=== PATIENT | male | born 1980 | race Two or more races ===

== ENCOUNTER → 2022-08-27 15:06 | Outpatient (BNVA) | payer MEDICAID, SELFPAY | PROVIDERS: PCP Nurse Practitioner; Visit Provider Nurse Practitioner Family | DX: N40.1 Benign prostatic hyperplasia with lower urinary tract symptoms (principal); R39.14 Feeling of incomplete bladder emptying; N39.0 Urinary tract infection, site not specified | CPT/HCPCS: 99202 ==

== ENCOUNTER 2022-09-17 12:39 | Outpatient (REF) | payer MEDICAID, SELFPAY ==
[2022-09-17 15:52] LABS: PSA,Total (Free>4and<10) 9.48 ng/mL (0.00-4.00)
[2022-09-18 11:34] LABS: Free Prostate Spec Ag 0.5 ng/mL; Percent Free Prostate Spec Ag 6 % (calc) (>25); Prostate Specific Ag Total 8.2 ng/mL (< OR = 4.0)
== END 2022-09-17 12:40 | disposition home or self-care (01) ==
LOC: HO.10HDL 12:39
PROVIDERS: Visit Provider Nurse Practitioner Family
DX: Z12.5 Encounter for screening for malignant neoplasm of prostate (principal); R97.20 Elevated prostate specific antigen [PSA]; N40.1 Benign prostatic hyperplasia with lower urinary tract symptoms
CPT/HCPCS: 36415; 84153; 84154

== ENCOUNTER 2022-09-17 12:49 | Emergency (ER) | payer MEDICAID, SELFPAY ==
--- NOTE | ~2022-09-17 | XR_ITS ---
EXAMINATION: XR CHEST CLINICAL INFORMATION: Cough and SOB COMPARISON: None TECHNIQUE: Frontal view of the chest was obtained. FINDINGS: The lungs are well-expanded and clear. The heart size and pulmonary vascularity is normal. There is hypertrophic bony changes left posterior fourth rib likely callus formation or lesion. No previous exams available for comparison. XR/XR chest 1V IMPRESSION: No acute process seen. Are slightly hypertrophied bone left posterior fourth rib question callus formation versus underlying lesion. Correlate with clinical history.
--- NOTE | 2022-09-17 13:08 | ECG_ITS ---
Test Reason : CP Blood Pressure : / mmHG Vent. Rate : 061 BPM Atrial Rate : 061 BPM P-R Int : 132 ms QRS Dur : 076 ms QT Int : 376 ms P-R-T Axes : 041 -12 011 degrees QTc Int : 378 ms Normal sinus rhythm Minimal voltage criteria for LVH, may be normal variant ( R in aVL ) Borderline ECG No previous ECGs available Referred By: Liudmila Munoz Electronically Signed By:EARNEST AGUIRRE
--- NOTE | 2022-09-17 13:08 | ED_ITS ---
HPI - Chest Pain General Chief Complaint: Upper Respiratory Symptoms <RAHEEM Richardson - Last Filed: 09/17/22 13:13> Stated Complaint: Cough Chest Discomfort <RAHEEM Richardson - Last Filed: 09/17/22 13:13> Time Seen by Provider: 09/17/22 14:59 <RAHEEM Richardson - Last Filed: 09/17/22 13:13> Source: patient and chief port director <Nedra Shah MD - Last Filed: 09/17/22 17:12> Mode of arrival: ambulatory <Nedra Shah MD - Last Filed: 09/17/22 17:12> History of Present Illness HPI narrative: 42-year-old male with history of renal transplant due to hypertension, this was done in [place] and patient has recently moved here approximately 2 months ago and states that he started having cough and congestion shortly after Thanksgiving and states that it has continued despite taking pzet-gae-hcaditv cough medication. Patient states he does have a primary care provider but did not get seen for this persistent cough. He denies any associated fever or chills and has not missed any of his renal transplant medications and states he has plenty of the medication currently. He was seeing Urology today and has a referral to see Nephrology. Patient states that the cough last night was much stronger and also he noted he had some left-sided chest discomfort which prompted him to come into the emergency room today. <Nedra Shah MD - Last Filed: 09/17/22 17:12> Related Data Home Medications: Home Medications Medication Instructions Recorded Confirmed famotidine 40 mg tablet (Pepcid) 40 mg PO BEDTIME 08/27/22 08/27/22 metoprolol tartrate 50 mg tablet 50 mg PO BID 08/27/22 08/27/22 mycophenolate sodium 360 mg 360 mg PO TID 08/27/22 08/27/22 tablet,delayed release prednisone 5 mg tablet 5 mg PO DAILY 08/27/22 08/27/22 tacrolimus 1 mg capsule, 2 mg PO Q12H 08/27/22 08/27/22 immediate-release Previous Rx's Medication Instructions Recorded ascorbic acid (vitamin C) 1,000 mg 1,000 mg PO DAILY 90 days #90 tabs 08/27/22 tablet methenamine hippurate 1 gram tablet 1 g PO daily 90 days #90 tabs 08/27/22 cefdinir 300 mg capsule 300 mg PO Q12H #14 caps 09/17/22 <RAHEEM Richardson - Last Filed: 09/17/22 13:13> Allergies/Adverse Reactions: Allergies Allergy/AdvReac Type Severity Reaction Status Date / Time No Known Allergies Allergy Verified 08/27/22 22:17 <RAHEEM Richardson - Last Filed: 09/17/22 13:13> Review of Systems Review of Systems: Pertinent positives and negatives as stated in HPI. <Nedra Shah MD - Last Filed: 09/17/22 17:12> PMFSH Past Medical History Source: nursing notes reviewed <Nedra Shah MD - Last Filed: 09/17/22 17:12> Medical History: Medical History Benign prostatic hyperplasia with incomplete bladder emptying BPH loc w urin obs/LUTS Dialysis patient Elevated PSA Recurrent UTI Testicular cyst <RAHEEM Richardson - Last Filed: 09/17/22 13:13> Surgical History: Surgical History Kidney transplant recipient <RAHEEM Richardson - Last Filed: 09/17/22 13:13> Social History Social History: Social History Advance Directives: No Advance Directives Information Provided: No <RAHEEM Richardson - Last Filed: 09/17/22 13:13> Physical Exam Vital Signs: Vital Signs: Last Vital Signs Temp 97.8 F 09/17/22 13:11 Pulse 65 09/17/22 13:11 Resp 18 09/17/22 13:11 BP 134/78 09/17/22 13:11 Pulse Ox 98 09/17/22 13:11 O2 Del Method 09/17/22 13:11 BMI result Body Mass Index 29.5 <RAHEEM Richardson - Last Filed: 09/17/22 13:13> Vital Signs: Last Vital Signs Temp 97.8 F 09/17/22 13:11 Pulse 65 09/17/22 13:11 Resp 18 09/17/22 13:11 BP 134/78 09/17/22 13:11 Pulse Ox 98 09/17/22 13:11 O2 Del Method 09/17/22 13:11 BMI result Body Mass Index 29.5 VITAL SIGNS: Reviewed. GENERAL: Well developed, well nourished, in no acute distress. HEAD: Normocephalic/atraumatic EYES: PERRLA, EOMI EARS: Ext canals without abnormality OROPHARYNX: no oral lesions noted, posterior pharynx clear LUNGS: Normal breath sounds, no tachypnea/wheeze/rhonchi/rales. SpO2<98> CARDIOVASCULAR: Regular rate and rhythm without noted murmurs, no JVD or lower extremity edema. ABDOMEN: Soft, non-tender, non-distended with bowel sounds. MUSCULOSKELETAL: No tenderness, deformities, or effusions noted on gross inspection. EXTREMITIES: No cyanosis, clubbing or edema LEFT UPPER EXTREMITY: AV fistula noted at the distal left upper extremity without thrill or bruit SKIN: Inspection of the skin reveals no rashes NEUROLOGIC: Alert and oriented x 4. Strength and sensation to light touch were grossly intact x 4. <Nedra Shah MD - Last Filed: 09/17/22 17:12> Course Course Course Narrative: RME--42yo M w/PMHx HTN, BPH, s/p kidney transplant '17 in [place] 2/2 uncontrolled HTN, presenting to the ED complaining of dry cough x 1 mos now with chest congestion, and chest discomfort with cough x today On exam lungs CTA, no pedal edema EKG, COVID-19/influenza/RSV and CXR ordered <RAHEEM Richardson - Last Filed: 09/17/22 13:13> Medical Decision Making Medical Decision Making MDM Narrative: 42-year-old male with persistent cough and left-sided chest discomfort and significant past history of renal transplant and triage EKG noted to have peaked T-waves. Patient appears well at this time My a review and interpretation of the workup is that patient has stable CKD, there is a noted leukocytosis and patient is known to have recurrent UTIs with presumable colonization, but given the fact that he has a leukocytosis and positive nitrites in the urine will provide patient with antibiotics and instruct him to follow-up with his primary care provider regarding the urine culture results. Chest x-ray is negative for evidence of pneumonia, belly exam is benign and no evidence to suggest PE. There is no protein noted in the urine. Patient may just simply have a chronic cough. He otherwise appears well and is hemodynamically stable. <Nedra Shah MD - Last Filed: 09/17/22 17:12> Differential Diagnosis Differential Diagnoses: The differential diagnosis associated with the presentation includes <Nedra Shah MD - Last Filed: 09/17/22 17:12> I will rule out infection, PE, electrolyte abnormality, and lower clinical suspicion for pneumonia or viral infection. <Nedra Shah MD - Last Filed: 09/17/22 17:12> Lab Data Result Diagrams: : 09/17/22 15:21 09/17/22 15:21 <RAHEEM Richardson - Last Filed: 09/17/22 13:13> Labs: Lab Results 09/17/22 09/17/22 09/17/22 Range/Units 13:30 15:21 15:21 WBC 12.7 H (4.8-10.8) X10*3/uL RBC 5.15 (4.60-5.80) X10*6/uL Hgb 15.2 (14.0-18.0) g/dl Hct 46.1 (42.0-52.0) % MCV 89.5 (80.0-98.0) fL MCH 29.5 (27.0-33.0) pg MCHC 33.0 (31.0-36.0) g/dl RDW 13.4 (11.0-16.0) % Plt Count 172 (160-400) X10*3/uL MPV 10.0 (9.4-12.4) fL Immature Gran % (Auto) 0.8 H (0.0-0.4) % Neut % (Auto) 82.7 H (45-73) % Lymph % (Auto) 9.1 L (20-40) % [place] % (Auto) 4.7 (2-11) % Eos % (Auto) 2.4 (0-4) % Baso % (Auto) 0.3 (0-2) % Lymph # (Auto) 1.2 (1.2-4.9) X10*3/uL [place] # (Auto) 0.6 (0.1-1.2) X10*3/uL Eos # (Auto) 0.3 (0.0-0.4) X10*3/uL Baso # (Auto) 0.0 (0.0-0.2) X10*3/uL Abs Immat Gran (auto) 0.10 H (0.00-0.03) X10*3/uL Absolute Neuts (auto) 10.5 H (2.0-8.3) x10*3/uL Absolute Nucleated RBC 0.000 (0.0-0.012) X10*3/uL Nucleated RBC % (auto) 0.0 (0.0-0.2) /100WBC D-Dimer High Sensitivty NG/ML Sodium 139 (135-145) mmol/L Potassium 4.8 (3.3-5.1) mmol/L Chloride 104 (96-108) mmol/L Carbon Dioxide 26 (22-29) mmol/L Anion Gap 14 (12-20) BUN 18 H (9-16) mg/dL Creatinine 1.78 H (0.5-1.4) mg/dL Estim Creat Clear Calc 58.9 Estimated GFR 42 Random Glucose 106 (60-115) mg/dL Calcium 9.2 (8.4-10.2) mg/dL Magnesium 1.6 (1.6-2.6) mg/dL Total Bilirubin 0.8 (0.0-1.0) mg/dL AST 21 (5-37) U/L ALT 16 (0-40) U/L Alkaline Phosphatase 89 (39-117) U/L Troponin I High Sens (<3.5-35.0) ng/L Total Protein 6.8 (6.5-8.0) g/dL Albumin 4.5 (3.5-5.0) g/dL Lipase 55 (8-78) U/L Urine Color Urine Appearance Urine pH (5.0-9.0) Ur Specific [place] (1.005-1.025) Urine Protein (Neg-Trace) mg/dL Urine Glucose (UA) (Negative) mg/dL Urine Ketones (Negative) mg/dL Urine Blood (Negative) Urine Nitrite (Negative) Ur Leukocyte Esterase (Negative) Urine RBC (0-2) /HPF Urine WBC (0-5) /HPF Ur Squamous Epith Cells (0-2) /HPF Urine Bacteria (None Seen) Hyaline Casts (0-2) /LPF Influenza Type A (PCR) NEGATIVE (Negative) Influenza Type B (PCR) NEGATIVE (Negative) RSV RNA Qual (PCR) NEGATIVE (Negative) SARS-CoV-2 RNA (RT-PCR) NEGATIVE (Negative) 09/17/22 09/17/22 09/17/22 Range/Units 15:21 15:49 16:45 WBC (4.8-10.8) X10*3/uL RBC (4.60-5.80) X10*6/uL Hgb (14.0-18.0) g/dl Hct (42.0-52.0) % MCV (80.0-98.0) fL MCH (27.0-33.0) pg MCHC (31.0-36.0) g/dl RDW (11.0-16.0) % Plt Count (160-400) X10*3/uL MPV (9.4-12.4) fL Immature Gran % (Auto) (0.0-0.4) % Neut % (Auto) (45-73) % Lymph % (Auto) (20-40) % [place] % (Auto) (2-11) % Eos % (Auto) (0-4) % Baso % (Auto) (0-2) % Lymph # (Auto) (1.2-4.9) X10*3/uL [place] # (Auto) (0.1-1.2) X10*3/uL Eos # (Auto) (0.0-0.4) X10*3/uL Baso # (Auto) (0.0-0.2) X10*3/uL Abs Immat Gran (auto) (0.00-0.03) X10*3/uL Absolute Neuts (auto) (2.0-8.3) x10*3/uL Absolute Nucleated RBC (0.0-0.012) X10*3/uL Nucleated RBC % (auto) (0.0-0.2) /100WBC D-Dimer High Sensitivty 250 NG/ML Sodium (135-145) mmol/L Potassium (3.3-5.1) mmol/L Chloride (96-108) mmol/L Carbon Dioxide (22-29) mmol/L Anion Gap (12-20) BUN (9-16) mg/dL Creatinine (0.5-1.4) mg/dL Estim Creat Clear Calc Estimated GFR Random Glucose (60-115) mg/dL Calcium (8.4-10.2) mg/dL Magnesium (1.6-2.6) mg/dL Total Bilirubin (0.0-1.0) mg/dL AST (5-37) U/L ALT (0-40) U/L Alkaline Phosphatase (39-117) U/L Troponin I High Sens 3.8 (<3.5-35.0) ng/L Total Protein (6.5-8.0) g/dL Albumin (3.5-5.0) g/dL Lipase (8-78) U/L Urine Color Yellow Urine Appearance Clear Urine pH 6.5 (5.0-9.0) Ur Specific [place] 1.010 (1.005-1.025) Urine Protein Negative (Neg-Trace) mg/dL Urine Glucose (UA) Negative (Negative) mg/dL Urine Ketones Negative (Negative) mg/dL Urine Blood Negative (Negative) Urine Nitrite Positive H (Negative) Ur Leukocyte Esterase Large (3+) H (Negative) Urine RBC 0-2 (0-2) /HPF Urine WBC >50 H (0-5) /HPF Ur Squamous Epith Cells 0-2 (0-2) /HPF Urine Bacteria 4+ (None Seen) Hyaline Casts 0-2 (0-2) /LPF Influenza Type A (PCR) (Negative) Influenza Type B (PCR) (Negative) RSV RNA Qual (PCR) (Negative) SARS-CoV-2 RNA (RT-PCR) (Negative) <RAHEEM Richardson - Last Filed: 09/17/22 13:13> Lab Results 09/17/22 09/17/22 09/17/22 Range/Units 13:30 15:21 15:21 WBC 12.7 H (4.8-10.8) X10*3/uL RBC 5.15 (4.60-5.80) X10*6/uL Hgb 15.2 (14.0-18.0) g/dl Hct 46.1 (42.0-52.0) % MCV 89.5 (80.0-98.0) fL MCH 29.5 (27.0-33.0) pg MCHC 33.0 (31.0-36.0) g/dl RDW 13.4 (11.0-16.0) % Plt Count 172 (160-400) X10*3/uL MPV 10.0 (9.4-12.4) fL Immature Gran % (Auto) 0.8 H (0.0-0.4) % Neut % (Auto) 82.7 H (45-73) % Lymph % (Auto) 9.1 L (20-40) % [place] % (Auto) 4.7 (2-11) % Eos % (Auto) 2.4 (0-4) % Baso % (Auto) 0.3 (0-2) % Lymph # (Auto) 1.2 (1.2-4.9) X10*3/uL [place] # (Auto) 0.6 (0.1-1.2) X10*3/uL Eos # (Auto) 0.3 (0.0-0.4) X10*3/uL Baso # (Auto) 0.0 (0.0-0.2) X10*3/uL Abs Immat Gran (auto) 0.10 H (0.00-0.03) X10*3/uL Absolute Neuts (auto) 10.5 H (2.0-8.3) x10*3/uL Absolute Nucleated RBC 0.000 (0.0-0.012) X10*3/uL Nucleated RBC % (auto) 0.0 (0.0-0.2) /100WBC D-Dimer High Sensitivty NG/ML Sodium 139 (135-145) mmol/L Potassium 4.8 (3.3-5.1) mmol/L Chloride 104 (96-108) mmol/L Carbon Dioxide 26 (22-29) mmol/L Anion Gap 14 (12-20) BUN 18 H (9-16) mg/dL Creatinine 1.78 H (0.5-1.4) mg/dL Estim Creat Clear Calc 58.9 Estimated GFR 42 Random Glucose 106 (60-115) mg/dL Calcium 9.2 (8.4-10.2) mg/dL Magnesium 1.6 (1.6-2.6) mg/dL Total Bilirubin 0.8 (0.0-1.0) mg/dL AST 21 (5-37) U/L ALT 16 (0-40) U/L Alkaline Phosphatase 89 (39-117) U/L Troponin I High Sens (<3.5-35.0) ng/L Total Protein 6.8 (6.5-8.0) g/dL Albumin 4.5 (3.5-5.0) g/dL Lipase 55 (8-78) U/L Urine Color Urine Appearance Urine pH (5.0-9.0) Ur Specific [place] (1.005-1.025) Urine Protein (Neg-Trace) mg/dL Urine Glucose (UA) (Negative) mg/dL Urine Ketones (Negative) mg/dL Urine Blood (Negative) Urine Nitrite (Negative) Ur Leukocyte Esterase (Negative) Urine RBC (0-2) /HPF Urine WBC (0-5) /HPF Ur Squamous Epith Cells (0-2) /HPF Urine Bacteria (None Seen) Hyaline Casts (0-2) /LPF Influenza Type A (PCR) NEGATIVE (Negative) Influenza Type B (PCR) NEGATIVE (Negative) RSV RNA Qual (PCR) NEGATIVE (Negative) SARS-CoV-2 RNA (RT-PCR) NEGATIVE (Negative) 09/17/22 09/17/22 09/17/22 Range/Units 15:21 15:49 16:45 WBC (4.8-10.8) X10*3/uL RBC (4.60-5.80) X10*6/uL Hgb (14.0-18.0) g/dl Hct (42.0-52.0) % MCV (80.0-98.0) fL MCH (27.0-33.0) pg MCHC (31.0-36.0) g/dl RDW (11.0-16.0) % Plt Count (160-400) X10*3/uL MPV (9.4-12.4) fL Immature Gran % (Auto) (0.0-0.4) % Neut % (Auto) (45-73) % Lymph % (Auto) (20-40) % [place] % (Auto) (2-11) % Eos % (Auto) (0-4) % Baso % (Auto) (0-2) % Lymph # (Auto) (1.2-4.9) X10*3/uL [place] # (Auto) (0.1-1.2) X10*3/uL Eos # (Auto) (0.0-0.4) X10*3/uL Baso # (Auto) (0.0-0.2) X10*3/uL Abs Immat Gran (auto) (0.00-0.03) X10*3/uL Absolute Neuts (auto) (2.0-8.3) x10*3/uL Absolute Nucleated RBC (0.0-0.012) X10*3/uL Nucleated RBC % (auto) (0.0-0.2) /100WBC D-Dimer High Sensitivty 250 NG/ML Sodium (135-145) mmol/L Potassium (3.3-5.1) mmol/L Chloride (96-108) mmol/L Carbon Dioxide (22-29) mmol/L Anion Gap (12-20) BUN (9-16) mg/dL Creatinine (0.5-1.4) mg/dL Estim Creat Clear Calc Estimated GFR Random Glucose (60-115) mg/dL Calcium (8.4-10.2) mg/dL Magnesium (1.6-2.6) mg/dL Total Bilirubin (0.0-1.0) mg/dL AST (5-37) U/L ALT (0-40) U/L Alkaline Phosphatase (39-117) U/L Troponin I High Sens 3.8 (<3.5-35.0) ng/L Total Protein (6.5-8.0) g/dL Albumin (3.5-5.0) g/dL Lipase (8-78) U/L Urine Color Yellow Urine Appearance Clear Urine pH 6.5 (5.0-9.0) Ur Specific [place] 1.010 (1.005-1.025) Urine Protein Negative (Neg-Trace) mg/dL Urine Glucose (UA) Negative (Negative) mg/dL Urine Ketones Negative (Negative) mg/dL Urine Blood Negative (Negative) Urine Nitrite Positive H (Negative) Ur Leukocyte Esterase Large (3+) H (Negative) Urine RBC 0-2 (0-2) /HPF Urine WBC >50 H (0-5) /HPF Ur Squamous Epith Cells 0-2 (0-2) /HPF Urine Bacteria 4+ (None Seen) Hyaline Casts 0-2 (0-2) /LPF Influenza Type A (PCR) (Negative) Influenza Type B (PCR) (Negative) RSV RNA Qual (PCR) (Negative) SARS-CoV-2 RNA (RT-PCR) (Negative) <Nedra Shah MD - Last Filed: 09/17/22 17:12> Independent Interpretation I performed an independent interpretation of an: EKG <Nedra Shah MD - Last Filed: 09/17/22 17:12> Interpretation: Normal sinus rhythm, HR-61, no STEMI, peaked T-waves appreciated in lead V2/V3 <Nedra Shah MD - Last Filed: 09/17/22 17:12> External Record Review External record reviewed: Office record <Nedra Shah MD - Last Filed: 09/17/22 17:12> Reviewed patient's urology visit notes which states that patient had his renal transplant in 2016, moved here in May, and currently has to self cath and has chronic UTIs. There is also mention a left testicular lump that has been previously ultrasound in [place] and found to be a cyst. Patient was on dialysis from [id number]. Patient has BPH with elevated PSA. <Nedra Shah MD - Last Filed: 09/17/22 17:12> Critical Care Time Critical Care Time Critical Care Time: Yes <Nedra Shah MD - Last Filed: 09/17/22 17:12> Total Critical Care Time: 30 <Nedra Shah MD - Last Filed: 09/17/22 17:12> Attestation: I personally attest to this time spent taking care of the patient. <Nedra Shah MD - Last Filed: 09/17/22 17:12> Discharge Plan Discharge Clinical Impression: Chronic cough, Recurrent UTI <RAHEEM Richardson - Last Filed: 09/17/22 13:13> Patient Disposition: Home, Self-Care <RAHEEM Richardson - Last Filed: 09/17/22 13:13> Instructions: Urinary Tract Infection in Men (ED), Chronic Cough (ED) <RAHEEM Richardson - Last Filed: 09/17/22 13:13> Additional Instructions: 1. Recomiende que reanude todos los medicamentos caseros seg?n lo prescrito. 2. Le he recetado un antibi?erma para willis infecci?n del tracto urinario, entiendo que tiene infecciones recurrentes del tracto urinario, deber? realizar un s eguimiento con urolog?a o willis proveedor de atenci?n primaria para que puedan verificar los resultados del cultivo de orina en el pr?ximo 1-2 d?as 3. Anita un seguimiento con willis proveedor de atenci?n primaria en los pr?ximos 1 o 2 d?as. Regrese a la junior de emergencias si los s?ntomas empeoran. 1. Recommend that you resume all home medications as prescribed. 2. I have prescribed an antibiotic for your urinary tract infection, I understand that you have recurrent urinary tract infections, you will need to follow-up with urology or your primary care provider so that they can check on the urine culture results in the next 1-2 days. 3. Please follow-up with your primary care provider in the next 1-2 days. Return to the ER for any worsening symptoms. <RAHEEM Richardson - Last Filed: 09/17/22 13:13> Prescriptions: New cefdinir 300 mg capsule 300 mg PO Q12H Qty: 14 0RF No Action metoprolol tartrate 50 mg tablet 50 mg PO BID prednisone 5 mg tablet 5 mg PO DAILY mycophenolate sodium 360 mg tablet,delayed release (DR/EC) 360 mg PO TID tacrolimus 1 mg capsule 2 mg PO Q12H famotidine [Pepcid] 40 mg tablet 40 mg PO BEDTIME ascorbic acid (vitamin C) 1,000 mg tablet 1,000 mg PO DAILY 90 Days Qty: 90 1RF methenamine hippurate 1 gram tablet 1 g PO daily 90 Days Qty: 90 1RF <RAHEEM Richardson - Last Filed: 09/17/22 13:13> Referrals: [facility] [Primary Care Provider] - Rossana Carmona MD [Physician] - (UTI, seen 09/17/2022 at Urology office, started on abx(cefdinir) here in ER but has hx renal transplant which seems stable at this time.) <RAHEEM Richardson - Last Filed: 09/17/22 13:13> Print Language: Taiwanese <RAHEEM Richardson - Last Filed: 09/17/22 13:13>
[2022-09-17 13:11] VITALS: BP 134/78; PULSE 65; RESP 18; TEMP 36.6; O2SAT 98; BMI 29.5
[2022-09-17 14:22] LABS: Influenza A PCR NEGATIVE (Negative); Influenza B PCR NEGATIVE (Negative); Resp Syncy Virus RNA Qual PCR NEGATIVE (Negative); SARS COV2 PCR INHOUSE NEGATIVE (Negative)
[2022-09-17 15:25] LABS: MANUAL DIFF FLAG NO
[2022-09-17 15:41] LABS: Basophils Percent Auto 0.3 % (0-2); Eosinophils Absolute Auto 0.3 X10*3/uL (0.0-0.4); Eosinophils Percent Auto 2.4 % (0-4); Hematocrit 46.1 % (42.0-52.0); Hemoglobin 15.2 g/dl (14.0-18.0); Imm Gran Pct Auto 0.8 % (0.0-0.4); Lymphocytes Absolute Auto 1.2 X10*3/uL (1.2-4.9); Lymphocytes Percent Auto 9.1 % (20-40); Mean Corpuscular Hemoglobin 29.5 pg (27.0-33.0); Mean Corpuscular Volume 89.5 fL (80.0-98.0); Monocytes Absolute Auto 0.6 X10*3/uL (0.1-1.2); Monocytes Percent Auto 4.7 % (2-11); Neutrophils Absolute Auto 10.5 x10*3/uL (2.0-8.3); Neutrophils Percent Auto 82.7 % (45-73); Platelet Count 172 X10*3/uL (160-400); Red Blood Count 5.15 X10*6/uL (4.60-5.80); Red Cell Distribution Width 13.4 % (11.0-16.0); White Blood Count 12.7 X10*3/uL (4.8-10.8)
[2022-09-17 16:02] LABS: D Dimer High Sensitivity 250 NG/ML
[2022-09-17 16:09] LABS: Alanine Aminotransferase 16 U/L (0-40); Albumin Level 4.5 g/dL (3.5-5.0); Alkaline Phosphatase 89 U/L (39-117); Anion Gap 14 (12-20); Aspartate Amino Transferase 21 U/L (5-37); Bilirubin Total 0.8 mg/dL (0.0-1.0); Blood Urea Nitrogen 18 mg/dL (9-16); Calcium 9.2 mg/dL (8.4-10.2); Carbon Dioxide 26 mmol/L (22-29); Chloride 104 mmol/L (96-108); Creatinine Clr Calc Pharmacy 58.9; Estimated Glomerular Filt Rate 42; Glucose Random 106 mg/dL (60-115); Lipase 55 U/L (8-78); Magnesium 1.6 mg/dL (1.6-2.6); Potassium 4.8 mmol/L (3.3-5.1); Sodium 139 mmol/L (135-145); Total Protein 6.8 g/dL (6.5-8.0)
[2022-09-17 16:17] LABS: Troponin-I High Sensitivity 3.8 ng/L (<3.5-35.0)
[2022-09-17 16:55] LABS: Appearance Urine Clear; Color Urine Yellow; Glucose Urine UA Negative (Negative); Leukocyte Esterase Urine Large (3+) (Negative); Nitrite Urine Positive (Negative); PH 6.5 (5.0-9.0); UMIC TRIGGER UACC YES; Urine Blood Negative (Negative); Urine Ketones Negative (Negative); Urine Protein Negative (Neg-Trace)
[2022-09-17 16:57] LABS: Bacteria Urine 4+ (None Seen); Hyaline Casts Urine 0-2 /LPF (0-2); RBC Urine 0-2 /HPF (0-2); Squamous Epithelial Cell Urine 0-2 /HPF (0-2); UACC Culture Trigger YES; WBC Urine >50 /HPF (0-5)
== END 2022-09-17 17:25 | disposition home or self-care (01) ==
PROVIDERS: Physician Assistant; Emergency Provider Student in an Organized Health Care Education/Training Program
DX: R05.3 Chronic cough (principal); N39.0 Urinary tract infection, site not specified; B96.20 Unspecified Escherichia coli [E. coli] as the cause of diseases classified elsewhere; Z20.828 Contact with and (suspected) exposure to other viral communicable diseases; Z87.440 Personal history of urinary (tract) infections
CPT/HCPCS: 0241U; 36415; 71045; 80053; 81001; 83690; 83735; 84484; 85025; 85379; 87086; 87088; 87186; 93005; 99283

== ENCOUNTER → 2022-09-24 11:10 | Outpatient (BNVA) | payer MEDICAID, SELFPAY | PROVIDERS: Visit Provider Nurse Practitioner Family | DX: R97.20 Elevated prostate specific antigen [PSA] (principal); N40.1 Benign prostatic hyperplasia with lower urinary tract symptoms | CPT/HCPCS: 99212 ==

== ENCOUNTER → 2022-10-07 13:27 | Outpatient (BNVA) | payer MEDICAID, SELFPAY | PROVIDERS: Visit Provider Urology | DX: N40.1 Benign prostatic hyperplasia with lower urinary tract symptoms (principal); N13.8 Other obstructive and reflux uropathy; N31.9 Neuromuscular dysfunction of bladder, unspecified; N39.0 Urinary tract infection, site not specified | CPT/HCPCS: 52000; 99212 ==

== ENCOUNTER 2022-10-16 12:01 | Outpatient (REF) | payer MEDICAID, SELFPAY ==
--- NOTE | ~2022-10-16 | XR_ITS ---
EXAMINATION: XR CHEST 2 VIEWS CLINICAL INFORMATION: Chronic cough. COMPARISON: Radiographs dated 09/17/2022. TECHNIQUE: Frontal and lateral views of the chest were obtained. FINDINGS: The heart, great vessels, pulmonary vasculature and mediastinum are normal. The lungs show no focal infiltrate, effusion or pneumothorax. There is no acute osseous abnormality. Again, there is bony hypertrophy of the anterior left fourth rib, possibly a healing/healed fracture. XR/XR chest 2V IMPRESSION: 1. No focal infiltrate or congestive heart failure is seen. 2. There is stable hypertrophy of the anterior left fourth rib, possibly bony remodeling from a chronic fracture, although underlying lesion cannot be excluded with certainty given this appearance. Recommend comparison with any available remote outside radiographs. If clinically indicated, consider further evaluation with a dedicated left rib series.
== END 2022-10-16 12:02 | disposition home or self-care (01) ==
LOC: HO.XRAY 12:01
PROVIDERS: PCP Nurse Practitioner; Visit Provider Nurse Practitioner
DX: R05.3 Chronic cough (principal)
CPT/HCPCS: 71046

== ENCOUNTER 2022-10-22 11:38 | Outpatient (REF) | payer MEDICAID, SELFPAY ==
--- NOTE | ~2022-10-22 | XR_ITS ---
EXAMINATION: XR RIBS, LEFT CLINICAL INFORMATION: Reason for Exam chronic cough, r/o bony abnormality COMPARISON: Chest radiograph 10/16/2022 TECHNIQUE: 3 views of the Left ribs. 1 view of the chest. FINDINGS: Again seen is an expansile somewhat lucent appearing lesion in the anterior left first rib. Surgical clips in the upper thorax. Clear lungs. No pneumothorax. No pleural effusion. Normal cardiomediastinal silhouette. XR/XR ribs LT min 3V w CXR1V IMPRESSION: Again seen is an expansile somewhat lucent appearing lesion in the left anterior first rib, possibly sequelae of remote fracture deformity however an underlying lesion could appear similar. Recommend correlation with a CT chest or if any remote prior imaging is available to establish stability a comparison can be made.
== END 2022-10-22 11:39 | disposition home or self-care (01) ==
LOC: HO.XRAY 11:38
PROVIDERS: PCP Nurse Practitioner; Visit Provider Nurse Practitioner
DX: R05.3 Chronic cough (principal); R93.7 Abnormal findings on diagnostic imaging of other parts of musculoskeletal system
CPT/HCPCS: 71101

== ENCOUNTER 2022-12-04 11:28 | Outpatient (REF) | payer MEDICAID, SELFPAY ==
--- NOTE | ~2022-12-04 | XR_ITS ---
EXAMINATION: XR CERVICAL AND LUMBAR SPINE: CLINICAL INFORMATION: Chronic neck pain and back pain. COMPARISON: None. FINDINGS: LUMBAR SPINE: There is normal lumbar lordosis. Minimal loss of L5-S1 disc height seen. The rest of the disc heights, vertebral heights and alignment are normal. No visible acute fracture, dislocation or lytic process seen. The SI joints are symmetrical. CERVICAL SPINE: There is mild straightening of the cervical lordosis. The vertebral heights and alignment are normal. No visible acute fracture, dislocation or lytic process seen. The neural foramina are patent. No soft tissue abnormality seen. XR/XR cervical spine 4V IMPRESSION: 1. Mild degenerative L5-S1 disc changes. 2. Unremarkable cervical spine exam.
--- NOTE | ~2022-12-04 | XR_ITS ---
EXAMINATION: XR CERVICAL AND LUMBAR SPINE: CLINICAL INFORMATION: Chronic neck pain and back pain. COMPARISON: None. FINDINGS: LUMBAR SPINE: There is normal lumbar lordosis. Minimal loss of L5-S1 disc height seen. The rest of the disc heights, vertebral heights and alignment are normal. No visible acute fracture, dislocation or lytic process seen. The SI joints are symmetrical. CERVICAL SPINE: There is mild straightening of the cervical lordosis. The vertebral heights and alignment are normal. No visible acute fracture, dislocation or lytic process seen. The neural foramina are patent. No soft tissue abnormality seen. XR/XR lumbar spine 2-3V IMPRESSION: 1. Mild degenerative L5-S1 disc changes. 2. Unremarkable cervical spine exam.
== END 2022-12-04 11:29 | disposition home or self-care (01) ==
LOC: HO.XRAY 11:28
PROVIDERS: Visit Provider Registered Nurse
DX: M54.2 Cervicalgia (principal); M54.41 Lumbago with sciatica, right side; M54.42 Lumbago with sciatica, left side
CPT/HCPCS: 72050; 72100

== ENCOUNTER 2022-12-16 12:54 | Outpatient (REF) | payer MEDICAID, SELFPAY ==
--- NOTE | ~2022-12-16 | CT_ITS ---
EXAMINATION: CT CHEST WITHOUT CONTRAST CLINICAL INFORMATION: Chronic cough. COMPARISON: None available. TECHNIQUE: Multidetector volumetric CT imaging of the chest was done. Axial MIP volume rendering provided. Sagittal and coronal reformatted images were obtained. This CT examination was performed using dose optimization techniques as appropriate, variously including the following: *Automated exposure control *Adjustment of mA and/or kV according to patient size (this includes techniques or standardized protocols for targeted exams where dose is matched to indication/reason for exam; i.e. extremities or head) *Use of iterative reconstruction technique DLP: 190 mGy-cm. FINDINGS: PRE PLANNING ADVISOR: Expanded lungs without acute process. LUNGS: The lungs are well expanded and clear of acute process. A 3 mm subpleural nodule is seen in left upper lobe axial image 218/5. No additional nodules seen. MEDIASTINUM: The thyroid lobes are symmetrical and normal. The central trachea and the bronchi are widely patent. Heart size and the great vessels are normal caliber. There is no pericardial effusion. No abnormal size mediastinal lymph nodes or mass. CORONARY ARTERY CALCIFICATION: None visualized on this study. PLEURA: There is no pleural effusion. No pleural mass or thickening. AXILLA: No lymphadenopathy. UPPER ABDOMEN: Visualized liver, spleen, pancreas and bilateral adrenal glands are unremarkable. OSSEOUS STRUCTURES: No aggressive lytic or sclerotic process seen. CT/CT chest wo IV con IMPRESSION: No acute cardiopulmonary process seen. A 3 mm subpleural nodule left upper lobe. Fleischner guidelines were followed.
== END 2022-12-16 12:55 | disposition home or self-care (01) ==
LOC: HO.CT 12:54
PROVIDERS: PCP Nurse Practitioner; Visit Provider Nurse Practitioner
DX: R05.3 Chronic cough (principal); R93.7 Abnormal findings on diagnostic imaging of other parts of musculoskeletal system; N18.9 Chronic kidney disease, unspecified; Z94.0 Kidney transplant status
CPT/HCPCS: 71250

== ENCOUNTER 2023-01-23 14:29 | Outpatient (REF) | payer MEDICAID, SELFPAY ==
[2023-01-24 11:32] LABS: Tacrolimus Prograf 8.6 NG/ML ((5-20))
== END 2023-01-23 14:30 | disposition home or self-care (01) ==
LOC: HO.LAB 14:29
PROVIDERS: Visit Provider Registered Nurse
DX: N41.9 Inflammatory disease of prostate, unspecified (principal); Z94.0 Kidney transplant status
CPT/HCPCS: 36415; 80197

== ENCOUNTER 2023-01-28 16:25 | Outpatient (REF) | payer MEDICAID, SELFPAY | END 2023-01-28 16:26 | disposition home or self-care (01) | LOC: HO.LNP 16:25 | PROVIDERS: Visit Provider Registered Nurse | DX: N41.9 Inflammatory disease of prostate, unspecified (principal); Z94.0 Kidney transplant status | CPT/HCPCS: 87086; 87088; 87186 ==

== ENCOUNTER 2023-04-14 15:28 | Outpatient (AMB) | payer MEDICAID, SELFPAY ==
--- NOTE | 2023-04-14 16:02 | A.OFFVIS_ITS ---
Intake Intake Visit Reasons: 6m follow up/MRI(SET) Intake Note: Patient is present for Follow Up MRI Urology Med: Methenamine Antibiotic Allergy:None Blood Thinner: None Pharmacy: [facility] Allergies No Known Allergies Allergy (Verified 10/07/22 14:10) Medication List - Last Reconciled 04/14/23 by Brandon Correa MD ascorbic acid (vitamin C) 1,000 mg PO DAILY 90 days cefdinir 300 mg PO Q12H famotidine (Pepcid) 40 mg PO BEDTIME methenamine hippurate 1 g PO daily 90 days metoprolol tartrate 50 mg PO BID mycophenolate sodium 360 mg PO TID prednisone 5 mg PO DAILY tacrolimus 2 mg PO Q12H tadalafil 20 mg PO ONCE PRN 30 days trimethoprim 100 mg PO DAILY 90 days HPI HPI Comments History of Present Illness Details Tate is a pleasant Mauritian-speaking male. The patient of Dr. Greenberg. He is seen for the following urologic conditions - neurogenic bladder - erectile dysfunction - elevated PSA Mauritian translation provided by qualified ophthalmic medical technologist Doing well with clean intermittent catheterization No evidence of infection Discussed MRI results - no area of concern Erectile dysfunction - trial 20 mg tadalafil Requires clean intermittent catheterization for the foreseeable future secondary to neurogenic bladder and renal transplant - trial coude catheter for prostate inflammation Neurogenic bladder Renal transplant 2016 7 years prior dialysis Self catheterization 4 times a day for bladder emptying secondary to neurogenic bladder Associated recurring UTI Associated elevated PSA 10/06 9.4 6% PSA biopsy performed in [place] 2020 and reported as negative Cystoscopy 10/06 NAD MRI - 03/06 - PI-RADS 2 Therapeutic plan - prostate MRI 6 months PSA - suppression therapy with combination methenamine and trimethoprim PFSH Medical History Benign prostatic hyperplasia with incomplete bladder emptying BPH loc w urin obs/LUTS Dialysis patient Elevated PSA Recurrent UTI Testicular cyst Surgical History Kidney transplant recipient Review of Systems Const Denies chills and Denies fever(s) Card Reports no additional complaints and Denies syncope Resp Denies cough GI Denies abdominal pain and Denies heartburn Reports as per HPI and Denies change in libido Neuro Denies syncope Psych Denies change in libido Endo Denies change in libido Physical Exam Const General: cooperative, healthy appearing, comfortable and no acute distress Orientation/consciousness: patient oriented x3 HEENT Face and sinus: Yes normal facial exam Mouth: moist mucous membranes Neck Neck: Yes normal visual inspection, Yes full ROM and Yes trachea midline Chest Chest palpation & inspection: normal inspection of the chest Resp Effort & Inspection: normal respiratory effort, able to speak in complete sentences and no respiratory distress GI Inspection: Yes normal to inspection Back/Spine/Pelvis Cervical Spine: normal cervical lordosis Thoracic/Lumbar Spine: thoracic and lumbar spine normal to inspection Skin General skin exam: no rashes or lesions noted Neuro General: patient oriented x3, gait normal, tone normal and moves all extremities Extrem General: Yes normal to inspection and Yes capillary refill normal Assessment & Plan Assessment & Plan (1) Erectile dysfunction: Code(s): N52.9 - Male erectile dysfunction, unspecified (2) Neurogenic urinary bladder disorder: Code(s): N31.9 - Neuromuscular dysfunction of bladder, unspecified Plan Six month follow-up Trial tadalafil Medications: New tadalafil On demand medication take 60 minutes before intended activity 20 mg PO ONCE 30 days PRN 30 tabs 0RF sexual activity N52.9 - Male erectile dysfunction, unspecified Patient Instructions: Imaging studies, laboratory and physical exam results were discussed and reviewed in detail. No major barriers to patient understanding were identified. An opportunity to ask questions regarding the treatment plan was provided. All questions were answered. The patient expressed understanding and agreement with the above treatment plan. The patient is aware they should contact our office by phone for worsening of their current condition or the appearance of new urologic symptoms. Compliance is encouraged with any medications and followup testing that is ordered. It is a privilege to participate in the urologic care of your patient. If you have any questions or concerns regarding treatment for the above conditions, or other urologic issues, please do not hesitate to contact me. The office t elephone contact is [phone]. This note is constructed using voice recognition software. While every effort has been made to ensure accuracy bark peeler errors may have been included. Yours sincerely, Dr Brandon Correa MD, [facility] [place] - Urology Providers of Expert, Compassionate Care for the Genitourinary System Coding Level of Care Code Est Pt Level 4 (21930) Diagnoses Erectile dysfunction N52.9 Neurogenic urinary bladder disorder N31.9
== END 2023-04-14 16:28 | disposition home or self-care (01) ==
PROVIDERS: Visit Provider Urology
DX: N52.9 Male erectile dysfunction, unspecified (principal); N31.9 Neuromuscular dysfunction of bladder, unspecified
CPT/HCPCS: 99214

== ENCOUNTER → 2023-04-14 15:28 | Outpatient (BNVA) | payer MEDICAID, SELFPAY | PROVIDERS: Visit Provider Urology | DX: N31.9 Neuromuscular dysfunction of bladder, unspecified (principal); N40.1 Benign prostatic hyperplasia with lower urinary tract symptoms; N13.8 Other obstructive and reflux uropathy; R33.8 Other retention of urine; N52.9 Male erectile dysfunction, unspecified; R97.20 Elevated prostate specific antigen [PSA]; Z79.52 Long term (current) use of systemic steroids; Z79.899 Other long term (current) drug therapy; Z94.0 Kidney transplant status | CPT/HCPCS: 99212 ==

== ENCOUNTER 2023-04-17 13:00 | Outpatient (RCR) | payer MEDICAID, SELFPAY ==
[2023-04-09 10:12] VITALS: BP 135/100; PULSE 88; O2SAT 97
== END 2023-04-20 14:39 | disposition home or self-care (01) ==
LOC: HO.PTCHIC 13:00
PROVIDERS: PCP Registered Nurse; Visit Provider Registered Nurse
DX: M54.42 Lumbago with sciatica, left side (principal)
CPT/HCPCS: 97014; 97110; 97112; 97162

== ENCOUNTER 2023-04-22 09:30 | Outpatient (REF) | payer MEDICAID, SELFPAY ==
[2023-04-22 11:29] LABS: MANUAL DIFF FLAG NO
[2023-04-22 11:48] LABS: Basophils Percent Auto 0.5 % (0-2); Eosinophils Absolute Auto 0.3 X10*3/uL (0.0-0.4); Eosinophils Percent Auto 5.6 % (0-4); Hematocrit 46.4 % (42.0-52.0); Hemoglobin 15.6 g/dl (14.0-18.0); Imm Gran Abs Auto 0.02 X10*3/uL (0.00-0.03); Imm Gran Pct Auto 0.3 % (0.0-0.4); Lymphocytes Absolute Auto 1.4 X10*3/uL (1.2-4.9); Mean Corpuscular HGB Conc 33.6 g/dl (31.0-36.0); Mean Corpuscular Hemoglobin 29.7 pg (27.0-33.0); Mean Corpuscular Volume 88.2 fL (80.0-98.0); Mean Platelet Volume 9.9 fL (9.4-12.4); Monocytes Absolute Auto 0.4 X10*3/uL (0.1-1.2); Monocytes Percent Auto 6.6 % (2-11); Neutrophils Absolute Auto 3.9 x10*3/uL (2.0-8.3); Platelet Count 189 X10*3/uL (160-400); Red Blood Count 5.26 X10*6/uL (4.60-5.80); Red Cell Distribution Width 12.9 % (11.0-16.0); White Blood Count 6.1 X10*3/uL (4.8-10.8)
[2023-04-22 12:09] LABS: Alanine Aminotransferase 18 U/L (0-40); Albumin Level 4.2 g/dL (3.5-5.0); Alkaline Phosphatase 73 U/L (39-117); Anion Gap 16 (12-20); Aspartate Amino Transferase 26 U/L (5-37); Bilirubin Total 0.9 mg/dL (0.0-1.0); Blood Urea Nitrogen 12 mg/dL (9-16); Calcium 8.4 mg/dL (8.4-10.2); Carbon Dioxide 24 mmol/L (22-29); Chloride 105 mmol/L (96-108); Estimated Glomerular Filt Rate 47; Glucose Random 106 mg/dL (60-115); Potassium 3.6 mmol/L (3.3-5.1); Sodium 141 mmol/L (135-145); Total Protein 6.6 g/dL (6.5-8.0)
[2023-04-22 12:16] LABS: B Type Natriuretic Peptide < 10 pg/mL (<100)
== END 2023-04-22 09:31 | disposition home or self-care (01) ==
LOC: HO.HHCL 09:30
PROVIDERS: Visit Provider Internal Medicine
DX: R23.3 Spontaneous ecchymoses (principal); I10 Essential (primary) hypertension; Z94.0 Kidney transplant status
CPT/HCPCS: 36415; 80053; 83880; 85025

== ENCOUNTER 2023-04-27 18:12 | Outpatient (REF) | payer MEDICAID, SELFPAY | END 2023-04-27 18:13 | disposition home or self-care (01) | LOC: HO.HHCLNP 18:12 | PROVIDERS: Visit Provider Internal Medicine Geriatric Medicine | DX: T83.511A Infection and inflammatory reaction due to indwelling urethral catheter, initial encounter (principal); N39.0 Urinary tract infection, site not specified | CPT/HCPCS: 87086 ==

== ENCOUNTER 2023-06-11 | Outpatient (REF) | payer MEDICAID, SELFPAY ==
[2023-06-12 12:35] LABS: Influenza A PCR NEGATIVE (Negative); Influenza B PCR NEGATIVE (Negative); Resp Syncy Virus RNA Qual PCR NEGATIVE (Negative); SARS COV2 PCR INHOUSE NEGATIVE (Negative)
== END 2023-06-11 00:01 | disposition home or self-care (01) ==
LOC: HO.HHCLNP
PROVIDERS: Visit Provider Emergency Medicine
DX: Z20.822 Contact with and (suspected) exposure to COVID-19 (principal); J06.9 Acute upper respiratory infection, unspecified
CPT/HCPCS: 0241U; 87070

== ENCOUNTER 2023-07-23 11:57 | Outpatient (REF) | payer MEDICAID, SELFPAY ==
[2023-07-23 13:48] LABS: Anion Gap 11 (12-20); Blood Urea Nitrogen 17 mg/dL (9-16); Calcium 9.1 mg/dL (8.4-10.2); Carbon Dioxide 25 mmol/L (22-29); Chloride 106 mmol/L (96-108); Estimated Glomerular Filt Rate 44; Glucose Random 119 mg/dL (60-115); Potassium 4.4 mmol/L (3.3-5.1); Sodium 138 mmol/L (135-145)
[2023-07-23 17:41] LABS: Appearance Urine Clear; Color Urine Yellow; Glucose Urine UA Negative (Negative); Leukocyte Esterase Urine Moderate (2+) (Negative); Nitrite Urine Positive (Negative); PH 5.5 (5.0-9.0); Specific Gravity - Urine 1.015 (1.005-1.025); UMIC TRIGGER UACC YES; Urine Blood Trace (Negative); Urine Ketones Negative (Negative); Urine Protein Trace mg/dL (Neg-Trace)
[2023-07-23 17:43] LABS: Bacteria Urine 4+ (None Seen); Hyaline Casts Urine 0-2 /LPF (0-2); RBC Urine 0-2 /HPF (0-2); Squamous Epithelial Cell Urine 0-2 /HPF (0-2); UACC Culture Trigger YES; WBC Urine >50 /HPF (0-5)
== END 2023-07-23 11:58 | disposition home or self-care (01) ==
LOC: HO.HHCL 11:57
PROVIDERS: Visit Provider Internal Medicine
DX: R10.9 Unspecified abdominal pain (principal); N18.9 Chronic kidney disease, unspecified
CPT/HCPCS: 36415; 80048; 81001; 87086; 87088; 87186

== ENCOUNTER 2023-10-20 15:16 | Outpatient (AMB) | payer MEDICAID, SELFPAY ==
--- NOTE | 2023-10-20 15:36 | A.OFFVIS_ITS ---
Intake Intake Visit Reasons: 6m follow up Intake Note: Patient is Present for Follow Up Med Review Urology Medication: Tadalafil Antibiotic Allergies: None Blood Thinners:none Allergies No Known Allergies Allergy (Verified 10/07/22 14:10) Medication List - Last Reconciled 10/20/23 by Brandon Correa MD ascorbic acid (vitamin C) 1,000 mg PO DAILY 90 days cefdinir 300 mg PO Q12H famotidine (Pepcid) 40 mg PO BEDTIME methenamine hippurate 1 g PO daily 90 days metoprolol tartrate 50 mg PO BID mycophenolate sodium 360 mg PO TID prednisone 5 mg PO DAILY tacrolimus 2 mg PO Q12H tadalafil 20 mg PO ONCE PRN 30 days trimethoprim 100 mg PO DAILY 90 days HPI HPI Comments History of Present Illness Details Tate is a pleasant Mohawk-speaking male. The patient of Dr. Greenberg. He is seen for the following urologic conditions - neurogenic bladder - erectile dysfunction - elevated PSA Mohawk translation provided by qualified medical device assembler No infections since last visit Has been happy with current fulguration Doing well with clean intermittent catheterization No evidence of infection Discussed MRI results - no area of concern Erectile dysfunction - trial 20 mg tadalafil Requires clean intermittent catheterization for the foreseeable future secondary to neurogenic bladder and renal transplant - uses 14 [place] coude catheter reduce p rostatic inflammation Neurogenic bladder Renal transplant 2016 7 years prior dialysis Self catheterization 4 times a day for bladder emptying secondary to neurogenic bladder Associated recurring UTI Associated elevated PSA 10/06 9.4 6% PSA biopsy performed in [place] 2020 and reported as negative Cystoscopy 10/06 NAD MRI - 03/06 - PI-RADS 2 Therapeutic plan - prostate MRI 6 months PSA - suppression therapy with combination m ethenamine and trimethoprim PFSH Medical History Dialysis patient Testicular cyst Benign prostatic hyperplasia with incomplete bladder emptying Recurrent UTI BPH loc w urin obs/LUTS Elevated PSA Surgical History Kidney transplant recipient Review of Systems Const Denies chills and Denies fever(s) Card Reports no additional complaints and Denies syncope Resp Denies cough GI Denies abdominal pain and Denies heartburn Reports as per HPI and Denies change in libido Neuro Denies syncope Psych Denies change in libido Endo Denies change in libido Physical Exam Const General: cooperative, healthy appearing, comfortable and no acute distress Orientation/consciousness: patient oriented x3 HEENT Face and sinus: Yes normal facial exam Mouth: moist mucous membranes Neck Neck: Yes normal visual inspection, Yes full ROM and Yes trachea midline Chest Chest palpation & inspection: normal inspection of the chest Resp Effort & Inspection: normal respiratory effort, able to speak in complete sentences and no respiratory distress GI Inspection: Yes normal to inspection Back/Spine/Pelvis Cervical Spine: normal cervical lordosis Thoracic/Lumbar Spine: thoracic and lumbar spine normal to inspection Skin General skin exam: no rashes or lesions noted Neuro General: patient oriented x3, gait normal, tone normal and moves all extremities Extrem General: Yes normal to inspection and Yes capillary refill normal Assessment & Plan Assessment & Plan (1) Neurogenic urinary bladder disorder: Code(s): N31.9 - Neuromuscular dysfunction of bladder, unspecified (2) Erectile dysfunction: Code(s): N52.9 - Male erectile dysfunction, unspecified Plan Six-month follow-up Continue vitamin-C and methenamine Patient Instructions: Imaging studies, laboratory and physical exam results were discussed and reviewed in detail. No major barriers to patient understanding were identified. An opportunity to ask questions regarding the treatment plan was provided. All questions were answered. The patient expressed understanding and agreement with the above treatment plan. The patient is aware they should contact our office by phone for worsening of their current condition or the appearance of new urologic symptoms. Compliance is encouraged with any medications and followup testing that is ordered. It is a privilege to participate in the urologic care of your patient. If you have any questions or concerns regarding treatment for the above conditions, or other urologic issues, please do not hesitate to contact me. The office telephone contact is [phone]. This note is constructed using voice recognition software. While every effort has been made to ensure accuracy product safety compliance leader errors may have been included. Yours sincerely, Dr Brandon Correa MD, [facility] - Urology Providers of Expert, Compassionate Care for the Genitourinary System Coding Level of Care Code Est Pt Level 4 (86094) Diagnoses Neurogenic urinary bladder disorder N31.9 Erectile dysfunction N52.9
== END 2023-10-20 16:12 | disposition home or self-care (01) ==
PROVIDERS: PCP Registered Nurse; Visit Provider Urology
DX: N31.9 Neuromuscular dysfunction of bladder, unspecified (principal); N52.9 Male erectile dysfunction, unspecified
CPT/HCPCS: 99214

== ENCOUNTER → 2023-10-20 15:16 | Outpatient (BNVA) | payer MEDICAID, SELFPAY | PROVIDERS: PCP Registered Nurse; Visit Provider Urology | DX: N31.9 Neuromuscular dysfunction of bladder, unspecified (principal); N52.9 Male erectile dysfunction, unspecified | CPT/HCPCS: 99212 ==

== ENCOUNTER 2023-11-04 14:59 | Outpatient (REF) | payer MEDICAID, SELFPAY ==
[2023-11-07 08:34] LABS: TS Negative Control Passed; TS Panel A 0; TS Panel B 0; TS Positive Control Passed; TSpotTB Negative (Negative)
== END 2023-11-04 15:00 | disposition home or self-care (01) ==
LOC: HO.HHCL 14:59
PROVIDERS: Visit Provider Nurse Practitioner Family
DX: Z11.1 Encounter for screening for respiratory tuberculosis (principal)
CPT/HCPCS: 36415; 86481

== ENCOUNTER 2023-11-06 18:11 | Outpatient (REF) | payer MEDICAID, SELFPAY ==
[2023-11-06 18:23] LABS: Appearance Urine Cloudy; Color Urine Yellow; Glucose Urine UA Negative (Negative); Leukocyte Esterase Urine Large (3+) (Negative); Nitrite Urine Positive (Negative); UMIC TRIGGER UACC YES; Urine Blood Trace (Negative); Urine Ketones Negative (Negative); Urine Protein 30 (1+) mg/dL (Neg-Trace)
[2023-11-06 18:26] LABS: Bacteria Urine 4+ (None Seen); Hyaline Casts Urine 0-2 /LPF (0-2); RBC Urine 0-2 /HPF (0-2); Squamous Epithelial Cell Urine 0-2 /HPF (0-2); UACC Culture Trigger YES; WBC Urine >50 /HPF (0-5)
== END 2023-11-06 18:12 | disposition home or self-care (01) ==
LOC: HO.HHCLNP 18:11
PROVIDERS: Visit Provider Internal Medicine Geriatric Medicine
DX: N39.9 Disorder of urinary system, unspecified (principal)
CPT/HCPCS: 81001; 87086; 87088; 87186

== ENCOUNTER 2023-11-27 15:30 | Outpatient (REF) | payer MEDICAID, SELFPAY ==
--- NOTE | ~2023-11-27 | XR_ITS ---
EXAMINATION: XR CHEST CLINICAL INFORMATION: Cough and shortness of breath. COMPARISON: Chest radiograph dated 10/22/2022. TECHNIQUE: 2 views of the chest were obtained. FINDINGS: Heart size is normal. The lungs are clear. There is no pleural effusion. There is no pneumothorax. No acute osseous abnormality. Again, there is bony hypertrophy of the anterior left fourth rib, possibly a healed fracture. XR/XR chest 2V IMPRESSION: No acute cardiopulmonary disease.
== END 2023-11-27 15:31 | disposition home or self-care (01) ==
LOC: HO.HHCX 15:30
PROVIDERS: Visit Provider General Practice
DX: R05.1 Acute cough (principal); R06.02 Shortness of breath
CPT/HCPCS: 71046

== ENCOUNTER 2024-03-29 12:43 | Emergency (ER) | payer MEDICAID, SELFPAY ==
--- NOTE | ~2024-03-29 | CT_ITS ---
EXAMINATION: CT HEAD WITHOUT CONTRAST (STROKE PROTOCOL) CLINICAL INFORMATION: Stroke protocol. Right hemiparesis 3 hours prior to admission. COMPARISON: None available. TECHNIQUE: Contiguous axial imaging was performed from the skull base to vertex without intravenous administration of contrast. This CT examination was performed using dose optimization techniques as appropriate, variously including the following: *Automated exposure control *Adjustment of mA and/or kV according to patient size (this includes techniques or standardized protocols for targeted exams where dose is matched to indication/reason for exam; i.e. extremities or head) *Use of iterative reconstruction technique DLP: 796.21 mGy-cm FINDINGS: Ventricles, sulci and cisterns are normal. There is asymmetric anterior medial superior left temporal lobe branching seizure loss with resulting asymmetric widening of left sylvian fissure. There is no midline shift, no abnormal intra- or extra- axial fluid accumulation. Vincent and white matter differentiation is normal. Bone window images show no evidence of skull fracture. Chronic left medial orbital wall fracture, indenting into posterior left ethmoid sinus space is seen. CT/CT head for stroke IMPRESSION: 1. Nonspecific asymmetric anterior superior medial left temporal lobe atrophy with widening of left sylvian fissure is seen, may be due to previous chronic infarction. 2. No intracranial hemorrhage or skull fracture is seen. 3. No evidence of space occupying lesion could be found. 4. The current plain CT scan of the brain shows no diagnostic evidence of acute cerebral infarction. This critical result was discussed with RAHEEM Verma at 1318 hours on 03/29/2024. It was ascertained that the content and urgency of the report was understood at the time of direct communication.
--- NOTE | ~2024-03-29 | MR_ITS ---
EXAMINATION: MR BRAIN WITHOUT CONTRAST CLINICAL INFORMATION: Left upper extremity and left lower extremity weakness. COMPARISON: CT imaging from 03/29/2024. TECHNIQUE: Multiplanar, multisequence imaging of the brain was performed without contrast. FINDINGS: No diffusion abnormalities are identified to suggest an acute or subacute infarct. The ventricles are normal in size. No mass effect or midline shift is seen. Mild scattered white matter signal changes are nonspecific. There are some conspicuous perivascular spaces in the posterior biparietal white matter. No extra-axial fluid collections are seen. The brainstem and cerebellum are normal. The gradient refocused acquisition demonstrates no pathologic magnetic susceptibility artifact to indicate underlying acute or chronic blood products. The craniovertebral junction, marrow signal, and midline structures are normal. The major intracranial flow voids at the level of the knik of Roque are preserved. The dural venous sinus flow voids are maintained. The mastoid air cells are well aerated. There is mild mucosal thickening and a 2 cm retention cyst in the left maxillary sinus. Mild right maxillary sinus and left sphenoid sinus mucosal thickening visible. There is a small retention cyst in the right frontal sinus. Moderate right sphenoid sinus mucosal thickening noted. MR/MR head/brain wo con IMPRESSION: No acute intracranial process. Nonspecific mild scattered white matter signal changes. Moderate right sphenoid sinus mucosal thickening and milder mucosal thickening with scattered small retention cysts elsewhere in the paranasal sinuses.
--- NOTE | ~2024-03-29 | CT_ITS ---
EXAMINATION: CT angio head neck stroke CLINICAL INFORMATION: Question stroke. COMPARISON: CT head 03/29/2024. TECHNIQUE: Programming Engineer images were obtained. A CT angiogram of the head and neck was performed in the arterial phase after the intravenous administration of 70 mL Omnipaque 350. Delayed postcontrast images of the head were also obtained. 3D images were processed on an independent workstation under concurrent supervision. Arterial stenoses are measured in accordance with NASCET criteria or similar method if applicable. This CT examination was performed using dose optimization techniques as appropriate, including one or more of the following: Automated exposure control, iterative reconstruction, and adjustment of technique factors (mA and/or kVp) according to patient size (this includes techniques or standardized protocols for targeted exams where dose is matched to indication/reason for exam). Fleischner Society criteria for the followup of incidental pulmonary nodules was implemented if appropriate. Total exam dose-length product 1667 mGy-cm FINDINGS: Head: Postcontrast images reveal no abnormal intracranial mass or enhancement. No intracranial mass effect or midline shift. Lateral and third ventricles are normal. No hydrocephalus. Vincent-white matter differentiation is preserved and there is no evidence of acute territorial infarct. The calvarium and skull base are intact. Mastoid air cells and middle ear cavities are well aerated. Moderate paranasal sinus disease primarily affecting the sphenoid sinus and there are a few retention cysts within both maxillary sinuses and the right frontal. CT angiogram neck: The aortic arch apex is normal. Origins of the major aortic branches are widely patent. Common carotid arteries and carotid bifurcations are normal. No stenosis of the extracranial internal carotid arteries. Cervical segments of vertebral arteries are patent. CT angiogram head: Intracranial internal carotid arteries are normal. The intradural vertebral artery segments and basilar artery are normal. Anterior, middle, and posterior cerebral artery complexes are normal. No intracranial large vessel occlusion. No identifiable aneurysm or high flow vascular lesion. Other: Soft tissues of the neck including the thyroid gland are normal. Grossly no pathologically enlarged cervical lymph nodes. Visualized lung apices are clear. No acute osseous finding. CT/CT angio head neck stroke IMPRESSION: Normal CT angiogram of the head and neck. No stenosis of the cervical carotid or vertebral arteries. No intracranial large vessel occlusion. No evidence of acute territorial infarct or hemorrhage. No abnormal intracranial mass or enhancement.
--- NOTE | 2024-03-29 12:47 | ECG_ITS ---
Test Reason : stroke ? Blood Pressure : / mmHG Vent. Rate : 069 BPM Atrial Rate : 069 BPM P-R Int : 138 ms QRS Dur : 082 ms QT Int : 362 ms P-R-T Axes : 063 -03 021 degrees QTc Int : 387 ms Normal sinus rhythm Normal ECG When compared with ECG of 17-SEP-2022 14:45, No significant change was found Referred By: Alma Delia Abernathy Electronically Signed By:JANICE BONILLA MD
[2024-03-29 12:53] LABS: Glucose, Whole Blood 114 mg/dL (60-115)
--- NOTE | 2024-03-29 12:55 | ED.NEUROSD ---
HPI - Neuro Symptoms/Deficit General Chief Complaint: Stroke Stated Complaint: STROKE ALERT,SLJIL,L DRIFT,@ 1OAM,-THINNER PER EMS Time Seen by Provider: 03/29/24 12:54 Source: patient and RN notes reviewed Mode of arrival: ambulatory Limitations: no limitations History of Present Illness ED Provider: Alma Delia Abernathy PA-C HPI Narrative: This is a 44-year-old male, with a history of renal transplant in 2017 - previously on dialysis, neurogenic hypertension, who presents emergency department with report of onset of slurred speech and left upper and lower extremity weakness which started at 9 - 10:00 a.m. this morning. Patient reports that he woke up feeling okay, states that when he was walking he noticed left arm and left leg weakness. He reports a slight headache and dizziness, no changes in vision. He reports he had an episode of chest pain yesterday which has since resolved.. Reporting no chest pain at this time. He has no saddle anesthesia, no urinary or bowel retention or incontinence. Onset (ago): hour(s) Time: 10:00 Timing confirmed by: caregiver Location: left arm and left leg Severity: moderate Context: sudden onset On Anticoagulants: No Associated symptoms: denies other symptoms Related Data Home Medications ?Medication ?Instructions ?Recorded ?Confirmed famotidine 40 mg tablet (Pepcid) 40 mg PO BEDTIME PRN Acid Reflux 08/27/22 03/29/24 mycophenolate sodium 360 mg 360 mg PO TID 08/27/22 03/29/24 tablet,delayed release prednisone 5 mg tablet 5 mg PO DAILY 08/27/22 03/29/24 tacrolimus 1 mg capsule, 2 mg PO Q12H 08/27/22 03/29/24 immediate-release acetaminophen 500 mg capsule 500 mg PO QID PRN Pain 03/29/24 03/29/24 amlodipine 10 mg tablet 10 mg PO DAILY 03/29/24 03/29/24 lisinopril 5 mg tablet 5 mg PO DAILY 03/29/24 03/29/24 methenamine hippurate 1 gram tablet 1 g PO DAILY 03/29/24 03/29/24 oxcarbazepine 300 mg tablet 300 mg PO DAILY 03/29/24 03/29/24 oxcarbazepine 300 mg tablet 600 mg PO BEDTIME 07/16/24 07/16/24 prazosin 2 mg capsule 4 mg PO BEDTIME 03/29/24 03/29/24 quetiapine 100 mg tablet 100 mg PO BEDTIME 03/29/24 03/29/24 quetiapine 25 mg tablet 25 mg PO TID 03/29/24 03/29/24 Previous Rx's ?Medication ?Instructions ?Recorded ascorbic acid (vitamin C) 1,000 mg 1,000 mg PO DAILY 90 days #90 tabs 09/16/23 tablet trimethoprim 100 mg tablet 100 mg PO DAILY 90 days #90 tabs 10/19/23 cefuroxime axetil 500 mg tablet 500 mg PO Q12H #14 tabs 03/29/24 Allergies Allergy/AdvReac Type Severity Reaction Status Date / Time No Known Allergies Allergy Verified 03/29/24 12:59 Review of Systems Review of Systems: Yes all other systems are reviewed and are negative Constitutional: Constitutional: Reports as per [facility] Past Medical History Attestation statement: The following information was validated with the patient. Medical History Dialysis patient Testicular cyst Benign prostatic hyperplasia with incomplete bladder emptying Recurrent UTI BPH loc w urin obs/LUTS Elevated PSA Surgical History Kidney transplant recipient Physical Exam Vital Signs: Vital Signs: Last Vital Signs Temp 98.3 F 03/29/24 19:40 Pulse 68 03/29/24 19:40 Resp 16 03/29/24 19:40 BP 142/90 H 03/29/24 19:40 Pulse Ox 99 03/29/24 19:40 O2 Del Method Room Air 03/29/24 19:40 BMI result Body Mass Index 30.3 Const: General: cooperative, comfortable and no acute distress Orientation/consciousness: patient oriented x3 Limitations: no limitations HEENT: Head: Yes normal to inspection, Yes normocephalic and Yes atraumatic Ears: hearing grossly normal bilaterally General nose exam: Normal external nose present Face and sinus: Yes normal facial exam Mouth: Normal oral and palatal mucosa present, oropharynx normal and moist mucous membranes Throat: Yes posterior oropharynx normal Eyes: General: appearance normal, both eyes and all related structures Eyelids: Yes eyelids normal Conjunctivae: conjunctivae normal Sclerae: sclerae normal Pupils: Equal, round and reactive pupils present EOM: EOMs intact bilaterally Neck: Neck: Yes normal visual inspection, Yes full ROM and Yes no lymphadenopathy Lymphatic: no lymphadenopathy noted Chest: Chest palpation & inspection: normal inspection of the chest Resp: Effort & Inspection: normal respiratory effort and able to speak in complete sentences Auscultation: clear to auscultation bilaterally, no crackles, no rales, no rhonchi and no wheezes Cardio: Rate: regular rate Rhythm: regular rhythm Heart sounds: S1 normal heart sound present and S2 normal heart sound present GI: Inspection: Yes normal to inspection Skin: General skin exam: no rashes or lesions noted Trauma: no lacerations or abrasions Wounds: no wounds Neuro: Other: Left upper extremity with 3/5 commercial real estate appraiser strength, lower extremitty with 3/5 strength. Slight pronator drift on the left, approximately 1 inch but does not touch bed. Finger to nose test able to be performed however with some dysmetria, more pronounced on the left. General: patient oriented x3 and moves all extremities Cranial nerves: Yes Equal, round and reactive pupils present Extrem: General: Yes normal to inspection Right upper extremity: normal to inspection Left upper extremity: normal to inspection Right lower extremity: normal to inspection Left lower extremity: normal to inspection Course Reevaluation(s) Reevaluation #1: Patient was immediately brought to the CT scan, [facility] cause revealing no acute process however there is asymmetry and atrophy in the left superior temporal region, nonacute, reporting that this is probably a recent chronic left infarct however given age, Dr. Escudero was contacted to see if he has a tPA candidate. Time: 13:23 Reevaluation #2: Dr. Escudero reports that he is not a tPA canidate. Discussed with Dr. Nowak, will peform swallow study and administer ASA. pending additional workup. At this time, patient appears to be comfortable, vital signs within normal limits. We will continue to closely monitor pending workup Time: 13:32 Reevaluation #3: Patient re-evaluated, reporting some dizziness, CTA still pending at this time. Time: 14:19 Additional Reevaluation(s): 1520 - CTA head and neck revealing no acute abnormalities. No stenosis of the cervical carotid or vertebral arteries, no intracranial large vessel occlusion, no evidence of acute territorial infarct or hemorrhage. No abnormal intracranial mass or enhancement. Given concerns for upper and lower extremity weakness with associated ataxia, patient will need admission for further workup and management. Patient also has MILEY on CKD with renal transplant well as left sided weakness. Patient also has evidence of a urinary tract infection with positive nitrites, leuk esterases, and wbc's. 1623 - patient is still with upper and lower left extremity weakness. I discussed this case with hospitalist, Dr. Varma. Marya Rodriguez PA-C as well as Donna You RN from neurology, they are all thinking that patient could get MRI and discharge from the ED if it is negative. Dr. Escudero is thinking this is more towards a complex migraine - okay with discharge from the ER if MRI is negative. Hospitalist reporting that this is not an MILEY as a would have to be 2.2 through 2.3, if the MRI is positive the hospitalist will admit. I ordered the MRI, they are able to do this at 8:30 p.m. tonight. Patient may or may not need PT/case management given profound weakness if MRI is negative. Patient started on IV fluids and cefuroxime for UTI. Sign-out was given to my colleague, Matthew Hernandez PA-C pending MRI results. 19:16- patient's MRI shows no acute pathology. When I evaluated the patient, he does have profound weakness in the left lower extremity as well as left upper extremity. His commercial real estate appraiser strength is 3/5 compared to 5/5 on the right. Flexion-extension at the waist of the left lower extremity is 2/5 compared to 5/5 on the right. Discussed with the hospitalist again, who feels that since the patient was cleared by neurology with a normal MRI the patient does not require admission. The patient has no interest in case management, Physical therapy evaluation and would like to be discharged home. Will attempt ambulation trial just to ensure the patient is able to walk. He states he does have a cane at home due to chronic back pain 19:27- patient was able to ambulate around the room. He was slightly unsteady but adamantly refuses case management and physical therapy evaluation. He states he has a brother who lives with him he was able to help if he needs it. Medications Administered Discontinued Medications Generic Name Dose Route Start Last Admin Trade Name Freq PRN Reason Stop Dose Admin Aspirin 325 mg 03/29/24 13:37 07/16/24 13:43 Aspirin 325 Mg Tablet PO 03/29/24 13:38 325 mg ONCE ONE Administration Cefuroxime Axetil 500 mg 03/29/24 16:14 03/29/24 16:38 Cefuroxime Axetil 500 Mg Tablet PO 03/29/24 16:15 500 mg ONCE ONE Administration Sodium Chloride 1,000 mls @ 500 mls/hr 03/29/24 16:12 03/29/24 16:39 Ns IV 03/29/24 18:11 500 mls/hr .Q2H ONE Administration Medical Decision Making Medical Decision Making [facility] Narrative: This is a 44-year-old male, with a history of CKD stage 3, hypertension, who presents emergency department with onset of slurred speech and left upper and lower extremity weakness which started at 10:00 a.m. this morning. I saw patient at bedside outside of CT scan, notable left arm and left leg weakness. He is alert and oriented x4. +Left arm drift, No facial droop, some dysarthria with [id number] test. At this time, patient has a NIH stroke score of 6. Stroke alert initiated. Plan: Labs, EKG, CT head, CT head and neck Differential Diagnosis Differential Diagnoses: The differential diagnosis associated with the presentation includes CVA, ICH, SDH, electrolyte derangement Admission/Observation Consideration of admission/observation: Escalation of care including admission/observation considered Escalation of care including admission/observation considered however given workup today not warranted at this time. Consult Healthcare Provider Management of the patient was discussed with: [employer] Dr. Escudero Lab Data [facility] Lab Attestation statement: I reviewed the patient's lab results. No leukocytosis, stable H&H, creatinine slightly elevated at 2.03, baseline appears to be around 1.7, elevated triglycerides, cholesterol, LDL, HDL low at 28. 03/29/24 12:48 03/29/24 12:48 Labs: Lab Results 03/29/24 03/29/24 03/29/24 Range/Units 12:46 12:48 12:57 WBC 9.7 (4.8-10.8) X10*3/uL RBC 4.77 (4.60-5.80) X10*6/uL Hgb 14.2 (14.0-18.0) g/dl Hct 41.4 L (42.0-52.0) % MCV 86.8 (80.0-98.0) fL MCH 29.8 (27.0-33.0) pg MCHC 34.3 (31.0-36.0) g/dl RDW 12.4 (11.0-16.0) % Plt Count 197 (160-400) X10*3/uL MPV 9.0 L (9.4-12.4) fL Immature Gran % (Auto) 0.5 H (0.0-0.4) % Neut % (Auto) 85.9 H (45-73) % Lymph % (Auto) 8.9 L (20-40) % Duval % (Auto) 4.2 (2-11) % Eos % (Auto) 0.3 (0-4) % Baso % (Auto) 0.2 (0-2) % Lymph # (Auto) 0.9 L (1.2-4.9) X10*3/uL Duval # (Auto) 0.4 (0.1-1.2) X10*3/uL Eos # (Auto) 0.0 (0.0-0.4) X10*3/uL Baso # (Auto) 0.0 (0.0-0.2) X10*3/uL Abs Immat Gran (auto) 0.05 H (0.00-0.03) X10*3/uL Absolute Neuts (auto) 8.3 (2.0-8.3) x10*3/uL Absolute Nucleated RBC 0.000 (0.0-0.012) X10*3/uL Nucleated RBC % (auto) 0.0 (0.0-0.2) /100WBC Hold Purple Top SEE NOTE PT 11.2 (11.1-13.3) SEC Whole Blood PT 13.3 (11.1-13.5) sec INR 0.9 (0.9-1.1) Whole Blood INR 1.1 (0.9-1.1) APTT 27.6 (26.0-36.8) SEC Sodium 137 (135-145) mmol/L Potassium 4.1 (3.3-5.1) mmol/L Chloride 104 (96-108) mmol/L Carbon Dioxide 21 L (22-29) mmol/L Anion Gap 16 (12-20) BUN 21 H (9-16) mg/dL Creatinine 2.03 H (0.5-1.4) mg/dL Estim Creat Clear Calc 49.6 Estimated GFR 36 POC Glucose 114 (60-115) mg/dL Random Glucose 107 (60-115) mg/dL Calcium 9.0 (8.4-10.2) mg/dL Troponin I High Sens 13.6 D (<3.5-35.0) ng/L Triglycerides 196 H (<150) mg/dL Cholesterol 208 H (<200) mg/dL LDL Cholesterol, Calc 141 H (<100) mg/dL HDL Cholesterol 28 L (>40) mg/dL Urine Color Urine Appearance Urine pH (5.0-9.0) Ur Specific [place] (1.005-1.025) Urine Protein (Neg-Trace) mg/dL Urine Glucose (UA) (Negative) mg/dL Urine Ketones (Negative) mg/dL Urine Blood (Negative) Urine Nitrite (Negative) Ur Leukocyte Esterase (Negative) Urine RBC (0-2) /HPF Urine WBC (0-5) /HPF Ur Squamous Epith Cells (0-2) /HPF Urine Bacteria (None Seen) Hyaline Casts (0-2) /LPF 03/29/24 03/29/24 Range/Units 14:50 15:47 WBC (4.8-10.8) X10*3/uL RBC (4.60-5.80) X10*6/uL Hgb (14.0-18.0) g/dl Hct (42.0-52.0) % MCV (80.0-98.0) fL MCH (27.0-33.0) pg MCHC (31.0-36.0) g/dl RDW (11.0-16.0) % Plt Count (160-400) X10*3/uL MPV (9.4-12.4) fL Immature Gran % (Auto) (0.0-0.4) % Neut % (Auto) (45-73) % Lymph % (Auto) (20-40) % Duval % (Auto) (2-11) % Eos % (Auto) (0-4) % Baso % (Auto) (0-2) % Lymph # (Auto) (1.2-4.9) X10*3/uL Duval # (Auto) (0.1-1.2) X10*3/uL Eos # (Auto) (0.0-0.4) X10*3/uL Baso # (Auto) (0.0-0.2) X10*3/uL Abs Immat Gran (auto) (0.00-0.03) X10*3/uL Absolute Neuts (auto) (2.0-8.3) x10*3/uL Absolute Nucleated RBC (0.0-0.012) X10*3/uL Nucleated RBC % (auto) (0.0-0.2) /100WBC Hold Purple Top PT (11.1-13.3) SEC Whole Blood PT (11.1-13.5) sec INR (0.9-1.1) Whole Blood INR (0.9-1.1) APTT (26.0-36.8) SEC Sodium (135-145) mmol/L Potassium (3.3-5.1) mmol/L Chloride (96-108) mmol/L Carbon Dioxide (22-29) mmol/L Anion Gap (12-20) BUN (9-16) mg/dL Creatinine (0.5-1.4) mg/dL Estim Creat Clear Calc Estimated GFR POC Glucose (60-115) mg/dL Random Glucose (60-115) mg/dL Calcium (8.4-10.2) mg/dL Troponin I High Sens 16.0 (<3.5-35.0) ng/L Triglycerides (<150) mg/dL Cholesterol (<200) mg/dL LDL Cholesterol, Calc (<100) mg/dL HDL Cholesterol (>40) mg/dL Urine Color Yellow Urine Appearance Clear Urine pH 5.5 (5.0-9.0) Ur Specific [place] 1.015 (1.005-1.025) Urine Protein Negative (Neg-Trace) mg/dL Urine Glucose (UA) Negative (Negative) mg/dL Urine Ketones Negative (Negative) mg/dL Urine Blood Negative (Negative) Urine Nitrite Positive H (Negative) Ur Leukocyte Esterase Moderate (2+) H (Negative) Urine RBC 0-2 (0-2) /HPF Urine WBC 6-10 H (0-5) /HPF Ur Squamous Epith Cells 0-2 (0-2) /HPF Urine Bacteria 4+ (None Seen) Hyaline Casts 0-2 (0-2) /LPF Independent Interpretation I performed an independent interpretation of an: EKG Interpretation: Normal sinus rhythm at a ventricular rate of 69 beats per minute, NC interval 138, QT QTC 362/387, no ST elevation or depression. Radiology Impression Discussion of test interpretation with radiology: I have reviewed the radiologist's reading. Radiologist Impression: CT/CT head for stroke IMPRESSION: 1. Nonspecific asymmetric anterior superior medial left temporal lobe atrophy with widening of left sylvian fissure is seen, may be due to previous chronic infarction. 2. No intracranial hemorrhage or skull fracture is seen. 3. No evidence of space occupying lesion could be found. 4. The current plain CT scan of the brain shows no diagnostic evidence of acute cerebral infarction. This critical result was discussed with RAHEEM Verma at 1318 hours on 03/29/2024. It was ascertained that the content and urgency of the report was understood at the time of direct communication. Dictated By: Tania Parker CT/CT angio head neck stroke IMPRESSION: Normal CT angiogram of the head and neck. No stenosis of the cervical carotid or vertebral arteries. No intracranial large vessel occlusion. No evidence of acute territorial infarct or hemorrhage. No abnormal intracranial mass or enhancement. Dictated By: Sin Nagy MD MR/MR head/brain wo con IMPRESSION: No acute intracranial process. Nonspecific mild scattered white matter signal changes. Moderate right sphenoid sinus mucosal thickening and milder mucosal thickening with scattered small retention cysts elsewhere in the paranasal sinuses. NIH Stroke Scale Internal: Initial- Upon Arrival Time: 12:55 Level of Consciousness: Alert Level of Consciousness Questions: Answers both questions correctly Level of Consciousness Commands: Performs both tasks correctly Best Gaze: Normal Visual: No visual loss Facial Palsy: Normal Motor Arm (Right): No drift Motor Arm (Left): Some effort against gravity Motor Leg (Right): No drift Motor Leg (Left): Some effort against gravity Limb Ataxia: Present in one limb Sensory: Normal Best Language: No aphasia Dysarthia: Mild to moderate dysarthria Extinction and Inattention: No abnormality Score: 6 Critical Care Time Critical Care Time Critical Care Time: Yes Total Critical Care Time: 35 Attestation: I have personally provided critical care time exclusive of time spent on separately billable procedures. Time includes review of lab data, radiology results, discussion with consultants, and monitoring for potential decompensation. Intervention performed as documented. Discharge Plan Discharge Clinical Impression: Left-sided weakness, Acute kidney injury superimposed on chronic kidney disease, Acute UTI (urinary tract infection) Patient Disposition: Home, Self-Care Instructions: Urinary Tract Infection in Men (ED), Weakness (ED) Additional Instructions: Your CT scan as well as brain MRI were both normal and did not explain your symptoms. Neurology felt that your weakness is likely related to a complex migraine You also had a urinary tract infection and mild kidney injury Take the cefuroxime as directed twice daily for 1 week Increase fluid intake Follow-up with your outpatient provider Prescriptions: New cefuroxime axetil 500 mg tablet 500 mg PO Q12H Qty: 14 0RF No Action ascorbic acid (vitamin C) 1,000 mg tablet 1,000 mg PO DAILY 90 Days Qty: 90 1RF trimethoprim 100 mg tablet 100 mg PO DAILY 90 Days Qty: 90 1RF quetiapine 25 mg tablet 25 mg PO TID oxcarbazepine 300 mg tablet 300 mg PO DAILY quetiapine 100 mg tablet 100 mg PO BEDTIME amlodipine 10 mg tablet 10 mg PO DAILY lisinopril 5 mg tablet 5 mg PO DAILY prazosin 2 mg capsule 4 mg PO BEDTIME oxcarbazepine 300 mg tablet 600 mg PO BEDTIME methenamine hippurate 1 gram tablet 1 g PO DAILY acetaminophen [Tylenol Extra Strength] 500 mg Capsule 500 mg PO QID PRN (Reason: Pain) prednisone 5 mg tablet 5 mg PO DAILY mycophenolate sodium 360 mg tablet,delayed release (DR/EC) 360 mg PO TID tacrolimus 1 mg capsule 2 mg PO Q12H famotidine [Pepcid] 40 mg tablet 40 mg PO BEDTIME PRN (Reason: Acid Reflux) Referrals: Fox Escudero MD [Physician] - (left sided weakness) Interventions: ED Discharge Assessment Last Done: 03/29/24 19:40 Discharge Date/Time: 03/29/24 19:41 Print Language: Liberian
[2024-03-29 12:57] LABS: MANUAL DIFF FLAG NO
[2024-03-29 12:58] VITALS: BP 121/75; BP 124/75; PULSE 70; PULSE 77; RESP 18; O2SAT 95; O2SAT 96; BMI 30.3
[2024-03-29 12:59] LABS: Basophils Percent Auto 0.2 % (0-2); Eosinophils Percent Auto 0.3 % (0-4); Hematocrit 41.4 % (42.0-52.0); Hemoglobin 14.2 g/dl (14.0-18.0); Imm Gran Abs Auto 0.05 X10*3/uL (0.00-0.03); Imm Gran Pct Auto 0.5 % (0.0-0.4); Lymphocytes Absolute Auto 0.9 X10*3/uL (1.2-4.9); Lymphocytes Percent Auto 8.9 % (20-40); Mean Corpuscular HGB Conc 34.3 g/dl (31.0-36.0); Mean Corpuscular Hemoglobin 29.8 pg (27.0-33.0); Mean Corpuscular Volume 86.8 fL (80.0-98.0); Monocytes Absolute Auto 0.4 X10*3/uL (0.1-1.2); Monocytes Percent Auto 4.2 % (2-11); Neutrophils Absolute Auto 8.3 x10*3/uL (2.0-8.3); Neutrophils Percent Auto 85.9 % (45-73); Platelet Count 197 X10*3/uL (160-400); Red Blood Count 4.77 X10*6/uL (4.60-5.80); Red Cell Distribution Width 12.4 % (11.0-16.0); White Blood Count 9.7 X10*3/uL (4.8-10.8)
[2024-03-29 13:05] LABS: INTERNATIONAL NORM RATIO 0.9 (0.9-1.1); Prothrombin Time 11.2 SEC (11.1-13.3)
[2024-03-29 13:08] LABS: Partial Thromboplastin Time 27.6 SEC (26.0-36.8)
[2024-03-29 13:13] VITALS: BP 136/78; PULSE 87; RESP 18; O2SAT 93
[2024-03-29 13:20] LABS: Anion Gap 16 (12-20); Blood Urea Nitrogen 21 mg/dL (9-16); Carbon Dioxide 21 mmol/L (22-29); Chloride 104 mmol/L (96-108); Cholesterol 208 mg/dL (<200); Creatinine Clr Calc Pharmacy 49.6; Estimated Glomerular Filt Rate 36; Glucose Random 107 mg/dL (60-115); HDL Cholesterol 28 mg/dL (>40); LDL Cholesterol Calculated 141 mg/dL (<100); Potassium 4.1 mmol/L (3.3-5.1); Sodium 137 mmol/L (135-145); Triglycerides 196 mg/dL (<150)
[2024-03-29 13:27] LABS: Troponin-I High Sensitivity 13.6 ng/L (<3.5-35.0)
--- NOTE | 2024-03-29 13:27 | PC.NURSE ---
Pt BIBA from home for left sided weakness/slurred speech and blurry vision starting this morning. Pt states the slurred speech has resolved but the left sided weakness hasn't. Last known well time was 10am. Upon arrival pt having left sided weakness, unequal strength bilaterally. No facial droop noted, pt is a/ox4, respirations even and unlabored, s1 and s2 heard, abdomen soft and non tender. Pt placed on cardiac monitor technician, normal sinus at this time. CT of head done, labs obtained and sent, 18g IV in right ac, 20g IV in left ac. Pt resting in bed quietly, call hoover within reach. Awaiting further orders at this time.
--- NOTE | 2024-03-29 13:34 | P.CNNE_ITS ---
History of Present Illness Data of Consult Service Date: 03/29/24 HPI Reason for consult: Left-sided numbness 44 years old man with previous history of prostate hypertrophy, multiple UTIs, and diagnosis of neurogenic bladder of unknown etiology came to hospital with insert S. He is at that he was he when he fell that his left. This numbness was traveling down to his toes. He also had mild headache. When I talked to him in emergency room he had slightly vague affect. No obvious convulsion was noted. No chest pain or shortness breath palpitation. Review of Systems 2 Review of Systems: No recent cold or flu-like illness PMFSH Past Medical History Medical History Dialysis patient Testicular cyst Benign prostatic hyperplasia with incomplete bladder emptying Recurrent UTI BPH loc w urin obs/LUTS Elevated PSA Surgical History Surgical History Kidney transplant recipient Meds Allergies Allergy/AdvReac Type Severity Reaction Status Date / Time No Known Allergies Allergy Verified 03/29/24 12:59 Home Medications ?Medication ?Instructions ?Recorded ?Confirmed ?Last Taken ?Type famotidine 40 mg tablet (Pepcid) 40 mg PO BEDTIME 08/27/22 10/20/23 Unknown History metoprolol tartrate 50 mg tablet 50 mg PO BID 08/27/22 10/20/23 Unknown History mycophenolate sodium 360 mg 360 mg PO TID 08/27/22 10/20/23 Unknown History tablet,delayed release prednisone 5 mg tablet 5 mg PO DAILY 08/27/22 10/20/23 Unknown History tacrolimus 1 mg capsule, 2 mg PO Q12H 08/27/22 10/20/23 Unknown History immediate-release Physical Exam 2 Vital Signs: Vital Signs: Last Vital Signs Pulse 87 03/29/24 13:13 Resp 18 03/29/24 13:13 BP 136/78 03/29/24 13:13 Pulse Ox 93 03/29/24 13:13 O2 Del Method Room Air 03/29/24 13:13 BMI result Body Mass Index 30.3 Neuro: Other: He is alert and awake but in somewhat in vague affect. Face is symmetrical. Visual strong are full. Extraocular muscles are intact. There is no pronator drift. Deep tendon reflexes are trace to absent with flexor plantars. There is no leg weakness. Speech is normal Results Labs 03/29/24 12:48 03/29/24 12:48 Labs: Short CBC 03/29/24 Range/Units 12:48 WBC 9.7 (4.8-10.8) X10*3/uL Hgb 14.2 (14.0-18.0) g/dl Hct 41.4 L (42.0-52.0) % Plt Count 197 (160-400) X10*3/uL BMP 03/29/24 12:48 Sodium 137 Potassium 4.1 Chloride 104 Carbon Dioxide 21 L BUN 21 H Creatinine 2.03 H Calcium 9.[address] did not reveal any significant abnormality. Assessment and Plan (1) Left sided numbness: Status: Acute 44 years old man with nonspecific symptoms of left leg numbness traveling with mild headache and wake affect. Overall presentation was more suggestive of migraine than stroke but the presentation was to wake. In any case, I do not recommend treating him with TNK. My recommendation is to obtain a noncontrast MRI of brain to rule out stroke and also maybe put some light into his complain of neurogenic bladder. Otherwise I recommend treatment for migraine. Baby aspirin in emergency room is advise until MRIs complete. Procedures Date of Service Date of Service: 03/29/24
[2024-03-29 13:38] LABS: Stroke Lab Use COMPLETE
[2024-03-29] MEDS: Aspirin 325 MG TABLET PO (13:43)
[2024-03-29 14:20] VITALS: BP 124/80; PULSE 71; RESP 13; TEMP 36.8; O2SAT 97
[2024-03-29 15:57] LABS: Appearance Urine Clear; Color Urine Yellow; Glucose Urine UA Negative (Negative); Leukocyte Esterase Urine Moderate (2+) (Negative); Nitrite Urine Positive (Negative); PH 5.5 (5.0-9.0); Specific Gravity - Urine 1.015 (1.005-1.025); UMIC TRIGGER UACC YES; Urine Blood Negative (Negative); Urine Ketones Negative (Negative); Urine Protein Negative (Neg-Trace)
[2024-03-29 16:03] LABS: Bacteria Urine 4+ (None Seen); Hyaline Casts Urine 0-2 /LPF (0-2); RBC Urine 0-2 /HPF (0-2); Squamous Epithelial Cell Urine 0-2 /HPF (0-2); UACC Culture Trigger YES
[2024-03-29] MEDS: cefuroxime axetiL 500 MG TABLET PO (16:38)
[2024-03-29] MEDS: 0.9 % Sodium Chloride 1,000 ML 500 ML IV (16:39)
[2024-03-29 16:51] VITALS: BP 131/83; PULSE 64; RESP 15; TEMP 36.8; O2SAT 96
--- NOTE | 2024-03-29 19:25 | PHA.MEDREC ---
Pharmacy Consult ? Medication Reconciliation Pharmacy has completed the medication reconciliation. Spoke to Patient though [employer] service (Arsenio) to confirm med list. Patient states he is no longer on Metoprolol tart 50 mg bid because the Dr. changed to Amlodipine 10 mg daily and Lisinopril 5mg daily. Patient stated he takes Oxycarbazepine 300 mg daily and 600 mg at bedtime, and he takes Quetapine 25 mg tid and 100 mg at bedtime. Patient says he brought his meds from home if needed. Informed patient not to take any medication on his own his medication need to go through pharmacy..
[2024-03-29 19:30] VITALS: BP 142/90; PULSE 68; RESP 16; TEMP 36.8; O2SAT 99
--- NOTE | 2024-03-29 19:30 | PC.NURSE ---
Pt aox4 resting at the bedside. No apparent distress noted. Pt expresses desire to go home and does not want to go to rehab. Ambulation trial completed. Pt is able to ambulate with minimal assistance, unsteady gait. Pt utilizes cane at home. Reports brother is at home for assist. MDL made aware.
[2024-03-29 19:40] VITALS: BP 142/90; PULSE 68; RESP 16; TEMP 36.8; O2SAT 99
[2024-03-30 13:39] LABS: Prothrombin Time Whole Bld POC 13.3 sec (11.1-13.5); ~PT, ~INR - Anti Coag Clinic 1.1 (0.9-1.1)
== END 2024-03-29 19:41 | disposition home or self-care (01) ==
PROVIDERS: Physician Assistant Medical; Emergency Provider Emergency Medicine Emergency Medical Services; PCP Nurse Practitioner Family
DX: R53.1 Weakness (principal); N39.0 Urinary tract infection, site not specified; B96.20 Unspecified Escherichia coli [E. coli] as the cause of diseases classified elsewhere; I12.9 Hypertensive chronic kidney disease with stage 1 through stage 4 chronic kidney disease, or unspecified chronic kidney disease; N18.30 Chronic kidney disease, stage 3 unspecified; N17.9 Acute kidney failure, unspecified; Z94.0 Kidney transplant status; Z99.2 Dependence on renal dialysis; R29.706 NIHSS score 6; R20.0 Anesthesia of skin; R47.1 Dysarthria and anarthria; R27.0 Ataxia, unspecified; N40.1 Benign prostatic hyperplasia with lower urinary tract symptoms; Z87.440 Personal history of urinary (tract) infections; Z79.899 Other long term (current) drug therapy
CPT/HCPCS: 36415; 70450; 70496; 70498; 70551; 80048; 80061; 81001; 82947; 84484; 85025; 85610; 85730; 87086; 87088; 87186; 93005; 99285

== ENCOUNTER → 2024-03-29 12:47 | Outpatient (BNV) | payer MEDICAID, SELFPAY | PROVIDERS: Emergency Provider Emergency Medicine Emergency Medical Services; PCP Nurse Practitioner Family; Visit Provider Internal Medicine Cardiovascular Disease | DX: R47.81 Slurred speech (principal) | CPT/HCPCS: 93010 ==

== ENCOUNTER → 2024-03-29 13:32 | Outpatient (BNV) | payer MEDICAID, SELFPAY | PROVIDERS: Emergency Provider Emergency Medicine Emergency Medical Services; PCP Nurse Practitioner Family; Visit Provider Psychiatry & Neurology Neurology | DX: R20.0 Anesthesia of skin (principal) | CPT/HCPCS: 99282 ==

== ENCOUNTER 2024-04-22 09:12 | Outpatient (REF) | payer MEDICAID, SELFPAY ==
[2024-04-22 11:34] LABS: PSA,Total (Free>4and<10) 7.86 ng/mL (0.00-4.00)
[2024-04-25 10:59] LABS: Free Prostate Spec Ag 0.5 ng/mL; Percent Free Prostate Spec Ag 6 % (calc) (>25)
== END 2024-04-22 09:13 | disposition home or self-care (01) ==
LOC: HO.LAB 09:12
PROVIDERS: PCP Nurse Practitioner Family; Visit Provider Urology
DX: R97.20 Elevated prostate specific antigen [PSA] (principal)
CPT/HCPCS: 36415; 84153; 84154

== ENCOUNTER 2024-04-26 11:06 | Outpatient (AMB) | payer MEDICAID, SELFPAY ==
--- NOTE | 2024-04-26 11:07 | MHC.OFFVIS ---
Intake Visit Reasons: PSA lab results, follow-up Intake Note: Patient presents to the office today as a telehealth visit for Follow up/PSA lab results. Urology Medication: None Antibiotic Allergies: None Blood Thinners:none Allergies No Known Allergies Allergy (Verified 04/26/24 11:07) Medication List - Last Reconciled 04/26/24 by Brandon Correa MD acetaminophen 500 mg PO QID PRN amlodipine 10 mg PO DAILY ascorbic acid (vitamin C) 1,000 mg PO DAILY 90 days famotidine (Pepcid) 40 mg PO BEDTIME PRN lisinopril 5 mg PO DAILY methenamine hippurate 1 g PO DAILY 90 days mycophenolate sodium 360 mg PO TID nitrofurantoin macrocrystal 50 mg PO BEDTIME 90 days oxcarbazepine 600 mg PO BEDTIME oxcarbazepine 300 mg PO DAILY prazosin 4 mg PO BEDTIME prednisone 5 mg PO DAILY quetiapine 100 mg PO BEDTIME quetiapine 25 mg PO TID tacrolimus 2 mg PO Q12H HPI Comments Details: Tate is a pleasant Bhutanese-speaking male. The patient of Dr. Greenberg. He is seen for the following urologic conditions - neurogenic bladder - erectile dysfunction - elevated PSA Telemedicine Evaluation 15 min Consultation [employer] Tamia Video Bhutanese translation provided by a friend he is comfortable with Lab work with persistent elevated PSA and low free PSA Three infections since last visit Culture shows E coli resistant to Bactrim, Levaquin, gentamicin Sensitive to nitrofurantoin Cease trimethoprim suppression. Start nitrofurantoin. Doing well with clean intermittent catheterization Erectile dysfunction - 20 mg tadalafil on demand Requires clean intermittent catheterization for the foreseeable future secondary to neurogenic bladder and renal transplant - uses 14 Grenadian coude catheter reduce prostatic inflammation Plan repeat prostate MRI in six-month visit Neurogenic bladder Renal transplant 2016 - 7 years prior dialysis Self catheterization 4 times a day for bladder emptying secondary to neurogenic bladder Associated recurring UTI Associated elevated PSA 10/06 9.4 6%, 05/07 7.9 6% PSA biopsy performed in [place] 2020 and reported as negative Cystoscopy 10/06 NAD MRI - 03/06 - PI-RADS 2 35gm prostate Therapeutic plan - prostate MRI 6 months PSA - suppression therapy with combination methenamine and trimethoprim PFSH Medical History Dialysis patient Testicular cyst Benign prostatic hyperplasia with incomplete bladder emptying Recurrent UTI BPH loc w urin obs/LUTS Elevated PSA Surgical History Kidney transplant recipient Review of Systems Const All systems reviewed & are unremarkable except as noted in HPI and below Reports no additional complaints Resp Reports no additional complaints GI Reports no additional complaints Reports as per HPI Musc Reports no additional complaints Physical Exam Telemedicine evaluation Appropriate responses Regular breathing rate and rhythm HEENT Head: Yes normal to inspection Ears: hearing grossly normal bilaterally Eyes General: appearance normal, both eyes and all related structures Neck Neck: Yes normal visual inspection Chest Chest palpation & inspection: normal inspection of the chest Resp Effort & Inspection: normal respiratory effort and able to speak in complete sentences Telehealth Telehealth Telehealth Platform: Telephone Location of provider rendering services: practice address Location of patient: address on file Patient Identification confirmed using: Name, : Yes Telehealth method: voice only Patient verbally consented to treatment: Yes Patient verbally consented to billing insurance company: Yes Patient informed of any privacy concerns related to visit: Yes Assessment & Plan Assessment & Plan (1) Neurogenic urinary bladder disorder: Code(s): N31.9 - Neuromuscular dysfunction of bladder, unspecified Category: Medical (2) Benign prostatic hyperplasia with incomplete bladder emptying: Code(s): N40.1 - Benign prostatic hyperplasia with lower urinary tract symptoms; R39.14 - Feeling of incomplete bladder emptying Category: Medical (3) Erectile dysfunction: Code(s): N52.9 - Male erectile dysfunction, unspecified Category: Medical Plan Six-month follow-up prostate MRI and lab work Orders: Orders PSA,Total (Free>4and<10) 6 Months R97.20 - Elevated prostate specific antigen [PSA] MR pelvis wo/w con 6 Months R97.20 - Elevated prostate specific antigen [PSA] Medications: New nitrofurantoin macrocrystal must administer with a meal/food 50 mg PO BEDTIME 90 days 90 caps 1RF N39.0 - Urinary tract infection, site not specified Refilled ascorbic acid (vitamin C) 1,000 mg PO DAILY 90 days 90 tabs 1RF methenamine hippurate 1 g PO DAILY 90 days 90 tabs 1RF Patient Instructions: Imaging studies, laboratory and physical exam results were discussed and reviewed in detail. No major barriers to patient understanding were identified. An opportunity to ask questions regarding the treatment plan was provided. All questions were answered. The patient expressed understanding and agreement with the above treatment plan. The patient is aware they should contact our office by phone for worsening of their current condition or the appearance of new urologic symptoms. Compliance is encouraged with any medications and followup testing that is ordered. It is a privilege to participate in the urologic care of your patient. If you have any questions or concerns regarding treatment for the above conditions, or other urologic issues, please do not hesitate to contact me. The office telephone contact is [phone]. This note is constructed using voice recognition software. While every effort has been made to ensure accuracy poultry debeaker errors may have been included. Yours sincerely, Dr Brandon Correa MD, LOC [facility] - Urology Providers of Expert, Compassionate Care for the Genitourinary System Coding Level of Care Code Tele Est Pt Level 4 (89342) Diagnoses Neurogenic urinary bladder disorder N31.9 Benign prostatic hyperplasia with incomplete bladder emptying N40.1; R39.14 Erectile dysfunction N52.9
== END 2024-04-26 12:21 | disposition home or self-care (01) ==
LOC: HO.HUSH 11:06
PROVIDERS: PCP Nurse Practitioner Family; Referring Provider Nurse Practitioner Family; Visit Provider Urology
DX: N31.9 Neuromuscular dysfunction of bladder, unspecified (principal); N40.1 Benign prostatic hyperplasia with lower urinary tract symptoms; R39.14 Feeling of incomplete bladder emptying; N52.9 Male erectile dysfunction, unspecified
CPT/HCPCS: 99214

== ENCOUNTER → 2024-04-26 11:06 | Outpatient (BNVA) | payer MEDICAID, SELFPAY | PROVIDERS: PCP Nurse Practitioner Family; Visit Provider Urology ==

== ENCOUNTER 2024-06-16 09:50 | Outpatient (REF) | payer MEDICAID, SELFPAY ==
[2024-06-16 11:22] LABS: MANUAL DIFF FLAG NO
[2024-06-16 11:30] LABS: Basophils Percent Auto 0.4 % (0-2); Eosinophils Absolute Auto 0.2 X10*3/uL (0.0-0.4); Eosinophils Percent Auto 2.8 % (0-4); Imm Gran Abs Auto 0.03 X10*3/uL (0.00-0.03); Imm Gran Pct Auto 0.4 % (0.0-0.4); Lymphocytes Absolute Auto 0.9 X10*3/uL (1.2-4.9); Lymphocytes Percent Auto 13.1 % (20-40); Mean Corpuscular HGB Conc 34.1 g/dl (31.0-36.0); Mean Corpuscular Hemoglobin 30.1 pg (27.0-33.0); Mean Corpuscular Volume 88.2 fL (80.0-98.0); Mean Platelet Volume 9.6 fL (9.4-12.4); Monocytes Absolute Auto 0.5 X10*3/uL (0.1-1.2); Monocytes Percent Auto 6.8 % (2-11); Neutrophils Absolute Auto 5.4 x10*3/uL (2.0-8.3); Neutrophils Percent Auto 76.5 % (45-73); Platelet Count 161 X10*3/uL (160-400); Red Blood Count 4.65 X10*6/uL (4.60-5.80)
[2024-06-16 11:52] LABS: Alanine Aminotransferase 14 U/L (0-40); Albumin Level 4.3 g/dL (3.5-5.0); Alkaline Phosphatase 75 U/L (39-117); Anion Gap 12 (12-20); Aspartate Amino Transferase 20 U/L (5-37); Bilirubin Total 0.4 mg/dL (0.0-1.0); Blood Urea Nitrogen 16 mg/dL (9-16); Calcium 8.6 mg/dL (8.4-10.2); Carbon Dioxide 24 mmol/L (22-29); Chloride 107 mmol/L (96-108); Cholesterol 196 mg/dL (<200); Estimated Glomerular Filt Rate 52; Glucose Random 117 mg/dL (60-115); HDL Cholesterol 39 mg/dL (>40); LDL Cholesterol Calculated 129 mg/dL (<100); Potassium 4.4 mmol/L (3.3-5.1); Sodium 139 mmol/L (135-145); Total Protein 6.7 g/dL (6.5-8.0); Triglycerides 140 mg/dL (<150)
[2024-06-16 11:57] LABS: TSH reflex Free T4 1.44 uIU/mL (0.32-4.0)
[2024-06-16 12:18] LABS: Folate 9.1 ng/mL (> or = 4.0); Vitamin B12 304 pg/mL (200-900)
[2024-06-18 23:25] LABS: TS Negative Control Passed; TS Panel A 0; TS Panel B 0; TS Positive Control Passed; TSpotTB Negative (Negative)
== END 2024-06-16 09:51 | disposition home or self-care (01) ==
LOC: HO.HHCL 09:50
PROVIDERS: Referring Provider Nurse Practitioner Family; Visit Provider Registered Nurse
DX: Z00.00 Encounter for general adult medical examination without abnormal findings (principal); R20.0 Anesthesia of skin; R20.2 Paresthesia of skin; I10 Essential (primary) hypertension
CPT/HCPCS: 36415; 80053; 80061; 82607; 82746; 84443; 85025; 86481

== ENCOUNTER 2024-09-20 06:16 | Outpatient (REF) | payer MEDICAID, SELFPAY ==
--- NOTE | 2024-09-20 | EMG_ITS ---
Bilateral tibial and peroneal motor studies were performed. Bilateral superficial peroneal and sural sensory studies were performed. Tibial H reflexes were obtained and paraspinal muscles were tested with a needle. 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 MD OLY Senior/BRADLEYL / [phone]
--- OUTSIDE RECORDS SUMMARY | 2024-09-20 06:18 | XMS_ITS | Continuity of Care Document ---
Author Organization [facility] Address [address] [place] [id number] Phone Care Team Providers Care Career Technical Supervisor Name Role Phone Comfort GALLARDO MD, Sin Unavailable Unavai lable Procedures Procedure Date Nurse Visit Only As per patient privacy policy some of the clinical information may not be visible. Advance Directives Directive Yes / No Effective Date File Name No Information Encounters Encounter Description Practice Location Reason(s) For Visit Diagnoses Date Provider Providers Copied on Encounter [facility], [address] [place] [address], [id number], tel:[phone] P GRD [facility] Doctors No Information Comfort Vogt. [address] [place] [address], [id number], [place]. tel:[phone] [facility], [address] [place] [address], [id number], tel:[phone] P SAEID [facility] Doctors No Information Comfort Vogt. [address] [place] [address], [id number], [place]. tel:[phone] [facility], [address] [place] [address], [id number], [place] tel:[phone] P SAEID [facility] Doctors No Information Comfort Vogt. [address] [place] [address], [id number], [place]. tel:[phone] [facility], [address] [place] [address], [id number], [place] tel:[phone] P GRD [facility] Doctors No Information Comfort Vogt. [address] [place] [address], [id number], [place]. tel:[phone] [facility], [address] [place] [address], [address], tel:[phone] B GRD [facility] Therapy No Information Nitesh Storey. [address] [place] [address], [id number], [place]. [facility], [address] [place] [address], [address], tel:[phone] P [facility] General Medicine No Information [facility]CS Nurse. [address] [place] [address], [id number], [place]. tel:[phone] [facility], [address] [place] [address], [id number], tel:[phone] Z [facility] CONV No Information [facility]V [facility]. [address] [place] [address], [id number], [place]. Family History Family Member Type Diagnosis Age At Onset No Information Immunizations Vaccine Date Status Comments [id number], PED/ADL administered Source: New Immuniza tion Record DTP administered Source: New Imm unization Record ORAL POLIO administered Source: New Imm unization Record DTP administered Source: New Imm unization Record ORAL POLIO administered Source: New Imm unization Record [id number], PED/ADL administered Source: New Immuniza tion Record DTP administered Source: New Imm unization Record ORAL POLIO administered Source: New Imm unization Record DTP administered Source: New Imm unization Record ORAL POLIO administered Source: New Imm unization Record DTP administered Source: New Imm unization Record ORAL POLIO administered Source: New Imm unization Record Payers Payer name Insurance type Covered democrat ID Authoriza tion(s) [facility] Medicare [id number] [facility] Medicaid Medical [id number] Social History Type Description Quantity Date Captured [...]
--- OUTSIDE RECORDS SUMMARY | 2024-09-20 06:18 | XMS_ITS ---
Author Name [facility] Organization Unknown Problems Problem Status Onset Date Problem Type Date of Resoluti on Source Complication of transplanted kidney, unspecified complication [facility]
== END 2024-09-20 06:17 | disposition home or self-care (01) ==
LOC: HO.NEURO 06:16
PROVIDERS: PCP Registered Nurse; Visit Provider Registered Nurse
DX: R20.0 Anesthesia of skin (principal); R20.2 Paresthesia of skin
CPT/HCPCS: 95886; 95911

== ENCOUNTER 2024-10-07 10:46 | Outpatient (REF) | payer MEDICAID, SELFPAY ==
[2024-10-07 12:08] LABS: PSA,Total (Free>4and<10) 6.46 ng/mL (0.00-4.00)
--- OUTSIDE RECORDS SUMMARY | 2024-10-07 12:26 | XMS_ITS | Encounter Summary ---
Author Organization [facility] Address [address] [facility] [address] [place] [address] Phone Care Team Providers Care Iron Piler Name Role Phone Chanelle Francis Primary Care Provider [phone] Encounter Details Date Type Department Care Team ([facility] st Contact Info) Description 09/16/2023 Office Communication [facility] [address] [facility] [address] [place] [phone] Asael Morales MD [address] [facility] [address] [place] [phone] Social History Tobacco Use Types Packs/Day Years Used Date Smoking Tobacco: Never Smokeless Tobacco: Never Alcohol Use Standard Drinks/Week Comments Never 0 (1 standard drink = 0.6 oz pur e alcohol) Sex and Gender Information Value Date Recorded Sex Assigned at Not on file Legal Sex Male 11:33 AM EST Gender Identity Not on file Sexual Orientation Not on file documented as of this encounter Miscellaneous Notes * Telephone Encounter - Gema Almendarez RN - 09/17/2023 8:27 AM EST Tacro level is back at 8.6. The tacrolimus levels do not come back until the next day. TRAC resultsare placed in media. Which statin med did you want to start? * Telephone Encounter - Asael Morales MD - 09/16/2023 10:41 PM EST Was a tacro level done 09/16/23 ? LDL elvated and look to start statin Looks like Track ordered 06/2023 but Icant find the result documented in this encounter Plan of Treatment Upcoming Encounters Date Type Department Care Team (Late st Contact Info) Description 01/24/2025 3:00 PM EDT Office Visit [facility] [address] [phone] Asael Morales MD [address] [phone] documented as of this encounter Visit Diagnoses Not on filedocumented in this encounter Care Teams Iron Piler Relationship Specialty Start Date End Date Chanelle Francis [address] [place] [address] PCP - General 09/16/23 documented as of this encounter
--- OUTSIDE RECORDS SUMMARY | 2024-10-07 12:28 | XMS_ITS | Encounter Summary ---
Author Organization [employer] Address [address] [place] [address] [address] [place] [address] Care Team Providers Care Residential Treatment Specialist Name Role Phone Jonathon Greenberg Primary Care Provider Jonathon Jarquin BREAKER OPERATOR Unavailable Unavailable Shawn Murillo Primary Care Provider Unavail able Chanelle FrancisP Primary Care Provider [phone] [facility] Primary Care Provider [phone] Encounter Details Date Type Department Care Team ([facility] Contact Info) Description 10/02/2022 Orders Only [facility] [address] [place], [place] [phone] Aminata Brizuela LPN Social History Tobacco Use Types Packs/Day Years Used Date Smoking Tobacco: Never Assessed Sex and Gender Information Value Date Recorded Sex Assigned at Male 08/06/2022 1:58 PM EST Legal Sex Male 1:55 PM EST Gender Identity Male 08/06/2022 1:58 PM EST Sexual Orientation Choose not to disclose 2021 9:15 PM EST COVID-19 Exposure Response Date Recorded In the last 10 days, have yo u been in contact with someone who was confirmed or suspected to have Coronavirus/COVID-19? Unable to assess 09/25/2022 1:29 PM EST documented as of this encounter Plan of Treatment Upcoming Encounters Date Type Department Care Team (Late Contact Info) Description 10/28/2024 11:30 AM EST Office Visit [facility] [address] [place], [place] [phone] [place] [address] [place], [place] [phone] 12/27/2024 10:30 AM EDT Nurse Only [facility] [address] [place] [address] documented as of this encounter Visit Diagnoses Not on filedocumented in this encounter Care Teams Residential Treatment Specialist Relationship Specialty Start Date End Date Jonathon Greenberg FNP PCP - General Family Medicine 08/06/22 11/09/22 Shawn Murillo AGNP PCP - General Family Medicine 11/10/22 05/27/23 Chanelle Francis FNP [address] [place] [address] PCP - General Family Medicine 05/28/23 05/12/24 [place] FNP [address] [place] [address] PCP - General Family Medicine 05/13/24 Jonathon Greenberg FNP Family Medicine 08/06/22 05/12/24 Josefina He Poultry Farmer [employer] 10/26/23 documented as of this encounter
--- OUTSIDE RECORDS SUMMARY | 2024-10-07 12:28 | XMS_ITS | Clinical Summary ---
Author Organization [facility] Address [address] [address] Phone Care Team Providers Care Pipe Insulator Name Role Phone Penny Chanelle Primary Care Provider [phone] Allergies No known active allergies Medications * This document contains information received from the source organization and may not represent a complete record from that organization. amLODIPine (NORVASC) 5 MG tablet Take 5 mg by mouth 1 (one) time each day Active acetaminophen (TYLENOL) 500 MG tablet Take 500 mg by mouth every 6 (six) hours if needed for mild pain Active methocarbamol (ROBAXIN) 500 MG tablet Take 500 mg by mouth in the morning and 500 mg in the evening. Active OXcarbazepine (TRILEPTAL) 300 MG tablet Take 300 mg by mouth in the morning and 300 mg in the evening. Active Ascorbic Acid 500 MG capsule Take 500 capsules by mouth 1 (one) time each day Active mycophenolate (MYFORTIC) 360 MG EC tablet Take 360 mg by mouth in the morning and 360 mg in the evening. Active predniSONE 5 MG tablet Take 5 mg by mouth 1 (one) time each day Active famotidine (PEPCID) 20 MG tablet Take 20 mg by mouth in the morning and 20 mg in the evening. Active albuterol HFA (PROVENTIL HFA;VENTOLIN HFA) 108 (90 Base) MCG/ACT inhaler Inhale 2 puffs every 6 (six) hours if needed for wheezing Active QUEtiapine (SEROquel) 100 MG tablet Take 100 mg by mouth at bed time 05/28/2023 Active QUEtiapine (SEROquel) 25 MG tablet Take 25 mg by mouth 3 (three) times a day if needed 05/28/2023 Active prazosin (MINIPRESS) 2 MG capsule Take 2 mg by mouth at bed time 04/02/2023 Active atorvastatin (Lipitor) 10 MG tablet Take 1 tablet (10 mg total) by mouth 1 (one) time each day 90 tablet 08/03/2024 11/01/19 25 Active tacrolimus (PROGRAF) 1 MG capsule TAKE 3 CAPSULES BY MOUTH TWICE DAILY IN THE MORNING AND IN THE EVENING 180 capsule 2 08/12/2024 Active Active Problems Problem Noted Date Diagnosed Date Kidney transplant status 06/29/2023 Other secondary hypertension 06/29/2023 Encounters Date Type Department Care Team Description 08/16/2024 Orders Only [facility] [address] [place] [address] Asael Morales MD Kidney transplant status 08/11/2024 Refill [facility] [address] [place] [address] Asael Morales MD 08/03/2024 Office Communication [facility] [address] [place] [address] Asael Morales MD 08/02/2024 3:30 PM EST Office Visit [facility] [address] [place] [address] Asael Morales MD Kidney transplant status (Primary Dx) from Last 3 Months Family History Medical History Relation Comments Cancer Father Heart disease Father Stroke Father Diabetes Mother Hypertension Mother Kidney disease Sister Relation Status Comments Father Mother Sister Social History Tobacco Use Types Packs/Day Years Used Date Smoking Tobacco: Never Smokeless Tobacco: Never Tobacco Cessation:Counseling Given: No Alcohol Use Standard Drinks/Week Comments Never 0 (1 standard drink = 0.6 oz pur e alcohol) Sex and Gender Information Value Date Recorded Sex Assigned at Not on file Legal Sex Male 11:33 AM EST Gender Identity Not on file Sexual Orientation Not on file Last Filed Vital Signs Vital Sign Reading Time Taken Comments Blood Pressure 120/60 08/02/2024 3:42 PM EST Pulse 78 08/02/2024 3:42 PM EST Temperature - - Respiratory Rate - - Oxygen Saturation 98% 08/02/2024 3:42 PM EST Inhaled Oxygen Concentration - - Weight 93.4 kg (206 lb) 08/02/2024 3:42 PM EST Height - - Body Mass Index - - Plan of Treatment Upcoming Encounters Date Type Department Care Team (Late st Contact Info) Description 01/24/2025 3:00 PM EDT Office Visit [facility] [address] [address] Asael Morales MD [address] [phone] Health Maintenance Due Date Last Done Comments Hepatitis B Vaccine (3 of 3 - 19+ 3-dose series) 10/15/2024 05/17/2024, 04/14/2024 Pneumococcal Vaccine: Pediat rics (0 to 5 Years) and At-Risk Patients (6 to 64 Years) Completed 04/29/2023 Influenza Vaccine Completed 06/18/2024 [place] Care Teams Pipe Insulator Relationship Specialty Start Date End Date Chanelle Francis [address] [place] [address] PCP - General 09/16/23
--- OUTSIDE RECORDS SUMMARY | 2024-10-07 12:28 | XMS_ITS | Encounter Summary ---
Author Organization [facility] Address [address] [place] [phone] Phone Care Team Providers Care Backpackers Manager Name Role Phone Chanelle Francis Primary Care Provider Encounter Details Date Type Department Care Team ([facility] Contact Info) Description 08/03/2024 Office Communication [facility] [address] [address] Asael Morales MD [address] [address] Social History Tobacco Use Types Packs/Day Years [...] encounter Miscellaneous Notes * Telephone Encounter - Asael Morales MD - 08/03/2024 5:28 AM EST Needs to start lipitor --pls tell him to go to pharm and get documented in this encounter Plan of Treatment Upcoming Encounters Date Type Department Care Team ([facility] Contact Info) Description 01/24/2025 3:00 PM EDT Office Visit [facility] [address] [phone] Asael Morales MD [address] [address] documented as of this encounter Visit Diagnoses Not on filedocumented in this encounter Care Teams Backpackers Manager Relationship Specialty Start Date End Date Chanelle Francis [address] [place] [address] PCP - General 09/16/23 documented as of this encounter
--- OUTSIDE RECORDS SUMMARY | 2024-10-07 12:28 | XMS_ITS | Encounter Summary ---
Author Organization [employer] Address [address] [facility] 7t [place] [address] Care Team Providers Care Ton Container Filler Name Role Phone Jonathon Greenberg NEWSPAPER DELIVERER Unavailable Unavailable Chanelle Francis Primary Care Provider [phone] [facility] [phone] Encounter Details Date Type Department Care Team (Late st Contact Info) Description 11/16/2023 Orders Only [facility] [address] [place], [place] [phone] Chanelle Francis FNP [address] [place] [address] Routine health maintenance (Primary Dx) Social History Tobacco Use Types Packs/Day Years Used Date Smoking Tobacco: Former Cigarettes 1 2 Passive Smoke Exposure: Current Smokeless Tobacco: Never Alcohol Use Standard Drinks/Week Comments Not Currently 0 (1 standard drink = 0.6 oz pur e alcohol) Depression Answer Date Recorded Patient Health Questionnaire-9 Score 24 11/18/2023 Patient Health Questionnaire-9 Score 24 11/18/2023 Last PHQ-9: Questionnaire Data Not on file 0 11/18/2023 Housing Stability Answer Date Recorded What is your housing situation today? I do not have housing (Staying with others, in a hotel, in a [place] [facility], living outside on the street, on a beach, in a car, or in a park 06/22/[address] you li ve. Do you have problems with any of the following? None of the above 06/22/2023 Food Insecurity Answer Date Recorded Within the past 12 months, y ou worried that your food would run out before you got money to buy more: Never True 06/29/2023 Within the past 12 months,th e food you bought just didn't last and you didn't have enough money to get more: Never True Transportation Answer Date Recorded In the past 12 months, has l ack of transportation kept you from medical appts, meetings, work or from getting things needed for daily living? No 06/29/2023 Utilities Answer Date Recorded In the past 12 months, has t he electric, gas, oil or water company threatened to shut off services in your home? No 06/29/2023 Depression Answer Date Recorded Patient Health Questionnaire-2 Score 5 11/18/2023 Sex and Gender Information Value Date Recorded Sex Assigned at Male 08/06/2022 1:58 PM EST Legal Sex Male 1:55 PM EST Gender Identity Male 08/06/2022 1:58 PM EST Sexual Orientation Choose not to disclose 2021 9:15 PM EST documented as of this encounter Plan of Treatment Upcoming Encounters Date Type Department Care Team (Late st Contact Info) Description 10/28/2024 11:30 AM EST Office Visit [facility] [address] [place] [address] [facility] [address] [place] [address] 12/27/2024 10:30 AM EDT Nurse Only [facility] [address] [place] [address] documented as of this encounter Goals Goal Patient Goal Type Associated Problems Recent Progress Patient-Stated? Author Blood Pressure < 140/90 Blood Pressure 158/88( 025 3:46 PM EST) No Piers-GambChristine stephenson, PharmD documented as of this encounter Procedures Procedure Name Priority Date/Time Associated Diagnosis Comments T-SPOT(R).TB Routine 06/16/2024 9:54 AM EDT Routine health maintenance documented in this encounter Results * T-SPOT??.TB (06/16/2024 9:54 AM EDT) T Spot TB Negative Negative [facility] Comment:A negative test resu lt does not exclude the possibilityof exposure to or infection with Mycobacteriumtuberculosis (M. tuberculosis). Patients with recentexposure to TB infected individuals exhibiting anegative T-SPOT.TB result should be considered forretesting within 6 weeks or if other relevant clinicalsymptoms indicate. Results from T-SPOT.TB testing mustbe used in conjunction with each individual'sepidemiological history, current medical status,and results of other diagnostic evaluations.The T-SPOT.TB test is qualitative and results arereported as positive, borderline, or negative, giventhat the test controls perform as expected. In linewith the Centers for Disease Control and Prevention's2010 recommendation to report quantitative measurementsalongside the qualitative result, the laboratoryprovides spot counts for informational purposes only.The T-SPOT.TB test should not be interpreted as aquantitative test. TS PANEL A 0 [facility] TS PANEL B 0 [facility] Negative Control Passed [facility] Positive Control Passed [facility] Comment:For additional infor olga lidia, please refer tohttp://education.Rentelligence/faq/GDM796(This link is being provided for informational/educational purposes only.)THIS TEST WAS PERFORMED AT:[employer] [place] [address]GIFAYAEKATHIA SANTIZO MD,PHD 06/16/2024 9:54 AM EDT 06/16/2024 11:17 AM EDT us Chanelle BETANCOURT LAB BLOOD ORDERABLES Final Resu lt [facility] [address] [place], [place] [phone] documented in this encounter Visit Diagnoses Diagnosis Routine health maintenance- Primary Unspecified examination documented in this encounter Additional Health Concerns Assessment Noted Time PHQ-9 Depression Total Score: 15 04/10/ 023 3:36 PM EDT documented as of this encounter Care Teams Ton Container Filler Relationship Specialty Start Date End Date Chanelle Francis FNP [address] [place] [address] PCP - General Family Medicine 05/28/23 05/12/24 Tia Albarado FNP [address] [place] [address] [place] [address] PCP - General Family Medicine 05/13/24 Jonathon Greenberg FNP Family Medicine 08/06/22 05/12/24 Josefina He Cushion AssemblerReview Appraiser 10/26/23 documented as of this encounter
--- OUTSIDE RECORDS SUMMARY | 2024-10-07 12:28 | XMS_ITS | Encounter Summary ---
Author Organization [facility] Address [address] [facility] [address] [place] [address] Phone Care Team Providers Care Communications Agent Name Role Phone OlmanChanelle soriano Primary Care Provider [phone] Encounter Details Date Type Department Care Team ([facility] st Contact Info) Description 05/15/2024 Office Communication [facility] [address] [facility] [address] [place] [phone] Asael Morales MD [address] [facility] [address] [place] [phone] Social History Tobacco Use Types Packs/Day Years [...] Telephone Encounter - Asael Morales MD - 05/15/2024 1:39 AM EDT Tacro level was 3.2 and records state he is on 2 mg bid; lets increase to 3 mg bid and repeat tacrolevel in 2 weeks--please confirm that he was taking 2 bid and he took his meds the night before getting his lelevl done * Telephone Encounter - Asael Morales MD - 05/15/2024 1:22 AM EDT I have trieed to reach both PT and also LM with Urol re: ongoing Treatment for his antibiotics --the chart indicate that bc he st cath himself 3-4 x/day that he is on prophylaitc AB but I do not see this in his med list-- Nonethelesss, I sent Rx for macrodantin bc he has ecoli in his urine resis to many meds Please call him and confirm he has got the medication and he has f/u with Urol documented in this encounter Plan of Treatment Upcoming Encounters Date Type Department Care Team (Late st Contact Info) Description 01/24/2025 3:00 PM EDT Office Visit [facility] [address] [phone] Asael Morales MD [address] [phone] documented as of this encounter Visit Diagnoses Not on filedocumented in this encounter Care Teams Communications Agent Relationship Specialty Start Date End Date Chanelle Francis [address] [place] [address] PCP - General 09/16/23 documented as of this encounter
--- OUTSIDE RECORDS SUMMARY | 2024-10-07 12:29 | XMS_ITS | Encounter Summary ---
Author Organization [employer] Address [address] [facility] 7t [place] [address] Care Team Providers Care Hedge Fund Manager Name Role Phone [facility] Primary Care Provider [phone] Encounter Details Date Type Department Care Team ([facility] st Contact Info) Description 09/23/2024 3:45 PM EST Office Visit [facility] [address] [place], [place] [phone] Rosa Mari MD [address] [place], [place] [phone] Petechiae (Primary Dx); History of basal cell carcinoma of skin Social History Tobacco Use Types Packs/Day Years Used Date Smoking Tobacco: Former Cigarettes 1 2 Passive Smoke Exposure: Current Smokeless Tobacco: Never Alcohol Use Standard Drinks/Week Comments Not Currently 0 (1 standard drink = 0.6 oz pur e alcohol) Depression Answer Date Recorded Patient Health Questionnaire-9 Score 0 06/13/2024 Patient Health Questionnaire-9 Score 0 06/13/2024 Last PHQ-9: Questionnaire Data Not on file 0 06/13/2024 Housing Stability Answer Date Recorded What is your housing situation today? I do not have housing (Staying with others, in a hotel, in a jail, living outside on the street, on a beach, in a car, or in a park 06/03/[address] you li ve. Do you have problems with any of the following? I am not sure 06/03/2024 Food Insecurity Answer Date Recorded Within the past 12 months, y ou worried that your food would run out before you got money to buy more: Never True 06/03/2024 Within the past 12 months,th e food you bought just didn't last and you didn't have enough money to get more: Never True Transportation Answer Date Recorded In the past 12 months, has l ack of transportation kept you from medical appts, meetings, work or from getting things needed for daily living? No 06/03/2024 Utilities Answer Date Recorded In the past 12 months, has t he electric, gas, oil or water company threatened to shut off services in your home? No 06/03/2024 Depression Answer Date Recorded Patient Health Questionnaire-2 Score 0 06/13/2024 Internet Access Answer Date Recorded Internet Access Q1 Yes 06/03/2024 Internet Access Q2 Not on file 06/03/2024 Sex and Gender Information Value Date Recorded Sex Assigned at Male 08/06/2022 1:58 PM EST Legal Sex Male 1:55 PM EST Gender Identity Male 08/06/2022 1:58 PM EST Sexual Orientation Choose not to disclose 2021 9:15 PM EST documented as of this encounter Last Filed Vital Signs Vital Sign Reading Time Taken Comments Blood Pressure 158/88 09/23/2024 3:46 PM EST Pulse 85 09/23/2024 3:46 PM EST Temperature 36.4 ??C (97.6 ??F) 09/23/2024 3:46 PM ES T Respiratory Rate 14 09/23/2024 3:46 PM EST Oxygen Saturation - - Inhaled Oxygen Concentration - - Weight 95.7 kg (211 lb) 09/23/2024 3:46 PM EST Height - - Body Mass Index 29.43 06/13/2024 8:57 AM EDT documented in this encounter Progress Notes * Rosa Mari MD - 09/23/2024 3:45 PM EST Subjective Patient ID: Tate Stock is a 44 y.o. male who presents for No chief complaint on file.. HPI 44 yr old man with hx of BCC skin s/p ED&C here today for follow up. Review of Systems Constitutional: Negative for diaphoresis, fatigue and fever. HENT: Negative for ear discharge, ear pain, facial swelling and hearing loss. Respiratory: Negative for cough, choking, chest tightness and shortness of breath. Cardiovascular: Negative for chest pain and leg swelling. Gastrointestinal: Negative for abdominal distention, abdominal pain and anal bleeding. Endocrine: Negative for cold intolerance and heat intolerance. Genitourinary: Negative for enuresis, flank pain and frequency. Musculoskeletal: Negative for arthralgias, back pain and gait problem. Neurological: Negative for dizziness, facial asymmetry and headaches. Psychiatric/Behavioral: Negative for agitation, behavioral problems and confusion. Objective Physical Exam Constitutional: Appearance: Normal appearance. HENT: Head: Normocephalic. Nose: Nose normal. Eyes: Extraocular Movements: Extraocular movements intact. Pulmonary: Effort: Pulmonary effort is normal. Musculoskeletal: Cervical back: Normal range of motion and neck supple. Skin: General: Skin is warm and dry. Comments: 1-2 mm nonblanching red macules on distal L forearm Neurological: Mental Status: He is alert. Mental status is at baseline. Assessment/Plan Diagnoses and all orders for this visit: Petechiae On Distal L forearm. Preceded by scratching, likely ecchymosis from scratching, PLT count back in Jun is normal. No there body parts involved. Continue to monitor History of basal cell carcinoma of skin S/O ED&C , scar is normal on L distal forearm. No other malignant lesions identified on today's exam. Photoprotection advised RTC once yearly. documented in this encounter Plan of Treatment Upcoming Encounters Date Type Department Care Team (Late st Contact Info) Description 10/28/2024 11:30 AM EST Office Visit [facility] [address] [place] [address] [address] [address] [address] 12/27/2024 10:30 AM EDT Nurse Only [facility] [address] [place] [phone] documented as of this encounter Goals Goal Patient Goal Type Associated Problems Recent Progress Patient-Stated? Author Blood Pressure < 140/90 Blood Pressure 158/88(2024 3:46 PM EST) No Christine Castano, PharmD Take your medication every day Lifestyle No Maday-Christine Lafleur, PharmD documented as of this encounter Visit Diagnoses Diagnosis Petechiae- Primary Spontaneous ecchymoses History of basal cell carcinoma of skin documented in this encounter Additional Health Concerns Assessment Noted Time PHQ-9 Depression Total Score: 0 06/13/20 24 9:04 AM EDT documented as of this encounter Care Teams Hedge Fund Manager Relationship Specialty Start Date End Date Tia Albarado FNP [address] [place] [address] PCP - General Family Medicine 05/13/24 Josefina He Activity AidMilieu Manager 10/26/23 documented as of this encounter
--- OUTSIDE RECORDS SUMMARY | 2024-10-07 12:29 | XMS_ITS | Clinical Summary ---
Author Organization [facility] Address [address] [place] [address] Care Team Providers Care Die Keeper Name Role Phone Unavailable Primary Care Provider Unavailabl e Social History Tobacco Use Types Packs/Day Years Used Date Smoking Tobacco: Never Assessed Sex and Gender Information Value Date Recorded Sex Assigned at Not on file Gender Identity Not on file Sexual Orientation Not on file Plan of Treatment Health Maintenance Due Date Last Done Comments DTaP,Tdap,and Td Vaccines (1 - Tdap) 1997 Hepatitis B Vaccines (1 of 3 - 19+ 3-dose series) 1997 COVID-19 Vaccine (2023-2 5 season) 2024 Influenza Vaccine (#1) 2024 Cholesterol Screening (Lipid Panel) 07/10/2024 Colorectal Cancer Screening: Colonoscopy 07/10/2024 Depression Screening 07/10/2024 HIV Screening 07/10/2024 Hepatitis C Screening 07/10/2024 Social Influencers of Health Screening 07/10/2024 HIB Vaccines Aged Out No longer eligi ble based on patient's age to complete this topic HPV Vaccines Aged Out No longer eligi ble based on patient's age to complete this topic Hepatitis A Vaccines Aged Out No long er eligible based on patient's age to complete this topic IPV Vaccines Aged Out No longer eligi ble based on patient's age to complete this topic MMR Vaccines Aged Out No longer eligi ble based on patient's age to complete this topic Meningococcal ACWY Vaccine Aged Out N o longer eligible based on patient's age to complete this topic Pneumococcal Vaccine: Pediat rics (0 to 5 Years) and At-Risk Patients (6 to 64 Years) Aged Out No longer eligible b ased on patient's age to complete this topic RSV Immunization Patients Un delbert 20 months Aged Out No longer eligible b ased on patient's age to complete this topic Varicella Vaccines Aged Out No longer eligible based on patient's age to complete this topic
--- OUTSIDE RECORDS SUMMARY | 2024-10-07 12:29 | XMS_ITS | Encounter Summary ---
Author Organization [employer] Address 75 [facility] [place] [address] Care Team Providers Care Animal Breeder Name Role Phone Jonathon Greenberg URGENT CARE NURSE PRACTITIONER Unavailable Unavailable Chanelle Francis [facility] Primary Care Provider [phone] [facility] Primary Care Provider [phone] Reason for Visit * Reason Onset Date Comments PT-1 05/05/2024 Encounter Details Date Type Department Care Team (Late st Contact Info) Description 05/05/2024 Telephone [facility] MEDICINE [address] [place], [place] [phone] Chanelle Francis FNP [address] [place], [place] [phone] PT-1 Social History Tobacco Use Types Packs/Day Years [...] with others, in a hotel, in a residential, living outside on the street, on a [...] PM EST documented as of this encounter Miscellaneous Notes * Telephone Encounter - Jaron He - 05/05/2024 2:32 PM EDT Patient calling requesting PT1 Home Address verified: Y/N: Yes Provider name or facility name: [facility] Facility Address: [address] [place] [address] Escort needed: Y/N: No Do you have a wheelchair: Y/N: No If yes- Manual or electric: No (Uses either mitchell or walker) Visits: Once a month Patient calling requesting PT1 Home Address verified: Y/N: Yes Provider name or facility name: [facility] Facility Address: [address] [place] [address] Escort needed: Y/N: No Do you have a wheelchair: Y/N: No If yes- Manual or electric: N/A Visits: Once a month documented in this encounter Plan of Treatment Upcoming Encounters Date Type Department Care Team ([facility] st Contact Info) Description 10/28/2024 11:30 AM EST Office Visit [facility] MEDICINE [address] [place] [address] [facility] 230 [place] [address] 12/27/2024 10:30 AM EDT Nurse Only [facility] MEDICINE [address] [place] [address] documented as of this encounter Goals Goal Patient Goal Type Associated Problems Recent Progress Patient-Stated? Author Blood Pressure < 140/90 Blood Pressure 158/88(2024 3:46 PM EST) No Lucass-Gambl eStacysa, PharmD Take your medication every day Lifestyle No Piers-Gambl e, Christine, PharmD documented as of this encounter Visit Diagnoses Not on filedocumented in this encounter Additional Health Concerns Assessment Noted Time PHQ-9 Depression Total Score: 24 024 3:41 PM EST documented as of this encounter Care Teams Animal Breeder Relationship Specialty Start Date End Date Chanelle Francis FNP [address] [facility] [place] [address] PCP - General Family Medicine 05/28/23 05/12/24 YaucoTia bernstein FNP [address] [place] [address] PCP - General Family Medicine 05/13/24 Jonathon Greenberg FNP Family Medicine 08/06/22 05/12/24 Josefina He Director Of Catering SalesTranscription Manager 10/26/23 documented as of this encounter
--- OUTSIDE RECORDS SUMMARY | 2024-10-07 12:29 | XMS_ITS | Encounter Summary ---
Author Organization [employer] Address 75 [facility] 7t [place] [address] Care Team Providers Care Partner Management Consultant Name Role Phone Tia Albarado [facility] Primary Care Provider [phone] Encounter Details Date Type Department Care Team (Latest Contact Info) Description 09/23/2024 Travel Social History Tobacco Use Types Packs/Day Years [...] with others, in a hotel, in a senior care, living outside on the street, on a [...] Description 10/28/2024 11:30 AM EST Office Visit [facility] MEDICINE [address] [place] [address] Tia Albarado [address] [address] 12/27/2024 10:30 AM EDT Nurse Only [facility] MEDICINE [address] [place] [address] documented as of this encounter Goals Goal Patient Goal Type Associated Problems Recent Progress Patient-Stated? Author Blood Pressure < 140/90 Blood Pressure 158/88(2024 3:46 PM EST) No Piers-Gambl e, Christine, PharmD Take your medication every day Lifestyle No Piers-Gambl e, Christine, PharmD documented as of this encounter Visit Diagnoses Not on filedocumented in this encounter Additional Health Concerns Assessment Noted Time PHQ-9 Depression Total Score: 0 06/13/20 9:04 AM EDT documented as of this encounter Care Teams Partner Management Consultant Relationship Specialty Start Date End Date Tia Albarado FNP [address] [place] [address] PCP - General Family Medicine 05/13/24 Josefina He Medical Assistant DermatologyFeather Mixer 10/26/23 documented as of this encounter
--- OUTSIDE RECORDS SUMMARY | 2024-10-07 12:29 | XMS_ITS | Encounter Summary ---
Author Organization [employer] Address 75 [facility] 7t [place] [address] Care Team Providers Care Marshmallow Machine Worker Name Role Phone Tia Albarado [facility] Primary Care Provider [phone] Encounter Details Date Type Department Care Team (Late st Contact Info) Description 10/07/2024 Orders Only GENERIC EXTERNAL DATA DEPARTMENT Provider, Generic External Data Social History Tobacco Use Types Packs/Day Years [...] with others, in a hotel, in a halfway, living outside on the street, on a [...] Description 10/28/2024 11:30 AM EST Office Visit [facility] MEDICINE [address] [place] [address] [facility] 230 [place] [address] 12/27/2024 10:30 AM EDT Nurse Only [address] [address] documented as of this encounter Goals Goal Patient Goal Type Associated Problems Recent Progress Patient-Stated? Author Blood Pressure < 140/90 Blood Pressure 158/88(2024 3:46 PM EST) No Lucass-Gambl e, Christine, PharmD Take your medication every day Lifestyle No Piers-Gambl e, Christine, PharmD documented as of this encounter Procedures Procedure Name Priority Date/Time Associated Diagnosis Comments PSA, TOTAL WITH REFLEX TO PSA, FREE Routine 10/07/2024 10:56 AM EST documented in this encounter Results * (ABNORMAL) PSA, Total With Reflex to PSA, Free (10/07/2024 10:56 AM EST) PSA,Total (Free>4and<10) 6.46(H) 0.00 - 4.00 ng/mL [facility] Comment:PSA methodology: Abb alexey Alidanny i ChemiluminescentMicroparticle Immunoassay (CMIA) 10/07/2024 10:5 6 AM EST 10/07/2024 10:56 AM EST us Generic External Data Provider LAB BLOOD ORDERAB LES Final Result [facility] [address] [place] [address] [phone] documented in this encounter Visit Diagnoses Not on filedocumented in this encounter Additional Health Concerns Assessment Noted Time PHQ-9 Depression Total Score: 0 06/13/20 24 9:04 AM EDT documented as of this encounter Care Teams Marshmallow Machine Worker Relationship Specialty Start Date End Date Tia Albarado FNP [address] [place] [address] PCP - General Family Medicine 05/13/24 Josefina He It Applications AnalystOptometry Professor 10/26/23 documented as of this encounter
--- OUTSIDE RECORDS SUMMARY | 2024-10-07 12:29 | XMS_ITS | Encounter Summary ---
Author Organization [employer] Address [address] [place] [address] [facility] [place] [address] Care Team Providers Care Icicle Machine Operator Name Role Phone [facility] Primary Care Provider [phone] Reason for Visit * Reason Onset Date Comments Referral 09/27/2024 Encounter Details Date Type Department Care Team ([facility] st Contact Info) Description 09/27/2024 Telephone [facility] MEDICINE 230 [place], [place] [phone] [place] 230 [place], [place] [phone] Referral Social History Tobacco Use Types Packs/Day Years [...] with others, in a hotel, in a fci, living outside on the street, on a [...] encounter Miscellaneous Notes * Telephone Encounter - Lilian Callaway RN - 10/05/2024 1:58 PM EST TC placed to Dionna [phone] in regards to below message. Dionna advised patient was referred to neurology on 05/23/24 d/t below concern and had an appointment on 07/11/24 however he no showed. Macie informed the patient needs to call the neurology office (Dr. Escudero) at [phone] to r/s neurology appointment. Macie verbalized understanding. Macie to f/u PRN. * Telephone Encounter - Mitchell Becerra - 10/05/2024 11:20 AM EST TC from Dionna requesting a call back regarding prior message. Contact Dionna at [phone] * Telephone Encounter - Lilian Callaway RN - 09/27/2024 4:45 PM EST TC returned to [facility] at [phone] however no answer, RN left requesting CB to red team nurses. Dionna to f/u PRN. Of note, patient was referred to neurology on 05/23/24 and was scheduled for an appointment on 07/11/24 at 1:30pm * Telephone Encounter - Mitchell Becerra - 09/27/2024 3:48 PM EST Tc from [facility] with [facility] requesting a referral for Neurology due to pt feeling weak on his left Side. If any questions contact [facility] at [phone] documented in this encounter Plan of Treatment Upcoming Encounters Date Type Department Care Team (Late st Contact Info) Description 10/28/2024 11:30 AM EST Office Visit [address] [address] Tia Albarado FNP [address] [place] [address] 12/27/2024 10:30 AM EDT Nurse Only [address] [address] documented as of this encounter Goals Goal [...] documented as of this encounter Care Teams Icicle Machine Operator Relationship Specialty Start Date End Date Tia Albarado FNP [address] [place] [address] PCP - General Family Medicine 05/13/24 Josefina He Database Security AdministratorTool Grinder Operator 10/26/23 documented as of this encounter
--- OUTSIDE RECORDS SUMMARY | 2024-10-07 12:29 | XMS_ITS | Encounter Summary ---
Author Organization [employer] Address [address] [place] [address] 7 [place] [address] Care Team Providers Care Finish Filer Name Role Phone [facility] Primary Care Provider [phone] Reason for Visit * Reason Onset Date Comments Durable Medical Equipment 06/03/2024 Encounter Details Date Type Department Care Team ([facility] st Contact Info) Description 06/03/2024 Telephone [facility] MEDICINE 230 [place], [place] [phone] [facility] 230 [place] [address] Durable Medical Equipment Social History Tobacco Use Types Packs/Day Years [...] Recorded Patient Health Questionnaire-2 Score 5 11/18/2023 Internet Access Answer Date Recorded Internet Access [...] * Telephone Encounter - Jaron He - 06/03/2024 1:49 PM EDT Tc from [facility] with [facility] requesting a toilet seat commode for pt along with shower chair. If any questions you can contact Marissa at [phone]. documented in this encounter Plan of Treatment Upcoming Encounters Date Type Department Care Team ([facility] st Contact Info) Description 10/28/2024 11:30 AM EST Office Visit [facility] MEDICINE [address] [place] [address] [facility] [address] [place] [address] 12/27/2024 10:30 AM EDT Nurse Only [facility] [address] [place] [address] documented as of this encounter Goals Goal Patient Goal Type Associated Problems Recent Progress Patient-Stated? Author Blood Pressure < 140/90 Blood Pressure 158/88(2024 3:46 PM EST) No Christine Castano, PharmD Take your medication every day Lifestyle No Christine Castano PharmD documented as of this encounter Visit Diagnoses Not on filedocumented in this encounter Additional Health Concerns Assessment Noted Time PHQ-9 Depression Total Score: 24 024 3:41 PM EST documented as of this encounter Care Teams Finish Filer Relationship Specialty Start Date End Date Tia Albarado FNP [address] [place] [address] PCP - General Family Medicine 05/13/24 Josefina He Paintings RestorerManager Educational 10/26/23 documented as of this encounter
--- OUTSIDE RECORDS SUMMARY | 2024-10-07 12:29 | XMS_ITS | Encounter Summary ---
Author Organization [employer] Address 75 [facility] 7 [place] [address] Care Team Providers Care Credit Reporting Clerk Name Role Phone Jonathon Greenberg [facility] Unavailable Unavailable Chanelle Francis [facility] Primary Care Provider [phone] [facility] Primary Care Provider [phone] Reason for Visit * Reason Onset Date Comments Request For Order(s) 10/23/2023 Encounter Details Date Type Department Care Team ([facility] st Contact Info) Description 10/23/2023 Telephone [facility] MEDICINE 230 [place], [place] [phone] Chanelle Francis FNP [address] [place], [place] [phone] Request For Order(s) Social History Tobacco Use Types Packs/Day Years [...] with others, in a hotel, in a chcf, living outside on the street, on a [...] encounter Miscellaneous Notes * Telephone Encounter - Van Jaffe RN - 11/17/2023 9:36 AM EST Order placed, Thanks * Telephone Encounter - Jamarcus Gomez - 10/29/2023 10:48 AM EST Tc from [facility] in regards to previous message, states they received order however was not signed by PCP and needs orders as soon as possible. Please contact at [phone] * Telephone Encounter - Van Jaffe RN - 10/23/2023 2:22 PM EST T/C to [phone] for below message, Aminata states they received order for Blood TB test , but looking for order for PPD test. Also looking for order back dated on 10/21/2023 because pt.'s PPD test was already done and it was negative , read by two different Nurse. Aminata was advised that message will be sent to PCP for review. Please review and advise. * Telephone Encounter - Elmerrobles Jason - 10/23/2023 12:11 PM EST Tc from Aminata with [facility] requesting an written order stating it is okay to injection TB, states they had an error with TB lab work. Please contact for further clarification at [phone] documented in this encounter Plan of Treatment Upcoming Encounters Date Type Department Care Team ([facility] st Contact Info) Description 10/28/2024 11:30 AM EST Office Visit [facility] MEDICINE [address] [place] [address] Springfield[place]ia bernstein FNP [address] [place] [address] 12/27/2024 10:30 AM EDT Nurse Only [address] [address] documented as of this encounter Goals Goal [...] documented as of this encounter Care Teams Credit Reporting Clerk Relationship Specialty Start Date End Date Chanelle Francis FNP [address] [place] [address] PCP - General Family Medicine 05/28/23 05/12/24 [place]ia FNP [address] [place] [address] PCP - General Family Medicine 05/13/24 Jonathon Greenberg FNP Family Medicine 08/06/22 05/12/24 Josefina He Utilization ManagerArt Therapy Specialist 10/26/23 documented as of this encounter
--- OUTSIDE RECORDS SUMMARY | 2024-10-07 12:29 | XMS_ITS | Encounter Summary ---
Author Organization [employer] Address 75 [facility] 7t [place] [address] Care Team Providers Care Property Consultant Name Role Phone [facility] Primary Care Provider [phone] Reason for Visit * Reason Onset Date Comments Med Refill 09/30/2024 Encounter Details Date Type Department Care Team (Late st Contact Info) Description 09/30/2024 Refill [facility] [address] [place], [place] [phone] [facility] 230 [place] [address] Chronic radicular low back pain Social History Tobacco Use Types Packs/Day Years [...] with others, in a hotel, in a intermediate, living outside on the street, on a [...] Description 10/28/2024 11:30 AM EST Office Visit [facility] MEDICINE [address] [place] [address] Tia Albarado FNP [address] [place] [address] 12/27/2024 10:30 AM EDT Nurse Only [facility] MEDICINE [address] [place] [address] documented as of this encounter Goals Goal Patient Goal Type Associated Problems Recent Progress Patient-Stated? Author Blood Pressure < 140/90 Blood Pressure 158/88(2024 3:46 PM EST) No Piers-Gambl e, Christine, PharmD Take your medication every day Lifestyle No Piers-Gambl e, Christine, PharmD documented as of this encounter Visit Diagnoses Diagnosis Chronic radicular low back pain documented in this encounter Additional Health Concerns Assessment Noted Time PHQ-9 Depression Total Score: 0 06/13/20 24 9:04 AM EDT documented as of this encounter Care Teams Property Consultant Relationship Specialty Start Date End Date Tia Albarado FNP 230 [place] [address] PCP - General Family Medicine 05/13/24 Josefina He R D EngineerChromium Plater 10/26/23 documented as of this encounter
--- OUTSIDE RECORDS SUMMARY | 2024-10-07 12:29 | XMS_ITS | Encounter Summary ---
Author Organization [employer] Address 75 [facility] 7 [place] [address] Care Team Providers Care Health Program Specialist Name Role Phone Jonathon Greenberg MANAGER MARKET DEVELOPMENT Unavailable Unavailable Chanelle Francis [facility] Primary Care Provider [phone] [facility] Primary Care Provider [phone] Reason for Visit * Reason Onset Date Comments Referral 04/22/2024 Encounter Details Date Type Department Care Team (Late st Contact Info) Description 04/22/2024 Telephone [facility] [address] [place], [place] [phone] Chanelle Francis FNP [address] [place], [place] [phone] Referral Social History Tobacco Use Types Packs/Day [...] others, in a hotel, in a senior living, living outside on the street, on a [...] the past 12 months, has t he [employer], gas, oil or water company threatened to [...] Telephone Encounter - Van Jaffe RN - 05/03/2024 11:40 AM EDT T/C to [facility] [phone] to inform that Neurology referral is already placed by ED C at Dr. EMILY CABRERA, [facility] Neurology. No answer. LVM to call back on [phone]. * Telephone Encounter - Paula Jacob - 05/03/2024 11:01 AM EDT Tc from pt with Vonnie at [facility] requesting status on neurology referral. * Telephone Encounter - Candace Ch - 04/22/2024 10:53 AM EDT Tc from pt with Vonnie at [facility] requesting a neurology referral, they stated this has been discussed with PCP documented in this encounter Plan of Treatment Upcoming Encounters Date Type Department Care Team (Late st Contact Info) Description 10/28/2024 11:30 AM EST Office Visit [facility] [place] [address] T[place] [address] 12/27/2024 10:30 AM EDT Nurse Only [facility] [place] [address] documented as of this encounter Goals Goal [...] documented as of this encounter Care Teams Health Program Specialist Relationship Specialty Start Date End Date Chanelle [place] [address] PCP - General Family Medicine 05/28/23 05/12/24 Tia Albarado FNP [address] [place] [address] PCP - General Family Medicine 05/13/24 Jonathon Greenberg FNP Family Medicine 08/06/22 05/12/24 Josefina He Filing WriterDrone Operator 10/26/23 documented as of this encounter
--- OUTSIDE RECORDS SUMMARY | 2024-10-07 12:30 | XMS_ITS | Encounter Summary ---
Author Organization [employer] Address 75 [facility] 7t [place] [address] Care Team Providers Care Dialysis Registered Nurse Name Role Phone [facility] Primary Care Provider [phone] Reason for Visit * Reason Onset Date Comments Med Refill 09/23/2024 Encounter Details Date Type Department Care Team ([facility] st Contact Info) Description 09/23/2024 Refill [facility] 230 [place], [place] [phone] Eldon Bledsoe MD 230 [place], [place] [phone] Mild intermittent asthma, unspecified whether complicated Social History Tobacco Use Types Packs/Day Years [...] with others, in a hotel, in a longterm, living outside on the street, on a [...] Description 10/28/2024 11:30 AM EST Office Visit [facility] MEDICINE [address] [place] [address] Tia Albarado FNP [address] [place] [address] 12/27/2024 10:30 AM EDT Nurse Only [facility] MEDICINE [address] [place] [address] documented as of this encounter Goals Goal Patient Goal Type Associated Problems Recent Progress Patient-Stated? Author Blood Pressure < 140/90 Blood Pressure 158/88(2024 3:46 PM EST) No Piers-Gambl e, Christine, PharmD Take your medication every day Lifestyle No Piers-Gambl e, Christine, PharmD documented as of this encounter Visit Diagnoses Diagnosis Mild intermittent asthma, unspecified whether complicated documented in this encounter Additional Health Concerns Assessment Noted Time PHQ-9 Depression Total Score: 0 06/13/20 24 9:04 AM EDT documented as of this encounter Care Teams Dialysis Registered Nurse Relationship Specialty Start Date End Date Tia Albarado FNP [address] [place] [address] [place] [address] PCP - General Family Medicine 05/13/24 Josefina He Cross Country/Track And Field CoachManager Inspection 10/26/23 documented as of this encounter
--- OUTSIDE RECORDS SUMMARY | 2024-10-07 12:30 | XMS_ITS | Encounter Summary ---
Author Organization [employer] Address [address] [place] [address] 7 [place] [address] Care Team Providers Care Batcher Operator Name Role Phone Dionicio Naunfarrahkarson SUPERINTENDENT ELECTRIC POWER Unavailable Unavailable Shawn Murillo Primary Care Provider Unavail able Chanelle Francis SUPERINTENDENT ELECTRIC POWER Primary Care Provider [phone] [place] Tia SUPERINTENDENT ELECTRIC POWER Primary Care Provider [phone] Reason for Visit * Reason Onset Date Comments FYI 04/09/2023 Encounter Details Date Type Department Care Team (Late st Contact Info) Description 04/09/[address] [facility] MEDICINE 230 [place], [place] [phone] Shawn Murillo AGNP FYI Social History Tobacco Use Types Packs/Day Years Used Date Smoking Tobacco: Former Cigarettes 1 2 Smokeless Tobacco: Never Alcohol Use Standard Drinks/Week Comments Not Currently 0 (1 standard drink = 0.6 oz pur e alcohol) Depression Answer Date Recorded Patient Health Questionnaire-9 Score 15 04/10/2023 Depression Answer Date Recorded Patient Health Questionnaire-2 Score 4 04/10/2023 Sex and Gender Information Value Date Recorded [...] was confirmed or suspected to have Coronavirus/COVID-19? No / Unsure 03/23/2023 1:51 PM EDT documented as of this encounter Miscellaneous Notes * Telephone Encounter - Jodie Stock - 04/09/2023 11:33 AM EDT Tc from jaspreet with [facility] physical therapy calling to advise PCP his BP was 135/100 but pt states he has been consistent with BP medication. Will continue treatment until his BP and pain gets better. documented in this encounter Plan of Treatment Upcoming Encounters Date Type Department Care Team (Late st Contact Info) Description 10/28/2024 11:30 AM EST Office Visit [address] [address] Tia Albarado FNP [address] [place] [address] 12/27/2024 10:30 AM EDT Nurse Only [address] [address] documented as of this encounter Visit Diagnoses Not on filedocumented in this encounter Additional Health Concerns Assessment Noted Time PHQ-9 Depression Total Score: 023 12:04 PM EDT documented as of this encounter Care Teams Batcher Operator Relationship Specialty Start Date End Date Shawn Murillo AGNP PCP - General Family Medicine 11/10/22 05/27/23 Chanelle Francis FNP [address] [place] [address] PCP - General Family Medicine 05/28/23 05/12/24 Tia Albarado FNP [address] [place] [address] PCP - General Family Medicine 05/13/24 Jonathon Greenberg FNP Family Medicine 08/06/22 05/12/24 Josefina He Salvage ClerkWatch Crystal Molder 10/26/23 documented as of this encounter
--- OUTSIDE RECORDS SUMMARY | 2024-10-07 12:30 | XMS_ITS | Encounter Summary ---
Author Organization [employer] Address [address] [place] [address] 7t [place] [address] Care Team Providers Care Document Improvement Specialist Name Role Phone Jonathon Greenberg [facility] Unavailable Unavailable Chanelle Francis [facility] Primary Care Provider [phone] [facility] Primary Care Provider [phone] Reason for Visit * Reason Comments Med Refill Encounter Details Date Type Department Care Team (Late st Contact Info) Description 09/30/2023 Refill [facility] [address] [place], [place] [phone] [facility] [address] [place] [address] Chronic radicular low back pain Social History Tobacco Use Types Packs/Day Years Used Date Smoking Tobacco: Former Cigarettes 1 2 Passive Smoke Exposure: Current Smokeless Tobacco: Never Alcohol Use Standard Drinks/Week Comments Not Currently 0 (1 standard drink = 0.6 oz pur e alcohol) Depression Answer Date Recorded Patient Health Questionnaire-9 Score 15 04/10/2023 Housing Stability Answer Date Recorded What is your housing situation today? I do not have housing (Staying with others, in a hotel, in a nursing home, living outside on the street, on a [...] Description 10/28/2024 11:30 AM EST Office Visit [facility] [address] [place] [phone] Tia Albarado FNP [address] [place] [phone] 12/27/2024 10:30 AM EDT Nurse Only [address] [address] documented as of this encounter Goals Goal Patient Goal Type Associated Problems Recent Progress Patient-Stated? Author Blood Pressure < 140/90 Blood Pressure 158/88( 025 3:46 PM EST) No Christine Castano, PharmD documented as of this encounter Visit Diagnoses Diagnosis Chronic radicular low back pain documented in this encounter Additional Health Concerns Assessment Noted Time PHQ-9 Depression Total Score: 15 023 3:36 PM EDT documented as of this encounter Care Teams Document Improvement Specialist Relationship Specialty Start Date End Date Chanelle Francis FNP [address] [place] [id number] PCP - General Family Medicine 05/28/23 05/12/24 Tia Albarado FNP [address] [place] [phone] PCP - General Family Medicine 05/13/24 Jonathon Greenberg FNP Family Medicine 08/06/22 05/12/24 Josefina He Sock IronerSales Product Specialist 10/26/23 documented as of this encounter
--- OUTSIDE RECORDS SUMMARY | 2024-10-07 12:30 | XMS_ITS | Encounter Summary ---
Author Organization [employer] Address [address] [facility] 7 [place] [address] Care Team Providers Care Mill Hand Plate Mill Name Role Phone Jonathon Greenberg [facility] Unavailable Unavailable Chanelle Francis [facility] Primary Care Provider [phone] [facility] Primary Care Provider [phone] Reason for Visit * Reason Onset Date Comments PT1 09/10/2023 Encounter Details Date Type Department Care Team (Late st Contact Info) Description 09/10/2023 Telephone [facility] [address] [place], [place] [phone] Chanelle Francis FNP [address] [place], [place] [phone] PT1 Social History Tobacco Use Types Packs/Day Years [...] with others, in a hotel, in a usp, living outside on the street, on a [...] encounter Miscellaneous Notes * Telephone Encounter - Laurel Reed - 09/15/2023 8:07 AM EST PT-1 Request Number [id number] is Pending * Telephone Encounter - Stef Blake - 09/10/2023 3:26 PM EST PT1 needed Date: 09/21/2022 Time: 1:30 PM Visits: All future Appt's Address: [address] [place] [address] Facility: [facility] Wheel Chair: No Veneer Grader Needed: Yes documented in this encounter Plan of Treatment Upcoming Encounters Date Type Department Care Team (Late st Contact Info) Description 10/28/2024 11:30 AM EST Office Visit [facility] [address] [place] [phone] PerTia FNP [address] [place] [phone] 12/27/2024 10:30 AM EDT Nurse Only [facility] [address] [place] [address] documented as of this encounter Goals Goal Patient Goal Type Associated Problems Recent Progress Patient-Stated? Author Blood Pressure < 140/90 Blood Pressure 158/88( 025 3:46 PM EST) Christine Villarreal, TaraD documented as of this encounter Visit Diagnoses Not on filedocumented in this encounter Additional Health Concerns Assessment Noted Time PHQ-9 Depression Total Score: 15 023 3:36 PM EDT documented as of this encounter Care Teams Mill Hand Plate Mill Relationship Specialty Start Date End Date Chanelle Francis FNP [address] [place] [address] PCP - General Family Medicine 05/28/23 05/12/24 Tia Albarado FNP [address] [place] [address] PCP - General Family Medicine 05/13/24 Jonathon Greenberg FNP Family Medicine 08/06/22 05/12/24 Josefina He Building Maintenance MechanicSupervisor Grower 10/26/23 documented as of this encounter
--- OUTSIDE RECORDS SUMMARY | 2024-10-07 12:30 | XMS_ITS | Encounter Summary ---
Author Organization [employer] Address [address] [facility] 7 [place] [address] Care Team Providers Care Reinforcing Bar Setter Name Role Phone Jonathon Greenberg [facility] Unavailable Unavailable Chanelle Francis [facility] Primary Care Provider [phone] [facility] Primary Care Provider [phone] Reason for Visit * Reason Onset Date Comments Lab Orders 08/28/2023 Encounter Details Date Type Department Care Team (Late st Contact Info) Description 08/28/2023 Telephone [facility] [address] [place], [place] [phone] Chanelle Francis FNP [address] [place] [address] Lab Orders Social History Tobacco Use Types Packs/Day Years [...] with others, in a hotel, in a skilled nursing, living outside on the street, on a [...] Telephone Encounter - Van Jaffe RN - 08/28/2023 3:26 PM EST T/C to [phone] to inform that TB test was ordered and pt. Can go to lab as his convenience, Noanswer. LVM to call back on [phone]. * Telephone Encounter - Thompson Lopez - 08/28/2023 2:43 PM EST Tc from Jaylene at [facility] requesting a TB test in order for the patient to be able to join the program any questions please call Jaylene at [phone] documented in this encounter Plan of Treatment Upcoming Encounters Date Type Department Care Team (Late st Contact Info) Description 10/28/2024 11:30 AM EST Office Visit [facility] [address] [place] [address] [facility], [facility] [address] [place], [place] [phone] 12/27/2024 10:30 AM EDT Nurse Only [facility] [address] [place] [address] documented as of this encounter Goals Goal Patient Goal Type Associated Problems Recent Progress Patient-Stated? Author Blood Pressure < 140/90 Blood Pressure 158/88( 025 3:46 PM EST) No Christine Castano, TaraD documented as of this encounter Visit Diagnoses Not on filedocumented in this encounter Additional Health Concerns Assessment Noted Time PHQ-9 Depression Total Score: 15 023 3:36 PM EDT documented as of this encounter Care Teams Reinforcing Bar Setter Relationship Specialty Start Date End Date Chanelle Francis FNP [address] [place] [address] PCP - General Family Medicine 05/28/23 05/12/24 Tia Albarado FNP [address] [place] [address] PCP - General Family Medicine 05/13/24 Jonathon Greenberg FNP Family Medicine 08/06/22 05/12/24 Josefina He Head Sawyer AutomaticRestaurant Inspector 10/26/23 documented as of this encounter
--- OUTSIDE RECORDS SUMMARY | 2024-10-07 12:30 | XMS_ITS | Clinical Summary ---
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 Comments Blood Pressure 158/88 09/23/2024 3:46 PM EST Pulse 85 09/23/2024 3:46 PM EST Temperature 36.4 ??C (97.6 ??F) 09/23/2024 3:46 PM ES T Respiratory Rate 14 09/23/2024 3:46 PM EST Oxygen Saturation 98% 06/13/2024 8:57 AM EDT Inhaled Oxygen Concentration - - Weight 95.7 kg (211 lb) 09/23/2024 3:46 PM EST Height 180.3 cm (5' 11 ) 06/13/2024 8:57 AM EDT Body Mass Index 29.43 06/13/2024 8:57 AM EDT Plan of Treatment Upcoming Encounters Date Type Department Care Team (Late st Contact Info) Description 10/28/2024 11:30 AM EST Office Visit [facility] [address] [place] [phone] [facility], [facility] [address] [place] [address] 12/27/2024 10:30 AM EDT Nurse Only [facility] [address] [place] [phone] Health Maintenance Due Date Last Done Comments CT Colonography 1978 Colonoscopy 1978 Colorectal Cancer Screening 1978 FIT DNA/Cologuard 1978 FIT 1978 FOBT 1978 Sigmoidoscopy 1978 Derm Melanoma Skin Check 1978 Alcohol/Substance Use Screening 1990 Family Planning (PISQ) 1993 Zoster Vaccines (1 of 2) 1997 COVID-19 Vaccine (2 - Pfizer risk series) 07/04/2024 06/13/2024 SDOH Screening 06/03/2025 06/03/2024 Depression Screening 06/13/2025 06/13/2024, 06/13/2024 Tobacco Screening 09/23/2025 09/23/2024 Lipid Panel 06/16/2029 06/16/2024, 02/13/2023, 07/23/2022 DTaP/Tdap/Td Vaccines (2 - T d or Tdap) 04/29/2033 04/29/2023 RSV Patients and Patients Aged 60 years or older (1 - 1-dose 75+ series) 2053 HIV Screening Completed 07/23/2022 Hepatitis C Screening Completed 02/13/2023 , 07/23/2022 Pneumococcal Vaccine: Pediatrics (0 to 5 Years) and At-Risk Patients (6 to 64 Years) Completed 04/29/2023 Hepatitis B Vaccines Completed 05/17/2024, 04/14/2024 Influenza Vaccine Completed 06/18/2024 Hepatitis A Vaccines Aged Out 06/21/2024 No long er eligible based on patient's age to complete this topic HIB Vaccines Aged Out No longer eligi ble based on patient's age to complete this topic HPV Vaccines Aged Out No longer eligi ble based on patient's age to complete this topic IPV Vaccines Aged Out No longer eligi ble based on patient's age to complete this topic Meningococcal Vaccine Aged Out No iesha hugh eligible based on patient's age to complete this topic RSV under 20 months Aged Out No longe r eligible based on patient's age to complete this topic Rotavirus Vaccines Aged Out No longer eligible based on patient's age to complete this topic Goals Goal Patient Goal Type Associated Problems Recent Progress Patient-Stated? Author Blood Pressure < 140/90 Blood Pressure 158/88(2024 3:46 PM EST) No Christine Castano, Luis Take your medication every day Lifestyle No Christine Castano, PharmD Procedures Procedure Name Priority Date/Time Associated Diagnosis Comments PSA, TOTAL WITH REFLEX TO PSA, FREE Routine 10/07/2024 10:56 AM EST LIPID PANEL, STANDARD Routine 06/16/2024 9:54 AM EDT Essential hypertension HEPATITIS C AB W/REFL TO HCV RNA, QN, PCR Routine 02/13/2023 8:44 AM EDT Routine adult health maintenance HIV 1/2 ANTIGEN/ANTIBODY, FOURTH GENERATION W/RFL Routine 07/23/2022 12:07 PM EST from Last 3 Months or Most Recently Relevant to Health Maintenance Results * (ABNORMAL) PSA, Total With Reflex to PSA, Free (10/07/2024 10:56 AM EST) PSA,Total (Free>4and<10) 6.46(H) 0.00 - 4.00 ng/mL [facility] Comment:PSA methodology: Abb alexey Alisavanahty i ChemiluminescentMicroparticle Immunoassay (CMIA) 10/07/2024 10:5 6 AM EST 10/07/2024 10:56 AM EST us Generic External Data Provider LAB BLOOD ORDERAB LES Final Result [facility] [address] [place] [phone] * (ABNORMAL) Lipid Panel, Standard (06/16/2024 9:54 AM EDT) Triglycerides 140 <150 mg/dL [facility] Comment:Desirable Triglyceri de: less than 150 mg/dLBorderline High Triglyceride 150-199 mg/dLHigh Triglyceride: 200-499 mg/dLVery High Triglyceride: greater than or equal to 5OO mg/dL Cholesterol 196 <200 mg/dL [facility] Comment:Desirable Cholestero l: less than 200 mg/dLBorderline High Cholesterol: 200-239 mg/dLHigh Cholesterol: greater than 239 mg/dL LDL Cholesterol Calculated 129(H) <100 mg/dL [facility] Comment:Desirable LDL: less than 100 mg/dLNear Optimal/Above Optimal LDL: 110- 129 mg/dLBorderline High LDL: 130-159 mg/dLHigh LDL: 160-189 mg/dLVery High LDL: greater than or equal to 190 mg/dL HDL Cholesterol 39(L) >40 mg/dL [facility] Comment:Desirable HDL: great er than 40 mg/dL Note: This HDL assay may give artificially low results in patients with liver disease. Blood Venous blood specimen / Unknown 06/16/2024 9:54 AM EDT 06/16/2024 11:17 AM EDT [facility] [employer] LAB BLOOD ORDERABLES Final Re sult [facility] [address] [place] [phone] [phone] * Hepatitis C Antibody with Reflex to HCV, RNA, Quantitative, Real-Time PCR (02/13/2023 8:44 AM EDT) Hepatitis C Antibody NON-REACT TRISTIN NON-REACT TRISTIN [facility] Index 0.09 <1.00 [facility] Comment: HCV antibody was non-reactive. There is no laboratory evidence of HCV infection. In most cases, no further action is required. However, if recent HCV exposure is suspected, a test for HCV RNA (test code 16522) is suggested. For additional information please refer to http://education.[employer]/faq/ZLL18g6 (This link is being provided for informational/ educational purposes only.) Blood Venous blood specimen / Unknown 02/13/2023 8:44 AM EDT 02/13/2023 8:44 AM EDT Narrative [facility] - 02/13/2023 8:14 PM EDT FASTING:YES FASTING: YES [facility] LAB BLOOD ORDERABLES Final Res ult [facility] [address], [place] [address] [employer] [place] [employer] [address] [place] [address] * HIV 1/2 ANTIGEN/ANTIBODY,FOURTH GENERATION W/RFL (07/23/2022 12:07 PM EST) HIV-1/2 ANTIGEN AND ANTIBODIES, 4TH GENERATION W/ REFLEX NON-REACT TRISTIN NON-REACT TRISTIN [facility] Comment: HIV-1 antigen and HIV-1/HIV-2 antibodies were not detected. There is no laboratory evidence of HIV infection. ?? PLEASE NOTE: This information has been disclosed to you from records whose confidentiality may be protected by state law. ??If your state requires such protection, then the state law prohibits you from making any further disclosure of the information without the specific written consent of the person to whom it pertains, or as otherwise permitted by law. A general authorization for the release of medical or other information is NOT sufficient for this purpose. ? For additional information please refer to http://education.[employer]/faq/ZBP686 (This link is being provided for informational/ educational purposes only.) ? The performance of this assay has not been clinically validated in patients less than 2 years old. ?? 07/23/2022 12:0 7 PM EST Vandana England MD LAB BLOOD ORDERABLES Final Result [facility] from Last 3 Months or Most Recently Relevant to Health Maintenance [place] [address] [place] [address] C3 HSN FULL Care Teams Vice President Medical Affairs Relationship Specialty Start Date End Date TucsonTia FNP [address] [place] [phone] PCP - General Family Medicine 05/13/24 Josefina He Checker LoaderGreen Building Materials Designer 10/26/23
--- OUTSIDE RECORDS SUMMARY | 2024-10-07 12:30 | XMS_ITS | Clinical Summary ---
Author Organization [facility] Address [address] [place] [address] Care Team Providers Care Floor Worker Well Service Name Role Phone Pcp, No Unavailable Unavailable Pcp, No Primary Care Provider Unavailabl e Social History Tobacco Use Types Packs/Day Years Used Date Smoking Tobacco: Never Assessed Sex and Gender Information Value Date Recorded Sex Assigned at Male 09/22/2023 3:41 PM EST Gender Identity Male 09/22/2023 3:41 PM EST Sexual Orientation Heterosexual (straight) 09/22 3:41 PM EST Plan of Treatment Health Maintenance Due Date Last Done Comments Hepatitis C Virus Screening 1978 HIV Screening 1991 DTaP/Tdap/Td Vaccines (1 - Tdap) 1997 Hepatitis B Vaccines (1 of 3 - 19+ 3-dose series) 1997 Colonoscopy 2023 Influenza Vaccine 04/14/2024 COVID-19 Vaccine (1 - 2023-2 5 season) 2024 Pneumococcal Vaccine: Pediat erika (0-5 Years) and At-Risk Patients (6 to 49 Years) Aged Out No longer eligible b ased on patient's age to complete this topic Care Teams Floor Worker Well Service Relationship Specialty Start Date End Date Pcp, No [address] [place] [address] PCP - General 07/08/23 Pcp, No [address] [place] [address] Physician 07/08/23 HOLLAND MANCILLA APRN, ARMATURE WINDER REPAIRER-BC, ARMATURE WINDER REPAIRER-C Nurse Practitioner 06/14/23
[2024-10-10 11:53] LABS: Free Prostate Spec Ag 0.5 ng/mL; Percent Free Prostate Spec Ag 7 % (calc) (>25)
== END 2024-10-07 10:47 | disposition home or self-care (01) ==
LOC: HO.LAB 10:46
PROVIDERS: PCP Registered Nurse; Visit Provider Urology
DX: R97.20 Elevated prostate specific antigen [PSA] (principal)
CPT/HCPCS: 36415; 84153; 84154

== ENCOUNTER → 2024-10-19 08:16 | Outpatient (BNV) | payer MEDICAID, SELFPAY | PROVIDERS: PCP Registered Nurse; Visit Provider Radiology Diagnostic Radiology | DX: R97.20 Elevated prostate specific antigen [PSA] (principal) | CPT/HCPCS: 72197 ==

== ENCOUNTER 2024-10-26 15:43 | Outpatient (AMB) | payer MEDICAID, SELFPAY ==
--- NOTE | 2024-10-26 15:44 | A.OFFVIS_ITS ---
Intake Visit Reasons: 6M MRI/PSA(Set) Intake Note: Pt presents to the office today for a 6 month follow up MRI/PSA. Allergies No Known Allergies Allergy (Verified 10/26/24 15:44) HPI Comments Details: Tate is a pleasant [place] Islander-speaking male. The patient of Dr. Greenberg. He is seen for the following urologic conditions - neurogenic bladder - erectile dysfunction - elevated PSA [place] Islander translation provided by a friend he is comfortable with Lab work with persistent elevated PSA and low free PSA Three infections since last visit Discussed MRI results Is noticing progressive ED Add daily tadalafil Three-month follow-up Culture shows E coli resistant to Bactrim, Levaquin, gentamicin Has been on suppression trimethoprim with methenamine Doing well with clean intermittent catheterization Erectile dysfunction - 20 mg tadalafil on demand Requires clean intermittent catheterization for the foreseeable future secondary to neurogenic bladder and renal transplant - uses 14 Jamaican coude catheter reduce prostatic inflammation MRI - 11/08 - 40gm prostate, No discrete focus of abnormal signal intensity is identified to suggest clinically significant prostate carcinoma Neurogenic bladder Renal transplant 2016 - 7 years prior dialysis for HTN Self catheterization 4 times a day for bladder emptying secondary to neurogenic bladder Associated recurring UTI Associated elevated PSA 10/06 9.4 6%, 05/07 7.9 6%, 10/08 6.5 7% PSA biopsy performed in [place] 2020 and reported as negative Cystoscopy 10/06 NAD MRI - 03/06 - PI-RADS 2 35gm prostate Therapeutic plan - prostate MRI 6 months PSA PFSH Medical History Dialysis patient Testicular cyst Benign prostatic hyperplasia with incomplete bladder emptying Recurrent UTI BPH loc w urin obs/LUTS Elevated PSA Surgical History Kidney transplant recipient Review of Systems Const Denies chills and Denies fever(s) Card Reports no additional complaints and Denies syncope Resp Denies cough GI Denies abdominal pain and Denies heartburn Reports as per HPI and Denies change in libido Neuro Denies syncope Psych Denies change in libido Endo Denies change in libido Physical Exam Const General: cooperative, healthy appearing, comfortable and no acute distress Orientation/consciousness: patient oriented x3 HEENT Face and sinus: Yes normal facial exam Mouth: moist mucous membranes Neck Neck: Yes normal visual inspection, Yes full ROM and Yes trachea midline Chest Chest palpation & inspection: normal inspection of the chest Resp Effort & Inspection: normal respiratory effort, able to speak in complete sentences and no respiratory distress GI Inspection: Yes normal to inspection Back/Spine/Pelvis Cervical Spine: normal cervical lordosis Thoracic/Lumbar Spine: thoracic and lumbar spine normal to inspection Skin General skin exam: no rashes or lesions noted Neuro General: patient oriented x3, gait normal, tone normal and moves all extremities Extrem General: Yes normal to inspection and Yes capillary refill normal Assessment & Plan Assessment & Plan (1) Elevated PSA: Code(s): R97.20 - Elevated prostate specific antigen [PSA] Category: Medical (2) Neurogenic urinary bladder disorder: Code(s): N31.9 - Neuromuscular dysfunction of bladder, unspecified Category: Medical (3) Erectile dysfunction: Code(s): N52.9 - Male erectile dysfunction, unspecified Category: Medical Plan Daily tadalafil with on demand Medications: New tadalafil 5 mg PO DAILY 90 tabs 0RF sexual activity 90 days E11.69 - Type 2 diabetes mellitus with other specified complication, N52.01 - Erectile dysfunction due to arterial insufficiency, N52.1 - Erectile dysfunction due to diseases classified elsewhere, N52.9 - Male erectile dysfunction, unspecified tadalafil On demand medication take 60 minutes before intended activity 20 mg PO ONCE PRN 30 tabs 0RF sexual activity 30 days E11.69 - Type 2 diabetes mellitus with other specified complication, N52.1 - Erectile dysfunction due to diseases classified elsewhere, N52.9 - Male erectile dysfunction, unspecified Patient Instructions: This note is constructed using voice recognition software. While every effort has been made to ensure accuracy hourly team members errors may have been included. Imaging studies, laboratory and physical exam results were discussed and reviewed in detail. No major barriers to patient understanding were identified. An opportunity to ask questions regarding the treatment plan was provided. All questions were answered. The patient expressed understanding and agreement with the above treatment plan. The patient is aware they should contact our office by phone for worsening of their current condition or the appearance of new urologic symptoms. Compliance is encouraged with any medications and followup testing that is ordered. It is a privilege to participate in the urologic care of your patient. If you have any questions or concerns regarding treatment for the above conditions, or other urologic issues, please do not hesitate to contact me. The office telephone contact is [phone]. Sincerely, Dr Brandon Correa MD, LOC [facility] - Urology Compassionate Specialist Care for the Genitourinary System Coding Level of Care Code Est Pt Level 4 (97624) Diagnoses Elevated PSA R97.20 Neurogenic urinary bladder disorder N31.9 Erectile dysfunction N52.9
--- OUTSIDE RECORDS SUMMARY | 2024-10-26 16:28 | XMS_ITS | Continuity of Care Document ---
Author Organization [facility] Address [address] [place] [phone] Phone Care Team Providers Care Compensation Advisor Name Role Phone Comfort GALLARDO MD, Sin Unavailable Unavai lable Procedures Procedure Date Nurse Visit Only As per patient privacy policy some of the clinical information may not be visible. Advance Directives Directive Yes / No Effective Date File Name No Information Encounters Encounter Description Practice Location Reason(s) For Visit Diagnoses Date Provider Providers Copied on Encounter [facility], [address] [place] [address], [id number], tel:[phone] [facility] No Information Comfort Vogt. [address] [place] [address], [id number], [place]. tel:[phone] [facility], [address] [place] [address], [address], tel:[phone] P SAE[facility] No Information Comfort Vogt. [address] [place] [address], [id number], [place]. tel:[phone] [facility], [address] [place] [address], [address], [place] tel:[phone] P [facility]ID [facility] No Information Comfort Vogt. [address] [place] [address], [id number], [place]. tel:[phone] [facility], [address] [place] [address], [address], [place] tel:[phone] [facility] No Information Comfort Vogt. [address] [place] [address], [id number], [place]. tel:[phone] [facility], [address] [place] [address], [address], tel:[phone] [facility] No Information Nitesh Storey. [address] [place] [address], [id number], [place]. [facility], [address] [place] [address], [address], tel:[phone] P [facility] No Information [facility] Nurse. [address] [place] [address], [id number], [place]. tel:[phone] [facility], [address] [place] [address], [address], tel:[phone] Z [facility] CONV No Information [facility]. [address] [place] [address], [id number], [place]. Family History Family Member Type Diagnosis Age At Onset No Information Immunizations Vaccine Date Status Comments [id number], PED/ADL administered Source: New Immuniza tion Record DTP administered Source: New Imm unization Record ORAL POLIO administered Source: New Imm unization Record DTP administered Source: New Imm unization Record ORAL POLIO administered Source: New Imm unization Record [id number], PED/ADL administered Source: New Immuniza tion Record DTP administered Source: New Imm unization Record ORAL POLIO administered Source: New Imm unization Record DTP administered Source: New Imm unization Record ORAL POLIO administered Source: New Imm unization Record DTP administered Source: New Imm unization Record ORAL POLIO administered Source: New Imm unization Record Payers Payer name Insurance type Covered democrat ID Authoriza tion(s) [facility] Medicare [id number] [facility] Medicaid Medical [id number] Social History Type Description Quantity Date Captured [...]
--- OUTSIDE RECORDS SUMMARY | 2024-10-26 16:28 | XMS_ITS ---
Author Organization [facility] Address [address] [place], [place] [id number] Care Team Providers Care Clinical Support Tech Name Role Phone [facility], Dental Department Primary Care Provider Unavailable Eli Pisano Unavailable [phone] REASON FOR VISIT housing Social History Sex Assigned At : Social History Observation Description Sex Assigned At Male Encounters Encounter Location Date Provider Diagnosis [facility] [address] [place] [id number] 10/21/2024 Eli Pisano Plan Of Treatment Next Appt Details Provider Name:Eli Sparks, 11/01/2024 01:15:00 PM, [facility] [employer], [address] [place] [address], [id number], Progress Notes * Tate [birth year]OBEDODOB:[birth year] (44 yo M)Acc No.[id number]:10/21/2024 Case Management New Patient:?Marycarmen ESCOBEDO Provider:?Eli Pisano :1980???Age:44 Y???Sex:Male Nic e:10/21/2024 Address:[address] [place], [place] [id number] Pcp:Dental Department [facility] Subjective: * Chief Complaints: * ???1. Housing. * HPI: ???Social Service:?Date of encounter?Date:10/21/2024.?Referral Source?walk-in, self, returning client.?Interpretation for medical provider?housing.?Action Taken?Housing?Application [place] [address] [place].?Follow-up Required:?yes. Pt comprehension?Pt agrees with plan.?Action taken (old)?form completion, Items given to client.? Filled out? application/completed/faxed as well, copies made and given to Pt copy in file. Objective: * Vitals:? Assessment: Plan: * Treatment: * Images: Billing Information: * Visit Code:? * Procedure Codes:? Care Plan Details* * Sign off status: Completed true * Provider:?Eli Pisano Date:? Generated for Alexandro webber/Connor/Jackie on:?10/26/2024 04:28 PM EST History and Physical Notes * HPI (History of Present Illness) Category Sub-Category Detail Notes Social Service Referral Source walk-in, self, r eturning client Interpretation for medical provider housing Action taken (old) form completion, Ite ms given to client Follow-up Required: yes Pt comprehension Pt agrees with plan Action Taken Housing: Application [place] [address] [place]ment [place] Date of encounter Date:10/21/2024
--- OUTSIDE RECORDS SUMMARY | 2024-10-26 16:28 | XMS_ITS | Encounter Summary ---
Author Organization [employer] Address [address] [place] [address] [address] [place] [address] Care Team Providers Care Clinical Project Leader Name Role Phone Jonathon Greenberg Primary Care Provider Jonathon Jarquin COMMUNITY COORDINATOR Unavailable Unavailable Shawn Murillo Primary Care Provider Unavail able Chanelle FrancisP Primary Care Provider [phone] [place] [facility] Primary Care Provider [phone] Encounter Details Date Type Department Care Team ([facility] Contact Info) Description 10/02/2022 Orders Only [facility] [address] [place], [place] [phone] Aminata Brizuela LPN Social History Tobacco Use [...] Description 10/28/2024 11:30 AM EST Office Visit [facility] [address] [place], [place] [phone] [place] [facility] [address] [place], [place] [phone] 12/27/2024 10:30 AM EDT Nurse Only [facility] [address] [place] [address] documented as of this encounter Visit Diagnoses Not on filedocumented in this encounter Care Teams Clinical Project Leader Relationship Specialty Start Date End Date Jonathon Greenberg FNP PCP - General Family Medicine 08/06/22 11/09/22 Shawn Murillo AGNP PCP - General Family Medicine 11/10/22 05/27/23 Chanelle Francis FNP [address] [place] [address] PCP - General Family Medicine 05/28/23 05/12/24 [place] FNP [address] [place] [address] PCP - General Family Medicine 05/13/24 Jonathon Greenberg FNP Family Medicine 08/06/22 05/12/24 Josefina He [facility] Art TherapistCan Runner 10/26/24 documented as of this encounter
--- OUTSIDE RECORDS SUMMARY | 2024-10-26 16:28 | XMS_ITS | Encounter Summary ---
Author Organization [employer] [facility] Address [address] [place] [address] [address] [place] [address] Care Team Providers Care Director Client Name Role Phone [facility] Primary Care Provider [phone] Reason for Visit * Reason Onset Date Comments Durable Medical Equipment 06/03/2024 Encounter Details Date Type Department Care Team ([facility] st Contact Info) Description 06/03/2024 Telephone [facility] [address] [place], [place] [phone] [facility] [address] [place] [address] Durable Medical Equipment Social History Tobacco Use [...] with others, in a hotel, in a prison, living outside on the street, on a [...] - 06/03/2024 1:49 PM EDT Tc from [facility] with [facility] requesting a toilet seat commode for pt along with shower chair. If any questions you can contact Marissa at [phone]. documented in this encounter Plan of Treatment Upcoming Encounters Date Type Department Care Team ([facility] st Contact Info) Description 10/28/2024 11:30 AM EST Office Visit [facility] [address] [place] [phone] [facility] [address] [place] [address] 12/27/2024 10:30 AM EDT Nurse Only [facility] [address] [place] [address] documented as of this encounter Goals Goal [...] documented as of this encounter Care Teams Director Client Relationship Specialty Start Date End Date Tia Albarado FNP [address] [place] [address] PCP - General Family Medicine 05/13/24 Josefina He DisplayerHr Intern 10/26/24 documented as of this encounter
--- OUTSIDE RECORDS SUMMARY | 2024-10-26 16:28 | XMS_ITS | Patient Health Record ---
Author Organization [facility] Address [address] [place], [place] [id number] Care Team Providers Care System Software Programmer Name Role Phone [facility], Dental Department Primary Care Provider Unavailable Eli Pisano Unavailable [phone] Reason For Referral No Information Social History Sex Assigned At : Social History Observation Description Sex Assigned At Male Encounters Encounter Location Date Provider Diagnosis [facility] [address] [place] [phone] 10/21/2024 Eli Pisano [facility] [address] [place] [phone] 10/14/2024 Eli Pisano Plan Of Treatment Next Appt Details Provider Name:Eli Sparks, 11/01/2024 01:15:00 PM, [facility] [employer], [address] [place] [address], [phone], Insurance Providers Payer Name Payer Address Payer Phone Subscriber Number Group Number Insured Name Patient Relationship to Insured Coverage Start Date Coverage End Date [place] [address] [place] [phone] [id number] Tate Escobedo Self - patient is the insured
--- OUTSIDE RECORDS SUMMARY | 2024-10-26 16:28 | XMS_ITS | Encounter Summary ---
Author Organization [facility] Address [address] [place] [phone] Phone Care Team Providers Care Elementary Special Education Teacher Name Role Phone Chanelle Francis Primary Care Provider [phone] Encounter Details Date Type Department Care Team ([facility] Contact Info) Description 08/03/2024 Office Communication [facility] [address] [address] Asael Morales MD [address] [address] Social History Tobacco Use Types [...] Upcoming Encounters Date Type Department Care Team ([facility] Contact Info) Description 01/24/2025 3:00 PM EDT Office Visit [facility] [address] [phone] Asael Morales MD [address] [address] documented as of this encounter Visit Diagnoses Not on filedocumented in this encounter Care Teams Elementary Special Education Teacher Relationship Specialty Start Date End Date Chanelle Francis [address] [place] [address] PCP - General 09/16/23 documented as of this encounter
--- OUTSIDE RECORDS SUMMARY | 2024-10-26 16:28 | XMS_ITS | Encounter Summary ---
Author Organization [facility] Address [address] [facility] [address] [place] [address] Phone Care Team Providers Care Wall Worker Name Role Phone OlmanChanelle soriano Primary Care Provider [phone] Encounter Details Date Type Department Care Team ([facility] st Contact Info) Description 05/15/2024 Office Communication [facility] [address] [facility] [address] [place] [phone] Asael Morales MD 3550 [facility] [address] [place] [phone] Social History Tobacco Use Types Packs/Day Years [...] Office Visit [facility] [address] [phone] Asael Morales MD [address] [phone] documented as of this encounter Visit Diagnoses Not on filedocumented in this encounter Care Teams Wall Worker Relationship Specialty Start Date End Date Chanelle Francis [address] [place] [address] PCP - General 09/16/23 documented as of this encounter
--- OUTSIDE RECORDS SUMMARY | 2024-10-26 16:28 | XMS_ITS | Encounter Summary ---
Author Organization [facility] Address 100 [facility] [address] [place] [address] Phone Care Team Providers Care Customer Service Rep Name Role Phone Chanelle Francis Primary Care Provider [phone] Encounter Details Date Type Department Care Team ([facility] st Contact Info) Description 09/16/2023 Office Communication [facility] 100 [facility] [address] [place] [phone] Asael Morales MD 3559 [facility] [address] [place] [phone] Social History Tobacco Use Types Packs/Day Years [...] Visit [facility] [address] [address] Asael Morales MD [address] [phone] documented as of this encounter Visit Diagnoses Not on filedocumented in this encounter Care Teams Customer Service Rep Relationship Specialty Start Date End Date Chanelle Francis [address] [place] [address] PCP - General 09/16/23 documented as of this encounter
--- OUTSIDE RECORDS SUMMARY | 2024-10-26 16:28 | XMS_ITS | Encounter Summary ---
Author Organization [employer] Address 75 [facility] 7t [place] [address] Care Team Providers Care Chief Green Officer Name Role Phone Jonathon Greenberg SCRUM PROJECT MANAGER Unavailable Unavailable Chanelle Francis Primary Care Provider [phone] [facility] Care Provider [phone] Encounter Details Date Type Department Care Team (Late st Contact Info) Description 11/16/2023 Orders Only [facility] [address] [place], [place] [phone] Chanelle Francis FNP [address] [place] [address] Routine health maintenance (Primary Dx) Social History [...] with others, in a hotel, in a group home, living outside on the street, on [...] Description 10/28/2024 11:30 AM EST Office Visit [facility] [address] [place] [address] [facility] [address] [place] [address] 12/27/2024 10:30 AM EDT Nurse Only [facility] [address] [place] [address] documented as of this encounter Goals Goal [...] AM EDT) T Spot TB Negative Negative [facility] Comment:A negative test resu lt [...] as aquantitative test. TS PANEL A 0 [facility] TS PANEL B 0 [facility] Negative Control Passed [facility] Positive Control Passed [facility] Comment:For additional infor olga lidia, please refer tohttp://education.Parsimotion/faq/PDE882(This link is being provided for informational/educational purposes only.)THIS TEST WAS PERFORMED AT:[employer]/[id number] [place] [address]LWFTNSSKATHIA SANTIZO MD,PHD 06/16/2024 9:54 AM EDT 06/16/2024 11:17 AM EDT us Chanelle BETANCOURT LAB BLOOD ORDERABLES Final Resu lt [facility] [address] [place], [place] [phone] documented in this encounter Visit Diagnoses Diagnosis Routine health maintenance- Primary Unspecified examination documented in this encounter Additional Health Concerns Assessment Noted Time PHQ-9 Depression Total Score: 15 04/10/ 023 3:36 PM EDT documented as of this encounter Care Teams Chief Green Officer Relationship Specialty Start Date End Date Chanelle Francis FNP [address] [place] [address] PCP - General Family Medicine 05/28/23 05/12/24 Tia Albarado FNP [address] [place] [address] [place] [address] PCP - General Family Medicine 05/13/24 Jonathon Greenberg FNP Family Medicine 08/06/22 05/12/24 Josefina [facility] [employer] [facility] Service DirectorCenter Human Resources Manager 10/26/24 documented as of this encounter
--- OUTSIDE RECORDS SUMMARY | 2024-10-26 16:28 | XMS_ITS | Encounter Summary ---
Author Organization [employer] Address 75 [facility] 7 [place] [address] Care Team Providers Care Biomedical Field Service Engineer Name Role Phone Jonathon Greenberg [facility] Unavailable Unavailable Chanelle Francis [facility] Primary Care Provider [phone] [facility] Primary Care Provider [phone] Reason for Visit * Reason Onset Date Comments Request For Order(s) 10/23/2023 Encounter Details Date Type Department Care Team ([facility] st Contact Info) Description 10/23/2023 Telephone [facility] [address] [place], [place] [phone] Chanelle Francis FNP [address] [place], [place] [phone] Request For Order(s) Social History Tobacco Use [...] as soon as possible. Please contact at [phone] * Telephone Encounter - Van Jaffe RN - 10/23/2023 2:22 PM EST T/C to [phone] for below message, Aminata states they received [...] 12:11 PM EST Tc from Aminata with [facility] requesting an written order stating it is okay to injection TB, states they had an error with TB lab work. Please contact for further clarification at [phone] documented in this encounter Plan of Treatment Upcoming Encounters Date Type Department Care Team ([facility] st Contact Info) Description 10/28/2024 11:30 AM EST Office Visit [facility] [address] [place] [address] PerTia bernstein FNP [address] [place] [address] 12/27/2024 10:30 AM EDT Nurse Only [address] [address] documented as of this encounter Goals Goal [...] documented as of this encounter Care Teams Biomedical Field Service Engineer Relationship Specialty Start Date End Date Chanelle Francis FNP [address] [place] [address] PCP - General Family Medicine 05/28/23 05/12/24 VerdenTia FNP [address] [place] [address] PCP - General Family Medicine 05/13/24 Jonathon Greenberg FNP Family Medicine 08/06/22 05/12/24 documented as of this encounter
--- OUTSIDE RECORDS SUMMARY | 2024-10-26 16:28 | XMS_ITS | Clinical Summary ---
Author Organization [facility] Address [address] [address] Phone Care Team Providers Care Junior Analyst Name Role Phone Penny Chanelle Primary Care Provider [phone] Allergies No known active allergies Medications * [...] Orders Only [facility] [address] [place] [address] Asael Morales MD Kidney transplant status 08/11/2024 Refill [facility] [address] [place] [address] [place] [address] Asael Morales MD 08/03/2024 Office Communication [facility] [address] [place] [address] Asael Morales MD 08/02/2024 3:30 PM EST Office Visit [facility] [address] [place] [address] Asael Morales MD Kidney transplant status (Primary [...] Office Visit [facility] [address] [address] Asael Morales MD [address] [phone] Health Maintenance Due Date Last Done Comments Hepatitis B Vaccine (3 of 3 - 19+ 3-dose series) 10/15/2024 05/17/2024, 04/14/2024 Pneumococcal Vaccine: Pediat rics (0 to 5 Years) and At-Risk Patients (6 to 64 Years) Completed 04/29/2023 Influenza Vaccine Completed 06/18/2024 [place] Care Teams Junior Analyst Relationship Specialty Start Date End Date Chanelle Francis [address] [place] [address] PCP - General 09/16/23
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
--- OUTSIDE RECORDS SUMMARY | 2024-10-26 16:29 | XMS_ITS | Encounter Summary ---
Author Organization [employer] Address 75 [facility] [place] [address] Care Team Providers Care Manager Intelligence Name Role Phone Jonathon Greenberg GAMING COMMISSIONER Unavailable Unavailable Chanelle Francis [facility] Primary Care Provider [phone] [facility] Primary Care Provider Reason for Visit * Reason Onset Date Comments PT-1 05/05/2024 Encounter Details Date Type Department Care Team (Late st Contact Info) Description 05/05/2024 Telephone [facility] [address] [place], [place] [phone] Chanelle Francis FNP [address] [place], [place] [phone] PT-1 Social History Tobacco Use Types Packs/Day [...] Y/N: Yes Provider name or facility name: [facility] Address: [address] [place] [address] Escort needed: Y/N: No Do you have a wheelchair: Y/N: No If yes- Manual or electric: No (Uses either mitchell or walker) Visits: Once a month Patient calling requesting PT1 Home Address verified: Y/N: Yes Provider name or facility name: [facility] Facility Address: [address] [place] [address] Escort needed: Y/N: No Do you have a wheelchair: Y/N: No If yes- Manual or electric: N/A Visits: Once a month documented in this encounter Plan of Treatment Upcoming Encounters Date Type Department Care Team ([facility] st Contact Info) Description 10/28/2024 11:30 AM EST Office Visit [facility] [address] [place] [address] [facility] 230 [place] [address] 12/27/2024 10:30 AM EDT Nurse Only [facility] [address] [facility] [place] [address] documented as of this encounter Goals Goal [...] documented as of this encounter Care Teams Manager Intelligence Relationship Specialty Start Date End Date Chanelle Francis FNP [address] [facility] [place] [address] PCP - General Family Medicine 05/28/23 05/12/24 [place] GroveTia FNP [address] [facility] [place] [address] PCP - General Family Medicine 05/13/24 Jonathon Greenberg FNP Family Medicine 08/06/22 05/12/24 Josefina He SheriffEdge Bander Operator 10/26/24 documented as of this encounter
--- OUTSIDE RECORDS SUMMARY | 2024-10-26 16:29 | XMS_ITS | Encounter Summary ---
Author Organization [employer] Address 75 [facility] 7t [place] [address] Care Team Providers Care Outreach Liaison Name Role Phone Tia Albarado [facility] Primary Care Provider [phone] Encounter Details Date Type Department Care Team [...] with others, in a hotel, in a mcfp, living outside on the street, on a [...] Description 10/28/2024 11:30 AM EST Office Visit [facility] [address] [place] [address] [facility] 230 [place], [place] [phone] 12/27/2024 10:30 AM EDT Nurse Only [address] [address] documented as of this encounter Goals Goal [...] EST documented in this encounter Results * MR Prostate w and w/o Contrast (10/19/2024 8:16 AM EST) Anatomical Region Laterality Modality Magnetic Resonan ce 10/19/2024 8:16 AM EST Narrative 10/20/2024 8:07 AM EST ? [facility] ?[address] ?[place] [address] ? Magnetic Resonance Report ? Signed ? Patient: Gonzalez Stock,Tate ?MR#: [id number] ?? [id number] ? : 1980 ?Acct:[id number] ? Age/Sex: 44 / M ?ADM Date: 10/19/24 ? Loc: HO.MRI ? Attending Dr: Brandon Correa MD ? Ordering Physician: Brandon Correa MD ?? Date of Service: 10/19/24 ?? Procedure(s): MR Prostate wo/w con ?? Accession Number(s): [id number] ? cc: Brandon Correa MD; Tia Albarado [...] highly likely ?? to be present) ? [employer]. MR Prostate Imaging Reporting and Data ?? System version 2.1. http://www.acr.org/Quality-Safety/Resources/PIRADS/ ? Electronically signed by: ??Sin Sharif MD ??10/20/2024 08:04 AM EST ?? RP ? Dictated By: ?Sin Sharif MD ? Signed By: ?<Electronically signed by Sin Sharif MD in OV> ?10/20/24 0804 ? DD/ 5 ? TD/TT: 10/19/24929 ? Line Prep Cook: ? Procedure Note Gracy Lewis - 10/20/[address] [address] Magnetic Resonance Report Signed Patient: Tate Escobedo#: [id number] : 1980Acct:[id number] Age/Sex: 44 / MADM Date: 10/19/24 Loc: HO.MRI Attending : Brandon Correa MD Ordering Physician: Brandon Correa MD Date of Service: 10/19/24 Procedure(s): MR Prostate wo/w con Accession Number(s): [id number] cc: Brandon Correa MD; [facility] EXAMINATION: MR PROSTATE WITHOUT THEN WITH IV [...] cancer is highly likely to be present) [employer]. MR Prostate Imaging Reporting and Data System version 2.1. http://www.acr.org/Quality-Safety/Resources/PIRADS/ Electronically signed by: Sin Sharif MD 10/20/2024 08:04 AM EST RP Dictated By: Sin Sharif MD Signed By: <Electronically signed by Sin Sharif MD in OV> 10/20/24 0804 DD/ 0816 TD/TT: 10/19/24 0930 Line Prep Cook: us [facility] External Provider IMG MRI PROCEDURES Final Result * (ABNORMAL) PSA, Free and Total (10/07/2024 12:08 PM EST) PSA, Total 7.0(A) < OR = 4.0 ng/mL [facility] PSA % Free 7(A) >25 % (calc) [facility] Comment: PSA(ng/mL) ?Free PSA(%) ? Estimated(x) Probability ? of Cancer(as%)0-2.5 ?(*) ? Approx. 12.6-4.0(1) ? 0-27(2) ? 24(3)4.1-10(4) ?0-10 ?56 ? 11-15 ? 28 ? 16-20 ? 20 ? 21-25 ? 16 ? >or =26 ? 8>10(+) ? N/A ?>50References:(1)Ángel.:Urology 60: 469-474 (2002) ? (2)Ángel.:J.Urol 168: 922-925 (2001) ?Free PSA(%) ?? Sensitivity(%) ??Specificity(%) ?< or = 25 ?85 ?19 ?< or = 30 ?93 ? 9 ? (3)Yue et al.:MILAGROS 277: 1548-8529 (1996) ? (4)Yue et al.:MILAGROS 279: 8700-9973 (1997)(x)These estimates vary with age, ethnicity, family [...] presence or absence ofdisease.THIS TEST WAS PERFORMED AT:[employer] [address] ??[phone] MURRAY MD PSA, Free 0.5 ng/mL [facility] 10/07/2024 12:0 8 PM EST 10/07/2024 12:08 PM EST Generic External Data Provider LAB BLOOD ORDERAB LES Final Result Performing Organization Address [facility] Co de Phone Number [facility] [address] [place] [phone] * (ABNORMAL) PSA, Total With Reflex to PSA, Free (10/07/2024 10:56 AM EST) PSA,Total (Free>4and<10) 6.46(H) 0.00 - 4.00 ng/mL [facility] Comment:PSA methodology: Yenni Sierra i ChemiluminescentMicroparticle Immunoassay (CMIA) 10/07/2024 10:5 6 AM EST 10/07/2024 10:56 AM EST Generic External Data Provider LAB BLOOD ORDERAB LES Final Result Performing Organization Address [facility] [employer] de Phone Number [facility] [address] [place] [phone] documented in this encounter Visit Diagnoses Not on filedocumented in this encounter Additional Health Concerns Assessment Noted Time PHQ-9 Depression Total Score: 0 06/13/20 24 9:04 AM EDT documented as of this encounter Care Teams Outreach Liaison Relationship Specialty Start Date End Date Tia Albarado FNP [address] [place] [address] PCP - General Family Medicine 05/13/24 documented as of this encounter
--- OUTSIDE RECORDS SUMMARY | 2024-10-26 16:29 | XMS_ITS | Encounter Summary ---
Author Organization [employer] Address 75 [facility] 7 [place] [address] Care Team Providers Care Nursing Attendant Name Role Phone Jonathon Greenberg [facility] Unavailable Unavailable Chanelle Francis [facility] Primary Care Provider [phone] [facility] Primary Care Provider [phone] Reason for Visit * Reason Onset Date Comments Lab Orders 08/28/2023 Encounter Details Date Type Department Care Team (Late st Contact Info) Description 08/28/2023 Telephone [facility] 230 [place], [place] [phone] Chanelle Francis FNP 230 [place] [address] Lab Orders Social History Tobacco Use Types [...] with others, in a hotel, in a fdc, living outside on the street, on a [...] - 08/28/2023 3:26 PM EST T/C to [phone] to inform that TB test was ordered and pt. Can go to lab as his convenience, Noanswer. LVM to call back on [phone]. * Telephone Encounter - Thompson Lopez - 08/28/2023 2:43 PM EST Tc from Jaylene at [facility] requesting a TB test in order for the patient to be able to join the program any questions please call Jaylene at [phone] documented in this encounter Plan of Treatment Upcoming Encounters Date Type Department Care Team (Late st Contact Info) Description 10/28/2024 11:30 AM EST Office Visit [facility] 230 [place] [address] [facility], [facility] 230 [place], [place] [phone] 12/27/2024 10:30 AM EDT Nurse Only [facility] 230 [place] [address] documented as of this encounter Goals Goal [...] documented as of this encounter Care Teams Nursing Attendant Relationship Specialty Start Date End Date Chanelle Francis FNP 230 [place] [address] PCP - General Family Medicine 05/28/23 05/12/24 Tia Albarado FNP 230 [place] [address] PCP - General Family Medicine 05/13/24 Jonathon Greenberg FNP Family Medicine 08/06/22 05/12/24 Josefina He Licensed Social WorkerDried Fruit Washer 10/26/24 documented as of this encounter
--- OUTSIDE RECORDS SUMMARY | 2024-10-26 16:29 | XMS_ITS | Encounter Summary ---
Author Organization [employer] Address [address] [place] [address] 7 [place] [address] Care Team Providers Care Marketing Database Coordinator Name Role Phone Per [facility] Primary Care Provider [phone] Reason for Visit * Reason Onset Date Comments Results 10/21/2024 Encounter Details Date Type Department Care Team ([facility] st Contact Info) Description 10/21/2024 Telephone [facility] 230 [place], [place] [phone] Aparna Gates RN 230 [place], [place] [phone] Results Social History Tobacco Use Types Packs/Day Years [...] encounter Miscellaneous Notes * Telephone Encounter - Aparna Gates RN - 10/21/2024 1:06 PM EST Telephone call x2 regarding below message. [phone]: not accepting calls at this time [phone]: doesn't ring. Just air with no option for v/m. Pt to F/U * Telephone Encounter - Aparna Gates RN - 10/21/2024 9:54 AM EST Telephone call placed to pt regarding diagnostic results and POC below. No answer. Phone states, not accepting calls at this time with no option for v/m. Will retask to attempt another call at different time of day. Please advise patient that nerve conduction study completed last month confirmed evidence of peripheral neuropathy as suspected--looks like he has a follow up with me in a week. Will plan on some additional labs and plan for treatment at that itme. Thank you! documented in this encounter Plan of Treatment Upcoming Encounters Date Type Department Care Team (Late st Contact Info) Description 10/28/2024 11:30 AM EST Office Visit [facility] 230 [facility] [place] [address] Tia Albarado FNP 230 [facility] [place] [address] 12/27/2024 10:30 AM EDT Nurse Only [facility] 230 [facility] [place] [address] documented as of this encounter Goals Goal [...] documented as of this encounter Care Teams Marketing Database Coordinator Relationship Specialty Start Date End Date Tia Albarado FNP [facility] [place] [address] PCP - General Family Medicine 05/13/24 documented as of this encounter
--- OUTSIDE RECORDS SUMMARY | 2024-10-26 16:29 | XMS_ITS | Encounter Summary ---
Author Organization [employer] Address 75 [facility] 7t [place] [address] Care Team Providers Care Forging Press Operator Name Role Phone [place] [facility] Primary Care Provider [phone] Reason for Visit * Reason Comments Care Coordination CHW outreach for SDO H housing search-LVM Encounter Details Date Type Department Care Team (Latest Contact Info) Description 10/18/2024 Patient Outreach [facility] 230 [place], [place] [phone] [facility] 230 [place] [address] Care Coordination (CHW outreach for SDOH housing search-LVM ) Social History Tobacco Use Types Packs/Day Years [...] with others, in a hotel, in a long term, living outside on the street, on a [...] PM EST documented as of this encounter Progress Notes * Varun Zuñiga - 10/18/2024 12:56 PM EST CHW Varun Zuñiga, placed outbound call to patient for assistance with SDOH as a referral was placed by the provider. Patient had screened positive for the following SDOH insecurities. No answer atthis time. Patient's name and were not confirmed. CHW left detailed message and provided contact information requesting return call for assistance. Patient educated on extended clinic hours on Mondays through Wednesdays, and Walk-In Urgent Care Located in [facility] of [facility]. Patient provided with after-hours line for [facility], , which offer night time triage service and option to transfer toon call provider if needed. documented in this encounter Plan of Treatment Upcoming Encounters Date Type Department Care Team ([facility] st Contact Info) Description 10/28/2024 11:30 AM EST Office Visit [facility] 230 [place] [address] MiamiTia FNP [address] [place] [address] 12/27/2024 10:30 AM EDT Nurse Only [facility] 230 [place] [address] documented as of this encounter Goals Goal Patient Goal Type Associated Problems Recent Progress Patient-Stated? Author Blood Pressure < 140/90 Blood Pressure 158/88(2024 3:46 PM EST) No Christine Castano, PharmD Take your medication every day Lifestyle No Christine Castano, PharmD documented as of this encounter Visit Diagnoses Not on filedocumented in this encounter Additional Health Concerns Assessment Noted Time PHQ-9 Depression Total Score: 0 06/13/20 9:04 AM EDT documented as of this encounter Care Teams Forging Press Operator Relationship Specialty Start Date End Date Tia Albarado FNP 230 [place] [address] PCP - General Family Medicine 05/13/24 documented as of this encounter
--- OUTSIDE RECORDS SUMMARY | 2024-10-26 16:29 | XMS_ITS | Encounter Summary ---
Author Organization [employer] Address 75 [facility] 7t [place] [address] Care Team Providers Care Strategic Account Director Name Role Phone [facility] Primary Care Provider [phone] Reason for Visit * Reason Onset Date Comments Med Refill 09/30/2024 Encounter Details Date Type Department Care Team (Late st Contact Info) Description 09/30/2024 Refill [facility] [address] [place], [place] [phone] [facility] 230 [place] [address] Chronic radicular low back pain Social History [...] with others, in a hotel, in a long-term, living outside on the street, on a [...] 10/28/2024 11:30 AM EST Office Visit [facility] [address] [place] [address] Tia Albarado FNP [address] [place] [address] 12/27/2024 10:30 AM EDT Nurse Only [facility] [address] [place] [address] documented as of this encounter Goals Goal [...] documented as of this encounter Care Teams Strategic Account Director Relationship Specialty Start Date End Date Tia Albarado FNP [address] [place] [address] PCP - General Family Medicine 05/13/24 documented as of this encounter
--- OUTSIDE RECORDS SUMMARY | 2024-10-26 16:29 | XMS_ITS | Encounter Summary ---
Author Organization [employer] Address [address] [place] [address] [facility] [place] [address] Care Team Providers Care Funeral Home Attendant Name Role Phone [place] [facility] Primary Care Provider [phone] Reason for Visit * Reason Onset Date Comments Referral 10/19/2024 Encounter Details Date Type Department Care Team ([facility] st Contact Info) Description 10/19/2024 Telephone [facility] 230 [place], [place] [phone] [place] [facility] 230 [place], [place] [phone] Referral Social History Tobacco Use Types Packs/Day [...] with others, in a hotel, in a detention, living outside on the street, on a [...] Telephone Encounter - Lilian Callaway RN - 10/20/2024 9:33 AM EST Noted. TC returned to [facility] [phone] to inform patient does not need a new [facility] eyecare referral. Josefina informed eyecare attempted to contact the patient however he did not answer in the past.Josefina informed they attempted to re- contact the patient after RN message however his phone is notaccepting calls. Josefina reports the patient has a new phone number. Josefina advised the patient should call [facility] to update his phone number however the patient can call [facility] eyecare at [phone] toschedule an appointment. Josefina verbalized understanding and reports she will notify the patient to call [facility] eyecare and also notify the patient to call [facility] to update phone number. * Telephone Encounter - Shadia Pulliam - 10/19/2024 12:08 PM EST Tc from [facility] with N requesting a new referral for lead injection mold technician. Pt has one, it expires on March6 but there is no appointment available before then, he will need a new one. documented in this encounter Plan of Treatment Upcoming Encounters Date Type Department Care Team (Late st Contact Info) Description 10/28/2024 11:30 AM EST Office Visit [facility] MEDICINE [address] [place] [address] Tia Albarado FNP 230 [place] [address] 12/27/2024 10:30 AM EDT Nurse Only [facility]ICINE [address] [place] [phone] documented as of this encounter Goals Goal Patient Goal Type Associated Problems Recent Progress Patient-Stated? Author Blood Pressure < 140/90 Blood Pressure 158/88(2024 3:46 PM EST) No Lucass-Mallory wayne, Christine, PharmD Take your medication every day Lifestyle No Lucass-Gambl rosana, Christine, PharmD documented as of this encounter Visit Diagnoses Not on filedocumented in this encounter Additional Health Concerns Assessment Noted Time PHQ-9 Depression Total Score: 0 06/13/20 24 9:04 AM EDT documented as of this encounter Care Teams Funeral Home Attendant Relationship Specialty Start Date End Date Tia Albarado FNP [address] [place] [address] PCP - General Family Medicine 05/13/24 documented as of this encounter
--- OUTSIDE RECORDS SUMMARY | 2024-10-26 16:29 | XMS_ITS | Clinical Summary ---
Author Organization [facility] Address [address] [place] [address] Care Team Providers Care Tailor Women'S Garment Alteration Name Role Phone Pcp, No Unavailable Unavailable [...] age to complete this topic Care Teams Tailor Women'S Garment Alteration Relationship Specialty Start Date End Date Pcp, No [address] [place] [address] PCP - General 07/08/23 Pcp, No [address] [place] [address] Physician 07/08/23 HOLLAND MANCILLA APRN, HOME ENERGY AUDITOR-BC, HOME ENERGY AUDITOR-C Nurse Practitioner 06/14/23
--- OUTSIDE RECORDS SUMMARY | 2024-10-26 16:29 | XMS_ITS | Encounter Summary ---
Author Organization [employer] Address 75 [facility] 7t [place] [address] Care Team Providers Care Svp [employer] Name Role Phone [facility] Primary Care Provider [phone] Reason for Visit * Reason Comments Care Coordination Care Plan Encounter Details Date Type Department Care Team ([facility] st Contact Info) Description 10/26/2024 Telephone [facility] [address] [place], [place] [phone] [facility] 230 [place] [address] Care Coordination ( Care Plan ) Social History Tobacco Use Types Packs/Day [...] with others, in a hotel, in a correction, living outside on the street, on a [...] as of this encounter Progress Notes * Munira Duong - 10/26/2024 9:48 AM EST PCP Designee has received and reviewed Care Plan from [facility]: Video Library Assistant: Josefina He Contact Information: [phone] Care Plan scanned into patient's EHR and notification sent to PCP. documented in this encounter Plan of Treatment Upcoming Encounters Date Type Department Care Team ([facility] st Contact Info) Description 10/28/2024 11:30 AM EST Office [facility] [address] [place] [address] [address] [facility] 230 [place] [address] 12/27/2024 10:30 AM EDT Nurse Only [facility] [address] [place] [address] documented as of this encounter Goals Goal [...] documented as of this encounter Care Teams [employer] Relationship Specialty Start Date End Date Tia Albarado FNP [address] [place] [address] PCP - General Family Medicine 05/13/24 Josefina He Glue Jointer FeederNovelty Worker 10/26/24 documented as of this encounter
--- OUTSIDE RECORDS SUMMARY | 2024-10-26 16:29 | XMS_ITS | Encounter Summary ---
Author Organization [employer] Address [address] [place] [address] 7 [place] [address] Care Team Providers Care Tree Tapping Laborer Name Role Phone Dionicio Naunfarrahkarson NEEDLEWORKER Unavailable Unavailable Shawn Murillo Primary Care Provider Unavail able Chanelle Francis NEEDLEWORKER Primary Care Provider [phone] [place] Tia NEEDLEWORKER Primary Care Provider [phone] Reason for Visit * Reason Onset Date Comments FYI 04/09/2023 Encounter Details Date Type Department Care Team (Late st Contact Info) Description 04/09/2023 Telephone [facility]ICINE 230 [place], [place] [phone] Shawn Murillo AGNP FYI Social History Tobacco [...] 11:33 AM EDT Tc from [facility]reet with [facility] physical therapy calling to advise PCP his BP was 135/100 but pt states he has been consistent with BP medication. Will continue treatment until his BP and pain gets better. documented in this encounter Plan of Treatment Upcoming Encounters Date Type Department Care Team (Late st Contact Info) Description 10/28/2024 11:30 AM EST Office Visit [address] [address] Tia Albarado FNP [address] [place] [address] 12/27/2024 10:30 AM EDT Nurse Only [address] [address] documented as of this encounter Visit Diagnoses Not on filedocumented in this encounter Additional Health Concerns Assessment Noted Time PHQ-9 Depression Total Score: 023 12:04 PM EDT documented as of this encounter Care Teams Tree Tapping Laborer Relationship Specialty Start Date End Date Shawn Murillo AGNP PCP - General Family Medicine 11/10/22 05/27/23 Chanelle Francis FNP [address] [place] [address] PCP - General Family Medicine 05/28/23 05/12/24 PerTia FNP [address] [place] [address] PCP - General Family Medicine 05/13/24 Jonathon Greenberg FNP Family Medicine 08/06/22 05/12/24 Josefina He Marketing TeacherBrickmason Supervisor 10/26/24 documented as of this encounter
--- OUTSIDE RECORDS SUMMARY | 2024-10-26 16:29 | XMS_ITS ---
Author Organization [facility] Address [address] [place], [place] [phone] Care Team Providers Care Missileman Name Role Phone [facility], Dental Department Primary Care Provider Unavailable Eli Pisano Unavailable REASON FOR VISIT housing, basic intake Social History Sex Assigned At : Social History Observation Description Sex Assigned At Male Encounters Encounter Location Date Provider Diagnosis [facility] [address] [place] [phone] 10/14/2024 Eli Pisano Plan Of Treatment Next Appt Details Provider Name:Eli Sparks, 11/01/2024 01:15:00 PM, [facility] [employer]ead[employer], [address] [place] [address], [phone], Progress Notes * Tate ESCOBEDODOB:[birth year] (44 yo M)Acc No.[id number]:10/14/2024 Case Management New Patient:?Marycarmen ESCOBEDO Provider:?Eli Pisano :1980???Age:44 Y???Sex:Male Nic e:10/14/2024 Address:[address] [place], [place] [id number] Pcp:Dental Department [facility] Subjective: * Chief Complaints: * ???1. Housing, basic intake. * HPI: ???Social Service:?Date of encounter?Date:10/14/2024.?Referral Source?walk-in, self.?Interpretation for medical provider?housing.?Action Taken?Housing?Application [facility] [employer] filled out/faxed/ confirmation and application copied, provided to the Pt and Pt file as well..?Follow-up Required:?yes.?Pt comprehension?Pt agrees with plan.?Action taken (old)?form completion, Items given to client.? New Appt given. Objective: * Vitals:? Assessment: Plan: * Treatment: * Images: Billing Information: * Visit Code:? * Procedure Codes:? Care Plan Details* * Sign off status: Completed true * Provider:?Eli Pisano Date:? Generated for Alexandro webber/Connor/Richarditting on:?10/26/2024 04:29 PM EST History and Physical Notes * HPI (History of Present Illness) Category Sub-Category Detail Notes Social Service Referral Source walk-in, self Interpretation for medical provider housing Action taken (old) form completion, Ite ms given to client Follow-up Required: yes Pt comprehension Pt agrees with plan Action Taken Housing: Application [facility]ica [facility] [email or web address] filled out/faxed/ confirmation and application copied, provided to the Pt and Pt file as well. Date of encounter Date:10/14/2024
--- OUTSIDE RECORDS SUMMARY | 2024-10-26 16:29 | XMS_ITS | Encounter Summary ---
Author Organization [employer] Address [address] [facility] 7 [place] [address] Care Team Providers Care Squaring Shear Operator Name Role Phone Jonathon Greenberg [facility] Unavailable Unavailable Chanelle Francis [facility] Primary Care Provider [phone] [facility] Primary Care Provider [phone] Reason for Visit * Reason Onset Date Comments PT1 09/10/2023 Encounter Details Date Type Department Care Team (Late st Contact Info) Description 09/10/2023 Telephone [facility] [address] [place], [place] [phone] Chanelle Francis FNP [address] [place], [place] [phone] PT1 Social History Tobacco Use Types Packs/Day [...] 09/15/2023 8:07 AM EST PT-1 Request Number [id number] is Pending * Telephone Encounter - Stef Blake - 09/10/2023 3:26 PM EST PT1 needed Date: 09/21/2022 Time: 1:30 PM Visits: All future Appt's Address: [address] [place] [address] Facility: [facility] Wheel Chair: No Retail Consultant Needed: Yes documented in this encounter Plan of Treatment Upcoming Encounters Date Type Department Care Team (Late st Contact Info) Description 10/28/2024 11:30 AM EST Office Visit [facility] [address] [place] [address] DelphiTia FNP [address] [place] [address] 12/27/2024 10:30 AM EDT Nurse Only [facility] [address] [place] [address] documented as of this encounter Goals Goal [...] documented as of this encounter Care Teams Squaring Shear Operator Relationship Specialty Start Date End Date Chanelle Francis FNP [address] [place] [address] PCP - General Family Medicine 05/28/23 05/12/24 Tia Albarado FNP [address] [place] [address] PCP - General Family Medicine 05/13/24 Jonathon Greenberg FNP Family Medicine 08/06/22 05/12/24 Josefina He Chief Credit OfficerMirror Specialist 10/26/24 documented as of this encounter
--- OUTSIDE RECORDS SUMMARY | 2024-10-26 16:29 | XMS_ITS | Encounter Summary ---
Author Organization [employer] Address [address] [place] [address] 7t [place] [address] Care Team Providers Care L D Rn Name Role Phone Jonathon Greenberg [facility] Unavailable Unavailable Chanelle Francis [facility] Primary Care Provider [phone] [facility] Primary Care Provider [phone] Reason for Visit * Reason Comments Med Refill Encounter Details Date Type Department Care Team (Late st Contact Info) Description 09/30/2023 Refill [facility] [address] [place], [place] [phone] [facility] [address] [place] [address] Chronic radicular low back pain Social History [...] with others, in a hotel, in a penitentiary, living outside on the street, on a [...] Description 10/28/2024 11:30 AM EST Office Visit [facility] [address] [place] [address] Tia Albarado FNP [address] [place] [address] 12/27/2024 10:30 AM EDT Nurse Only [address] [address] documented as of this encounter Goals Goal [...] documented as of this encounter Care Teams L D Rn Relationship Specialty Start Date End Date Chanelle Francis FNP [address] [place] [address] PCP - General Family Medicine 05/28/23 05/12/24 Tia Albarado FNP [address] [place] [address] PCP - General Family Medicine 05/13/24 Jonathon Greenberg FNP Family Medicine 08/06/22 05/12/24 Josefina He Manufacturing StorepersonFish Cleaner Machine Tender 10/26/24 documented as of this encounter
--- OUTSIDE RECORDS SUMMARY | 2024-10-26 16:29 | XMS_ITS | Encounter Summary ---
Author Organization [employer] Address 75 [facility] 7 [place] [address] Care Team Providers Care Instructional Resource Teacher Name Role Phone Jonathon Greenberg [facility] Unavailable Unavailable Chanelle Francis [facility] Primary Care Provider [phone] [phone] Primary Care Provider [phone] Reason for Visit * Reason Onset Date Comments Referral 04/22/2024 Encounter Details Date Type Department Care Team (Late st Contact Info) Description 04/22/2024 Telephone [facility] MED[facility]INE [address] [place], [place] [phone] Chanelle Francis FNP [address] [place], [place] [phone] Referral Social History Tobacco Use Types Packs/Day [...] the past 12 months, has t he adhoclabs, gas, oil or water company threatened to [...] - 05/03/2024 11:40 AM EDT T/C to [facility] [phone] to inform that Neurology referral is already placed by ED C at Dr. EMILY CABRERA, [facility] Neurology. No answer. LVM to call back on [phone]. * Telephone Encounter - Paula Jacob - 05/03/2024 11:01 AM EDT Tc from pt with Vonnie at [facility] requesting status on neurology referral. * Telephone Encounter - Candace Ch - 04/22/2024 10:53 AM EDT Tc from pt with Vonnie at [facility] requesting a neurology referral, they stated this has been discussed with PCP documented in this encounter Plan of Treatment Upcoming Encounters Date Type Department Care Team (Late st Contact Info) Description 10/28/2024 11:30 AM EST Office Visit [facility] [place] [address] Tia [place]barado [place] [address] 12/27/2024 10:30 AM EDT Nurse Only [facility] [place] [address] documented as of this encounter Goals Goal [...] documented as of this encounter Care Teams Instructional Resource Teacher Relationship Specialty Start Date End Date Chanelle [place] [address] PCP - General Family Medicine 05/28/23 05/12/24 Tia Albarado FNP [address] [place] [address] PCP - General Family Medicine 05/13/24 Jonathon Greenberg FNP Family Medicine 08/06/22 05/12/24 Josefina He Senior Java Programmer AnalystSteam Box Tender 10/26/24 documented as of this encounter
--- OUTSIDE RECORDS SUMMARY | 2024-10-26 16:29 | XMS_ITS | Encounter Summary ---
Author Organization [employer] Address 75 [facility] 7 [place] [address] Care Team Providers Care Resolution Rep Name Role Phone [facility] Primary Care Provider [phone] Reason for Visit * Reason Comments Pre-visit Planning SDOH screening posti ve tobacco screening negative Encounter Details Date Type Department Care Team ([facility] st Contact Info) Description 10/17/2024 Patient Outreach [facility] [address] [place], [place] [phone] [facility] [address] [place] [address] Pre-visit Planning (SDOH screening postive tobacco screening negative) Social History Tobacco Use Types Packs/Day Years [...] as of this encounter Progress Notes * Lynda Jacob - 10/17/2024 9:47 AM EST CC Lynda placed successful outbound call to patient for pre-visit planning. Patient name and confirmed. Patient confirms appointment date and time, and has transportation arrangements. Biggest concern for appointment at this time is none Appropriate screenings completed in anticipation of appointment. SDOH positive. Patient looking for assistance with housing Referral will be placed. documented in this encounter Plan of Treatment Upcoming Encounters Date Type Department Care Team (Late st Contact Info) Description 10/28/2024 11:30 AM EST Office Visit [facility] [address] [place] [address] Tia Albarado FNP [address] [place] [address] 12/27/2024 10:30 AM EDT Nurse Only [facility] [address] [place] [address] documented as of this encounter Goals Goal Patient Goal Type Associated Problems Recent Progress Patient-Stated? Author Blood Pressure < 140/90 Blood Pressure 158/88(2024 3:46 PM EST) No Christine Castano PharmD Take your medication every day Lifestyle No Christine Castano PharmD documented as of this encounter Visit Diagnoses Not on filedocumented in this encounter Additional Health Concerns Assessment Noted Time PHQ-9 Depression Total Score: 0 06/13/20 9:04 AM EDT documented as of this encounter Care Teams Resolution Rep Relationship Specialty Start Date End Date Tia Albarado FNP [address] [place] [address] PCP - General Family Medicine 05/13/24 documented as of this encounter
--- OUTSIDE RECORDS SUMMARY | 2024-10-26 16:29 | XMS_ITS | Clinical Summary ---
Author Organization [facility] Address [address] [place] [address] Care Team Providers Care Prints And Drawings Curator Name Role Phone Unavailable Primary Care Provider Unavailabl e Social History Tobacco Use Types Packs/Day Years Used Date Smoking Tobacco: Never Assessed Sex and Gender Information Value Date Recorded Sex Assigned at Not on file Legal Sex Male 3:43 PM EDT Gender Identity Not on file Sexual Orientation [...] patient's age to complete this topic Meningococcal B Vacine Aged Out No lo nger eligible based on patient's age to complete [...]
--- OUTSIDE RECORDS SUMMARY | 2024-10-26 16:29 | XMS_ITS | Encounter Summary ---
Author Organization [employer] Address [address] [place] [address] [facility] [place] [address] Care Team Providers Care Progress Man Name Role Phone [facility] Primary Care Provider [phone] Reason for Visit * Reason Onset Date Comments Referral 09/27/2024 Encounter Details Date Type Department Care Team ([facility] st Contact Info) Description 09/27/2024 Telephone [facility] MEDICINE [address] [place], [place] [phone] [facility] [address] [place], [place] [phone] Referral Social History Tobacco Use Types Packs/Day [...] 1:58 PM EST TC placed to Dionna [phone] in regards to below message. Dionna advised patient was referred to neurology on 05/23/24 d/t below concern and had an appointment on 07/11/24 however he no showed. Macie informed the patient needs to call the neurology office (Dr. Escudero) at [phone] to r/s neurology appointment. Macie verbalized understanding. Macie to f/u PRN. * Telephone Encounter - Mitchell Becerra - 10/05/2024 11:20 AM EST TC from Dionna requesting a call back regarding prior message. Contact Dionna at [phone] * Telephone Encounter - Lilian Callaway RN - 09/27/2024 4:45 PM EST TC returned to [facility] at [phone] however no answer, RN left requesting CB to red team nurses. Dionna to f/u PRN. Of note, patient was referred to neurology on 05/23/24 and was scheduled for an appointment on 07/11/24 at 1:30pm * Telephone Encounter - Mitchell Becerra - 09/27/2024 3:48 PM EST Tc from [facility] with [facility] requesting a referral for Neurology due to pt feeling weak on his left Side. If any questions contact [facility] at [phone] documented in this encounter Plan of Treatment Upcoming Encounters Date Type Department Care Team (Late st Contact Info) Description 10/28/2024 11:30 AM EST Office Visit [address] [address] Tia Albarado FNP [address] [place] [address] 12/27/2024 10:30 AM EDT Nurse Only [address] [address] documented as of this encounter Goals Goal [...] documented as of this encounter Care Teams Progress Man Relationship Specialty Start Date End Date Tia Albarado FNP [address] [place] [address] PCP - General Family Medicine 05/13/24 documented as of this encounter
== END 2024-10-26 16:19 | disposition home or self-care (01) ==
PROVIDERS: PCP Nurse Practitioner Family; Visit Provider Urology
DX: R97.20 Elevated prostate specific antigen [PSA] (principal); N31.9 Neuromuscular dysfunction of bladder, unspecified; N52.9 Male erectile dysfunction, unspecified
CPT/HCPCS: 99214

== ENCOUNTER → 2024-10-26 15:43 | Outpatient (BNVA) | payer MEDICAID, SELFPAY | PROVIDERS: PCP Nurse Practitioner Family; Visit Provider Urology | DX: R97.20 Elevated prostate specific antigen [PSA] (principal); N31.9 Neuromuscular dysfunction of bladder, unspecified; N52.9 Male erectile dysfunction, unspecified | CPT/HCPCS: 99212 ==

== ENCOUNTER 2024-10-28 13:18 | Outpatient (REF) | payer MEDICAID, SELFPAY ==
--- OUTSIDE RECORDS SUMMARY | 2024-10-28 13:31 | XMS_ITS | Patient Health Record ---
Author Organization [facility] Address [address] [place], [place] [phone] Care Team Providers Care Feed Mill Lab Technician Name Role Phone [facility], Dental Department Primary Care Provider Unavailable Eli Pisano Unavailable Reason For Referral No Information Social History Sex Assigned At : Social History Observation Description Sex Assigned At Male Encounters Encounter Location Date Provider Diagnosis [facility] [address] [place] [phone] 10/21/2024 Eli Pisano [facility] [address] [place] [phone] 10/14/2024 Eli Pisano Plan Of Treatment Next Appt Details Provider Name:Eli Sparks, 11/01/2024 01:15:00 PM, [facility] Systems Analyst Developer, [address] [place] [address], [phone], Insurance Providers Payer Name Payer Address Payer Phone Subscriber Number Group Number Insured Name Patient Relationship to Insured Coverage Start Date Coverage End Date [place] Medicaid Standard [address] [place] [address] [id number] Tate Escobedo Self - patient is the insured
--- OUTSIDE RECORDS SUMMARY | 2024-10-28 13:32 | XMS_ITS | Encounter Summary ---
Author Organization [facility] Address [address] [place] [phone] Phone Care Team Providers Care Meteorologist In Charge Name Role Phone Chanelle Francis Primary Care Provider [phone] Encounter Details Date Type Department Care Team ([facility] Contact Info) Description 08/03/2024 Office Communication [facility] [address] [address] Asael Morales MD [address] [address] Social History Tobacco Use Types [...] Upcoming Encounters Date Type Department Care Team ([facility] Contact Info) Description 01/24/2025 3:00 PM EDT Office Visit [facility] [address] [phone] Asael Morales MD [address] [address] documented as of this encounter Visit Diagnoses Not on filedocumented in this encounter Care Teams Meteorologist In Charge Relationship Specialty Start Date End Date Chanelle Francis [address] [place] [address] PCP - General 09/16/23 documented as of this encounter
--- OUTSIDE RECORDS SUMMARY | 2024-10-28 13:32 | XMS_ITS | Encounter Summary ---
Author Organization [employer] Address 75 [facility] 7t [place] [address] Care Team Providers Care Med Surg Rn Name Role Phone Tia Albarado [facility] Primary Care Provider [phone] Encounter Details Date Type Department Care Team (Latest Contact Info) Description 10/28/2024 Travel Social History Tobacco Use Types Packs/Day Years Used Date Smoking Tobacco: Former Cigarettes 1 2 Passive Smoke Exposure: Current Smokeless Tobacco: Never Alcohol Use Standard Drinks/Week Comments Not Currently 0 (1 standard drink = 0.6 oz pur e alcohol) Depression Answer Date Recorded Patient Health Questionnaire-9 Score 0 10/28/2024 Patient Health Questionnaire-9 Score 0 10/28/2024 Last PHQ-9: Questionnaire Data Not on file 0 10/28/2024 Housing Stability Answer Date Recorded What is your housing situation today? I do not have housing (Staying with others, in a hotel, in a assisted, living outside on the street, on a [...] t he electric, gas, oil or water [employer] threatened to shut off services in your home? Yes 10/17/2024 Depression Answer Date Recorded Patient Health Questionnaire-2 Score 0 10/28/2024 Internet Access Answer Date Recorded Internet Access [...] Care Team (Late st Contact Info) Description 12/27/2024 10:30 AM EDT Nurse Only [facility] [address] [place] [address] 01/25/2025 2:30 PM EDT Office Visit [facility] [address] [place] [address] Tia Albarado FNP [address] [place] [address] documented as of this encounter Goals Goal Patient Goal Type Associated Problems Recent Progress Patient-Stated? Author Blood Pressure < 140/90 Blood Pressure 139/83(2024 11:58 AM EST) No Piers-Gambl e, Christine, PharmD Take your medication every day Lifestyle No Piers-Gambl e, Christine, PharmD documented as of this encounter Visit Diagnoses Not on filedocumented in this encounter Additional Health Concerns Assessment Noted Time PHQ-9 Depression Total Score: 0 10/28/19 12:06 PM EST documented as of this encounter Care Teams Med Surg Rn Relationship Specialty Start Date End Date Tia Albarado FNP [address] [place] [address] PCP - General Family Medicine 05/13/24 Josefina He Supervisor Gate ServicesInstitution Director 10/26/24 documented as of this encounter
--- OUTSIDE RECORDS SUMMARY | 2024-10-28 13:32 | XMS_ITS | Clinical Summary ---
Author Organization [facility] Address [address] [place] [address] Care Team Providers Care Patient Observer Name Role Phone Unavailable Primary Care Provider [...]
--- OUTSIDE RECORDS SUMMARY | 2024-10-28 13:32 | XMS_ITS | Encounter Summary ---
Author Organization [facility] Address [address] [facility] [address] [place] [address] Phone Care Team Providers Care Delivery Agent Name Role Phone Chanelle Francis Primary Care Provider [phone] Encounter Details Date Type Department Care Team ([facility] st Contact Info) Description 09/16/2023 Office Communication [facility] [address] [place] [phone] Asael Morales MD [address] [facility] [address] [place] [phone] Social History Tobacco Use Types Packs/Day Years [...] Visit [facility] [address] [address] Asael Morales MD [address] [phone] documented as of this encounter Visit Diagnoses Not on filedocumented in this encounter Care Teams Delivery Agent Relationship Specialty Start Date End Date Chanelle Francis [address] [place] [address] PCP - General 09/16/23 documented as of this encounter
--- OUTSIDE RECORDS SUMMARY | 2024-10-28 13:32 | XMS_ITS | Encounter Summary ---
Author Organization [employer] Address [address] [place] [address] 7 [place] [address] Care Team Providers Care Equipment Service Engineer Name Role Phone Per [facility] Primary Care Provider [phone] Reason for Visit * Reason Comments Follow-up Encounter Details Date Type Department Care Team (Latest Contact Info) Description 10/28/2024 11:30 AM EST Office Visit [facility] MEDICINE [address] [place], [place] [phone] [facility] [address] [place] [address] Polyneuropathy (Primary Dx); Chronic radicular low back pain; Encounter for immunization; Need for vaccination Social History Tobacco Use Types Packs/Day Years [...] Sign Reading Time Taken Comments Blood Pressure 139/83 10/28/2024 11:58 AM EST Pulse 80 10/28/2024 11:58 AM EST Temperature 36.6 ??C (97.8 ??F) 10/28/2024 11:[address] Respiratory Rate 20 10/28/2024 11:58 AM EST Oxygen Saturation 98% 10/28/2024 11:58 AM EST Inhaled Oxygen Concentration - - Weight 96.3 kg (212 lb 3.2 oz) 10/28/2024 11:58 AM EST Height 180.3 cm (5' 11 ) 10/28/2024 11:58 AM EST Body Mass Index 29.6 10/28/2024 11:58 AM EST documented in this encounter Plan of Treatment Upcoming Encounters Date Type Department Care Team (Late st Contact Info) Description 12/27/2024 10:30 AM EDT Nurse Only [facility] MEDICINE [address] [place] [address] 01/25/2025 2:30 PM EDT Office Visit [facility] MEDICINE [address] [place] [address] [facility] [address] [place] [address] Scheduled Orders Name Type Priority Associated Diagnoses Orde r Schedule CBC auto differential Lab Routine Polyneuropathy Expected: 10/28/2024 (Approximate), Expires: 10/28/2025 TSH W/Reflex to FT4 Lab Routine Polyneuropathy Expected: 10/28/2024 (Approximate), Expires: 10/28/2025 Vitamin B12/Folate, Serum Panel Lab Routine Polyneuropathy Expected: 10/28/2024, Expires: 10/28/2025 Hepatitis A,B,C Profile Lab Routine Polyneuropathy Expected: 10/28/2024, Expires: 10/28/2025 C-reactive Protein Lab Routine Polyneuropathy Expected: 10/28/2024 (Approximate), Expires: 10/28/2025 Sed Rate by Modified [place] Lab Routine Polyneuropathy Expected: 10/28/2024, Expires: 10/28/2025 OMID Screen,IFA, with Reflex to Titer and Pattern Lab Routine Polyneuropathy Expected: 10/28/2024 (Approximate), Expires: 10/28/2025 HIV-1/2 Antigen and Antibodies, Fourth Generation, with Reflexes Lab Routine Polyneuropathy Expected: 10/28/2024 (Approximate), Expires: 10/28/2025 Syphilis Screen Lab Routine Polyneuropathy Expected: 10/28/2024, Expires: 10/28/2025 Protein Electrophoresis and Meta/Lambda Light Chains Lab Routine Polyneuropathy Expected: 10/28/2024 (Approximate), Expires: 10/28/2025 documented as of this encounter Goals Goal Patient Goal Type Associated Problems Recent Progress Patient-Stated? Author Blood Pressure < 140/90 Blood Pressure 139/83(2024 11:58 AM EST) No Christine Castano, PharmD Take your medication every day Lifestyle No Christine Castano, PharmD documented as of this encounter Visit Diagnoses Diagnosis Polyneuropathy- Primary Unspecified hereditary and idiopathic peripheral neuropathy Chronic radicular low back pain Encounter for immunization Need for vaccination Need for prophylactic vaccination and inoculation against unspecified single disease documented in this encounter Additional Health Concerns Assessment Noted Time PHQ-9 Depression Total Score: 0 10/28/19 25 12:06 PM EST documented as of this encounter Care Teams Equipment Service Engineer Relationship Specialty Start Date End Date Per Tia [facility] [address] [place] [address] PCP - General Family Medicine 05/13/24 Josefina He Retail Account RepresentativeSupervisor Small Appliance Assembly 10/26/24 documented as of this encounter
--- OUTSIDE RECORDS SUMMARY | 2024-10-28 13:32 | XMS_ITS | Encounter Summary ---
Author Organization [employer] Address [address] [facility] 7t [place] [address] Care Team Providers Care Operation Specialist Name Role Phone Jonathon Greenberg FIRE EXTINGUISHER TESTER Unavailable Unavailable Chanelle Francis Primary Care Provider [phone] [place] [facility] Primary Care Provider [phone] Encounter Details Date Type Department Care Team (Late st Contact Info) Description 11/16/2023 Orders Only [facility] [address] [place], [place] [phone] Chanelle Francis FNP [address] [place] [address] Routine health maintenance (Primary Dx) Social History [...] with others, in a hotel, in a custodial, living outside on the street, on a [...] Description 12/27/2024 10:30 AM EDT Nurse Only [facility] [address] [place] [address] 01/25/2025 2:30 PM EDT Office Visit [facility] [address] [place] [address] [address] documented as of this encounter Goals Goal Patient Goal Type Associated Problems Recent Progress Patient-Stated? Author Blood Pressure < 140/90 Blood Pressure 139/83( 025 11:58 AM EST) No Lucass-Christine Lafleur, PharmD documented as of this encounter Procedures Procedure Name Priority Date/Time Associated Diagnosis Comments T-SPOT(R).TB Routine 06/16/2024 9:54 AM EDT Routine health maintenance documented in this encounter Results * T-SPOT??.TB (06/16/2024 9:54 AM EDT) T Spot TB Negative Negative [facility] Comment:A negative test resu lt does [...] as aquantitative test. TS PANEL A 0 [facility] TS PANEL B 0 [facility] Negative Control Passed [facility] Positive Control Passed [facility] Comment:For additional infor olga lidia, please refer tohttp://education.[employer]/faq/PTI485(This link is being provided for informational/educational purposes only.)THIS TEST WAS PERFORMED AT:[id number] [place] [phone] SANTIZO MD,PHD 06/16/2024 9:54 AM EDT 06/16/2024 11:17 AM EDT Chanelle [facility] BLOOD ORDERABLES Final Resu lt [facility] [address] [place] [address] [phone] documented in this encounter Visit Diagnoses Diagnosis Routine health maintenance- Primary Unspecified examination documented in this encounter Additional Health Concerns Assessment Noted Time PHQ-9 Depression Total Score: 15 04/10/2 023 3:36 PM EDT documented as of this encounter Care Teams Operation Specialist Relationship Specialty Start Date End Date Chanelle Francis FNP [address] [place] [address] PCP - General Family Medicine 05/28/23 05/12/24 Tia Albarado FNP [facility] [place] [address] PCP - General Family Medicine 05/13/24 Jonathon Greenberg FNP Family Medicine 08/06/22 05/12/24 Josefina He Clock MakerDirector Fraud 10/26/24 documented as of this encounter
--- OUTSIDE RECORDS SUMMARY | 2024-10-28 13:32 | XMS_ITS | Encounter Summary ---
Author Organization [employer] Address [address] [facility] 7 [place] [address] Care Team Providers Care Movie Operator Name Role Phone Jonathon Greenberg [facility] Unavailable Unavailable Chanelle Francis [facility] Primary Care Provider [phone] [facility] Primary Care Provider [phone] Reason for Visit * Reason Onset Date Comments Referral 04/22/2024 Encounter Details Date Type Department Care Team (Late st Contact Info) Description 04/22/2024 Telephone [facility] [address] [place], [place] [phone] Chanelle Francis FNP [address] [place], [place] [phone] Referral Social History Tobacco Use Types Packs/Day [...] the past 12 months, has t he [employer], gas, oil or water company threatened to [...] - 05/03/2024 11:40 AM EDT T/C to [facility] [phone] to inform that Neurology referral is already placed by ED C at Dr. EMILY CABRERA, [facility] Neu[facility]. No answer. LVM to call back on [phone]. * Telephone Encounter - Paula Jacob - 05/03/2024 11:01 AM EDT Tc from pt with Vonnie at [facility] requesting status on neurology referral. * Telephone Encounter - Candace Ch - 04/22/2024 10:53 AM EDT Tc from pt with Vonnie at [facility] requesting a neurology referral, they stated this has been discussed with PCP documented in this encounter Plan of Treatment Upcoming Encounters Date Type Department Care Team (Late st Contact Info) Description 12/27/2024 10:30 AM EDT Nurse Only [facility] [place] [address] 01/25/2025 2:30 PM EDT Office Visit [facility] [place] [address] Tia Albarado FNP [address] [place] [address] documented as of this encounter Goals Goal Patient Goal Type Associated Problems Recent Progress Patient-Stated? Author Blood Pressure < 140/90 Blood Pressure 139/83(2024 11:58 AM EST) No Lucass-Gambl eChristine, PharmD Take your medication every day Lifestyle No Piers-Gambl e, Christine, PharmD documented as of this encounter Visit Diagnoses Not on filedocumented in this encounter Additional Health Concerns Assessment Noted Time PHQ-9 Depression Total Score: 24 024 3:41 PM EST documented as of this encounter Care Teams Movie Operator Relationship Specialty Start Date End Date Chanelle [place] [address] PCP - General Family Medicine 05/28/23 05/12/24 ItalyTia bernstein FNP [address] [place] [address] PCP - General Family Medicine 05/13/24 Jonathon Greenberg FNP Family Medicine 08/06/22 05/12/24 Josefina He Montessori Program DirectorTextile Broker 10/26/24 documented as of this encounter
--- OUTSIDE RECORDS SUMMARY | 2024-10-28 13:32 | XMS_ITS | Encounter Summary ---
Author Organization [employer] Address [address] [facility] 7t [place] [address] Care Team Providers Care Bleaching Supervisor Name Role Phone [facility] Primary Care Provider [phone] Reason for Visit * Reason Onset Date Comments Med Refill 09/30/2024 Encounter Details Date Type Department Care Team (Late st Contact Info) Description 09/30/2024 Refill [facility] [address] [place], [place] [phone] [facility] [address] [place] [address] Chronic radicular low back pain Social History [...] Description 12/27/2024 10:30 AM EDT Nurse Only [facility] [address] [place] [address] 01/25/2025 2:30 PM EDT Office Visit [facility] [address] [place] [address] Tia Albarado FNP [address] [place] [address] documented as of this encounter Goals Goal [...] documented as of this encounter Care Teams Bleaching Supervisor Relationship Specialty Start Date End Date Tia Albarado FNP [address] [place] [address] PCP - General Family Medicine 05/13/24 documented as of this encounter
--- OUTSIDE RECORDS SUMMARY | 2024-10-28 13:32 | XMS_ITS | Encounter Summary ---
Author Organization [employer] Address [address] [facility] 7 [place] [address] Care Team Providers Care Horse Trader Name Role Phone Jonathon Greenberg [facility] Unavailable Unavailable Chanelle Francis [facility] Primary Care Provider [phone] [facility] Primary Care Provider [phone] Reason for Visit * Reason Onset Date Comments Request For Order(s) 10/23/2023 Encounter Details Date Type Department Care Team ([facility] st Contact Info) Description 10/23/2023 Telephone [facility] [address] [place], [place] [phone] Chanelle Francis FNP [address] [place], [place] [phone] Request For Order(s) Social History Tobacco Use [...] as soon as possible. Please contact at [phone] * Telephone Encounter - Van Jaffe RN - 10/23/2023 2:22 PM EST T/C to [phone] for below message, Aminata states they received [...] 12:11 PM EST Tc [facility] requesting an written order stating it is okay to injection TB, states they had an error with TB lab work. Please contact for further clarification at [phone] documented in this encounter Plan of Treatment Upcoming Encounters Date Type Department Care Team ([facility] st Contact Info) Description 12/27/2024 10:30 AM EDT Nurse Only [facility] [address] [place] [address] 01/25/2025 2:30 PM EDT Office Visit [facility] [address] [place] [address] PerTia bernstein FNP [address] [place] [address] documented as of this encounter Goals Goal [...] documented as of this encounter Care Teams Horse Trader Relationship Specialty Start Date End Date Chanelle Francis FNP [address] [place] [address] PCP - General Family Medicine 05/28/23 05/12/24 [place]ins[place]ia FNP [address] [place] [address] PCP - General Family Medicine 05/13/24 Jonathon Greenberg FNP Family Medicine 08/06/22 05/12/24 documented as of this encounter
--- OUTSIDE RECORDS SUMMARY | 2024-10-28 13:32 | XMS_ITS | Encounter Summary ---
Author Organization [employer] Address [address] [facility] 7 [place] [address] Care Team Providers Care Site Coordinator Name Role Phone Jonathon Greenberg DRUG SAFETY DATA MANAGEMENT SPECIALIST Unavailable Unavailable Chanelle Francis [facility] Primary Care Provider [phone] [facility] Primary Care Provider [phone] Reason for Visit * Reason Onset Date Comments PT-1 05/05/2024 Encounter Details Date Type Department Care Team (Late st Contact Info) Description 05/05/2024 Telephone [facility] [address] [place], [place] [phone] Chanelle Francis FNP [address] [place], [place] [phone] PT-1 Social History Tobacco Use Types Packs/Day [...] Y/N: Yes Provider name or facility name: [facility] Facility Address: [address] [place] [address] Escort needed: Y/N: No Do you have a wheelchair: Y/N: No If yes- Manual or electric: No (Uses either mitchell or walker) Visits: Once a month Patient calling requesting PT1 Home Address verified: Y/N: Yes Provider name or facility name: [facility] Facility Address: [address] [place] [address] Escort needed: Y/N: No Do you have a wheelchair: Y/N: No If yes- Manual or electric: N/A Visits: Once a month documented in this encounter Plan of Treatment Upcoming Encounters Date Type Department Care Team ([facility] st Contact Info) Description 12/27/2024 10:30 AM EDT Nurse Only [facility] [address] [place] [address] 01/25/2025 2:30 PM EDT Office Visit [facility] [address] [place] [address] [place]Tia FNP [address] [place] [address] documented as of this encounter Goals Goal Patient Goal Type Associated Problems Recent Progress Patient-Stated? Author Blood Pressure < 140/90 Blood Pressure 139/83(2024 11:58 AM EST) No Lucass-Gambl Christine wayne, PharmD Take your medication every day Lifestyle No Piers-Gambl e, Christine, PharmD documented as of this encounter Visit Diagnoses Not on filedocumented in this encounter Additional Health Concerns Assessment Noted Time PHQ-9 Depression Total Score: 24 024 3:41 PM EST documented as of this encounter Care Teams Site Coordinator Relationship Specialty Start Date End Date Chanelle Francis FNP [address] [place] [address] PCP - General Family Medicine 05/28/23 05/12/24 [place]ia FNP [address] [place] [address] PCP - General Family Medicine 05/13/24 Jonathon Greenberg FNP Family Medicine 08/06/22 05/12/24 Josefina He Associate CounselSaw Cleaner 10/26/24 documented as of this encounter
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
--- OUTSIDE RECORDS SUMMARY | 2024-10-28 13:32 | XMS_ITS | Encounter Summary ---
Author Organization [facility] Address [address] [facility] [address] [place] [address] Phone Care Team Providers Care Form Tamper Name Role Phone OlmanChanelle soriano Primary Care Provider [phone] Encounter Details Date Type Department Care Team ([facility] st Contact Info) Description 05/15/2024 Office Communication [facility] [address] [facility] 200 [place] [phone] Asael Morales MD [address] [facility] 204 [place] [phone] Social History Tobacco Use Types Packs/Day Years [...] Office Visit [facility] [address] [phone] Asael Morales MD [address] [phone] documented as of this encounter Visit Diagnoses Not on filedocumented in this encounter Care Teams Form Tamper Relationship Specialty Start Date End Date Chanelle Francis [address] [place] [address] PCP - General 09/16/23 documented as of this encounter
--- OUTSIDE RECORDS SUMMARY | 2024-10-28 13:32 | XMS_ITS | Encounter Summary ---
Author Organization [employer] Address [address] [facility] 7t [place] [address] Care Team Providers Care Tube Knitter Name Role Phone Jonathon Greenberg Primary Care Provider Jonathon Jarquin TILE CLASSIFIER Unavailable Unavailable Shawn Murillo Primary Care Provider Unavail able Chanelle Francis TILE CLASSIFIER Primary Care Provider [phone] [place] TILE CLASSIFIER Primary Care Provider [phone] Encounter Details Date Type Department Care Team ([facility] Contact Info) Description 10/02/2022 Orders Only [facility] [address] [place], [place] [phone] Aminata Brizuela LPN Social History Tobacco Use [...] Upcoming Encounters Date Type Department Care Team ([facility] Contact Info) Description 12/27/2024 10:30 AM EDT Nurse Only [facility] [address] [place] [address] 01/25/2025 2:30 PM EDT Office Visit [address] [phone] [facility] Tia, [facility] [address] [place] [address] documented as of this encounter Visit Diagnoses Not on filedocumented in this encounter Care Teams Tube Knitter Relationship Specialty Start Date End Date Jonathon Greenberg FNP PCP - General Family Medicine 08/06/22 11/09/22 Shawn Murillo AGNP PCP - General Family Medicine 11/10/22 05/27/23 Chanelle Francis FNP [address] [place] [address] PCP - General Family Medicine 05/28/23 05/12/24 [place] FNP [address] [place] [address] PCP - General Family Medicine 05/13/24 Jonathon Greenberg FNP Family Medicine 08/06/22 05/12/24 Josefina He Teacher SpecialistFranchise Development Manager 10/26/24 documented as of this encounter
--- OUTSIDE RECORDS SUMMARY | 2024-10-28 13:32 | XMS_ITS | Encounter Summary ---
Author Organization [employer] Address [address] [facility] 7 [place] [address] Care Team Providers Care Powertrain Control Systems Engineer Name Role Phone Randall [facility] Primary Care Provider [phone] Reason for Visit * Reason Onset Date Comments Durable Medical Equipment 06/03/2024 Encounter Details Date Type Department Care Team ([facility] st Contact Info) Description 06/03/2024 Telephone [facility] [address] [place], [place] [phone] [facility] [address] [place] [address] Durable Medical Equipment Social History Tobacco Use [...] - 06/03/2024 1:49 PM EDT Tc from [facility] with [facility] requesting a toilet seat commode for pt along with shower chair. If any questions you can contact Marissa at [phone]. documented in this encounter Plan of Treatment Upcoming Encounters Date Type Department Care Team (Late st Contact Info) Description 12/27/2024 10:30 AM EDT Nurse Only [facility] [address] [place] [address] 01/25/2025 2:30 PM EDT Office Visit [facility] [address] [place] [address] Tia Albarado FNP [address] [place] [address] documented as of this encounter Goals Goal Patient Goal Type Associated Problems Recent Progress Patient-Stated? Author Blood Pressure < 140/90 Blood Pressure 139/83(2024 11:58 AM EST) No Christine Castano, PharmD Take your medication every day Lifestyle No Piers-Gambl Christine wayne PharmD documented as of this encounter Visit Diagnoses Not on filedocumented in this encounter Additional Health Concerns Assessment Noted Time PHQ-9 Depression Total Score: 24 11/17/ 024 3:41 PM EST documented as of this encounter Care Teams Powertrain Control Systems Engineer Relationship Specialty Start Date End Date Tia Albarado FNP [address] [place] [address] PCP - General Family Medicine 05/13/24 Josefina He Halal Meat PackerChild Neurologist 10/26/24 documented as of this encounter
--- OUTSIDE RECORDS SUMMARY | 2024-10-28 13:32 | XMS_ITS | Encounter Summary ---
Author Organization [employer] Address [address] [place] [address] 7 [place] [address] Care Team Providers Care Blocker Heated Metal Forms Name Role Phone [facility] Primary Care Provider [phone] Reason for Visit * Reason Onset Date Comments Referral 09/27/2024 Encounter Details Date Type Department Care Team ([facility] st Contact Info) Description 09/27/2024 Telephone [facility] [address] [place], [place] [phone] [place] [facility] [address] [place], [place] [phone] Referral Social History Tobacco Use Types Packs/Day [...] 1:58 PM EST TC placed to Dionna [phone] in regards to below message. Dionna advised patient was referred to neurology on 05/23/24 d/t below concern and had an appointment on 07/11/24 however he no showed. Macie informed the patient needs to call the neurology office (Dr. Escudero) at [phone] to r/s neurology appointment. Macie verbalized understanding. Macie to f/u PRN. * Telephone Encounter - Mitchell Becerra - 10/05/2024 11:20 AM EST TC from Dionna requesting a call back regarding prior message. Contact Dionna at [phone] * Telephone Encounter - Lilian Callaway RN - 09/27/2024 4:45 PM EST TC returned to Dionna at [phone] however no answer, RN left requesting CB to red team nurses. Dionna to f/u PRN. Of note, patient was referred to neurology on 05/23/24 and was scheduled for an appointment on 07/11/24 at 1:30pm * Telephone Encounter - Mitchell Becerra - 09/27/2024 3:48 PM EST Tc from [facility] with [employer] [facility] requesting a referral for Neurology due to pt feeling weak on his left Side. If any questions contact [facility] at [phone] documented in this encounter Plan of Treatment Upcoming Encounters Date Type Department Care Team (Late st Contact Info) Description 12/27/2024 10:30 AM EDT Nurse Only [facility] [address] [place] [address] 01/25/2025 2:30 PM EDT Office Visit [facility] [address] [place] [address] Tia Albarado FNP [address] [place] [address] documented as of this encounter Goals Goal [...] documented as of this encounter Care Teams Blocker Heated Metal Forms Relationship Specialty Start Date End Date Tia Albarado FNP [address] [place] [address] PCP - General Family Medicine 05/13/24 documented as of this encounter
--- OUTSIDE RECORDS SUMMARY | 2024-10-28 13:32 | XMS_ITS ---
Author Organization [facility] Address [address], [place] [phone] Care Team Providers Care Compressor House Operator Name Role Phone [facility], Dental Department Primary Care Provider Unavailable Eli Pisano Unavailable [phone] REASON FOR VISIT housing Social History Sex Assigned At : Social History Observation Description Sex Assigned At Male Encounters Encounter Location Date Provider Diagnosis [facility] [address] [place] [phone] 10/21/2024 Eli Pisano Plan Of Treatment Next Appt Details Provider Name:Eli Sparks, 11/01/2024 01:15:00 PM, [facility] Senior Fire Protection Engineer, [address] [place] [address], [phone], Progress Notes * Tate ESCOBEDODOB:[birth year] (44 yo M)Acc No.[id number]:10/21/2024 Case Management New Patient:?Marycarmen ESCOBEDO Provider:?Eli Pisano :1980???Age:44 Y???Sex:Male Nic e:10/21/2024 Address:[address] [place], [place] [phone] Pcp:Dental Department [facility] Subjective: * Chief Complaints: * ???1. Housing. * HPI: ???Social Service:?Date of encounter?Date:10/21/2024.?Referral Source?walk-in, self, returning client.?Interpretation for medical provider?housing.?Action Taken?Housing?Application [employer] apartment [place].?Follow-up Required:?yes. Pt comprehension?Pt agrees with plan.?Action taken (old)?form completion, Items given to client.? Filled out? application/completed/faxed as well, copies made and given to Pt copy in file. Objective: * Vitals:? Assessment: Plan: * Treatment: * Images: Billing Information: * Visit Code:? * Procedure Codes:? Care Plan Details* * Sign off status: Completed true * Provider:?Eli Pisano Date:? Generated for Alexandro webber/Connor/Jackie on:?10/28/2024 01:32 PM EST History and Physical Notes * HPI (History of Present Illness) Category Sub-Category Detail Notes Social Service Referral Source walk-in, self, r eturning client Interpretation for medical provider housing Action taken (old) form completion, Ite ms given to client Follow-up Required: yes Pt comprehension Pt agrees with plan Action Taken Housing: Application [employer] apa rtment [place] Date of encounter Date:10/21/2024
--- OUTSIDE RECORDS SUMMARY | 2024-10-28 13:32 | XMS_ITS | Clinical Summary ---
Author Organization [facility] Address [address] [address] Phone Care Team Providers Care Family Court Justice Name Role Phone Penny Chanelle Primary Care Provider Allergies No known active [...] Orders Only [facility] [address] [place] [address] Asael Morales MD Kidney transplant status 08/11/2024 Refill [facility] [address] [place] [address] Asael Morales MD 08/03/2024 Office Communication [facility] [address] [place] [address] Asael Morales MD 08/02/2024 3:30 PM EST Office Visit [facility] [address] [place] [address] Asael Morales MD Kidney transplant status (Primary [...] Office Visit [facility] [address] [address] Asael Morales MD [address] [phone] Health Maintenance Due Date Last Done Comments Hepatitis B Vaccine (3 of 3 - 19+ 3-dose series) 10/15/2024 05/17/2024, 04/14/2024 Pneumococcal Vaccine: Pediat rics (0 to 5 Years) and At-Risk Patients (6 to 64 Years) Completed 04/29/2023 Influenza Vaccine Completed 06/18/2024 [place] Care Teams Family Court Justice Relationship Specialty Start Date End Date Chanelle Francis [address] [place] [address] PCP - General 09/16/23
--- OUTSIDE RECORDS SUMMARY | 2024-10-28 13:32 | XMS_ITS | Encounter Summary ---
Author Organization [employer] Address [address] [facility] 7t [place] [address] Care Team Providers Care Community Educator Name Role Phone Tia Albarado [facility] Primary Care Provider [phone] Encounter Details Date Type Department Care Team [...] Description 12/27/2024 10:30 AM EDT Nurse Only [facility] [address] [place] [address] 01/25/2025 2:30 PM EDT Office Visit [facility] [address] [place] [address] [facility], [address] [address] documented as of this encounter Goals Goal [...] EST Narrative 10/20/2024 8:07 AM EST ? [facility] ?[address] ?[place], [place] [address] ? Magnetic Resonance Report ? Signed ? Patient: Gonzalez Stock,Tate ?MR#: [id number] ?? [id number] ? : 1980 ?Acct:[id number] ? Age/Sex: 44 / M ?ADM Date: 10/19/24 ? Loc: HO.MRI ? Attending Dr: Brandon Correa MD ? Ordering Physician: Brandon Correa MD ?? Date of Service: 10/19/24 ?? Procedure(s): MR Prostate wo/w con ?? Accession Number(s): [id number] ? cc: Brandon Correa MD; Tia Albarado [...] highly likely ?? to be present) ? [employer]. MR Prostate Imaging Reporting and Data ?? System version 2.1. http://www.acr.org/Quality-Safety/Resources/PIRADS/ ? Electronically signed by: ??Sin Sharif MD ??10/20/2024 08:04 AM EST ?? RP ? Dictated By: ?Sin Sharif MD ? Signed By: ?<Electronically signed by Sin Sharif MD in OV> ?10/20/24 0804 ? DD/ 5 ? TD/TT: 10/19/2430 ? Utility Plant Operative: ? Procedure Note Gracy Lewis - 10/20/[address] [address] Magnetic Resonance Report Signed Patient: Tate Escobedo#: [id number] : 1980Acct:[id number] Age/Sex: 44 / MADM Date: 10/19/24 Loc: HO.MRI Attending Dr: Brandon Correa MD Ordering Physician: Brandon Correa MD Date of Service: 10/19/24 Procedure(s): MR Prostate wo/w con Accession Number(s): [id number] cc: Brandon Correa MD; [facility] EXAMINATION: MR PROSTATE WITHOUT THEN [...] cancer is highly likely to be present) [employer]. MR Prostate Imaging Reporting and Data System version 2.1. http://www.acr.org/Quality-Safety/Resources/PIRADS/ Electronically signed by: Sin Sharif MD 10/20/2024 08:04 AM EST RP Dictated By: Sin Sharif MD Signed By: <Electronically signed by Sin Sharif MD in OV> 10/20/24 0804 DD/ 0816 TD/TT: 10/19/24 0930 Utility Plant Operative: us [facility] External Provider IMG MRI PROCEDURES Final Result * (ABNORMAL) PSA, Free and Total (10/07/2024 12:08 PM EST) PSA, Total 7.0(A) < OR = 4.0 ng/mL [facility] PSA % Free 7(A) >25 % (calc) [facility] Comment: PSA(ng/mL) ?Free PSA(%) ? [...] ? 9 ? (3)Yue et al.:MILAGROS 277: 9267-9125 (1996) ? (4)Yue et al.:MILAGROS 279: 8152-4051 (1997)(x)These estimates vary with age, ethnicity, family [...] presence or absence ofdisease.THIS TEST WAS PERFORMED AT:[facility] [facility] [address] ??[phone] MURRAY MD PSA, Free 0.5 ng/mL [facility] 10/07/2024 12:0 8 PM EST 10/07/2024 12:08 PM EST Generic External Data Provider LAB BLOOD ORDERAB LES Final Result Performing Organization Address [facility] Co de Phone Number [facility] [address] [place] [phone] * (ABNORMAL) PSA, Total With Reflex to PSA, Free (10/07/2024 10:56 AM EST) PSA,Total (Free>4and<10) 6.46(H) 0.00 - 4.00 ng/mL [facility] Comment:PSA methodology: Yenni Sierra i ChemiluminescentMicroparticle Immunoassay (CMIA) 10/07/2024 10:5 6 AM EST 10/07/2024 10:56 AM EST Generic External Data Provider LAB BLOOD ORDERAB LES Final Result Performing Organization Address [facility] Co de Phone Number [facility] [address] [place] [phone] documented in this encounter Visit Diagnoses Not on filedocumented in this encounter Additional Health Concerns Assessment Noted Time PHQ-9 Depression Total Score: 0 06/13/20 24 9:04 AM EDT documented as of this encounter Care Teams Community Educator Relationship Specialty Start Date End Date Tia Albarado FNP [address] [place] [address] PCP - General Family Medicine 05/13/24 documented as of this encounter
--- OUTSIDE RECORDS SUMMARY | 2024-10-28 13:33 | XMS_ITS | Encounter Summary ---
Author Organization [employer] Address [address] [place] [address] 7 [place] [address] Care Team Providers Care Warp Knitting Machine Operator Name Role Phone Dionicio Naunfarrahkarson DOPER OPERATOR Unavailable Unavailable Shawn Murillo Primary Care Provider Unavail able Chanelle Francis DOPER OPERATOR Primary Care Provider [phone] [place] Tia DOPER OPERATOR Primary Care Provider [phone] Reason for Visit * Reason Onset Date Comments FYI 04/09/2023 Encounter Details Date Type Department Care Team (Late st Contact Info) Description 04/09/2023 Telephone [facility] [address] [place], [place] [phone] Shawn Murillo AGNP FYI Social History Tobacco [...] 11:33 AM EDT Tc from [facility] physical therapy calling to advise PCP his BP was 135/100 but pt states he has been consistent with BP medication. Will continue treatment until his BP and pain gets better. documented in this encounter Plan of Treatment Upcoming Encounters Date Type Department Care Team (Late st Contact Info) Description 12/27/2024 10:30 AM EDT Nurse Only [facility] [address] [place] [address] 01/25/2025 2:30 PM EDT Office Visit [address] [address] Tia Albarado FNP [address] [place] [address] documented as of this encounter Visit Diagnoses Not on filedocumented in this encounter Additional Health Concerns Assessment Noted Time PHQ-9 Depression Total Score: 023 12:04 PM EDT documented as of this encounter Care Teams Warp Knitting Machine Operator Relationship Specialty Start Date End Date Shawn Murillo AGNP PCP - General Family Medicine 11/10/22 05/27/23 Chanelle Francis FNP [address] [place] [address] PCP - General Family Medicine 05/28/23 05/12/24 [place] bern[place] FNP [address] [place] [address] PCP - General Family Medicine 05/13/24 Jonathon Greenberg FNP Family Medicine 08/06/22 05/12/24 Josefina He Process Control TechnicianCarton Marker Machine 10/26/24 documented as of this encounter
--- OUTSIDE RECORDS SUMMARY | 2024-10-28 13:33 | XMS_ITS ---
Author Organization [facility] Address [address] [place], [place] [phone] Care Team Providers Care Optician Manager Name Role Phone [facility], Dental Department Primary Care Provider Unavailable Eli Pisano Unavailable [phone] REASON FOR VISIT housing, basic intake Social History Sex Assigned At : Social History Observation Description Sex Assigned At Male Encounters Encounter Location Date Provider Diagnosis [facility] [address] [place] [phone] 10/14/2024 Eli Pisano Plan Of Treatment Next Appt Details Provider Name:Eli Sparks, 11/01/2024 01:15:00 PM, [facility] Puller Machine, [address] [place] [address], [phone], Progress Notes * Tate ESCOBEDODOB:[birth year] (44 yo M)Acc No.[id number]:10/14/2024 Case Management New Patient:?Marycarmen ESCOBEDO Provider:?Eli Pisano :1980???Age:44 Y???Sex:Male Nic e:10/14/2024 Address:[address] [place], [place] [address] Pcp:Dental Department [facility] Subjective: * Chief Complaints: * ???1. Housing, basic intake. * HPI: ???Social Service:?Date of encounter?Date:10/14/2024.?Referral Source?walk-in, self.?Interpretation for medical provider?housing.?Action Taken?Housing?Application [facility] BRODYAGATABelen filled out/faxed/ confirmation and application copied, provided [...] plan Action Taken Housing: [facility]/faxed/ confirmation and application copied, provided to the Pt and Pt file as well. Date of encounter Date:10/14/2024
--- OUTSIDE RECORDS SUMMARY | 2024-10-28 13:33 | XMS_ITS | Encounter Summary ---
Author Organization [employer] Address [address] [facility] 7t [place] [address] Care Team Providers Care Sling Operator Name Role Phone [place] [facility] Primary Care Provider [phone] Reason for Visit * Reason Comments Care Coordination Care Plan Encounter Details Date Type Department Care Team ([facility] st Contact Info) Description 10/26/2024 Telephone [facility] [address] [place], [place] [phone] [facility] [address] [place] [address] Care Coordination ( Care Plan ) Social [...] with others, in a hotel, in a care home, living outside on the street, on [...] has received and reviewed Care Plan from [facility]: Jigsawyer: Josefina He Contact Information: [phone] Care Plan scanned into patient's EHR and notification sent to PCP. documented in this encounter Plan of Treatment Upcoming Encounters Date Type Department Care Team ([facility] st Contact Info) Description 12/27/2024 10:30 AM EDT Nurse Only [facility] [address] [place] [address] 01/25/2025 2:30 PM EDT Office Visit [facility] [address] [place] [address] Tia Albarado FNP [address] [place] [address] documented as of this encounter Goals Goal Patient Goal Type Associated Problems Recent Progress Patient-Stated? Author Blood Pressure < 140/90 Blood Pressure 139/83(2024 11:58 AM EST) No Christine Castano, PharmD Take your medication every day Lifestyle No Maday-Christine Lafleur PharmD documented as of this encounter Visit Diagnoses Not on filedocumented in this encounter Additional Health Concerns Assessment Noted Time PHQ-9 Depression Total Score: 0 06/13/20 24 9:04 AM EDT documented as of this encounter Care Teams Sling Operator Relationship Specialty Start Date End Date Tia Albarado FNP [address] [place] [address] PCP - General Family Medicine 05/13/24 Josefina He Accounting File ClerkCop Winder 10/26/24 documented as of this encounter
--- OUTSIDE RECORDS SUMMARY | 2024-10-28 13:33 | XMS_ITS | Clinical Summary ---
Author Organization [facility] Address [address] [place] [address] Care Team Providers Care Ldr Rn Name Role Phone Pcp, No Unavailable Unavailable [...] age to complete this topic Care Teams Ldr Rn Relationship Specialty Start Date End Date Pcp, No [address] [place] [address] PCP - General 07/08/23 Pcp, No [address] [place] [address] Physician 07/08/23 HOLLAND MANCILLA APRN, PRESSING MACHINE OPERATOR-BC, PRESSING MACHINE OPERATOR-C Nurse Practitioner 06/14/23
--- OUTSIDE RECORDS SUMMARY | 2024-10-28 13:33 | XMS_ITS | Encounter Summary ---
Author Organization [employer] Address [address] [place] [address] 7 [place] [address] Care Team Providers Care Manager Applied Name Role Phone [facility] Primary Care Provider [phone] Reason for Visit * Reason Onset Date Comments Results 10/21/2024 Encounter Details Date Type Department Care Team ([facility] st Contact Info) Description 10/21/2024 Telephone [facility] [address] [place], [place] [phone] Aparna Gates RN [address] [place], [place] [phone] Results Social History Tobacco Use Types Packs/Day [...] EST Telephone call x2 regarding below message. [phone]: not accepting calls at this time [phone]: doesn't ring. Just air with no option [...] Description 12/27/2024 10:30 AM EDT Nurse Only [facility] [address] [place] [address] 01/25/2025 2:30 PM EDT Office Visit [facility] [address] [place] [address] Tia Albarado FNP [address] [place] [address] documented as of this encounter Goals Goal [...] as of this encounter Care Teams Manager Applied Relationship Specialty Start Date End Date Tia Albarado FNP [address] [place] [address] PCP - General Family Medicine 05/13/24 documented as of this encounter
--- OUTSIDE RECORDS SUMMARY | 2024-10-28 13:33 | XMS_ITS | Encounter Summary ---
Author Organization [employer] Address [address] [facility] 7 [place] [address] Care Team Providers Care Ham Sawyer Name Role Phone Jonathon Greenberg [facility] Unavailable Unavailable Chanelle Francis [facility] Primary Care Provider [phone] [facility] Primary Care Provider [phone] Reason for Visit * Reason Onset Date Comments PT1 09/10/2023 Encounter Details Date Type Department Care Team (Late st Contact Info) Description 09/10/2023 Telephone [facility] [address] [place], [place] [phone] Chanelle Francis FNP [address] [place], [place] [phone] PT1 Social History Tobacco Use Types Packs/Day [...] 09/15/2023 8:07 AM EST PT-1 Request Number [id number] is Pending * Telephone Encounter - Stef Blake - 09/10/2023 3:26 PM EST PT1 needed Date: 09/21/2022 Time: 1:30 PM Visits: All future Appt's Address: [address] [place] [address] Facility: [facility] Wheel Chair: No Correctional Officer Needed: Yes documented in this encounter Plan of Treatment Upcoming Encounters Date Type Department Care Team (Late st Contact Info) Description 12/27/2024 10:30 AM EDT Nurse Only [facility] [address] [place] [address] 01/25/2025 2:30 PM EDT Office Visit [facility] [address] [place] [address] [place] Springs[place]ia [facility] [address] [place] [address] documented as of this encounter Goals Goal Patient Goal Type Associated Problems Recent Progress Patient-Stated? Author Blood Pressure < 140/90 Blood Pressure 139/83( 025 11:58 AM EST) No Christine Castano, TaraD documented as of this encounter Visit Diagnoses Not on filedocumented in this encounter Additional Health Concerns Assessment Noted Time PHQ-9 Depression Total Score: 15 023 3:36 PM EDT documented as of this encounter Care Teams Ham Sawyer Relationship Specialty Start Date End Date Chanelle Francis FNP [address] [place] [address] PCP - General Family Medicine 05/28/23 05/12/24 Tia Albarado FNP [address] [place] [address] PCP - General Family Medicine 05/13/24 Jonathon Greenberg FNP Family Medicine 08/06/22 05/12/24 Josefina He Calibrator BarometersQuality Analyst/Technical Writer 10/26/24 documented as of this encounter
--- OUTSIDE RECORDS SUMMARY | 2024-10-28 13:33 | XMS_ITS | Encounter Summary ---
Author Organization [employer] Address [address] [facility] 7t [place] [address] Care Team Providers Care Sprinkler Installer Name Role Phone [place] [facility] Primary Care Provider [phone] Reason for Visit * Reason Comments Care Coordination CHW outreach for SDO H housing search-LVM Encounter Details Date Type Department Care Team (Latest Contact Info) Description 10/18/2024 Patient Outreach [facility] [address] [place], [place] [phone] [facility] [address] [place] [address] Care Coordination (CHW outreach for SDOH housing [...] Wednesdays, and Walk-In Urgent Care Located in [facility]. Patient provided with after-hours line for [facility], , which offer night time triage service and option to transfer toon call provider if needed. documented in this encounter Plan of Treatment Upcoming Encounters Date Type Department Care Team ([facility] st Contact Info) Description 12/27/2024 10:30 AM EDT Nurse Only [facility] [address] [place] [address] 01/25/2025 2:30 PM EDT Office Visit [facility] [address] [place] [address] Tia Albarado FNP [address] [place] [address] documented as of this encounter Goals Goal [...] documented as of this encounter Care Teams Sprinkler Installer Relationship Specialty Start Date End Date Tia Albarado FNP [address] [place] [address] PCP - General Family Medicine 05/13/24 documented as of this encounter
--- OUTSIDE RECORDS SUMMARY | 2024-10-28 13:33 | XMS_ITS | Encounter Summary ---
Author Organization [employer] Address [address] [place] [address] [facility] [place] [address] Care Team Providers Care Entry Level Account Manager Name Role Phone [place] [facility] Primary Care Provider [phone] Reason for Visit * Reason Onset Date Comments Referral 10/19/2024 Encounter Details Date Type Department Care Team ([facility] st Contact Info) Description 10/19/2024 Telephone [facility] [address] [place], [place] [phone] [place] [facility] [address] [place], [place] [phone] Referral Social History Tobacco Use Types Packs/Day [...] 9:33 AM EST Noted. TC returned to [facility] [phone] to inform patient does not need a new [facility] eyecare referral. Josefina informed eyecare attempted to contact the patient however he did not answer in the past.Josefina informed they attempted to re- contact the patient after RN message however his phone is notaccepting calls. Josefina reports the patient has a new phone number. Josefina advised the patient should call [facility] to update his phone number however the patient can call [facility] eyecare at [phone] toschedule an appointment. Josefina verbalized understanding and reports she will notify the patient to call [facility] eyecare and also notify the patient to call [facility] to update phone number. 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 Pt has one, it expires on March6 but there is no appointment available before then, he will need a new one. documented in this encounter Plan of Treatment Upcoming Encounters Date Type Department Care Team (Late st Contact Info) Description 12/27/2024 10:30 AM EDT Nurse Only [facility] [address] [place] [address] 01/25/2025 2:30 PM EDT Office Visit [facility] [address] [place] [address] Tia Albarado FNP [address] [place] [address] documented as of this encounter Goals Goal [...] documented as of this encounter Care Teams Entry Level Account Manager Relationship Specialty Start Date End Date Tia Albarado FNP [address] [place] [address] PCP - General Family Medicine 05/13/24 documented as of this encounter
--- OUTSIDE RECORDS SUMMARY | 2024-10-28 13:33 | XMS_ITS | Encounter Summary ---
Author Organization [employer] Address [address] [facility] 7 [place] [address] Care Team Providers Care Gimp Tacker Name Role Phone [facility] Primary Care Provider [phone] Reason for Visit * Reason Comments Pre-visit Planning SDOH screening posti ve tobacco screening negative Encounter Details Date Type Department Care Team ([facility] st Contact Info) Description 10/17/2024 Patient Outreach [facility] [address] [place], [place] [phone] [facility] [address] [place] [address] Pre-visit Planning (SDOH screening postive tobacco screening [...] Nurse Only [facility] [address] [place] [address] 01/25/2025 2:30 PM EDT Office Visit [facility] [address] [place] [address] Tia Albarado FNP [address] [place] [address] documented as of this encounter Goals Goal Patient Goal Type Associated Problems Recent Progress Patient-Stated? Author Blood Pressure < 140/90 Blood Pressure 139/83(2024 11:58 AM EST) No Christine Castano PharmD Take your medication every day Lifestyle No Christine Castano PharmD documented as of this encounter Visit Diagnoses Not on filedocumented in this encounter Additional Health Concerns Assessment Noted Time PHQ-9 Depression Total Score: 0 06/13/20 9:04 AM EDT documented as of this encounter Care Teams Gimp Tacker Relationship Specialty Start Date End Date Tia Albarado FNP [address] [place] [address] PCP - General Family Medicine 05/13/24 documented as of this encounter
--- OUTSIDE RECORDS SUMMARY | 2024-10-28 13:33 | XMS_ITS | Encounter Summary ---
Author Organization [employer] Address [address] [facility] 7 [place] [address] Care Team Providers Care Front End Driver Name Role Phone Jonathon Greenberg [facility] Unavailable Unavailable Chanelle Francis [facility] Primary Care Provider [phone] [facility] Primary Care Provider [phone] Reason for Visit * Reason Onset Date Comments Lab Orders 08/28/2023 Encounter Details Date Type Department Care Team (Late st Contact Info) Description 08/28/[address] [facility] [address] [place], [place] [phone] Chanelle Francis FNP [address] [place] [address] Lab Orders Social History Tobacco Use Types [...] - 08/28/2023 3:26 PM EST T/C to [phone] to inform that TB test was ordered and pt. Can go to lab as his convenience, Noanswer. LVM to call back on [phone]. * Telephone Encounter - Thompson Lopez - 08/28/2023 2:43 PM EST Tc from Jaylene at [facility] requesting a TB test in order for the patient to be able to join the program any questions please call Jaylene at [phone] documented in this encounter Plan of Treatment Upcoming Encounters Date Type Department Care Team (Late st Contact Info) Description 12/27/2024 10:30 AM EDT Nurse Only [facility] [address] [place], [place] [phone] 01/25/2025 2:30 PM EDT Office Visit [facility] [address] [place], [place] [phone] [facility] [address] [place] [address] documented as of this encounter Goals Goal Patient Goal Type Associated Problems Recent Progress Patient-Stated? Author Blood Pressure < 140/90 Blood Pressure 139/83( 025 11:58 AM EST) Christine Villarreal PharmD documented as of this encounter Visit Diagnoses Not on filedocumented in this encounter Additional Health Concerns Assessment Noted Time PHQ-9 Depression Total Score: 15 023 3:36 PM EDT documented as of this encounter Care Teams Front End Driver Relationship Specialty Start Date End Date Chanelle Francis FNP [address] [place] [address] PCP - General Family Medicine 05/28/23 05/12/24 Tia Albarado FNP [address] [place] [address] PCP - General Family Medicine 05/13/24 Jonathon Greenberg FNP Family Medicine 08/06/22 05/12/24 Josefina He Photovoltaic InstallerMold Washer 10/26/24 documented as of this encounter
--- OUTSIDE RECORDS SUMMARY | 2024-10-28 13:33 | XMS_ITS | Encounter Summary ---
Author Organization [employer] Address [address] [place] [address] 7t [place] [address] Care Team Providers Care Computer Programmer Name Role Phone Jonathon Greenberg [facility] Unavailable Unavailable Chanelle Francis [facility] Primary Care Provider [phone] [facility] Primary Care Provider [phone] Reason for Visit * Reason Comments Med Refill Encounter Details Date Type Department Care Team (Late st Contact Info) Description 09/30/2023 Refill [facility] [address] [place], [place] [phone] [facility] [address] [place] [address] Chronic radicular low back pain Social History [...] Nurse Only [facility] [address] [place] [address] 01/25/2025 2:30 PM EDT Office Visit [facility] [address] [place] [address] Tia Albarado FNP [address] [place] [address] documented as of this encounter Goals Goal Patient Goal Type Associated Problems Recent Progress Patient-Stated? Author Blood Pressure < 140/90 Blood Pressure 139/83( 025 11:58 AM EST) No Christine Castano, PharmD documented as of this encounter Visit Diagnoses Diagnosis Chronic radicular low back pain documented in this encounter Additional Health Concerns Assessment Noted Time PHQ-9 Depression Total Score: 15 023 3:36 PM EDT documented as of this encounter Care Teams Computer Programmer Relationship Specialty Start Date End Date Chanelle Francis FNP [address] [place] [address] PCP - General Family Medicine 05/28/23 05/12/24 Tia Albarado FNP [address] [place] [address] PCP - General Family Medicine 05/13/24 Jonathon Greenberg FNP Family Medicine 08/06/22 05/12/24 Josefina He Senior Android Software EngineerSack Sewer Machine 10/26/24 documented as of this encounter
[2024-10-28 16:21] LABS: MANUAL DIFF FLAG NO
[2024-10-28 16:30] LABS: Basophils Percent Auto 0.3 % (0-2); Eosinophils Absolute Auto 0.1 X10*3/uL (0.0-0.4); Eosinophils Percent Auto 1.1 % (0-4); Hematocrit 39.7 % (42.0-52.0); Hemoglobin 13.7 g/dl (14.0-18.0); Imm Gran Abs Auto 0.04 X10*3/uL (0.00-0.03); Imm Gran Pct Auto 0.6 % (0.0-0.4); Lymphocytes Absolute Auto 0.8 X10*3/uL (1.2-4.9); Lymphocytes Percent Auto 12.8 % (20-40); Mean Corpuscular HGB Conc 34.5 g/dl (31.0-36.0); Mean Corpuscular Hemoglobin 30.3 pg (27.0-33.0); Mean Corpuscular Volume 87.8 fL (80.0-98.0); Mean Platelet Volume 9.8 fL (9.4-12.4); Monocytes Absolute Auto 0.4 X10*3/uL (0.1-1.2); Monocytes Percent Auto 5.7 % (2-11); Neutrophils Percent Auto 79.5 % (45-73); Platelet Count 164 X10*3/uL (160-400); Red Blood Count 4.52 X10*6/uL (4.60-5.80); Red Cell Distribution Width 13.2 % (11.0-16.0); White Blood Count 6.3 X10*3/uL (4.8-10.8)
[2024-10-28 16:44] LABS: C Reactive Protein 0.19 mg/dL (< or = 0.50)
[2024-10-28 17:03] LABS: TSH reflex Free T4 1.31 uIU/mL (0.32-4.0)
[2024-10-28 17:12] LABS: Folate 7.3 ng/mL (> or = 4.0); Vitamin B12 306 pg/mL (200-900)
[2024-10-28 17:19] LABS: Erythrocyte Sedimentation Rate 2 MM/HR (0-15)
[2024-10-29 03:30] LABS: Syphilis Screen Nonreactive (Nonreactive)
[2024-10-29 03:55] LABS: HBS Num1 639.49 mIU/mL (0-7.99); HBc Num1 0.12 S/CO (0.00-0.79); HBsAGNum1 0.35 S/CO (0.00-0.99); HIV AB/AG Nonreactive (Nonreactive); HIV Num 1 0.09 S/CO (0.00-0.99); Hepatitis A Antibody IgM 0.15 Index (0-0.79); Hepatitis B Core Antibody Nonreactive (Nonreactive); Hepatitis B Surface Antigen Negative (Negative); ~HepC Num1 0.05 S/CO (0.00-0.79); ~Hepatitis A Antibody IgM Nonreactive (Nonreactive); ~Hepatitis B Surface Antibody REACTIVE (Nonreactive); ~Hepatitis C Antibody Nonreactive (Nonreactive)
[2024-10-31 22:49] LABS: Prot Elec - Albumin 4.6 g/dL (3.8-4.8); Prot Elec - Alpha1 0.3 g/dL (0.2-0.3); Prot Elec - Alpha2 0.5 g/dL (0.5-0.9); Prot Elec - Beta 1 0.4 g/dL (0.4-0.6); Prot Elec - Beta 2 0.3 g/dL (0.2-0.5); Prot Elec - Gamma 0.7 g/dL (0.8-1.7); Prot Elec - Total Protein 6.7 g/dL (6.1-8.1)
[2024-11-01 13:54] LABS: Anti Nuclear Antibody Screen NEGATIVE (NEGATIVE)
== END 2024-10-28 13:19 | disposition home or self-care (01) ==
LOC: HO.HHCL 13:18
PROVIDERS: Visit Provider Registered Nurse
DX: G62.9 Polyneuropathy, unspecified (principal)
CPT/HCPCS: 36415; 82607; 82746; 84165; 84443; 85025; 85652; 86038; 86140; 86704; 86706; 86709; 86780; 86803; 87340; 87389

== ENCOUNTER 2024-11-10 12:17 | Outpatient (REF) | payer MEDICAID, SELFPAY ==
--- OUTSIDE RECORDS SUMMARY | 2024-11-10 14:44 | XMS_ITS ---
Author Organization [facility] Address [address] [place], [place] [phone] Care Team Providers Care Digital Media Representative Name Role Phone [facility], Dental Department Primary Care Provider Unavailable Eli Pisano Unavailable REASON FOR VISIT housing Social History Sex Assigned At : Social History Observation Description Sex Assigned At Male Encounters Encounter Location Date Provider Diagnosis [facility] [address] [place] [phone] 10/21/2024 Eli Pisano Plan Of Treatment Next Appt Details Provider Name:Eli Sparks, 11/15/2024 02:15:00 PM, [facility], [address] [place] [address], [phone], Progress Notes * Tate ESCOBEDODOB:[birth year] (44 yo M)Acc No.[id number]:10/21/2024 Case Management New Patient:?VERNON BARKLEY Marycarmen hayes Provider:?Eli Pisano :1980???Age:44 Y???Sex:Male Nic e:10/21/2024 Address:[address] [place], [place] [phone] Pcp:Dental Department [facility] Subjective: * Chief Complaints: * ???1. Housing. * HPI: ???Social Service:?Date of encounter?Date:10/21/2024.?Referral Source?walk-in, self, returning client.?Interpretation for medical provider?housing.?Action Taken?Housing?Application [place] apartment [place].?Follow-up Required:?yes. Pt comprehension?Pt agrees with plan.?Action taken (old)?form completion, Items given to client.? Filled out? application/completed/faxed as well, copies made and given to Pt copy in file. Objective: * Vitals:? Assessment: Plan: * Treatment: * Images: Billing Information: * Visit Code:? * Procedure Codes:? Care Plan Details* * Sign off status: Completed true * Provider:?Eli Pisano Date:? Generated for Alexandro webber/Connor/Jackie on:?11/10/2024 02:44 PM EST History and Physical Notes * HPI (History of Present Illness) Category Sub-Category Detail Notes Social Service Referral Source walk-in, self, r eturning client Interpretation for medical provider housing Action taken (old) form completion, Ite ms given to client Follow-up Required: yes Pt comprehension Pt agrees with plan Action Taken Housing: Application [place]ment [place] Date of encounter Date:10/21/2024
--- OUTSIDE RECORDS SUMMARY | 2024-11-10 14:44 | XMS_ITS | Encounter Summary ---
Author Organization [email or web address] Address [address] [facility] 7t [place] [address] Care Team Providers Care Medical Office Supervisor Name Role Phone Jonathon Greenberg RESIDENTIAL PROGRAM WORKER Unavailable Unavailable Chanelle Francis Primary Care Provider [phone] [place] [facility] [phone] Encounter Details Date Type Department Care Team (Late st Contact Info) Description 11/16/2023 Orders Only [facility] [address] [place], [place] [phone] Chanelle Francis FNP [address] [place] [address] Routine health maintenance (Primary Dx) Social History [...] with others, in a hotel, in a mcc, living outside on the street, on a [...] Care Team (Late st Contact Info) Description 12/01/2024 1:00 PM EDT Office Visit [facility]OM[facility] [address] [place] [address] TarDonna hale, OD [address] [place] [address] 12/27/2024 10:30 AM EDT Nurse Only [facility] [address] [place] [address] 01/25/2025 2:30 PM EDT Office Visit [facility] [address] [place] [address] [facility] [address] [place] [address] documented as of this encounter Goals Goal Patient Goal Type Associated Problems Recent Progress Patient-Stated? Author Blood Pressure < 140/90 Blood Pressure 139/83( 025 11:58 AM EST) No Christine Castano PharmD documented as of this encounter Procedures Procedure Name Priority Date/Time Associated Diagnosis Comments T-SPOT(R).TB Routine 06/16/2024 9:54 AM EDT Routine health maintenance documented in this encounter Results * T-SPOT??.TB (06/16/2024 9:54 AM EDT) T Spot TB Negative Negative [facility] Comment:A negative test resu lt [...] as aquantitative test. TS PANEL A 0 [facility] TS PANEL B 0 [facility] Negative Control Passed [facility] Positive Control Passed [facility] Comment:For additional infor olga lidia, please refer [email or web address](This link is being provided for informational/educational purposes only.)THIS TEST WAS PERFORMED AT:[employer] [id number] [place] [address]MTKFFABKATHIA SANTIZO MD,PHD 06/16/2024 9:54 AM EDT 06/16/2024 11:17 AM EDT Chanelle Francis RESIDENTIAL PROGRAM WORKER LAB BLOOD ORDERABLES Final Resu lt [facility] [address] [place] [address] [phone] documented in this encounter Visit Diagnoses Diagnosis Routine health maintenance- Primary Unspecified examination documented in this encounter Additional Health Concerns Assessment Noted Time PHQ-9 Depression Total Score: 15 023 3:36 PM EDT documented as of this encounter Care Teams Medical Office Supervisor Relationship Specialty Start Date End Date Chanelle Francis FNP [address] [place] [address] PCP - General Family Medicine 05/28/23 05/12/24 Tia Albarado FNP [address] [place] [address] PCP - General Family Medicine 05/13/24 Jonathon Greenberg FNP Family Medicine 08/06/22 05/12/24 Josefina He Diabetes ManagerDigital Strategy Specialist 10/26/24 documented as of this encounter
--- OUTSIDE RECORDS SUMMARY | 2024-11-10 14:44 | XMS_ITS | Encounter Summary ---
Author Organization [employer] Address [address] [place] [address] 7[address] [place] [address] Care Team Providers Care Drop Count Associate Name Role Phone Tia Albarado Primary Care Provider [phone] Reason for Referral * Imaging (Routine) - Authorized Specialty Diagnoses / Procedures Referred By Mecca lucero Referred To Contact Radiology Diagnoses Polyneuropathy Chronic radicular low back pain Procedures MR Lumbar Spine w/o Contrast Tia Albarado FNP [address] [place] [address] Phone: tel: fax: [address] Phone: tel: fax: Referral ID Status Reason Start Date Expiration Date V isits Requested Visits Authorized [id number] Authorized 11/02/2024 11/02/2025 1 1 * Consultation (Routine) - Pending Review Specialty Diagnoses / Procedures Referred By Mecca lucero Referred To Contact Pain Medicine Diagnoses Chronic radicular low back pain Tia Albarado FNP [address] [place] [address] Phone: tel: fax: Referral ID Status Reason Start Date Expiration Date Visits Requested Visits Authorized [id number] Pending Review Specialty Services Required 11/02/2024 11/02/2025 1 1 Reason for Visit * Reason Comments Follow-up Encounter Details Date Type Department Care Team (Latest Contact Info) Description 10/28/2024 11:30 AM EST Office Visit [facility] MEDICINE [address] [place] [address] [place] Tia, HSE SPECIALIST [address] [place] [address] Polyneuropathy (Primary Dx); Chronic radicular low back [...] with others, in a hotel, in a half-way, living outside on the street, on a [...] 11:58 AM EST documented in this encounter Progress Notes * [facility], [facility] - 10/28/2024 11:30 AM EST SUBJECTIVE: Tate Stock is a 44 y.o. year old male with history of renal transplant on chronic immunosuppression, neurogenic bladder secondary to complications from lumbar fusion, and left hemiparesis ofunknown etiology (CVA eval negative) who presents for follow-up of lower extremity polyneuropathy HPI -At initial visit 06/03/2024 patient reported burning/tingling sensation in bilateral lower extremities with associated involuntary movement worse at night. Initial labs including TSH, B12, CBC, CMP unremarkable. Nerve conduction study from 09/2024 with mild sensory and motor peripheral neuropathy with features of axonal loss and demyelination. Today reports symptoms persist. He has been using gabapentin with minimal relief. -Of note has prior episode of left sided weakness-seen in the ED on 03/29/24 with random onset of left sided weakness and slurred speech. Stroke alert was initiated but was ultimately ruled out after no acute findings were noted on head CT scans and MRI. Neurology was consulted and considered his symptoms to be the result of complex migraine -Has visit with neurology scheduled for December Hx Neurogenic Bladder/elevated PSA-had follow-up with Dr. Zhou [facility] urology. Prostate MRI 10/2024 negative. Plan to continue 4 times daily self catheterization. Continue UTI suppression with trimethoprim and methamphetamine. As needed tadalafil was added for erectile dysfunction. Repeat MRI 6 months BCC-had routine follow-up with [facility] Derm 09/2024 for skin check. Yearly follow-up Renal-08/2024 had follow-up with Dr. Morales. Continue Myfortic 360 mg 3 times daily, prednisone 5 mg and Prograf 3 mg oral twice daily. Daily baby aspirin and Lipitor 10 mg started. 6-month follow-up Social History Social History Narrative Social History: Current living environment: Lives with brother Children: 4-all live in [place]; 3 grandkids Employment/Education: -- Tobacco Use: None Alcohol Use: None Marijuana Use: None Other drug use: None Reproductive Health: Sexually Active: Not currently Partners are: AFAB Patient Active Problem List Diagnosis Essential hypertension History of renal transplant Depression with anxiety Neurogenic dysfunction of the urinary bladder Hyperplasia of prostate with lower urinary tract symptoms (LUTS) Elevated PSA Arteriovenous fistula of left upper extremity (CMS/HCC) Elevated cholesterol Prostatitis Routine adult health maintenance Gastroesophageal reflux disease Chronic neck pain Chronic midline low back pain with bilateral sciatica Basal cell carcinoma (BCC) of skin of left upper extremity including shoulder Severe episode of recurrent major depressive disorder, with psychotic features (CMS/HCC) Open wound of left forearm Stage 3a chronic kidney disease (CMS/HCC) Petechiae 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 Homelessness Lack of social support Financial insecurity Severe episode of recurrent major depressive disorder, without psychotic features (CMS/HCC) Long-term use of immunosuppressant medication Hemiparesis of left dominant side (CMS/HCC) Past Surgical History: Procedure Laterality Date AV FISTULA REPAIR Left ALERT: BP ONLY ON RIGHT ARM, FISTULA on Left ARM BACK SURGERY L4-L5 PARATHYROIDECTOMY 2012 TRANSPLANTATION RENAL Right 2017 Family History Problem Relation Name Age of Onset Diabetes type II Mother Cancer Father Stroke Brother Heart disease Maternal Grandmother Review of Systems Constitutional: Negative for fever. HENT: Negative. Respiratory: Negative for chest tightness and shortness of breath. Cardiovascular: Negative for chest pain and palpitations. Gastrointestinal: Negative for abdominal pain. OBJECTIVE: Vitals: 10/28/24 1158 BP: 139/83 Pulse: 80 Resp: 20 Temp: 97.8 ??F (36.6 ??C) SpO2: 98% Physical Exam Constitutional: Appearance: Normal appearance. HENT: Head: Normocephalic. Right Ear: External ear normal. Left Ear: External ear normal. Nose: Nose normal. Eyes: Conjunctiva/sclera: Conjunctivae normal. Cardiovascular: Rate and Rhythm: Normal rate and regular rhythm. Pulses: Dorsalis pedis pulses are 2+ on the right side and 2+ on the left side. Heart sounds: Normal heart sounds. Pulmonary: Effort: Pulmonary effort is normal. Breath sounds: Normal breath sounds. Musculoskeletal: Cervical back: Normal. Thoracic back: Normal. Lumbar back: Tenderness present. No deformity or bony tenderness. Positive right straight leg raisetest and positive left straight leg raise test. Right lower leg: No edema. Left lower leg: No edema. Comments: Feet: Right foot: Protective Sensation: 10 sites tested. 0 sites sensed. Skin integrity: Skin integrity normal. Toenail Condition: Right toenails are normal. Left foot: Protective Sensation: 10 sites tested. 0 sites sensed. Skin integrity: Skin integrity normal. Toenail Condition: Left toenails are normal. Comments: DTRs diminished in bilateral lower extremities Decreased strength left side 3/5 compared to 5/5 right LE Skin: General: Skin is warm and dry. Capillary Refill: Capillary refill takes less than 2 seconds. Neurological: General: No focal deficit present. Mental Status: He is alert and oriented to person, place, and time. Psychiatric: Mood and Affect: Mood normal. Behavior: Behavior normal. ASSESSMENT/PLAN 1. Polyneuropathy (Primary) - Etiology of mixed axonal, demyelinating polyneuropathy unclear-- possibly s/t chronic immunosuppression - INCREASE gabapentin to 300g t.I.d--okay to take 2 tablets (600mg) for evening dose - Lab work eval for secondary cause - Follow up as scheduled with neurology - CBC auto differential; Future - TSH W/Reflex to FT4; Future - Vitamin B12/Folate, Serum Panel; Future - Hepatitis A,B,C Profile; Future - C-reactive Protein; Future - Sed Rate by Modified Westergren; Future - OMID Screen,IFA, with Reflex to Titer and Pattern; Future - HIV-1/2 Antigen and Antibodies, Fourth Generation, with Reflexes; Future - Syphilis Screen; Future - Protein Electrophoresis and [place]/Lambda Light Chains; Future - CBC auto differential - TSH W/Reflex to FT4 - Vitamin B12/Folate, Serum Panel - Hepatitis A,B,C Profile - C-reactive Protein - Sed Rate by Modified Westergren - OMID Screen,IFA, with Reflex to Titer and Pattern - HIV-1/2 Antigen and Antibodies, Fourth Generation, with Reflexes - Syphilis Screen - Protein Electrophoresis and [place]/Lambda Light Chains - MR Lumbar Spine w/o Contrast; Future - MR Lumbar Spine w/o Contrast 2. Chronic radicular low back pain -Patient has failed greater than 12 weeks of physical therapy - Lumbar x-rays from 2022 with mild degenerative change at L5-S1 otherwise unremarkable - Given worsening of radicular symptoms we will obtain MRI - Referral to pain management for further evaluation - gabapentin (Neurontin) 300 MG capsule; Take 1 capsule (300 mg) by mouth 3 times daily. Dispense: 90 capsule; Refill: 3 - Referral to Pain Medicine; Future - MR Lumbar Spine w/o Contrast; Future - Referral to Pain Medicine - MR Lumbar Spine w/o Contrast 3. Encounter for immunization 4. Need for vaccination - [employer] COVID-19 Vaccine 12+ Follow Up: 3 months, sooner PRN Current Outpatient Medications on File Prior to Visit Medication Sig Dispense Refill acetaminophen (Tylenol) 500 MG tablet Take 2 tablets (1,000 mg) by mouth every 6 (six) hours if needed for mild pain. Patient reports purchasing OTC for headaches 30 tablet 0 albuterol (Ventolin HFA) 108 (90 Base) MCG/ACT inhaler Inhale 2 puffs every 4 (four) hours if needed for shortness of breath or wheezing. 18 g 1 amLODIPine (Norvasc) 10 MG tablet Take 1 tablet (10 mg) by mouth Once per day. 30 tablet 11 Ascorbic Acid (vitamin C) 500 MG tablet TAKE 2 TABLETS (1,000 MG) BY MOUTH DAILY famotidine (Pepcid) 20 MG tablet TAKE 1/2 TABLET BY MOUTH TWICE A DAY 45 tablet 1 gabapentin (Neurontin) 100 MG capsule Take 1 tablet by oral route before bed. OK to increase up to three tablets before bed (300mg) if needed for sx improvement 90 capsule 1 hydrocortisone 2.5 % cream Apply topically 1-2 times daily to affected areas on scalp 28 g 0 ketoconazole (Nizoral) 2 % shampoo Apply topically 2 (two) times a week. 120 mL 0 lidocaine (Lidoderm) 5 % patch Apply topically to affected areas. Leave on for up to 12 hours 30 patch 1 lisinopril 5 MG tablet Take 1 tablet (5 mg) by mouth Once per day. 30 tablet 11 methenamine hippurate (Hiprex) 1 g tablet TAKE 1 TABLET BY MOUTH EVERYDAY AT NOON methocarbamol (Robaxin) 500 MG tablet Take 1 tablet (500 mg) by mouth 2 times daily. 30 tablet 1 mycophenolate (Myfortic) 360 MG EC tablet TAKE 1 TABLET BY MOUTH THREE TIMES DAILY IN THE MORNING, AT NOON, AND AT BEDTIME ON AN EMPTY STOMACH 90 tablet 3 OXcarbazepine (Trileptal) 300 MG tablet Take 1 tab by mouth in the morning and 2 tablets at bedtime prazosin (Minipress) 2 MG capsule Take 2 capsules by mouth once daily at bedtime predniSONE (Deltasone) 5 MG tablet TAKE 1 TABLET BY MOUTH EVERY MORNING 90 tablet 3 QUEtiapine (SEROquel) 100 MG tablet Take 100 mg by mouth at bedtime. QUEtiapine (SEROquel) 25 MG tablet Take 1 tablet by mouth three times daily as needed for anxiety tacrolimus (Prograf) 1 MG capsule TAKE 2 CAPSULES BY MOUTH TWICE DAILY IN THE MORNING AND AT BEDTIME 120 capsule 1 tadalafil (Cialis) 20 MG tablet TAKE ONE TABLET 1 HOUR PRIOR TO INTENDED ACTIVITY ONCE DAILY trimethoprim (Trimpex) 100 MG tablet Take 100 mg by mouth in the morning. No current facility-administered medications on file prior to visit. Occitan Translation: Provided by [facility] staff member documented in this encounter Plan of Treatment Upcoming Encounters Date Type Department Care Team (Late st Contact Info) Description 12/01/2024 1:00 PM EDT Office Visit [facility] OPTOMETRY [address] [place], [place] [phone] Donna Clayton, OD [address] [place] [address] 12/27/2024 10:30 AM EDT Nurse Only [facility] MEDICINE [address] [place], [place] [phone] 01/25/2025 2:30 PM EDT Office Visit [facility] [address] [place] [address] Per, Tia, HSE SPECIALIST [address] [place] [address] Pending Results Name Type Priority Associated Diagnoses Date /Time Protein Electrophoresis and [place]/Lambda Light Chains Lab Routine Polyneuropathy 10/28/2024 1:21 PM EST Scheduled Orders Name Type Priority Associated Diagnoses Orde r Schedule MR Lumbar Spine w/o Contrast Imaging Routine Polyneuropathy Chronic radicular low back pain Expected: 11/02/2024, Expires: 11/02/2025 Scheduled Referrals Name Type Priority Associated Diagnoses Orde r Schedule Referral to Pain Medicine Outpatient Referral Routine Chronic radicular low back pain Expected: 11/02/2024 (Approximate), Expires: 11/02/2025 documented as of this encounter Goals Goal Patient Goal Type Associated Problems Recent Progress Patient-Stated? Author Blood Pressure < 140/90 Blood Pressure 139/83(2024 11:58 AM EST) No Lucass-Gambl rosana, Christine, PharmD Take your medication every day Lifestyle No Piers-Gambl e, Christine, PharmD documented as of this encounter Procedures Procedure Name Priority Date/Time Associated Diagnosis Comments SYPHILIS SCREEN Routine 10/28/2024 1:21 PM EST Polyneuropathy VITAMIN B12/FOLATE, SERUM PANEL Routine 10/28/2024 1:21 PM EST Polyneuropathy TSH W/REFLEX TO FT4 Routine 10/28/2024 1 :21 PM EST Polyneuropathy PROTEIN ELECTROPHORESIS AND KAPPA/LAMBDA LIGHT CHAINS, SERUM Routine 10/28/2024 1:21 PM EST Polyneuropathy HEPATITIS PANEL, GENERAL Routine 10/28/2024 1:21 PM EST Polyneuropathy CBC WITH AUTO DIFFERENTIAL Routine 10/28/2024 1:21 PM EST Polyneuropathy HIV 1/2 ANTIGEN/ANTIBODY, FOURTH GENERATION W/RFL Routine 10/28/2024 1:21 PM EST Polyneuropathy SED RATE BY MODIFIED WESTERGREN Routine 10/28/2024 1:21 PM EST Polyneuropathy C-REACTIVE PROTEIN Routine 10/28/2024 1: 21 PM EST Polyneuropathy OMID SCREEN, IFA, W/REFL TITER AND PATTERN Routine 10/28/2024 1:21 PM EST Polyneuropathy documented in this encounter Results * Syphilis Screen (10/28/2024 1:21 PM EST) Syphilis Screen Nonreactive Nonreactive [facility] Blood 10/28/2024 1:21 PM EST 10/28/2024 4:12 PM EST [facility] HSE SPECIALIST LAB BLOOD ORDERABLES Final Re sult [facility] [address] [place] [phone] * HIV-1/2 Antigen and Antibodies, Fourth Generation, with Reflexes (10/28/2024 1:21 PM EST) HIV AB/AG Nonreactive Nonreactive [facility] Comment:HIV-1 p24 Ag and/or HIV-1/HIV-2 Ab not detected.A test result that is nonreactive does not exclude thepossibility of exposure to or infection with HIV-1 and/orHIV-2. Nonreactive results in this assay for individualswith prior exposure to HIV-1 and/or HIV-2 may be due toantigen and antibody levels that are below the limit ofdetection of this assay.The [employer] HIV Ag/Ab Combo assay result andsupplemental assay results should be interpreted inconjunction with the patient's clinical presentation,history and other laboratory results. If the results areinconsistent with clinical evidence, additional testing issuggested to confirm the result. Blood Venous blood specimen / Unknown 10/28/2024 1:21 PM EST 10/28/2024 4:12 PM EST [facility] LAB BLOOD ORDERABLES Final Re sult Performing Organization Address City/[facility]/ZIP Co de Phone Number [facility] [address] [place] [phone] * OMID Screen,IFA, with Reflex to Titer and Pattern (10/28/2024 1:21 PM EST) Anti Nuclear Antibody Screen NEGATIVE NEGATIVE [facility] Comment:OMID IFA is a first l ine screen for detecting thepresence of up to approximately 150 autoantibodies invarious autoimmune diseases. A negative OMID IFA resultsuggests an OMID-associated autoimmune disease is notpresent at this time, but is not definitive. If thereis high clinical suspicion for Sjogren's syndrome,testing for anti-SS-A/Ro antibody should be considered.Anti-Karen-1 antibody should be considered for clinicallysuspected inflammatory myopathies.AC-0: NegativeInternational Consensus on OMID Patterns(https://doi.org/10.1515/ninq-4014-5136)For additional information, please refer tohttp://education.Fridge/faq/PQA197(This link is being provided for informational/educational purposes only.)THIS TEST WAS PERFORMED AT:[facility] [place] [phone] MURRAY MD OMID Titer [facility] OMID Pattern [facility] OMID TITER 2 (REF LAB) [facility] OMID Pattern 2 [facility] OMID TITER 3 [facility] OMID PATTERN 3 [facility] Blood Venous blood specimen / Unknown 10/28/2024 1:21 PM EST 10/28/2024 4:12 PM EST [facility] LAB BLOOD ORDERABLES Final Re sult Performing Organization Address [facility]/ZIP Co de Phone Number [facility] [address] [place] [phone] * Sed Rate by Modified Westergren (10/28/2024 1:21 PM EST) Erythrocyte Sedimentation Rate 2 0 - 15 MM/HR [facility] Comment:Patients with polycy themia and many hemoglobin abnormalitiesmay have depressed sed rates whereas patients with anemiamay have elevated sed rates. Blood Venous blood specimen / Unknown 10/28/2024 1:21 PM EST 10/28/2024 4:12 PM EST [facility] LAB BLOOD ORDERABLES Final Re sult Performing Organization Address City/[facility]/ZIP Co de Phone Number [facility] [address] [place] [phone] * C-reactive Protein (10/28/2024 1:21 PM EST) Pathologist [facility] C Reactive Protein 0.19 < or = 0.50 mg/dL [facility] Blood Venous blood specimen / Unknown 10/28/2024 1:21 PM EST 10/28/2024 4:12 PM EST [facility] LAB BLOOD ORDERABLES Final Re sult Performing Organization Address [facility] Co de Phone Number [facility] [address] [place] [phone] * Hepatitis A,B,C Profile (10/28/2024 1:21 PM EST) Pathologist [facility] Hepatitis A IgM Nonreactive Nonreactive [facility] Comment:IgM antibodies to MARTINEZ V not detected; does not exclude earlyacute or recovered HAV infection. ~Hepatitis B Surface Antibody REACTIVE Nonreactive [facility] Comment:REACTIVE: > 11.99 mI U/mL Hepatitis B Core Antibody Nonreactive Nonreactive [facility] Hepatitis C Antibody Nonreactive Nonreactive [facility] Comment:Antibodies to HCV no t detected; does not exclude early acuteHCV infection. Hepatitis B Surface Ag Negative Negative [facility] Blood Venous blood specimen / Unknown 10/28/2024 1:21 PM EST 10/28/2024 4:12 PM EST [facility] LAB BLOOD ORDERABLES Final Re sult Performing Organization Address [facility]/ZIP Co de Phone Number [facility] [address] [place] [phone] * Vitamin B12/Folate, Serum Panel (10/28/2024 1:21 PM EST) Vitamin B12 306 200 - 900 pg/mL [facility] Comment:NORMAL 200-900 PG/ML INDETERMINATE 160-199 PG/ML DEFICIENT < 160 PG/ML Folate 7.3 > or = 4.0 ng/mL [facility] Comment:Reference Values:> o r = 4.0 ng/mL< 4.0 ng/mL suggests folate deficiency Methotrexate, aminopterin and folinic acid(leucovorin) are chemotherapeutic agents whose molecularstructures are similar to folate; therefore, the Architectfolate assay cannot be used for patients using these drugs. Blood Venous blood specimen / Unknown 10/28/2024 1:21 PM EST 10/28/2024 4:12 PM EST [facility] LAB BLOOD ORDERABLES Final Re sult Performing Organization Address [facility] Co de Phone Number [facility] [address] [place] [phone] * TSH W/Reflex to FT4 (10/28/2024 1:21 PM EST) TSH reflex Free T4 1.31 0.32 - 4.0 uIU/mL [facility] Blood Venous blood specimen / Unknown 10/28/2024 1:21 PM EST 10/28/2024 4:12 PM EST [facility] LAB BLOOD ORDERABLES Final Re sult Performing Organization Address City/[facility]/ZIP Co de Phone Number [facility] [address] [place] [phone] * (ABNORMAL) CBC auto differential (10/28/2024 1:21 PM EST) White Blood Count 6.3 4.8 - 10.8 X10*3/uL [facility] Red Blood Count 4.52(L) 4.60 - 5.80 X10*6/uL [facility] Hemoglobin 13.7(L) 14.0 - 18.0 g/dl [facility] Hematocrit 39.7(L) 42.0 - 52.0 % [facility] Mean Corpuscular Volume 87.8 80.0 - 98.0 fL [facility] Mean Corpuscular Hemoglobin 30.3 27.0 - 33.0 pg [facility] Mean Corpuscular HGB Conc 34.5 31.0 - 36.0 g/dl [facility] Red Cell Distribution Width 13.2 11.0 - 16.0 % [facility] Platelet Count 164 160 - 400 X10*3/uL [facility] Mean Platelet Volume 9.8 9.4 - 12.4 fL [facility] Neutrophils Percent Auto 79.5(H) 45 - 73 % [facility] Imm Gran Pct Auto 0.6(H) 0.0 - 0.4 % [facility] Lymphocytes Percent Auto 12.8(L) 20 - 40 % [facility] Monocytes Percent Auto 5.7 2 - 11 % [facility] Eosinophils Percent Auto 1.1 0 - 4 % [facility] Basophils Percent Auto 0.3 0 - 2 % [facility] NRBC Pct Auto 0.0 0.0 - 0.2 /100WBC [facility] Neutrophils Absolute Auto 5.0 2.0 - 8.3 x10*3/uL [facility] Imm Gran Abs Auto 0.04(H) 0.00 - 0.03 X10*3/uL [facility] Lymphocytes Absolute Auto 0.8(L) 1.2 - 4.9 X10*3/uL [facility] Monocytes Absolute Auto 0.4 0.1 - 1.2 X10*3/uL [facility] Eosinophils Absolute Auto 0.1 0.0 - 0.4 X10*3/uL [facility] Basophils Absolute Auto 0.0 0.0 - 0.2 X10*3/uL [facility] NRBC Abs Auto 0.000 0.0 - 0.012 X10*3/uL [facility] Blood Venous blood specimen / Unknown 10/28/2024 1:21 PM EST 10/28/2024 4:12 PM EST [facility] LAB BLOOD ORDERABLES Final Re sult [facility] [address] [place] [phone] documented in this encounter Visit Diagnoses Diagnosis Polyneuropathy- Primary Unspecified hereditary and idiopathic peripheral neuropathy Chronic radicular low back pain Encounter for immunization Need for vaccination Need for prophylactic vaccination and inoculation against unspecified single disease documented in this encounter Additional Health Concerns Assessment Noted Time PHQ-9 Depression Total Score: 0 10/28/19 25 12:06 PM EST documented as of this encounter Care Teams Drop Count Associate Relationship Specialty Start Date End Date Tia Albarado HSE SPECIALIST [address] [place] [phone] PCP - General Family Medicine 05/13/24 Josefina He Service Loss Control ConsultantRepairer Cylinder Heads 10/26/24 documented as of this encounter
--- OUTSIDE RECORDS SUMMARY | 2024-11-10 14:44 | XMS_ITS | Encounter Summary ---
Author Organization [facility] Address [address] [facility] [address] [place] [phone] Phone Care Team Providers Care General Internist And Physician Leader Name Role Phone OlmanChanelle soriano Primary Care Provider [phone] Encounter Details Date Type Department Care Team ([facility] st Contact Info) Description 05/15/2024 Office Communication [facility] [address] [facility] [address] [place] [phone] Asael Morales MD [address] [facility] [address] [place] [phone] Social History Tobacco Use Types Packs/Day Years [...] Office Visit [facility] [address] [phone] Asael Morales MD [address] [phone] documented as of this encounter Visit Diagnoses Not on filedocumented in this encounter Care Teams General Internist And Physician Leader Relationship Specialty Start Date End Date Chanelle Francis [address] [place] [phone] PCP - General 09/16/23 documented as of this encounter
--- OUTSIDE RECORDS SUMMARY | 2024-11-10 14:44 | XMS_ITS | Encounter Summary ---
Author Organization [employer] Address 75 [facility] 7t [place] [address] Care Team Providers Care Director Traffic And Planning Name Role Phone [facility] Primary Care Provider [phone] Encounter Details Date Type Department Care Team (Latest Contact Info) Description 11/07/2024 Orders Only [facility] 230 [place], [place] [phone] [facility] 230 [place], [place] [phone] Hypogammaglobulinemia (CMS/HCC) (Primary Dx) Social History Tobacco Use Types [...] Description 12/01/2024 1:00 PM EDT Office Visit [facility] [address] [place] [address] Donna Clayton, OD 267 [place], [place] [phone] 12/27/2024 10:30 AM EDT Nurse Only [facility] [address] [place] [address] 01/25/2025 2:30 PM EDT Office Visit [facility] [address] [place] [address] [facility] 230 [place] [address] Scheduled Orders Name Type Priority Associated Diagnoses Orde r Schedule Immunofixation, Serum Lab Routine Hypogammaglobulinemia ([facility]/HCC) Expected: 11/09/2024 (Approximate), Expires: 11/07/2025 [place]/Lambda Light Chains, Free with Ratio Lab Routine Hypogammaglobulinemia ([facility]/HCC) Expected: 11/09/2024 (Approximate), Expires: 11/07/2025 [id number], Serum Lab Routine Hypogammaglobulinemia (CMS/HCC) Expected: 11/09/2024 (Approximate), Expires: 11/09/2025 documented as of this encounter Goals Goal Patient Goal Type Associated Problems Recent Progress Patient-Stated? Author Blood Pressure < 140/90 Blood Pressure 139/83(2024 11:58 AM EST) No Lucass-Ninil Christine wayne, PharmD Take your medication every day Lifestyle No Piers-Gambl e, Christine, PharmD documented as of this encounter Visit Diagnoses Diagnosis Hypogammaglobulinemia (CMS/HCC)- Primary Unspecified hypogammaglobulinemia documented in this encounter Additional Health Concerns Assessment Noted Time PHQ-9 Depression Total Score: 0 10/28/19 25 12:06 PM EST documented as of this encounter Care Teams Director Traffic And Planning Relationship Specialty Start Date End Date Tia Albarado FNP [address] [place] [address] PCP - General Family Medicine 05/13/24 Josefina He Financial Retirement Plan SpecialistBrine Supervisor 10/26/24 documented as of this encounter
--- OUTSIDE RECORDS SUMMARY | 2024-11-10 14:44 | XMS_ITS | Encounter Summary ---
Author Organization [employer] Address [address] [place] [address] [facility] [place] [address] Care Team Providers Care Mergers And Acquisitions Associate Name Role Phone [facility] Primary Care Provider [phone] Reason for Visit * Reason Onset Date Comments Results 11/09/2024 Encounter Details Date Type Department Care Team ([facility] st Contact Info) Description 11/09/2024 Telephone [facility] 230 [place], [place] [phone] [facility] 230 [place], [place] [phone] Results Social History Tobacco Use Types Packs/Day [...] encounter Miscellaneous Notes * Telephone Encounter - Saima Mast RN - 11/09/2024 3:20 PM EST TC x2 placed to pt at [phone] via [employer] permit agent (Eugene ID#[id number]) to inform of below PCP message. Pt verbalized understanding of provider message and denies further questions at this time. ----- Message from [facility] sent at 11/09/2024 2:38 PM EST ----- Please let patient know that blood work to evaluate for neuropathy was largely unremarkable howeverI consulted with hematology who recommended we do a couple of additional tests to rule out any abnormality with protein production as a potential factor. Labs were ordered, he can stop by anytime. Hedoes not need to be fasting. Thank you! documented in this encounter Plan of Treatment Upcoming Encounters Date Type Department Care Team (Late st Contact Info) Description 12/01/2024 1:00 PM EDT Office Visit [facility] [address] [place] [address] Donna Clayton, OD [address] [place] [address] 12/27/2024 10:30 AM EDT Nurse Only [facility] 230 [place], [place] [phone] 01/25/2025 2:30 PM EDT Office Visit [facility] 230 [place] [address] Tia Albarado FNP 230 [place] [address] documented as of this encounter Goals Goal [...] documented as of this encounter Care Teams Mergers And Acquisitions Associate Relationship Specialty Start Date End Date T[place] [address] PCP - General Family Medicine 05/13/24 Josefina He Rpg ProgrammerLinux Consultant 10/26/24 documented as of this encounter
--- OUTSIDE RECORDS SUMMARY | 2024-11-10 14:44 | XMS_ITS | Encounter Summary ---
Author Organization [facility] Address [address] [place] [address] Phone Care Team Providers Care Reservations Agent Name Role Phone Chanelle Francis Primary Care Provider [phone] Encounter Details Date Type Department Care Team ([facility] Contact Info) Description 08/03/2024 Office Communication [facility] [address] [address] Asael Morales MD [address] [address] Social History Tobacco Use Types [...] Upcoming Encounters Date Type Department Care Team ([facility] Contact Info) Description 01/24/2025 3:00 PM EDT Office Visit [facility] [address] [phone] Asael Morales MD [address] [address] documented as of this encounter Visit Diagnoses Not on filedocumented in this encounter Care Teams Reservations Agent Relationship Specialty Start Date End Date Chanelle Francis [address] [place] [address] PCP - General 09/16/23 documented as of this encounter
--- OUTSIDE RECORDS SUMMARY | 2024-11-10 14:44 | XMS_ITS | Encounter Summary ---
Author Organization [employer] Address 75 [facility] 7t [place] [address] Care Team Providers Care Film Touch Up Inspector Name Role Phone [place] [facility] Primary Care Provider [phone] Reason for Visit * Reason Comments Care Coordination CHW outreach for SDO H housing search-referral completed Encounter Details Date Type Department Care Team (Latest Contact Info) Description 11/03/2024 Patient Outreach [facility] 230 [place], [place] [phone] [facility] 230 [place] [address] Care Coordination (CHW outreach for SDOH housing search-referral completed ) Social History Tobacco Use Types Packs/Day [...] encounter Progress Notes * Varun Zuñiga - 11/03/2024 12:19 PM EST Patient presented to [facility] in person requesting assistance with [facility]. Patient's name and were confirmed. CHW Varun Zuñiga met with patient in private space. Patient screened positive for the following [facility] housing insecurities. CHW referred patient to list of housing and applicationsmail out to address on file. Patient verbalizes understanding, and able to agree to follow up with housing search and call. Patient educated on extended clinic hours on Mondays through Wednesdays, and Walk-In Urgent Care Located in [facility]. Patient provided with after-hours line for [facility], , which offer night time triage service and option to transfer to strategic communications manager provider if needed. documented in this encounter Plan of Treatment Upcoming Encounters Date Type Department Care Team (Late st Contact Info) Description 12/01/2024 1:00 PM EDT Office Visit [facility] OPT[facility] [address] [place] [address] Donna Clayton OD [address] [place] [address] 12/27/2024 10:30 AM EDT Nurse Only [facility] 230 [place] [address] 01/25/2025 2:30 PM EDT Office Visit [facility] 230 [place], [place] [phone] Tia Albarado FNP 230 [place] [address] documented as of this encounter Goals Goal [...] documented as of this encounter Care Teams Film Touch Up Inspector Relationship Specialty Start Date End Date Tia Albarado FNP [address] [place] [address] PCP - General Family Medicine 05/13/24 Josefina He Oil Well Fishing Tool OperatorGrain Commodity Manager 10/26/24 documented as of this encounter
--- OUTSIDE RECORDS SUMMARY | 2024-11-10 14:44 | XMS_ITS | Encounter Summary ---
Author Organization [facility] Address 100 [facility] 200 [place] [address] Phone Care Team Providers Care Network Applications Specialist Name Role Phone Chanelle Francis Primary Care Provider [phone] Encounter Details Date Type Department Care Team ([facility] st Contact Info) Description 09/16/2023 Office Communication [facility] 100 [facility] 200 [place] [phone] Asael Morales MD 355[address] [facility] 204 [place] [phone] Social History Tobacco Use Types Packs/Day Years [...] Visit [facility] [address] [address] Asael Morales MD [address] [phone] documented as of this encounter Visit Diagnoses Not on filedocumented in this encounter Care Teams Network Applications Specialist Relationship Specialty Start Date End Date Chanelle Francis 230 [place] [address] PCP - General 09/16/23 documented as of this encounter
--- OUTSIDE RECORDS SUMMARY | 2024-11-10 14:44 | XMS_ITS | Encounter Summary ---
Author Organization [employer] Address [address] [place] [address] 7t [place] [address] Care Team Providers Care Dairy Husbandry Teacher Name Role Phone Jonathon Greenberg Primary Care Provider Jonathon Jarquin ASSEMBLY SUPERVISOR Unavailable Unavailable Shawn Murillo AGNRosalio Primary Care Provider Unavail able Chanelle Francis ASSEMBLY SUPERVISOR Primary Care Provider [phone] OelrichsTia ASSEMBLY SUPERVISOR Primary Care Provider [phone] Encounter Details Date Type Department Care Team ([facility] Contact Info) Description 10/02/2022 Orders Only [facility] MED & PEDS [address] [place], [place] [phone] Aminata Brizuela LPN Social History Tobacco Use [...] Department Care Team (Late Contact Info) Description 12/01/2024 1:00 PM EDT Office Visit [facility] OPTOMETRY 267 [place], [place] [phone] Donna Clayton, OD 267 [place], [place] [phone] 12/27/2024 10:30 AM EDT Nurse Only [facility] [address] 01/25/2025 2:30 PM EDT Office Visit [facility] [place] [address] OelrichsTia bernstein [facility] [place] [address] documented as of this encounter Visit Diagnoses Not on filedocumented in this encounter Care Teams Dairy Husbandry Teacher Relationship Specialty Start Date End Date Jonathon Greenberg FNP PCP - General Family Medicine 08/06/22 11/09/22 Shawn Murillo AGNP PCP - General Family Medicine 11/10/22 05/27/23 Chanelle Francis FNP [address] [place] [address] PCP - General Family Medicine 05/28/23 05/12/24 OelrichsTia FNP [address] [place] [address] PCP - General Family Medicine 05/13/24 Jonathon Greenberg FNP Family Medicine 08/06/22 05/12/24 Josefina He Shuttle HandBulb Grower 10/26/24 documented as of this encounter
--- OUTSIDE RECORDS SUMMARY | 2024-11-10 14:44 | XMS_ITS | Continuity of Care Document ---
Author Organization [facility] Address [address] [place] [address] Phone Care Team Providers Care Auctioneer Art Name Role Phone Comfort GALLARDO MD, Sin Unavailable Unavai lable Procedures Procedure Date Nurse Visit Only As per patient privacy policy some of the clinical information may not be visible. Advance Directives Directive Yes / No Effective Date File Name No Information Encounters Encounter Description Practice Location Reason(s) For Visit Diagnoses Date Provider Providers Copied on Encounter [facility], [address] [place] [address], [address], tel:[phone] P GRD [facility] Doctors No Information Comfort Vogt. [address] [place] [address], [id number], [place]. tel:[phone] [facility], [address] [place] [address], [address], tel:[phone] P SAEID [facility] Doctors No Information Comfort Vogt. [address] [place] [address], [id number], [place]. tel:[phone] [facility], [address] [place] [address], [address], [place] tel:[phone] P SAEID OP Doctors No Information Comfort Vogt. [address] [place] [address], [id number], [place]. tel:[phone] [facility], [address] [place] [address], [address], [place] tel:[phone] P GRD [facility] Doctors No Information Comfort Vogt. [address] [place] [address], [id number], [place]. tel:[phone] [facility], [address] [place] [address], [address], tel:[phone] B GRD [facility] Therapy No Information Nitesh Storey. [address] [place] [address], [id number], [place]. [facility], [address] [place] [address], [address], tel:[phone] P [facility] General Medicine No Information [facility]CS Nurse. [address] [place] [address], [id number], [place]. tel:[phone] [facility], [address] [place] [address], [address], tel:[phone] Z [facility] CONV No Information CONV [facility]. [address] [place] [address], [id number], [place]. Family History Family Member Type Diagnosis Age At Onset No Information Immunizations Vaccine Date Status Comments [id number], PED/ADL administered Source: New Immuniza tion Record DTP administered Source: New Imm unization Record ORAL POLIO administered Source: New Imm unization Record DTP administered Source: New Imm unization Record ORAL POLIO administered Source: New Imm unization Record [id number], PED/ADL administered Source: New Immuniza tion Record DTP administered Source: New Imm unization Record ORAL POLIO administered Source: New Imm unization Record DTP administered Source: New Imm unization Record ORAL POLIO administered Source: New Imm unization Record DTP administered Source: New Imm unization Record ORAL POLIO administered Source: New Imm unization Record Payers Payer name Insurance type Covered green party ID Authoriza tion(s) [facility] Medicare [id number] [facility] Medicaid Medical [id number] Social History Type Description Quantity Date Captured [...]
--- OUTSIDE RECORDS SUMMARY | 2024-11-10 14:44 | XMS_ITS | Clinical Summary ---
Author Organization [facility] Address [address] [place] [phone] Phone Care Team Providers Care Auto Dismantler Name Role Phone Penny Chanelle Primary Care Provider [phone] Allergies No known active allergies Medications * [...] (one) time each day 90 tablet 08/03/2024 Active tacrolimus (PROGRAF) 1 MG capsule TAKE 3 CAPSULES BY MOUTH TWICE DAILY IN THE MORNING AND IN THE EVENING 180 capsule 2 08/12/2024 Active Active Problems Problem Noted Date Diagnosed Date Kidney transplant status 06/29/2023 Other secondary hypertension 06/29/2023 Encounters Date Type Department Care Team Description 08/16/2024 Orders Only [facility] [address] [facility] 204 [place] [phone] Asael Morales MD Kidney transplant status 08/11/2024 Refill [facility] [address] [place] 200 [place] [phone] Asael Moarles MD from Last 3 Months Family History Medical [...] Office Visit [facility] [address] [phone] Asael Morales MD [address] [phone] Health Maintenance Due Date Last Done Comments Hepatitis B Vaccine (3 of 3 - 19+ 3-dose series) 10/15/2024 05/17/2024, 04/14/2024 Pneumococcal Vaccine: Pediat rics (0 to 5 Years) and At-Risk Patients (6 to 64 Years) Completed 04/29/2023 Influenza Vaccine Completed 06/18/2024 Insurance [place] Care Teams Auto Dismantler Relationship Specialty Start Date End Date Chanelle Francis 230 [place] [address] PCP - General 09/16/23
--- OUTSIDE RECORDS SUMMARY | 2024-11-10 14:44 | XMS_ITS | Encounter Summary ---
Author Organization [employer] Address 75 [facility] 7t [place] [address] Care Team Providers Care Disk Recoater Name Role Phone Tia Albarado [facility] Primary Care Provider [phone] Encounter Details Date Type Department Care Team [...] t he electric, gas, oil or water [employer] threatened to shut off services in your [...] Description 12/01/2024 1:00 PM EDT Office Visit [facility] 267 [place] [address] TarDonna hale, OD 267 [place] [address] 12/27/2024 10:30 AM EDT Nurse Only [facility] 230 [place] [address] 01/25/2025 2:30 PM EDT Office Visit [facility] [address] [place] [address] Tia Albarado FNP 230 [place] [address] documented as of this encounter Goals Goal [...] documented as of this encounter Care Teams Disk Recoater Relationship Specialty Start Date End Date Tia Albarado FNP [address] [place] [address] PCP - General Family Medicine 05/13/24 Josefina He Tenter Frame OperatorEthologist 10/26/24 documented as of this encounter
--- OUTSIDE RECORDS SUMMARY | 2024-11-10 14:44 | XMS_ITS | Encounter Summary ---
Author Organization [employer] Address 75 [facility] 7t [place] [address] Care Team Providers Care Precision Machining Instructor Name Role Phone [place] [facility] Primary Care Provider [phone] Encounter Details Date Type Department Care Team ([facility] st Contact Info) Description 10/28/2024 Orders Only [facility] 230 [place], [place] [phone] [facility], [facility] 230 [place], [place] [phone] Social History Tobacco Use Types Packs/Day Years [...] Description 12/01/2024 1:00 PM EDT Office Visit [facility] OPT[facility]ET[facility] 267 [place] [address] Tarka, Donna, OD 267 [place] [address] 12/27/2024 10:30 AM EDT Nurse Only [facility] [address] [place] [address] 01/25/2025 2:30 PM EDT Office Visit [facility] [address] [place] [address] [facility] 230 [place] [address] documented as of this encounter Goals Goal Patient Goal Type Associated Problems Recent Progress Patient-Stated? Author Blood Pressure < 140/90 Blood Pressure 139/83(2024 11:58 AM EST) No Lucass-Christine Lafleur, PharmD Take your medication every day Lifestyle No Lucass-Ninil Christine wayne, PharmD documented as of this encounter Procedures Procedure Name Priority Date/Time Associated Diagnosis Comments PROTEIN, TOTAL AND PROTEIN ELECTROPHORESIS Routine 10/28/2024 1:21 PM EST documented in this encounter Results * (ABNORMAL) Protein, Total and Protein??Electrophoresis (10/28/2024 1:21 PM EST) Prot Elec - Total Protein 6.7 6.1 - 8.1 g/dL [facility] Prot Elec - Albumin 4.6 3.8 - 4.8 g/dL [facility] Prot Elec - Alpha1 0.3 0.2 - 0.3 g/dL [facility] Prot Elec - Alpha2 0.5 0.5 - 0.9 g/dL [facility] Prot Elec - Beta 1 0.4 0.4 - 0.6 g/dL [facility] Prot Elec - Beta 2 0.3 0.2 - 0.5 g/dL [facility] Prot Elec - Gamma 0.7(A) 0.8 - 1.7 g/dL [facility] PES - Abn Protein Band 1 TNP [facility] PES-Abn Protein Band 2 [facility] PES-Abn Protein Band 3 [facility] Prot Elec - Interpretation SEE NOTE [facility] Comment:Consistent with hypo gammaglobulinemia. Serum free lightchains or urine immunofixation should be considered ifplasma cell dyscrasias are a possible clinicaldiagnosis.THIS TEST WAS PERFORMED AT:[facility] [employer] [place] [id number] MURRAY MD 10/28/2024 1:21 PM EST 10/28/2024 4:12 PM EST [facility] LAB BLOOD ORDERABLES Final Re sult [facility] [address] [place] [phone] documented in this encounter Visit Diagnoses Not on filedocumented in this encounter Additional Health Concerns Assessment Noted Time PHQ-9 Depression Total Score: 0 10/28/19 25 12:06 PM EST documented as of this encounter Care Teams Precision Machining Instructor Relationship Specialty Start Date End Date NewarkTia FNP 230 [place] [address] PCP - General Family Medicine 05/13/24 Josefina He Garment Tag StringerGlass Selector 10/26/24 documented as of this encounter
--- OUTSIDE RECORDS SUMMARY | 2024-11-10 14:44 | XMS_ITS | Patient Health Record ---
Author Organization [facility] Address [address] [place], [place] [id number] Care Team Providers Care Chiropractic Teacher Name Role Phone [facility], Dental Department Primary Care Provider Unavailable Eli Pisano Unavailable [phone] Reason For Referral No Information Social History Sex Assigned At : Social History Observation Description Sex Assigned At Male Encounters Encounter Location Date Provider Diagnosis [facility] [address] [place] [phone] 11/01/2024 Eli Pisano [facility] [address] [place] [phone] 10/21/2024 Eli Pisano [facility] [address] [place] [address] [phone] 10/14/2024 Eli Pisano Plan Of Treatment Next Appt Details Provider Name:Eli Sparks, 11/15/2024 02:15:00 PM, [facility], [address] [place] [address], [phone], Insurance Providers Payer Name Payer Address Payer Phone Subscriber Number Group Number Insured Name Patient Relationship to Insured Coverage Start Date Coverage End Date [place] Medicaid Standard [address] [place] [address] [id number] Tate Escobedo Self - patient is the insured
--- OUTSIDE RECORDS SUMMARY | 2024-11-10 14:45 | XMS_ITS | Encounter Summary ---
Author Organization [employer] Address [address] [facility] 7t [place] [address] Care Team Providers Care Community Dietitian Name Role Phone [place] [facility] Primary Care Provider [phone] Reason for Visit * Reason Comments Care Coordination CHW outreach for SDO H housing search-LVM Encounter Details Date Type Department Care Team (Latest Contact Info) Description 10/18/2024 Patient Outreach [facility] MEDICINE 230 [place], [place] [phone] [facility] 230 [place] [address] Care Coordination (CHW outreach for SDOH housing [...] Wednesdays, and Walk-In Urgent Care Located in [facility] of [facility]. Patient provided with after-hours line for [facility], , which offer night time triage service and option to transfer toon call provider if needed. documented in this encounter Plan of Treatment Upcoming Encounters Date Type Department Care Team ([facility] st Contact Info) Description 12/01/2024 1:00 PM EDT Office Visit [facility] OPTOMETRY [address] [place] [address] Donna Clayton, PETER [address] [place] [address] 12/27/2024 10:30 AM EDT Nurse Only [facility] MEDICINE [facility] [place] [address] 01/25/2025 2:30 PM EDT Office Visit [facility] MEDICINE 230 [place] [address] Tia Albarado FNP [address] [place] [address] documented as of this encounter Goals Goal [...] as of this encounter Care Teams Community Dietitian Relationship Specialty Start Date End Date [place] [address] PCP - General Family Medicine 05/13/24 documented as of this encounter
--- OUTSIDE RECORDS SUMMARY | 2024-11-10 14:45 | XMS_ITS | Encounter Summary ---
Author Organization [facility] Address [address] [place] [address] [facility] [place] [address] Care Team Providers Care Market Reporter Name Role Phone [place] [facility] Primary Care Provider [phone] Reason for Visit * Reason Onset Date Comments Referral 10/19/2024 Encounter Details Date Type Department Care Team ([facility] st Contact Info) Description 10/19/2024 Telephone [facility] MEDICINE 230 [place], [place] [phone] [facility] 230 [place], [place] [phone] Referral Social History Tobacco Use Types Packs/Day [...] 9:33 AM EST Noted. TC returned to [facility] [phone] to inform patient does not need a new [facility] eyecare referral. Josefina informed eyecare attempted to contact the patient however he did not answer in the past.Josefina informed they attempted to re- contact the patient after RN message however his phone is notaccepting calls. Josefina reports the patient has a new phone number. Josefina advised the patient should call [facility] to update his phone number however the patient can call [facility] eyecare at [phone] toschedule an appointment. Josefina verbalized understanding and reports she will notify the patient to call [facility] eyecare and also notify the patient to call [facility] to update phone number. * Telephone Encounter - Shadia Pulliam - 10/19/2024 12:08 PM EST Tc from [facility] with N requesting a new referral for sewing teacher. Pt has one, it expires on March6 but there is no appointment available before then, he will need a new one. documented in this encounter Plan of Treatment Upcoming Encounters Date Type Department Care Team (Late st Contact Info) Description 12/01/2024 1:00 PM EDT Office Visit [facility] OPTOMETRY 267 [facility] [place] [address] Tarka Donna, OD [address] [place] [address] 12/27/2024 10:30 AM EDT Nurse Only [facility] MEDICINE 230 [place] [address] 01/25/2025 2:30 PM EDT Office Visit [facility] MEDICINE 230 [place], [place] [phone] Tia Albarado FNP 230 [place] [address] documented as of this encounter Goals Goal [...] documented as of this encounter Care Teams Market Reporter Relationship Specialty Start Date End Date Tia Albarado FNP [address] [place] [address] PCP - General Family Medicine 05/13/24 documented as of this encounter
--- OUTSIDE RECORDS SUMMARY | 2024-11-10 14:45 | XMS_ITS | Encounter Summary ---
Author Organization [employer] Address 75 [facility] 7 [place] [address] Care Team Providers Care New Media Strategist Name Role Phone [place] [facility] Primary Care Provider [phone] Reason for Visit * Reason Onset Date Comments Durable Medical Equipment 06/03/2024 Encounter Details Date Type Department Care Team ([facility] st Contact Info) Description 06/03/2024 Telephone [facility] MEDICINE 230 [place], [place] [phone] [facility] 230 [place] [address] Durable Medical Equipment Social History Tobacco Use [...] - 06/03/2024 1:49 PM EDT [facility] requesting a toilet seat commode for pt along with shower chair. If any questions you can contact Marissa at [phone]. documented in this encounter Plan of Treatment Upcoming Encounters Date Type Department Care Team (Late st Contact Info) Description 12/01/2024 1:00 PM EDT Office Visit [facility] OPTOMETRY 267 [place] [address] Donna Clayton, OD 267 [place] [address] 12/27/2024 10:30 AM EDT Nurse Only [facility] MEDICINE [address] [place] [address] 01/25/2025 2:30 PM EDT Office Visit [facility] MEDICINE [address] [place] [address] Tia Albarado, ASIA [address] [place] [address] documented as of this encounter Goals Goal [...] documented as of this encounter Care Teams New Media Strategist Relationship Specialty Start Date End Date Tia Albarado FNP [address] [place] [address] PCP - General Family Medicine 05/13/24 Josefina He JtacRetail Cashier Associate 10/26/24 documented as of this encounter
--- OUTSIDE RECORDS SUMMARY | 2024-11-10 14:45 | XMS_ITS | Clinical Summary ---
Author Organization [facility] Address [address] [place] [address] Care Team Providers Care Litigation Specialist Name Role Phone Unavailable Primary Care Provider [...]
--- OUTSIDE RECORDS SUMMARY | 2024-11-10 14:45 | XMS_ITS | Encounter Summary ---
Author Organization [employer] Address [address] [facility] [address] [address] Care Team Providers Care Window Trimmer Name Role Phone Jonathon Greenberg J2EE JAVA DEVELOPER Unavailable Unavailable Chanelle Francis [facility] Primary Care Provider [phone] [facility] Primary Care Provider [phone] Reason for Visit * Reason Onset Date Comments PT-1 05/05/2024 Encounter Details Date Type Department Care Team (Late st Contact Info) Description 05/05/2024 Telephone [facility] MEDICINE [address] [place], [place] [phone] Chanelle Francis FNP [address] [place], [place] [phone] PT-1 Social History Tobacco Use Types Packs/Day [...] Y/N: Yes Provider name or facility name: [facility] Facility Address: [address] [place] [address] Escort needed: Y/N: No Do you have a wheelchair: Y/N: No If yes- Manual or electric: No (Uses either mitchell or walker) Visits: Once a month Patient calling requesting PT1 Home Address verified: Y/N: Yes Provider name or facility name: [facility] Facility Address: [address] [place] [address] Escort needed: Y/N: No Do you have a wheelchair: Y/N: No If yes- Manual or electric: N/A Visits: Once a month documented in this encounter Plan of Treatment Upcoming Encounters Date Type Department Care Team ([facility] st Contact Info) Description 12/01/2024 1:00 PM EDT Office Visit [facility] OPTOMETRY 267 [place] [address] Donna Clayton, PETER 267 [place] [address] 12/27/2024 10:30 AM EDT Nurse Only [facility] MEDICINE [facility] [place] [address] 01/25/2025 2:30 PM EDT Office Visit [facility] [place] [address] Tia Albarado FNP 230 [place] [address] documented as of this encounter Goals Goal Patient Goal Type Associated Problems Recent Progress Patient-Stated? Author Blood Pressure < 140/90 Blood Pressure 139/83(2024 11:58 AM EST) No Maday-Ninil Christine wayne, PharmD Take your medication every day Lifestyle No Piers-Gambl e, Christine, PharmD documented as of this encounter Visit Diagnoses Not on filedocumented in this encounter Additional Health Concerns Assessment Noted Time PHQ-9 Depression Total Score: 24 11/17/ 024 3:41 PM EST documented as of this encounter Care Teams Window Trimmer Relationship Specialty Start Date End Date Chanelle [place] [address] PCP - General Family Medicine 05/28/23 05/12/24 T[place] [address] PCP - General Family Medicine 05/13/24 Jonathon Greenberg FNP Family Medicine 08/06/22 05/12/24 Josefina He Blind EyeletterDrawing Hand 10/26/24 documented as of this encounter
--- OUTSIDE RECORDS SUMMARY | 2024-11-10 14:45 | XMS_ITS | Encounter Summary ---
Author Organization [employer] Address [address] [place] [address] 7t [place] [address] Care Team Providers Care Commercial Baking Teacher Name Role Phone Jonathon Greenberg [facility] Unavailable Unavailable Chanelle Francis [facility] Primary Care Provider [phone] [facility] Primary Care Provider [phone] Reason for Visit * Reason Comments Med Refill Encounter Details Date Type Department Care Team (Late st Contact Info) Description 09/30/2023 Refill [facility] MEDICINE [address] [place], [place] [phone] [facility] 230 [place] [address] Chronic radicular low back pain Social History [...] Description 12/01/2024 1:00 PM EDT Office Visit [facility] OPTOMETRY 267 [place] [address] TarkaDonna, OD 267 [place] [address] 12/27/2024 10:30 AM EDT Nurse Only [facility] MEDICINE [address] [place] [address] 01/25/2025 2:30 PM EDT Office Visit [facility] MEDICINE [address] [place] [address] [facility] 230 [place] [address] documented as of this encounter Goals Goal [...] documented as of this encounter Care Teams Commercial Baking Teacher Relationship Specialty Start Date End Date Botas, Chanelle, STEWARDESSES TEACHER 230 [place] [address] PCP - General Family Medicine 05/28/23 05/12/24 ArapahoeiTa bernstein FNP 230 [place] [address] PCP - General Family Medicine 05/13/24 Jonathon Greenberg FNP Family Medicine 08/06/22 05/12/24 Josefina He Family Resource Management ProfessorCareer And Guidance Counselor 10/26/24 documented as of this encounter
--- OUTSIDE RECORDS SUMMARY | 2024-11-10 14:45 | XMS_ITS | Encounter Summary ---
Author Organization [employer] Address [address] [facility] 7 [place] [address] Care Team Providers Care Cloth Shrinking Machine Operator Helper Name Role Phone Jonathon Greenberg [facility] Unavailable Unavailable Chanelle Francis [facility] Primary Care Provider [phone] [facility] Primary Care Provider Reason for Visit * Reason Onset Date Comments Referral 04/22/2024 Encounter Details Date Type Department Care Team (Late st Contact Info) Description 04/22/2024 Telephone [facility] MEDICINE 230 [place], [place] [phone] Chanelle Francis FNP [address] [place], [place] [phone] Referral Social History Tobacco Use Types Packs/Day [...] the past 12 months, has t he [employer], gas, oil or water company threatened to [...] - 05/03/2024 11:40 AM EDT T/C to [facility] [phone] to inform that Neurology referral is already placed by ED C at Dr. EMILY CABRERA, [facility] Neurology. No answer. LVM to call back on [phone]. * Telephone Encounter - Paula Jacob - 05/03/2024 11:01 AM EDT Tc from pt with Vonnie at [facility] requesting status on neurology referral. * Telephone Encounter - Candace Ch - 04/22/2024 10:53 AM EDT Tc from pt with Vonnie at [facility] requesting a neurology referral, they stated this has been discussed with PCP documented in this encounter Plan of Treatment Upcoming Encounters Date Type Department Care Team (Late st Contact Info) Description 12/01/2024 1:00 PM EDT Office Visit [facility] OPTOMETRY 267 [place] [address] Donna Clayton, OD [address] [place] [address] 12/27/2024 10:30 AM EDT Nurse Only [facility] MEDICINE 230 [place] [address] 01/25/2025 2:30 PM EDT Office Visit [facility] MEDICINE [address] [place] [address] Lotus[facility]ia [facility] 230 [place] [address] documented as of this encounter Goals Goal Patient Goal Type Associated Problems Recent Progress Patient-Stated? Author Blood Pressure < 140/90 Blood Pressure 139/83(2024 11:58 AM EST) No Lucass-Gambl e, Christine, PharmD Take your medication every day Lifestyle No Piers-Gambl e, Christine, PharmD documented as of this encounter Visit Diagnoses Not on filedocumented in this encounter Additional Health Concerns Assessment Noted Time PHQ-9 Depression Total Score: 24 11/17/ 024 3:41 PM EST documented as of this encounter Care Teams Cloth Shrinking Machine Operator Helper Relationship Specialty Start Date End Date Chanelle Francis FNP 230 [place] [address] PCP - General Family Medicine 05/28/23 05/12/24 LotusTia FNP [address] [place] [address] PCP - General Family Medicine 05/13/24 Jonathon Greenberg FNP Family Medicine 08/06/22 05/12/24 Josefina He Business Intelligence DeveloperMigrant Leader 10/26/24 documented as of this encounter
--- OUTSIDE RECORDS SUMMARY | 2024-11-10 14:45 | XMS_ITS ---
Author Organization [facility] Address [address] [place], [place] [phone] Care Team Providers Care Child Development Associate Teacher Name Role Phone [facility], Dental Department Primary Care Provider Unavailable Eli Pisano Unavailable REASON FOR VISIT housing, basic intake Social History Sex Assigned At : Social History Observation Description Sex Assigned At Male Encounters Encounter Location Date Provider Diagnosis [facility] [address] [place] [phone] 10/14/2024 Eli Pisano Plan Of Treatment Next Appt Details Provider Name:Eli Sparks, 11/15/2024 02:15:00 PM, [facility] Cement Conveyor Operator, [address] [place] [address], [phone], Progress Notes * Tate ESCOBEDODOB:[birth year] (44 yo M)Acc No.[id number]:10/14/2024 Case Management New Patient:?VERNON BARKLEY Marycarmen hayes Provider:?Eli Pisano :1980???Age:44 Y???Sex:Male Nic e:10/14/2024 Address:[address] [place], [place] [id number] Pcp:[facility] Subjective: * Chief Complaints: * ???1. Housing, basic intake. * HPI: ???Social Service:?Date of encounter?Date:10/14/2024.?Referral Source?walk-in, self.?Interpretation for medical provider?housing.?Action Taken?Housing?Application [facility] BRODYAGATABelen filled out/faxed/ confirmation and application copied, [...] Provider:?Eli Pisano Date:? Generated for Alexandro webber/Connor/Richarditting on:?11/10/2024 02:45 PM EST History and Physical Notes * HPI (History of Present Illness) Category Sub-Category Detail Notes Social Service Referral Source walk-in, self Interpretation for medical provider housing Action taken (old) form completion, Ite ms given to client Follow-up Required: yes Pt comprehension Pt agrees with plan Action Taken Housing: Application [facility]ica Dunn BRODYPeacock ParadeY filled out/faxed/ confirmation and application copied, provided to the Pt and Pt file as well. Date of encounter Date:10/14/2024
--- OUTSIDE RECORDS SUMMARY | 2024-11-10 14:45 | XMS_ITS | Encounter Summary ---
Author Organization [employer] Address [address] [place] [address] 7 [place] [address] Care Team Providers Care Mainstreaming Facilitator Name Role Phone Dionicio Naunfarrahkarson LINUX NETWORK ADMINISTRATOR Unavailable Unavailable Shawn Murillo Primary Care Provider Unavail able Chanelle Francis LINUX NETWORK ADMINISTRATOR Primary Care Provider [phone] Okolona Tia LINUX NETWORK ADMINISTRATOR Primary Care Provider [phone] Reason for Visit * Reason Onset Date Comments FYI 04/09/2023 Encounter Details Date Type Department Care Team (Late st Contact Info) Description 04/09/2023 Telephone [facility] MEDICINE 230 [place], [place] [phone] Shawn Murillo AGNP FYI Social History Tobacco [...] 11:33 AM EDT Tc from [facility] with [facility] physical [facility] calling to advise PCP his BP was 135/100 but pt states he has been consistent with BP medication. Will continue treatment until his BP and pain gets better. documented in this encounter Plan of Treatment Upcoming Encounters Date Type Department Care Team (Late st Contact Info) Description 12/01/2024 1:00 PM EDT Office Visit [facility] OPTOMETRY 267 [place], [place] [phone] Tarka Donna, OD 267 [place] [address] 12/27/2024 10:30 AM EDT Nurse Only [facility] MEDICINE 230 [place] [address] 01/25/2025 2:30 PM EDT Office Visit [facility] MEDICINE 230 [place] [address] Tia Albarado FNP 230 [place] [address] documented as of this encounter Visit Diagnoses Not on filedocumented in this encounter Additional Health Concerns Assessment Noted Time PHQ-9 Depression Total Score: 27 023 12:04 PM EDT documented as of this encounter Care Teams Mainstreaming Facilitator Relationship Specialty Start Date End Date Shawn Murillo AGNP PCP - General Family Medicine 11/10/22 05/27/23 Chanelle Francis FNP [address] [place] [address] PCP - General Family Medicine 05/28/23 05/12/24 Tia Albarado FNP [address] [place] [address] PCP - General Family Medicine 05/13/24 Jonathon Greenberg FNP Family Medicine 08/06/22 05/12/24 Josefina He Scenic Arts SupervisorOperations Support Coordinator 10/26/24 documented as of this encounter
--- OUTSIDE RECORDS SUMMARY | 2024-11-10 14:45 | XMS_ITS | Encounter Summary ---
Author Organization [email or web address] Address [address] [facility] 7 [place] [address] Care Team Providers Care Safety Professional Name Role Phone Jonathon Greenberg [facility] Unavailable Unavailable Chanelle Francis [facility] Primary Care Provider [phone] [facility] Primary Care Provider [phone] Reason for Visit * Reason Onset Date Comments Lab Orders 08/28/2023 Encounter Details Date Type Department Care Team (Late st Contact Info) Description 08/28/2023 Telephone [facility] MEDICINE 230 [place], [place] [phone] Chanelle Francis FNP 230 [place] [address] Lab Orders Social History Tobacco Use Types [...] - 08/28/2023 3:26 PM EST T/C to [phone] to inform that TB test was ordered and pt. Can go to lab as his convenience, Noanswer. LVM to call back on [phone]. * Telephone Encounter - Thompson Lopez - 08/28/2023 2:43 PM EST Tc from Jaylene at [email or web address] [facility] requesting a TB test in order for the patient to be able to join the program any questions please call Jaylene at [phone] documented in this encounter Plan of Treatment Upcoming Encounters Date Type Department Care Team (Late st Contact Info) Description 12/01/2024 1:00 PM EDT Office Visit [facility] OPTOMETRY 267 [place], [place] [phone] Donna Clayton, OD 267 [place] [address] 12/27/2024 10:30 AM EDT Nurse Only [facility] [place] [address] 01/25/2025 2:30 PM EDT Office Visit [facility] [place] [address] [facility]airoilTia [facility] 230 [place] [address] documented as of this encounter Goals Goal Patient Goal Type Associated Problems Recent Progress Patient-Stated? Author Blood Pressure < 140/90 Blood Pressure 139/83( 025 11:58 AM EST) No Christine Csatano, TaraD documented as of this encounter Visit Diagnoses Not on filedocumented in this encounter Additional Health Concerns Assessment Noted Time PHQ-9 Depression Total Score: 15 04/10/ 023 3:36 PM EDT documented as of this encounter Care Teams Safety Professional Relationship Specialty Start Date End Date Chanelle [place] [address] PCP - General Family Medicine 05/28/23 05/12/24 [facility]Tia [facility] [address] [place] [address] PCP - General Family Medicine 05/13/24 Jonathon Greenberg FNP Family Medicine 08/06/22 05/12/24 Josefina He Plate CleanerArchitectural Design Professor 10/26/24 documented as of this encounter
--- OUTSIDE RECORDS SUMMARY | 2024-11-10 14:45 | XMS_ITS | Encounter Summary ---
Author Organization [employer] Address 75 [facility] 7 [place] [address] Care Team Providers Care Jewelry Sorter Name Role Phone [place] [facility] Primary Care Provider [phone] Reason for Visit * Reason Comments Pre-visit Planning SDOH screening posti ve tobacco screening negative Encounter Details Date Type Department Care Team ([facility] st Contact Info) Description 10/17/2024 Patient Outreach [facility] MEDICINE 230 [place], [place] [phone] [facility] 230 [place] [address] Pre-visit Planning (SDOH screening postive tobacco screening [...] Description 12/01/2024 1:00 PM EDT Office Visit [facility] OPTOMETRY 267 [place] [address] Donna Clayton, OD 267 [place] [address] 12/27/2024 10:30 AM EDT Nurse Only [facility] MEDICINE [address] [place] [address] 01/25/2025 2:30 PM EDT Office Visit [facility] MEDICINE [address] [place] [address] Tia Albarado FNP [address] [place] [address] documented as of this encounter Goals Goal [...] documented as of this encounter Care Teams Jewelry Sorter Relationship Specialty Start Date End Date Tia Albarado FNP 230 [place] [address] PCP - General Family Medicine 05/13/24 documented as of this encounter
--- OUTSIDE RECORDS SUMMARY | 2024-11-10 14:45 | XMS_ITS | Encounter Summary ---
Author Organization [employer] Address [address] [place] [address] 7 [place] [address] Care Team Providers Care Cyber Workforce Developer And Manager Name Role Phone Per [facility] Primary Care Provider [phone] Reason for Visit * Reason Onset Date Comments Results 10/21/2024 Encounter Details Date Type Department Care Team ([facility] st Contact Info) Description 10/21/2024 Telephone [facility] [address] [place], [place] [phone] Aparna Gates RN [address] [place], [place] [phone] Results Social History Tobacco Use Types Packs/Day [...] EST Telephone call x2 regarding below message. [phone]: not accepting calls at this time [phone]: doesn't ring. Just air with no option [...] Description 12/01/2024 1:00 PM EDT Office Visit [facility] [address] [place] [address] Donna Clayton, OD [address] [place] [address] 12/27/2024 10:30 AM EDT Nurse Only [facility] [address] [place] [address] 01/25/2025 2:30 PM EDT Office Visit [facility] [address] [place] [address] Tia Albarado FNP [address] [place] [address] documented as of this encounter Goals Goal [...] documented as of this encounter Care Teams Cyber Workforce Developer And Manager Relationship Specialty Start Date End Date Tia Albarado FNP [address] [place] [address] PCP - General Family Medicine 05/13/24 documented as of this encounter
--- OUTSIDE RECORDS SUMMARY | 2024-11-10 14:45 | XMS_ITS | Encounter Summary ---
Author Organization [employer] Address [address] [facility] [address] [place] [address] Care Team Providers Care Disk Recoater Name Role Phone [facility] Primary Care Provider [phone] Reason for Visit * Reason Comments Care Coordination Care Plan Encounter Details Date Type Department Care Team ([facility] st Contact Info) Description 10/26/[address] [facility] [address] [place], [place] [phone] [facility] [address] [place] [address] Care Coordination ( Care Plan ) Social [...] has received and reviewed Care Plan from [facility]: Ag Service Manager: Josefina He Contact Information: [phone] Care Plan scanned into patient's EHR and notification sent to PCP. documented in this encounter Plan of Treatment Upcoming Encounters Date Type Department Care Team ([facility] st Contact Info) Description 12/01/2024 1:00 PM EDT Office Visit [facility] OPTOMETRY [address] [place] [address] Donna Clayton, OD [address] [place] [address] 12/27/2024 10:30 AM EDT Nurse Only [facility] [address] [place], [place] [phone] 01/25/2025 2:30 PM EDT Office Visit [facility] [address] [place] [address] Tia Albarado FNP [address] [place] [address] documented as of this encounter Goals Goal [...] Start Date End Date Tia Albarado FNP [address] [place] [id number] PCP - General Family Medicine 05/13/24 Josefina He Dude WranglerGraphic Design Teacher 10/26/24 documented as of this encounter
--- OUTSIDE RECORDS SUMMARY | 2024-11-10 14:45 | XMS_ITS ---
Author Organization [facility] Address [address] [place], [place] [id number] Care Team Providers Care Manager Gaming Name Role Phone [facility], Dental Department Primary Care Provider Unavailable Eli Pisano Unavailable REASON FOR VISIT housing Social History Sex Assigned At : Social History Observation Description Sex Assigned At Male Encounters Encounter Location Date Provider Diagnosis [facility] [address] [place] [phone] 11/01/2024 Eli Pisano Plan Of Treatment Next Appt Details Provider Name:Eli Sparks, 11/15/2024 02:15:00 PM, [facility], [address] [place] [address], [phone], Progress Notes * Tate ESCOBEDODOB:[birth year] (44 yo M)Acc No.[id number]:11/01/2024 Case Management Patient:?Marycarmen ESCOBEDO Provider:?Eli Pisano :1980???Age:44 Y???Sex:Male Nic e:11/01/2024 Address:[address] [place], [place] [id number] Pcp:Dental [facility] Subjective: * Chief Complaints: * ???1. Housing. * HPI: ???Social Service:?Date of encounter?Date:11/01/2024.?Referral Source?walk-in, self, returning client.?Interpretation for medical provider?housing, Mail miner pick.?Action Taken?Housing?Application [employer]: [employer] filled out/ printed/ provided to both Pt and Pt file as well. SUBMITTED.?Follow-up Required:?yes.?Pt comprehension?Pt agrees with plan.?Action taken (old)?form completion, Items given to client.? New appt provided, will work on next housing applications [facility] next appt. * Medical History:? Objective: * Vitals:? Assessment: Plan: * Treatment: * Images: Billing Information: * Visit Code:? * Procedure Codes:? Care Plan Details* * Sign off status: Completed true * Provider:?Eli Pisano Date:? Generated for Alexandro webber/Connor/Renaesmpuneet on:?11/10/2024 02:44 PM EST History and Physical Notes * HPI (History of Present Illness) Category Sub-Category Detail Notes Social Service Referral Source walk-in, self, r eturning client Interpretation for medical provider housing, Mail miner pick Action taken (old) form completion, Ite ms given to client Follow-up Required: yes Pt comprehension Pt agrees with plan Action Taken Housing: Application [employer]: [employer] filled out/ printed/ provided to both Pt and Pt file as well. SUBMITTED Date of encounter Date:11/01/2024
--- OUTSIDE RECORDS SUMMARY | 2024-11-10 14:45 | XMS_ITS | Clinical Summary ---
Author Organization [employer] Address [address] [place] [address] 7[address] [place] [address] Care Team Providers Care Towerman Name Role Phone Tia Albarado [facility] Primary Care Provider [phone] Allergies No known active allergies Medications * [...] Date Hemiparesis of left dominant side 04/01/2024 Overview (11/01/2024): Left sided weakness-seen in the ED on 03/29/24 with random onset of left sided weakness and slurred speech. Stroke alert was initiated but was ultimately ruled out after no acute findings were noted on head CT scans and MRI. Neurology was consulted and considered his symptoms to be the result of complex migraine Assessment & Plan (04/01/2024 2:45 PM EDT): [...] receiving outpatient and med management services through [facility], will call crisis or the Helpline if having thoughts to harm himself. Homelessness 06/11/2023 Lack of social support 06/11/2023 Financial insecurity 06/11/2023 detention current use of antipsychotic medicatio n 04/29/2023 [...] connected with a therapist and psychiatrist thru [facility] in [place]. At this time Tate Stock meets criteria [...] worsen e. Patient may reach out to [facility], when needed Assessment & Plan (03/30/2023 12:50 [...] will be transporting self via [facility] to [facility] ([address] [place] [address]). He was provided with [facility] information and highly recommended to utilize resource as needed. Patient was provided clinician's contact information. She will follow-up with patient on Thursday (03/30/2023) morning. If patient is unavailable a wellness check will be requested. ?? Patient was placed on alert thru [facility] crisis in [place]; alert is good for 7 days. ?? [...] [facility], if needed d. Patient may contact [facility] Assessment & Plan (03/27/2023 5:13 PM EDT): [...] Patient is connected to a therapist thru [facility] in [place] and is currently on their wait list [...] skills d. Patient will reach out to [facility], if he experiences SI and does not [...] 1 month. Sent request for medbox to [facility] ([facility]) Social H: lives with brother and his [...] Neurogenic dysfunction of the urinary bladder Overview (11/01/2024): Due to L4-L5 surgical complications Self catherizes qid He has hx recurrent UTIs Follows with urology Neurogenic bladder-followed by Dr. Correa [facility]. Self catheterize q.I.d. C/b recurrent UTI-culture w/ E coli resistant to Bactrim, Levaquin, gentamicin. On methenamine and macrobid for suppressive therapy Hyperplasia of prostate with lower urinary tract symptoms (LUTS) 10/15/2022 Overview (11/01/2024): Follow urology at [facility] dr. Brandon correa PLAN 09/24/22 MRI pelvis wo/w con 6 Months R97.20 - Elevated prostate specific antigen [PSA] AMB Cystoscopy Today N40.1 - Benign prostatic hyperplasia with lower urinary tract symptoms Elevated PSA-10/06 9.4 6%, 05/07 7.9 6% ; neg biopsy in [place] 2020. Cystoscopy 10/06 neg, MRI - 03/06 - PI-RADS 2 35gm prostate. Plan for repeat MRI 09/2024 Assessment & Plan (02/10/2023 11:48 AM EDT): Component Ref Range & Units 2 mo ago 4 mo ago PSA, Total < OR = 4.00 ng/mL 6.85??High?? 8.2??Abnormal?? R Urinary symptoms? Increase Minipress dose? Elevated PSA 10/15/2022 Overview (10/15/2022): Follow urology at [facility] Dr. Brandon Zhou Plan 09/24/22 MRI pelvis [...] take his current medications. We are contacting [facility] and going to try and get [...] 5 mg. History of renal transplant 08/19/2022 Overview (11/01/2024): S/p renal transplant 12/17/2016 in [place]. 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 AV fistula in left arm. Genetic testing negative. Follows with Dr. Morales. Baseline Scr 2.1. Taking myfortic 360mg t.I.d, prednisone 5mg, prograd 2mg oral BID Assessment & Plan (03/27/2023 4:12 PM EDT): [...] mind and maybe it can relieve the flanging operator from ordering it. Component Ref Range & [...] result, go to https://www.kidney.org/professionals/ kdoqi/gfr%5Fcalculator BUN/Creatinine Ratio (calc) 12 Assessment & Plan (12/03/2022 5:14 PM EDT): Patient has a kidney transplant that is not currently managed. He has also run out of all of his immunosuppressant medications. I have refilled his medications and referred him to a flanging operator for transplant management. Depression with anxiety 08/19/2022 Assessment & Plan (04/10/2023 4:37 PM EDT): Reviewed by today. PHQ9 = 15 Tate tells me he is feeling much better. He is starting PT which he is excited about. is working with [facility] to help him continue to find [...] for the weekend. He was assessed by [facility] today. He has an appointment to see me next Thursday. We will continue to work on attempting to provide some stability to Tate's life. Assessment & Plan (02/12/2023 12:53 PM EDT): PHQ 9 = 21 [facility] contacted for patient interview. [facility] was able to conduct interview with Tate. [...] EDT): Patient presented lab results from his flanging operator that showed that he had an active e. Coli UTI. I contacted his nephrologists at [facility] by phone ([phone]). I was instructed that they are aware of this infection and are actively treating him with Amoxicillin. Encounters Date Type Department Care Team Description 11/09/2024 Telephone [facility] [address] [place] [address] Tia Albarado FNP Results 11/07/2024 Orders Only [facility] [address] [place] [address] Tia Albarado FNP Hypogammaglobulinemia (CMS/HCC) (Primary Dx) 11/03/2024 Patient Outreach [facility] [address] [place] [address] Tia Albarado FNP Care Coordination (CHW outreach for SDOH housing search-referral completed ) 10/28/2024 11:30 AM EST Office [facility] [place] [address] Tia Albarado GAS LEAK INSPECTOR HELPER Polyneuropathy (Primary Dx); Chronic radicular low back pain; Encounter for immunization; Need for vaccination 10/28/2024 Orders Only [address] [address] Tia Albarado FNP 10/28/2024 Travel 10/26/2024 Telephone [facility] [address] [place] [address] Tia Albarado [facility] Care Coordination ( Care Plan ) 10/21/[address] [address] Aparna Gates RN Results 10/19/[address] [address] Tia Albarado FNP Referral 10/18/2024 Patient Outreach [address] [address] Tia Albarado [employer] LEAK INSPECTOR HELPER Care Coordination (CHW outreach for SDOH housing search-LVM ) 10/17/2024 Patient Outreach [address] [address] Tia Albarado FNP Pre-visit Planning (SDOH screening postive tobacco screening negative) 10/07/2024 Orders Only GENERIC EXTERNAL DATA DEPARTMENT Provider, Generic External Data 09/30/2024 Refill [facility] [address] [place] [address] Tia Albarado [employer] LEAK INSPECTOR HELPER Chronic radicular low back pain 09/27/[address] [address] PerTia bernstein FNP Referral 09/23/2024 3:45 PM EST Office Visit [address] [address] Rosa Mari MD Petechiae (Primary Dx); History of basal cell carcinoma of skin 09/23/2024 Travel 09/23/2024 Refill [facility] [address] [place] [address] Eldon Bledsoe MD Mild intermittent asthma, unspecified [...] with others, in a hotel, in a snf, living outside on the street, on a [...] 1:00 PM EDT Office Visit [facility] [address] [place] [address] Donna Clayton, OD [address] [place] [address] 12/27/2024 10:30 AM EDT Nurse Only [facility] [address] [place], [place] [phone] 01/25/2025 2:30 PM EDT Office Visit [facility] [address] [place] [address] Tia Albarado, G[employer] LE[employer] INSPECTOR HELPER [address] [place] [address] Health Maintenance Due Date Last Done Comments [...] Depression Screening 10/28/2025 10/28/2024, 10/28/2024 Tobacco Screening 11/02/2025 11/02/2024 Lipid Panel 06/16/2029 06/16/2024, 02/13/2023, 07/23/2022 DTaP/Tdap/Td Vaccines (2 - T d or Tdap) 04/29/2033 04/29/2023 RSV Patients and Patients Aged 60 years or older (1 - 1-dose 75+ series) 2053 Pneumococcal Vaccine: Pediatrics (0 to 5 Years) and At-Risk Patients (6 to 49) Years) Completed 04/29/2023 Hepatitis B Vaccines Completed 05/17/2024, 04/14/2024 Influenza Vaccine Completed 06/18/2024 Hepatitis A Vaccines Aged Out 06/21/2024 No long er eligible based on patient's age to complete this topic HIV Screening Completed 10/28/2024, 07/23/2022 Hepatitis C Screening Completed 10/28/2024 , 02/13/2023, 07/23/2022 HIB Vaccines Aged Out No longer eligi [...] every day Lifestyle No Christine Castano PharmD Procedures Procedure Name Priority Date/Time Associated Diagnosis Comments PROTEIN, TOTAL AND PROTEIN ELECTROPHORESIS Routine 10/28/2024 1:21 PM EST PROTEIN ELECTROPHORESIS AND KAPPA/LAMBDA LIGHT CHAINS, SERUM Routine 10/28/2024 1:21 PM EST Polyneuropathy SYPHILIS SCREEN Routine 10/28/2024 1:21 PM EST Polyneuropathy HIV 1/2 ANTIGEN/ANTIBODY, FOURTH GENERATION W/RFL Routine 10/28/2024 1:21 PM EST Polyneuropathy OMID SCREEN, IFA, W/REFL TITER AND PATTERN Routine 10/28/2024 1:21 PM EST Polyneuropathy SED RATE BY MODIFIED WESTERGREN Routine 10/28/2024 1:21 PM EST Polyneuropathy C-REACTIVE PROTEIN Routine 10/28/2024 1: 21 PM EST Polyneuropathy HEPATITIS PANEL, GENERAL Routine 10/28/2024 1:21 PM EST Polyneuropathy VITAMIN B12/FOLATE, SERUM PANEL Routine 10/28/2024 1:21 PM EST Polyneuropathy TSH W/REFLEX TO FT4 Routine 10/28/2024 1 :21 PM EST Polyneuropathy CBC WITH AUTO DIFFERENTIAL Routine 10/28/2024 1:21 PM EST Polyneuropathy MR PROSTATE W AND WO CONTRAST Routine 10/19/2024 8:16 AM EST PSA, FREE AND TOTAL Routine 10/07/2024 1 2:08 PM EST PSA, TOTAL WITH REFLEX TO PSA, FREE Routine 10/07/2024 10:56 AM EST LIPID PANEL, STANDARD Routine 06/16/2024 9:54 AM EDT Essential hypertension from Last 3 Months or Most Recently Relevant to Health Maintenance Results * Syphilis Screen (10/28/2024 1:21 PM EST) Syphilis Screen Nonreactive Nonreactive [facility] Blood 10/28/2024 1:21 PM EST 10/28/2024 4:12 PM EST [facility] LAB BLOOD ORDERABLES Final Re sult Performing Organization Address [facility] Co de Phone Number [facility] [address] [place] [phone] * Vitamin B12/Folate, Serum Panel (10/28/2024 1:21 PM EST) Pathologist [facility] Vitamin B12 306 200 - 900 pg/mL [facility] Comment:NORMAL 200-900 PG/ML INDETERMINATE 160-199 PG/ML DEFICIENT < 160 PG/ML Folate 7.3 > or = 4.0 ng/mL [facility] Comment:Reference Values:> o r = 4.0 ng/mL< 4.0 ng/mL suggests folate deficiency Methotrexate, aminopterin and folinic acid(leucovorin) are chemotherapeutic agents whose molecularstructures are similar to folate; therefore, the Architectfolate assay cannot be used for patients using these drugs. Blood Venous blood specimen / Unknown 10/28/2024 1:21 PM EST 10/28/2024 4:12 PM EST [facility] LAB BLOOD ORDERABLES Final Re sult Performing Organization Address [facility] Co de Phone Number [facility] [address] [place] [phone] * TSH W/Reflex to FT4 (10/28/2024 1:21 PM EST) TSH reflex Free T4 1.31 0.32 - 4.0 uIU/mL [facility] Blood Venous blood specimen / Unknown 10/28/2024 1:21 PM EST 10/28/2024 4:12 PM EST [facility] LAB BLOOD ORDERABLES Final Re sult Performing Organization Address [facility] de Phone Number [facility] [address] [place] [phone] * Hepatitis A,B,C Profile (10/28/2024 1:21 PM EST) [facility] Hepatitis A IgM Nonreactive Nonreactive [facility] Comment:IgM antibodies to ROSENBERG V not detected; does not exclude earlyacute or recovered HAV infection. ~Hepatitis B Surface Antibody REACTIVE Nonreactive [facility] Comment:REACTIVE: > 11.99 mI U/mL Hepatitis B Core Antibody Nonreactive Nonreactive [facility] Hepatitis C Antibody Nonreactive Nonreactive [facility] Comment:Antibodies to HCV no t detected; does not exclude early acuteHCV infection. Hepatitis B Surface Ag Negative Negative [facility] Blood Venous blood specimen / Unknown 10/28/2024 1:21 PM EST 10/28/2024 4:12 PM EST [facility] LAB BLOOD ORDERABLES Final Re sult Performing Organization Address [facility] de Phone Number [facility] [address] [place] [phone] * (ABNORMAL) CBC auto differential (10/28/2024 1:21 PM EST) [facility] White Blood Count 6.3 4.8 - 10.8 X10*3/uL [facility] Red Blood Count 4.52(L) 4.60 - 5.80 X10*6/uL [facility] Hemoglobin 13.7(L) 14.0 - 18.0 g/dl [facility] Hematocrit 39.7(L) 42.0 - 52.0 % [facility] Mean Corpuscular Volume 87.8 80.0 - 98.0 fL [facility] Mean Corpuscular Hemoglobin 30.3 27.0 - 33.0 pg [facility] Mean Corpuscular HGB Conc 34.5 31.0 - 36.0 g/dl [facility] Red Cell Distribution Width 13.2 11.0 - 16.0 % [facility] Platelet Count 164 160 - 400 X10*3/uL [facility] Mean Platelet Volume 9.8 9.4 - 12.4 fL [facility] Neutrophils Percent Auto 79.5(H) 45 - 73 % [facility] Imm Gran Pct Auto 0.6(H) 0.0 - 0.4 % [facility] Lymphocytes Percent Auto 12.8(L) 20 - 40 % [facility] Monocytes Percent Auto 5.7 2 - 11 % [facility] Eosinophils Percent Auto 1.1 0 - 4 % [facility] Basophils Percent Auto 0.3 0 - 2 % [facility] NRBC Pct Auto 0.0 0.0 - 0.2 /100WBC [facility] Neutrophils Absolute Auto 5.0 2.0 - 8.3 x10*3/uL [facility] Imm Gran Abs Auto 0.04(H) 0.00 - 0.03 X10*3/uL [facility] Lymphocytes Absolute Auto 0.8(L) 1.2 - 4.9 X10*3/uL [facility] Monocytes Absolute Auto 0.4 0.1 - 1.2 X10*3/uL [facility] Eosinophils Absolute Auto 0.1 0.0 - 0.4 X10*3/uL [facility] Basophils Absolute Auto 0.0 0.0 - 0.2 X10*3/uL [facility] NRBC Abs Auto 0.000 0.0 - 0.012 X10*3/uL [facility] Blood Venous blood specimen / Unknown 10/28/2024 1:21 PM EST 10/28/2024 4:12 PM EST [facility] LAB BLOOD ORDERABLES Final Re sult Performing Organization Address [facility] Co de Phone Number [facility] [address] [place] [phone] * HIV-1/2 Antigen and Antibodies, Fourth Generation, with Reflexes (10/28/2024 1:21 PM EST) Pathologist [facility] HIV AB/AG Nonreactive Nonreactive [facility] Comment:HIV-1 p24 Ag and/or HIV-1/HIV-2 Ab not detected.A test result that is nonreactive does not exclude thepossibility of exposure to or infection with HIV-1 and/orHIV-2. Nonreactive results in this assay for individualswith prior exposure to HIV-1 and/or HIV-2 may be due toantigen and antibody levels that are below the limit ofdetection of this assay.The [employer] HIV Ag/Ab Combo assay result andsupplemental assay results should be interpreted inconjunction with the patient's clinical presentation,history and other laboratory results. If the results areinconsistent with clinical evidence, additional testing issuggested to confirm the result. Blood Venous blood specimen / Unknown 10/28/2024 1:21 PM EST 10/28/2024 4:12 PM EST [facility] LAB BLOOD ORDERABLES Final Re sult Performing Organization Address [facility] Co de Phone Number [facility] [address] [place] [phone] * Sed Rate by Modified Gonzalo (10/28/2024 1:21 PM EST) Pathologist [facility] Erythrocyte Sedimentation Rate 2 0 - 15 MM/HR [facility] Comment:Patients with polycy themia and many hemoglobin abnormalitiesmay have depressed sed rates whereas patients with anemiamay have elevated sed rates. Blood Venous blood specimen / Unknown 10/28/2024 1:21 PM EST 10/28/2024 4:12 PM EST [facility] LAB BLOOD ORDERABLES Final Re sult Performing Organization Address City/[facility]/ZIP Co de Phone Number [facility] [address] [place] [phone] * C-reactive Protein (10/28/2024 1:21 PM EST) C Reactive Protein 0.19 < or = 0.50 mg/dL [facility] Blood Venous blood specimen / Unknown 10/28/2024 1:21 PM EST 10/28/2024 4:12 PM EST [facility] LAB BLOOD ORDERABLES Final Re sult Performing Organization Address [facility]/ZIP Co de Phone Number [facility] [address] [place] [phone] * OMID Screen,IFA, with Reflex to Titer and Pattern (10/28/2024 1:21 PM EST) Anti Nuclear Antibody Screen NEGATIVE NEGATIVE [facility] Comment:OMID IFA is a first [...] clinicallysuspected inflammatory myopathies.AC-0: NegativeInternational Consensus on OMID Patterns(https://doi.org/10.1515/zcji-6918-0828)For additional information, please refer tohttp://education.Userlike Live Chat/faq/YRS556(This link is being provided for informational/educational purposes only.)THIS TEST WAS PERFORMED AT:[facility] [place] [phone] MURRAY MD OMID Titer [facility] OMID Pattern [facility] OMID TITER 2 (REF LAB) [facility] 2 [facility] OMID TITER 3 [facility] OMID PATTERN 3 [facility] Blood Venous blood specimen / Unknown 10/28/2024 1:21 PM EST 10/28/2024 4:12 PM EST [facility] G[employer] INS[employer] HELPER LAB BLOOD ORDERABLES Final Re sult [facility] [address] [place] [phone] * (ABNORMAL) Protein, Total and Protein??Electrophoresis (10/28/2024 1:21 PM EST) Prot Elec - Total Protein 6.7 6.1 - 8.1 g/dL [facility] Prot Elec - Albumin 4.6 3.8 - 4.8 g/dL [facility] Prot Elec - Alpha1 0.3 0.2 - 0.3 g/dL [facility] Prot Elec - Alpha2 0.5 0.5 - 0.9 g/dL [facility] Prot Elec - Beta 1 0.4 0.4 - 0.6 g/dL [facility] Prot Elec - Beta 2 0.3 0.2 - 0.5 g/dL [facility] Prot Elec - Gamma 0.7(A) 0.8 - 1.7 g/dL [facility] PES - Abn Protein Band 1 [facility] PES-Abn Protein Band 2 [facility] PES-Abn Protein Band 3 [facility] Prot Elec - Interpretation SEE NOTE [facility] Comment:Consistent with hypo gammaglobulinemia. Serum free lightchains or urine immunofixation should be considered ifplasma cell dyscrasias are a possible clinicaldiagnosis.THIS TEST WAS PERFORMED AT:[facility] [place] [phone] MURRAY MD 10/28/2024 1:21 PM EST 10/28/2024 4:12 PM EST [facility] [employer] INS[employer] HELPER LAB BLOOD ORDERABLES Final Re sult [facility] [address] [facility] [place] [address] [phone] * MR Prostate w and w/o Contrast (10/19/2024 8:16 AM EST) Anatomical Region Laterality Modality Magnetic Resonan ce 10/19/2024 8:16 AM EST Narrative 10/20/2024 8:07 AM EST ? [facility] ?[address] ?[place] [address] ? Magnetic Resonance Report ? Signed ? Patient: Tate Escobedo ?MR#: [id number] ?? [id number] ? : 1980 ?Acct:[id number] ? Age/Sex: 44 / M ?ADM Date: 10/19/24 ? Loc: HO.MRI ? Attending Dr: Brandon Correa MD ? Ordering Physician: Brandon Correa MD ?? Date of Service: 10/19/24 ?? Procedure(s): MR Prostate wo/w con ?? Accession Number(s): [id number] ? cc: Brandon Correa MD; Tia Albarado [facility] ? EXAMINATION: ??MR PROSTATE WITHOUT THEN WITH [...] highly likely ?? to be present) ? [employer]. MR Prostate Imaging Reporting and Data ?? System version 2.1. http://www.acr.org/Quality-Safety/Resources/PIRADS/ ? Electronically signed by: ??Sin Sharif MD ??10/20/2024 08:04 AM EST ?? RP ? Dictated By: ?Sin Sharif MD ? Signed By: ?<Electronically signed by Sin Sharif MD in OV> ?10/20/24 08 ? DD/ 0816 ? TD/TT: 10/19/24 0930 ? Chaperon: ? Procedure Note Donotuseinterpreter, Image - 10/20/[address] [address] Magnetic Resonance Report Signed Patient: Tate EscobedoMR#: [id number] : 1980Acct:[id number] Age/Sex: 44 / MADM Date: 10/19/24 Loc: HO.MRI Attending Dr: Brandon Correa MD Ordering Physician: Brandon Correa MD Date of Service: 10/19/24 Procedure(s): MR Prostate wo/w con Accession Number(s): [id number] cc: Brandon Correa MD; [facility] EXAMINATION: MR PROSTATE WITHOUT THEN [...] cancer is highly likely to be present) [employer]. MR Prostate Imaging Reporting and Data System version 2.1. http://www.acr.org/Quality-Safety/Resources/PIRADS/ Electronically signed by: Sin Sharif MD 10/20/2024 08:04 AM EST Dictated By: Sin Sharif MD Signed By: <Electronically signed by Sin Sharif MD in OV> 10/20/24 0804 DD/ 0816 TD/TT: 10/19/24 0930 Chaperon: us [facility] External Provider IMG MRI PROCEDURES Final Result * (ABNORMAL) PSA, Free and Total (10/07/2024 12:08 PM EST) PSA, Total 7.0(A) < OR = 4.0 ng/mL [facility] PSA % Free 7(A) >25 % (calc) [facility] Comment: PSA(ng/mL) ?Free PSA(%) ? Estimated(x) Probability ? of Cancer(as%)0-2.5 ?(*) ? Approx. 12.6-4.0(1) ? 0-27(2) ? 24(3)4.1-10(4) ?0-10 ?56 ? 11-15 ? 28 ? 16-20 ? 20 ? 21-25 ? 16 ? >or =26 ? 8>10(+) ? N/A ?>50References:(1)Yue hua al.:Urology 60: 469-474 (2002) ? (2)Oral:J.Urol 168: 922-925 (2002) ?Free PSA(%) ?? Sensitivity(%) ??Specificity(%) ?< or = 25 ?85 ?19 ?< or = 30 ?93 ? 9 ? (3)Ángel.:MILAGROS 277: 9353-7991 (1996) ? (4)Ángel.:MILAGROS 279: 9661-5541 (1998)(x)These estimates vary with age, ethnicity, family ?? [...] presence or absence ofdisease.THIS TEST WAS PERFORMED AT:[facility] [place] [address] [phone] MURRAY MD PSA, Free 0.5 ng/mL [facility] 10/07/2024 12:0 8 PM EST 10/07/2024 12:08 PM EST Generic External Data Provider LAB BLOOD ORDERAB LES Final Result Performing Organization Address [facility] de Phone Number [facility] [address] [place] [phone] * (ABNORMAL) PSA, Total With Reflex to PSA, Free (10/07/2024 10:56 AM EST) PSA,Total (Free>4and<10) 6.46(H) 0.00 - 4.00 ng/mL [facility] Comment:PSA methodology: Yenni Sierra i ChemiluminescentMicroparticle Immunoassay (CMIA) 10/07/2024 10:5 6 AM EST 10/07/2024 10:56 AM EST Generic External Data Provider LAB BLOOD ORDERAB LES Final Result Performing Organization Address [facility] Co de Phone Number [facility] [address] [place] [phone] * (ABNORMAL) Lipid Panel, Standard (06/16/2024 9:54 AM EDT) Triglycerides 140 <150 mg/dL [facility] Comment:Desirable Triglyceri de: less than 150 mg/dLBorderline High Triglyceride 150-199 mg/dLHigh Triglyceride: 200-499 mg/dLVery High Triglyceride: greater than or equal to 5OO mg/dL Cholesterol 196 <200 mg/dL [facility] Comment:Desirable Cholestero l: less than 200 mg/dLBorderline High Cholesterol: 200-239 mg/dLHigh Cholesterol: greater than 239 mg/dL LDL Cholesterol Calculated 129(H) <100 mg/dL [facility] Comment:Desirable LDL: less than 100 mg/dLNear Optimal/Above Optimal LDL: 110- 129 mg/dLBorderline High LDL: 130-159 mg/dLHigh LDL: 160-189 mg/dLVery High LDL: greater than or equal to 190 mg/dL HDL Cholesterol 39(L) >40 mg/dL [facility] Comment:Desirable HDL: great er than 40 mg/dL Note: This HDL assay may give artificially low results in patients with liver disease. Blood Venous blood specimen / Unknown 06/16/2024 9:54 AM EDT 06/16/2024 11:17 AM EDT [facility] GAS LEAK INSPECTOR HELPER LAB BLOOD ORDERABLES Final Re sult [facility] [address] [place] [address] [phone] from Last 3 Months or Most Recently Relevant to Health Maintenance Insurance [facility] C3 HSN FULL Care Teams Towerman Relationship Specialty Start Date End Date Tia Albarado FNP [address] [place] [address] PCP - General Family Medicine 05/13/24 Josefina He Communications OperatorCasino Assistant Manager 10/26/24
--- OUTSIDE RECORDS SUMMARY | 2024-11-10 14:45 | XMS_ITS | Encounter Summary ---
Author Organization [employer] Address [address] [facility] 7 [place] [address] Care Team Providers Care Airplane Pilot Chief Name Role Phone Jonathon Greenberg [facility] Unavailable Unavailable Chanelle Francis [facility] Primary Care Provider [phone] [facility] Primary Care Provider [phone] Reason for Visit * Reason Onset Date Comments PT1 09/10/2023 Encounter Details Date Type Department Care Team (Late st Contact Info) Description 09/10/2023 Telephone [facility] [address] [place], [place] [phone] Chanelle Francis FNP [address] [place], [place] [phone] PT1 Social History Tobacco Use Types Packs/Day [...] 09/15/2023 8:07 AM EST PT-1 Request Number [id number] is Pending * Telephone Encounter - Stef Blake - 09/10/2023 3:26 PM EST PT1 needed Date: 09/21/2022 Time: 1:30 PM Visits: All future Appt's Address: [address] [place] [address] Facility: [facility] Wheel Chair: No Water Plant Pump Operator Supervisor Needed: Yes documented in this encounter Plan of Treatment Upcoming Encounters Date Type Department Care Team (Late st Contact Info) Description 12/01/2024 1:00 PM EDT Office Visit [facility] [address] [place] [address] [place], OD [address] [place] [address] 12/27/2024 10:30 AM EDT Nurse Only [facility] [address] [place] [address] 01/25/2025 2:30 PM EDT Office Visit [facility] [address] [place] [address] Tia Albarado FNP [address] [place] [address] documented as of this encounter Goals Goal [...] documented as of this encounter Care Teams Airplane Pilot Chief Relationship Specialty Start Date End Date Chanelle Francis FNP [address] [place] [address] PCP - General Family Medicine 05/28/23 05/12/24 SimpsonTia bernstein FNP [address] [place] [address] PCP - General Family Medicine 05/13/24 Jonathon Greenberg FNP Family Medicine 08/06/22 05/12/24 Josefina He Line DirectorIncome Tax Adjuster 10/26/24 documented as of this encounter
[2024-11-11 18:59] LABS: Beta-2 Microglobulin, Serum 3.86 mg/L (< OR = 2.51); IgA 121 mg/dL (47-310); IgG 819 mg/dL (600-1640); IgM 37 mg/dL (50-300)
[2024-11-14 16:19] LABS: Kappa, Serum 165 mg/dL (176-443); Kappa/Lambda Ratio, Serum 1.76 (1.29-2.55); Lambda, Serum 94 mg/dL (91-240)
== END 2024-11-10 12:18 | disposition home or self-care (01) ==
LOC: HO.LAB 12:17
PROVIDERS: PCP Registered Nurse; Visit Provider Registered Nurse
DX: D80.1 Nonfamilial hypogammaglobulinemia (principal)
CPT/HCPCS: 36415; 82232; 82784; 83883; 86334

== ENCOUNTER → 2024-11-18 16:33 | Outpatient (BNV) | payer MEDICAID, SELFPAY | PROVIDERS: PCP Nurse Practitioner Family; Visit Provider Radiology Diagnostic Radiology | DX: M51.26 Other intervertebral disc displacement, lumbar region (principal); M46.96 Unspecified inflammatory spondylopathy, lumbar region | CPT/HCPCS: 72148 ==

== ENCOUNTER 2024-11-18 16:36 | Outpatient (REF) | payer MEDICAID, SELFPAY ==
--- NOTE | ~2024-11-18 | MR_ITS ---
EXAMINATION: MR LUMBAR SPINE WITHOUT CONTRAST CLINICAL INFORMATION: Low back pain and bilateral leg pain, numbness and weakness.. COMPARISON: None available. TECHNIQUE: MRI of the lumbar spine was obtained using routine sequences without contrast. FINDINGS: There is normal lumbar lordosis. The vertebral heights, alignment are normal. There is loss of L5-S1 disc height with mild disc desiccation changes at T12-L1, L2-3, L4-5 and L1-2 disc levels. The T11-T12 and T12-L1 disc levels are unremarkable. At L1-2 disc level is mild bulge flattening the ventral thecal sac but without any spinal canal stenosis. The neural foramina are patent bilaterally. At L3-4 disc level there is no 7 disc bulge, herniation or spinal canal stenosis. The neural foramina are patent bilaterally. At L4-5 disc level there is a broad-based mild diffuse bulge with moderate bilateral facet joint hypertrophy slightly greater on the left. There is mild to moderate left neural foraminal narrowing. Suspect minimal left lateral bulge mildly displacing the left L4 nerve root. Best visualized on axial image 40/11 there is moderate left facet joint arthropathy and hypertrophy At L5-S1 disc level there is a diffuse bulge flattening the ventral thecal sac but without spinal canal stenosis. The neural foramina are patent bilaterally. The bone marrow signal and paravertebral vertebral soft tissues are normal. Conus medullaris terminates at T12-L1 disc level and appears normal in morphology. MR/MR lumbar spine wo con IMPRESSION: Diffuse bulge L2 to-3, L4-5 and L5-S1 disc levels. Left lateral disc bulge L4-5 disc level displacing L4 nerve root posteriorly mild narrowing of left neural foramina is noted. Moderate left facet joint arthropathy and hypertrophy. Electronically signed by: Aj Leos MD 11/21/2024 03:27 PM EDT
--- OUTSIDE RECORDS SUMMARY | 2024-11-18 17:28 | XMS_ITS | Encounter Summary ---
Author Organization [facility] Address [address] [facility] [address] [place] [address] Phone Care Team Providers Care Paver Layer Name Role Phone Chanelle Francis Primary Care Provider [phone] Encounter Details Date Type Department Care Team ([facility] st Contact Info) Description 09/16/2023 Office Communication [facility] [address] [facility] [address] [place] [phone] Asael Morales MD [address] [facility] [address] [place] [phone] Social History Tobacco Use Types Packs/Day Years [...] [facility] [address] [phone] Asael Morales MD [address] [phone] documented as of this encounter Visit Diagnoses Not on filedocumented in this encounter Care Teams Paver Layer Relationship Specialty Start Date End Date Chanelle Francis [address] [place] [address] PCP - General 09/16/23 documented as of this encounter
--- OUTSIDE RECORDS SUMMARY | 2024-11-18 17:28 | XMS_ITS | Encounter Summary ---
Author Organization [employer] Address [address] [facility] 7t [place] [address] Care Team Providers Care Furniture Sales Consultant Name Role Phone [facility] Primary Care Provider [phone] Reason for Visit * Reason Comments Care Coordination CHW outreach for SDO H housing search-referral completed Encounter Details Date Type Department Care Team (Latest Contact Info) Description 11/03/2024 Patient Outreach [facility] [address] [place], [place] [phone] [facility] [address] [place] [address] Care Coordination (CHW outreach for SDOH housing [...] Health Center in person requesting assistance with [facility]. Patient's name and were confirmed. CHW Varun Zuñiga met with patient in private space. Patient screened positive for the following [facility] housing insecurities. CHW referred patient to list of housing and applicationsmail out to address on file. Patient verbalizes understanding, and able to agree to follow up with housing search and call. Patient educated on extended clinic hours on Mondays through Wednesdays, and Walk-In Urgent Care Located in [facility]. Patient provided with after-hours line for [facility], , which offer night time triage service and option to transfer to government relations analyst provider if needed. documented in this encounter Plan of Treatment Upcoming Encounters Date Type Department Care Team (Late st Contact Info) Description 12/01/2024 1:00 PM EDT Office Visit [facility] [address] [place] [phone] Donna [place] OD [address] [place] [address] 12/27/2024 10:30 AM EDT Nurse Only [facility] [address] [place] [address] 01/25/2025 2:30 PM EDT Office Visit [facility] [address] [place], [place] [phone] Tia Albarado FNP [address] [place] [address] documented as of this encounter Goals Goal [...] documented as of this encounter Care Teams Furniture Sales Consultant Relationship Specialty Start Date End Date Tia Albarado FNP [address] [place] [address] PCP - General Family Medicine 05/13/24 Josefina He Hull InspectorLab Clerk 10/26/24 documented as of this encounter
--- OUTSIDE RECORDS SUMMARY | 2024-11-18 17:28 | XMS_ITS | Encounter Summary ---
Author Organization [employer] Address [address] [facility] 7 [place] [address] Care Team Providers Care Fiscal Officer Name Role Phone [place] [facility] Primary Care Provider Reason for Visit * Reason Onset Date Comments Results 11/09/2024 Encounter Details Date Type Department Care Team ([facility] st Contact Info) Description 11/09/2024 Telephone [facility] [address] [place], [place] [phone] [place] [facility] [address] [place], [place] [phone] Results Social History Tobacco Use Types Packs/Day [...] EST TC x2 placed to pt at [phone] via [employer] medical interpreter (Eugene ID#[id number]) to inform of below PCP message. Pt verbalized understanding of provider message and denies further questions at this time. ----- Message from [facility] sent at 11/09/2024 2:38 PM EST ----- [...] EDT Office Visit [facility] OPTOM[facility] [address] [place] [address] [place], OD [address] [place] [address] 12/27/2024 10:30 AM EDT Nurse Only [facility] [address] [place], [place] [phone] 01/25/2025 2:30 PM EDT Office Visit [facility] [address] [place] [address] Tia Albarado FNP [address] [place] [address] documented as of this encounter Goals Goal [...] documented as of this encounter Care Teams Fiscal Officer Relationship Specialty Start Date End Date [place] [address] PCP - General Family Medicine 05/13/24 Josefina He Grey Goods ExaminerSales Support Technician 10/26/24 documented as of this encounter
--- OUTSIDE RECORDS SUMMARY | 2024-11-18 17:28 | XMS_ITS | Patient Health Record ---
Author Organization [facility] Address [address] [place], [place] [phone] Care Team Providers Care Sheet Metal Pattern Cutter Name Role Phone [facility], Dental Department Primary Care Provider Unavailable Eli Pisano Unavailable Reason For Referral No Information Social History Sex Assigned At : Social History Observation Description Sex Assigned At Male Encounters Encounter Location Date Provider Diagnosis [facility] [address] [place] [phone] 11/01/2024 Eli Pisano [facility] [address] [place] [address] [phone] 11/15/2024 Eli P[facility]ano [facility] [address] [place] [address] [phone] 10/21/2024 Eli Pisano [facility] [address] [place] [address] [phone] 10/14/2024 Eli Pisano Plan Of Treatment No Information Insurance Providers Payer Name Payer Address Payer Phone Subscriber Number Group Number Insured Name Patient Relationship to Insured Coverage Start Date Coverage End Date [place] Medicaid Standard [address] [place] [address] [id number] Tate Escobedo Self - patient is the insured
--- OUTSIDE RECORDS SUMMARY | 2024-11-18 17:28 | XMS_ITS | Encounter Summary ---
Author Organization [employer] Address [address] [facility] 7t [place] [address] Care Team Providers Care Clay Thrower Name Role Phone [facility] Primary Care Provider [phone] Encounter Details Date Type Department Care Team (Latest Contact Info) Description 11/07/2024 Orders Only [facility] [address] [place], [place] [phone] [facility] [address] [place], [place] [phone] Hypogammaglobulinemia (CMS/HCC) (Primary Dx) Social History Tobacco [...] Description 12/01/2024 1:00 PM EDT Office Visit [facility] [address] [place] [address] Donna [place], OD [address] [place], [place] [phone] 12/27/2024 10:30 AM EDT Nurse Only [facility] [address] [place], [place] [phone] 01/25/2025 2:30 PM EDT Office Visit [facility] [address] [place] [address] [facility] [address] [place] [address] documented as of this encounter Goals Goal Patient Goal Type Associated Problems Recent Progress Patient-Stated? Author Blood Pressure < 140/90 Blood Pressure 139/83(2024 11:58 AM EST) No Lucass-Gambl e, Christine, PharmD Take your medication every day Lifestyle No Piers-Gambl e, Christine, PharmD documented as of this encounter Procedures Procedure Name Priority Date/Time Associated Diagnosis Comments KAPPA/LAMBDA LIGHT CHAINS FREE WITH RATIO, SERUM Routine 11/10/2024 12:33 PM EST Hypogammaglobulinem ia (CMS/HCC) IMMUNOFIXATION, SERUM Routine 11/10/2024 12:33 PM EST Hypogammaglobulinem ia (CMS/HCC) [id number] N, SERUM Routine 11/10/2024 12:33 PM EST Hypogammaglobulinem ia (CMS/HCC) documented in this encounter Results * (ABNORMAL) Ukcz-7-Kkozilgkdgibs, Serum (11/10/2024 12:33 PM EST) Beta 2 Microglobulin, Serum 3.86(A) < OR = 2.51 mg/L [facility] Comment:THIS TEST WAS PERFOR MED AT:[employer] [place] [id number] MURRAY MD Blood Venous blood specimen / Unknown 11/10/2024 12:33 PM EST 11/10/2024 12:33 PM EST [facility] LAB BLOOD ORDERABLES Final Re sult [facility] [address] [place] [address] [phone] * (ABNORMAL) [place]/Lambda Light Chains, Free with Ratio (11/10/2024 12:33 PM EST) [place] Light Chain, Free, Serum 165(A) 176 - 443 mg/dL [facility] Lambda Light Chain, Free, Serum 94 91 - 240 mg/dL [facility] [place]/Lambda Light Chains Free With Ratio, Serum 1.76 1.29 - 2.55 [facility] Comment:This assay provides a measurement of the total kappa and thetotal lambda light chains, ie., the amount of free(unattached) light chain in circulation and the amount oflight chain linked to heavy chain in intact immunoglobulinmolecules. Assays for serum free light chain only, kappa andlambda with ratio, may be more useful in evaluating andmanaging light chain gammopathies including those associatedwith myeloma, lymphoproliferative disorders, andamyloidosis.THIS TEST WAS PERFORMED AT:[employer] [id number] [address] [place] [address]XZIAUNANCY ROBINS MD,PHD,LOC Blood Venous blood specimen / Unknown 11/10/2024 12:33 PM EST 11/10/2024 12:33 PM EST [facility] LAB BLOOD ORDERABLES Final Re sult Performing Organization Address [facility] de Phone Number [facility] [address] [place] [phone] * (ABNORMAL) Immunofixation, Serum (11/10/2024 12:33 PM EST) IMMUNOGLOBULIN G 819 600 - 1640 mg/dL [facility] IMMUNOGLOBULIN A 121 47 - 310 mg/dL [facility] Immunoglobulin M 37(A) 50 - 300 mg/dL [facility] Comment:THIS TEST WAS PERFOR MED AT:[employer] [address] [id number] MURRAY MD Immunofixation Result SEE NOTE [facility] Comment:Normal pattern. No m onoclonal proteins detected. Blood Venous blood specimen / Unknown 11/10/2024 12:33 PM EST 11/10/2024 12:33 PM EST [facility] LAB BLOOD ORDERABLES Final Re sult Performing Organization Address [facility] Co de Phone Number [facility] [address] [place] [phone] documented in this encounter Visit Diagnoses Diagnosis Hypogammaglobulinemia (CMS/HCC)- Primary Unspecified hypogammaglobulinemia documented in this encounter Additional Health Concerns Assessment Noted Time PHQ-9 Depression Total Score: 0 10/28/19 25 12:06 PM EST documented as of this encounter Care Teams Clay Thrower Relationship Specialty Start Date End Date Tia Albarado FNP [address] [place] [address] PCP - General Family Medicine 05/13/24 Josefina He Loom TunerPilates Coordinator 10/26/24 documented as of this encounter
--- OUTSIDE RECORDS SUMMARY | 2024-11-18 17:28 | XMS_ITS | Encounter Summary ---
Author Organization [facility] Address [address] [facility] 7t [place] [address] Care Team Providers Care Tractor Mechanic Name Role Phone Tia Albarado Primary Care Provider [phone] Reason for Referral * Imaging (Routine) - Authorized Specialty Diagnoses / Procedures Referred By Mecca lucero Referred To Contact Radiology Diagnoses Polyneuropathy Chronic radicular low back pain Procedures MR Lumbar Spine w/o Contrast Tia Albarado FNP [address] [place] [address] Phone: tel: fax: [address] Phone: tel: fax: Referral ID Status Reason Start Date Expiration Date V isits Requested Visits Authorized [id number] Authorized 11/02/2024 11/02/2025 1 1 * Consultation (Routine) - Authorized Specialty Diagnoses / Procedures Referred By Mecca lucero Referred To Contact Pain Medicine Diagnoses Chronic radicular low back pain Tia Albarado FNP [address] [place] [address] Phone: tel: fax: [facility], [address] [place], [place] Phone: tel: fax: Referral ID Status Reason Start Date Expiration Date Visits Requested Visits Authorized [id number] Authorized Specialty Services Required 11/16/2024 11/16/2025 6 6 Reason for Visit * Reason Comments Follow-up Encounter Details Date Type Department Care Team (Latest Contact Info) Description 10/28/2024 11:30 AM EST Office Visit [facility] MEDICINE [address] [place] [address] Tia Albarado FNP [address] [place] [address] Polyneuropathy (Primary Dx); Chronic radicular low back [...] documented in this encounter Progress Notes * [facility], [employer] - 10/28/2024 11:30 AM EST SUBJECTIVE: Tate [...] Neurogenic Bladder/elevated PSA-had follow-up with Dr. Zhou [facility]. Prostate MRI 10/2024 negative. Plan to continue 4 times daily self catheterization. Continue UTI suppression with trimethoprim and methamphetamine. As needed tadalafil was added for erectile dysfunction. Repeat MRI 6 months BCC-had routine follow-up with [facility] Derm 09/2024 for skin check. Yearly follow-up Renal-08/2024 had follow-up with Dr. Morales. Continue Myfortic 360 mg 3 times daily, prednisone 5 mg and Prograf 3 mg oral twice daily. Daily baby aspirin and Lipitor 10 mg started. 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 Need for vaccination - [employer] COVID-19 Vaccine 12+ Follow Up: 3 months, [...] facility-administered medications on file prior to visit. Georgian Translation: Provided by [facility] staff member documented in this encounter Plan of Treatment Upcoming Encounters Date Type Department Care Team (Late st Contact Info) Description 12/01/2024 1:00 PM EDT Office Visit [facility] OPTOMETRY [address] [place] [address] Donna Clayton, OD [address] [place] [address] 12/27/2024 10:30 AM EDT Nurse Only [facility] MEDICINE [address] [place] [address] 01/25/2025 2:30 PM EDT Office Visit [facility] MEDICINE [address] [place] [address] Tia Albarado, [employer] [address] [place] [address] Pending Results Name Type Priority Associated Diagnoses Date /Time Protein Electrophoresis and Shippingport/Lambda Light Chains Lab Routine Polyneuropathy 10/28/2024 1:21 [...] 1:21 PM EST) Syphilis Screen Nonreactive Nonreactive [facility] Blood 10/28/2024 1:21 PM EST 10/28/2024 4:12 PM EST [facility] LAB BLOOD ORDERABLES Final Re sult [facility] [address] [place] [address] [phone] * HIV-1/2 Antigen and Antibodies, Fourth Generation, with Reflexes (10/28/2024 1:21 PM EST) HIV AB/AG Nonreactive Nonreactive [facility] Comment:HIV-1 p24 Ag and/or HIV-1/HIV-2 Ab not detected.A test result that is nonreactive does not exclude thepossibility of exposure to or infection with HIV-1 and/orHIV-2. Nonreactive results in this assay for individualswith prior exposure to HIV-1 and/or HIV-2 may be due toantigen and antibody levels that are below the limit ofdetection of this assay.The StowThat HIV Ag/Ab Combo assay result andsupplemental assay results should be interpreted inconjunction with the patient's clinical presentation,history and other laboratory results. If the results areinconsistent with clinical evidence, additional testing issuggested to confirm the result. Blood Venous blood specimen / Unknown 10/28/2024 1:21 PM EST 10/28/2024 4:12 PM EST [facility] LAB BLOOD ORDERABLES Final Re sult [facility] [address] [place] [address] [phone] * OMID Screen,IFA, with Reflex to Titer and Pattern (10/28/2024 1:21 PM EST) Anti Nuclear Antibody Screen NEGATIVE NEGATIVE [facility] Comment:OMID IFA is a first l ine screen for detecting thepresence of up to approximately 150 autoantibodies invarious autoimmune diseases. A negative OMID IFA resultsuggests an OMID-associated autoimmune disease is notpresent at this time, but is not definitive. If thereis high clinical suspicion for Sjogren's syndrome,testing for anti-SS-A/Ro antibody should be considered.Anti-Kaern-1 antibody should be considered for clinicallysuspected inflammatory myopathies.AC-0: NegativeInternational Consensus on OMID Patterns(https://doi.org/10.1515/lxix-6970-1312)For additional information, please refer tohttp://education.MyGardenSchool/faq/WMO372(This link is being provided for informational/educational purposes only.)THIS TEST WAS PERFORMED AT:[facility] [place] [phone] MURRAY MD OMID Titer [facility] OMID Pattern [facility] OMID TITER 2 (REF LAB) [facility] OMID Pattern 2 [facility] OMID TITER 3 [facility] OMID PATTERN 3 [facility] Blood Venous blood specimen / Unknown 10/28/2024 1:21 PM EST 10/28/2024 4:12 PM EST [facility] LAB BLOOD ORDERABLES Final Re sult Performing Organization Address [facility] Co de Phone Number [facility] [address] [place] [address] [phone] * Sed Rate by Modified Ilirergren (10/28/2024 1:21 PM EST) Erythrocyte Sedimentation Rate 2 0 - 15 MM/HR [facility] Comment:Patients with polycy themia and many hemoglobin abnormalitiesmay have depressed sed rates whereas patients with anemiamay have elevated sed rates. Blood Venous blood specimen / Unknown 10/28/2024 1:21 PM EST 10/28/2024 4:12 PM EST [facility] LAB BLOOD ORDERABLES Final Re sult Performing Organization Address [facility] Co de Phone Number [facility] [address] [place] [address] [phone] * C-reactive Protein (10/28/2024 1:21 PM EST) Pathologist [facility] C Reactive Protein 0.19 < or = 0.50 mg/dL [facility] Blood Venous blood specimen / Unknown 10/28/2024 1:21 PM EST 10/28/2024 4:12 PM EST [facility] LAB BLOOD ORDERABLES Final Re sult Performing Organization Address [facility] Co de Phone Number [facility] [address] [place] [address] [phone] * Hepatitis A,B,C Profile (10/28/2024 1:21 PM EST) Pathologist [facility] Hepatitis A IgM Nonreactive Nonreactive [facility] Comment:IgM antibodies to MARTINEZ V not detected; does not exclude earlyacute or recovered HAV infection. ~Hepatitis B Surface Antibody REACTIVE Nonreactive [facility] Comment:REACTIVE: > 11.99 mI U/mL Hepatitis B Core Antibody Nonreactive Nonreactive [facility] Hepatitis C Antibody Nonreactive Nonreactive [facility] Comment:Antibodies to HCV no t detected; does not exclude early acuteHCV infection. Hepatitis B Surface Ag Negative Negative [facility] Blood Venous blood specimen / Unknown 10/28/2024 1:21 PM EST 10/28/2024 4:12 PM EST [facility] LAB BLOOD ORDERABLES Final Re sult Performing Organization Address [facility] de Phone Number [facility] [address] [place] [phone] * Vitamin B12/Folate, Serum Panel (10/28/2024 1:21 PM EST) Vitamin B12 306 200 - 900 pg/mL [facility] Comment:NORMAL 200-900 PG/ML INDETERMINATE 160-199 PG/ML DEFICIENT < 160 PG/ML Folate 7.3 > or = 4.0 ng/mL [facility] Comment:Reference Values:> o r = 4.0 ng/mL< 4.0 ng/mL suggests folate deficiency Methotrexate, aminopterin and folinic acid(leucovorin) are chemotherapeutic agents whose molecularstructures are similar to folate; therefore, the Architectfolate assay cannot be used for patients using these drugs. Blood Venous blood specimen / Unknown 10/28/2024 1:21 PM EST 10/28/2024 4:12 PM EST [facility] LAB BLOOD ORDERABLES Final Re sult Performing Organization Address [facility] de Phone Number [facility] [address] [place] [phone] * TSH W/Reflex to FT4 (10/28/2024 1:21 PM EST) TSH reflex Free T4 1.31 0.32 - 4.0 uIU/mL [facility] Blood Venous blood specimen / Unknown 10/28/2024 1:21 PM EST 10/28/2024 4:12 PM EST [facility] [employer] [facility] LAB BLOOD ORDERABLES Final Re sult [facility] [address] [place] [address] [phone] * (ABNORMAL) CBC auto differential (10/28/2024 1:21 PM EST) White Blood Count 6.3 4.8 - 10.8 X10*3/uL [facility] Red Blood Count 4.52(L) 4.60 - 5.80 X10*6/uL [facility] Hemoglobin 13.7(L) 14.0 - 18.0 g/dl [facility] Hematocrit 39.7(L) 42.0 - 52.0 % [facility] Mean Corpuscular Volume 87.8 80.0 - 98.0 fL [facility] Mean Corpuscular Hemoglobin 30.3 27.0 - 33.0 pg [facility] Mean Corpuscular HGB Conc 34.5 31.0 - 36.0 g/dl [facility] Red Cell Distribution Width 13.2 11.0 - 16.0 % [facility] Platelet Count 164 160 - 400 X10*3/uL [facility] Mean Platelet Volume 9.8 9.4 - 12.4 fL [facility] Neutrophils Percent Auto 79.5(H) 45 - 73 % [facility] Imm Gran Pct Auto 0.6(H) 0.0 - 0.4 % [facility] Lymphocytes Percent Auto 12.8(L) 20 - 40 % [facility] Monocytes Percent Auto 5.7 2 - 11 % [facility] Eosinophils Percent Auto 1.1 0 - 4 % [facility] Basophils Percent Auto 0.3 0 - 2 % [facility] NRBC Pct Auto 0.0 0.0 - 0.2 /100WBC [facility] Neutrophils Absolute Auto 5.0 2.0 - 8.3 x10*3/uL [facility] Imm Gran Abs Auto 0.04(H) 0.00 - 0.03 X10*3/uL [facility] Lymphocytes Absolute Auto 0.8(L) 1.2 - 4.9 X10*3/uL [facility] Monocytes Absolute Auto 0.4 0.1 - 1.2 X10*3/uL [facility] Eosinophils Absolute Auto 0.1 0.0 - 0.4 X10*3/uL [facility] Basophils Absolute Auto 0.0 0.0 - 0.2 X10*3/uL [facility] NRBC Abs Auto 0.000 0.0 - 0.012 X10*3/uL [facility] Blood Venous blood specimen / Unknown 10/28/2024 1:21 PM EST 10/28/2024 4:12 PM EST [facility] LAB BLOOD ORDERABLES Final Re sult [facility] [address] [place] [address] [phone] documented in this encounter Visit Diagnoses [...] documented as of this encounter Care Teams Tractor Mechanic Relationship Specialty Start Date End Date [facility] [address] [place] [phone] PCP - General Family Medicine 05/13/24 Josefina He Bowl SanderBridge Worker 10/26/24 documented as of this encounter
--- OUTSIDE RECORDS SUMMARY | 2024-11-18 17:28 | XMS_ITS | Encounter Summary ---
Author Organization [facility] Address [address] [address] Phone Care Team Providers Care Vice President Global Advertising Sales Name Role Phone Chanelle Francis Primary Care Provider [phone] Reason for Visit * Reason Comments Med Refill Encounter Details Date Type Department Care Team (Late Contact Info) Description 11/11/2024 Refill [facility] [address] [phone] Asael Morales MD [facility] [address] Social History Tobacco Use Types [...] on file documented as of this encounter Plan of Treatment Upcoming Encounters Date Type Department Care Team (Late Contact Info) Description 01/24/2025 3:00 PM EDT Office Visit [facility] [address] [address] Asael Morales MD [address] [place] [phone] documented as of this encounter Visit Diagnoses Not on filedocumented in this encounter Care Teams Vice President Global Advertising Sales Relationship Specialty Start Date End Date Chanelle Francis [address] [place] [address] PCP - General 09/16/23 documented as of this encounter
--- OUTSIDE RECORDS SUMMARY | 2024-11-18 17:28 | XMS_ITS | Encounter Summary ---
Author Organization [facility] Address [address] [place] [phone] Phone Care Team Providers Care Manager Welding Name Role Phone Chanelle Francis Primary Care Provider [phone] Reason for Visit * Reason Comments Med Refill Encounter Details Date Type Department Care Team ([facility] Contact Info) Description 11/14/2024 Refill [facility] [address] [address] Asael Morales MD [address] [address] Social History Tobacco Use Types [...] Upcoming Encounters Date Type Department Care Team ([facility] Contact Info) Description 01/24/2025 3:00 PM EDT Office Visit [facility] [address] [address] Asael Morales MD [facility] [address] documented as of this encounter Visit Diagnoses Not on filedocumented in this encounter Care Teams Manager Welding Relationship Specialty Start Date End Date Chanelle Francis [address] [place] [address] PCP - General 09/16/23 documented as of this encounter
--- OUTSIDE RECORDS SUMMARY | 2024-11-18 17:29 | XMS_ITS | Encounter Summary ---
Author Organization [employer] Address 75 [facility] 7t [place] [address] Care Team Providers Care Center Line Cutter Operator Name Role Phone [facility] Primary Care Provider [phone] Encounter Details Date Type Department Care Team ([facility] st Contact Info) Description 10/28/2024 Orders Only [facility] MEDICINE [address] [place], [place] [phone] [facility], [facility] [address] [place], [place] [phone] Social History Tobacco Use Types Packs/Day Years [...] Description 12/01/2024 1:00 PM EDT Office Visit [facility] OPTOMETRY [address] [place] [address] Tarka, Donna, OD [address] [place] [address] 12/27/2024 10:30 AM EDT Nurse Only [facility] [address] [place] [address] 01/25/2025 2:30 PM EDT Office Visit [facility] MED[facility] [address] [place] [address] [facility] [address] [place] [address] documented as of this encounter Goals Goal [...] Total Protein 6.7 6.1 - 8.1 g/dL [facility] Prot Elec - Albumin 4.6 3.8 - 4.8 g/dL [facility] Prot Elec - Alpha1 0.3 0.2 - 0.3 g/dL [facility] Prot Elec - Alpha2 0.5 0.5 - 0.9 g/dL [facility] Prot Elec - Beta 1 0.4 0.4 - 0.6 g/dL [facility] Prot Elec - Beta 2 0.3 0.2 - 0.5 g/dL [facility] Prot Elec - Gamma 0.7(A) 0.8 - 1.7 g/dL [facility] PES - Abn Protein Band 1 TNP [facility] PES-Abn Protein Band 2 [facility] PES-Abn Protein Band 3 [facility] Prot Elec - Interpretation SEE NOTE [facility] Comment:Consistent with hypo gammaglobulinemia. Serum free lightchains or urine immunofixation should be considered ifplasma cell dyscrasias are a possible clinicaldiagnosis.THIS TEST WAS PERFORMED AT:[employer] [place] [phone] MURRAY MD 10/28/2024 1:21 PM EST 10/28/2024 4:12 PM EST [facility] LAB BLOOD ORDERABLES Final Re sult [facility] [address] [place] [phone] documented in this encounter Visit Diagnoses Not on filedocumented in this encounter Additional Health Concerns Assessment Noted Time PHQ-9 Depression Total Score: 0 10/28/19 25 12:06 PM EST documented as of this encounter Care Teams Center Line Cutter Operator Relationship Specialty Start Date End Date AshtonTia FNP [address] [place] [address] PCP - General Family Medicine 05/13/24 Josefina He Showcase MakerCost Estimating Clerk 10/26/24 documented as of this encounter
--- OUTSIDE RECORDS SUMMARY | 2024-11-18 17:29 | XMS_ITS ---
Author Organization [facility] Address [address] [place], [place] [phone] Care Team Providers Care Urgent Care Name Role Phone [facility], Dental Department Primary Care Provider Unavailable Eli Pisano Unavailable REASON FOR VISIT housing Social History Sex Assigned At : Social History Observation Description Sex Assigned At Male Encounters Encounter Location Date Provider Diagnosis [facility] [address] [place] [phone] 11/15/2024 Eli Pisano Plan Of Treatment No Information Progress Notes * Tate ESCOBEDODOB:[birth year] (44 yo M)Acc No.[id number]:11/15/2024 Case Management Patient:?Marycarmen ESCOBEDO Provider:Josué Pisano :1980???Age:44 Y???Sex:Male Nic e:11/15/2024 Address:[address] [place], [place] [phone] Pcp:Dental Department [facility] Subjective: * Chief Complaints: * ???1. Housing. * Medical History:? Objective: Assessment: Plan: * Treatment: * Images: Billing Information: * Visit Code:? * Procedure Codes:? Care Plan Details* * Electronic signature of León Pisano on 11/18/2024 at 05:28 PM EST Sign off status: Pending * Provider:Josué Pisano Date:? Generated for Alexandro webber/Connor/eTransmitting on:?11/18/2024 05:28 PM EST
--- OUTSIDE RECORDS SUMMARY | 2024-11-18 17:29 | XMS_ITS | Encounter Summary ---
Author Organization [facility] Address 100 [facility] [address] [place] [address] Phone Care Team Providers Care Client Relations Representative Name Role Phone OlmanChanelle soriano Primary Care Provider [phone] Encounter Details Date Type Department Care Team ([facility] st Contact Info) Description 05/15/2024 Office Communication [facility] 100 [facility] [address] [place] [phone] Asael Morales MD 3550 [facility] [address] [place] [phone] Social History Tobacco Use Types Packs/Day Years [...] Office Visit [facility] [address] [phone] Asael Morales MD [address] [phone] documented as of this encounter Visit Diagnoses Not on filedocumented in this encounter Care Teams Client Relations Representative Relationship Specialty Start Date End Date Chanelle Francis [address] [place] [address] PCP - General 09/16/23 documented as of this encounter
--- OUTSIDE RECORDS SUMMARY | 2024-11-18 17:29 | XMS_ITS | Clinical Summary ---
Author Organization [facility] Address [address] [phone] Phone Care Team Providers Care Orthopedic Physical Therapist Name Role Phone Penny Chanelle Primary Care Provider [phone] Allergies No known active allergies Medications * [...] 100 mg by mouth at bed time 3 Active QUEtiapine (SEROquel) 25 MG tablet Take 25 mg by mouth 3 (three) times a day if needed 3 Active prazosin (MINIPRESS) 2 MG capsule Take 2 mg by mouth at bed time 3 Active tacrolimus (PROGRAF) 1 MG capsule TAKE 3 CAPSULES BY MOUTH TWICE DAILY IN THE MORNING AND IN THE EVENING 180 capsule 2 5 Active atorvastatin (LIPITOR) 10 MG tablet TAKE 1 TABLET BY MOUTH EVERY MORNING 90 tablet 5 Active atorvastatin (Lipitor) 10 MG tablet Take 1 tablet (10 mg total) by mouth 1 (one) time each day 90 tablet 4 025 Discontinued tacrolimus (PROGRAF) 1 MG capsule TAKE 3 CAPSULES BY MOUTH TWICE DAILY IN THE MORNING AND IN THE EVENING 180 capsule 2 4 025 Discontinued Active Problems Problem Noted Date Diagnosed Date Kidney transplant status 06/29/2023 Other secondary hypertension 06/29/2023 Encounters Date Type Department Care Team Description 11/14/2024 Refill [facility] 3550 [facility] [address] [place] [address] Asael Morales MD 11/11/2024 Refill [facility] 100 [facility] [address] [place] [phone] Asael Morales MD from Last 3 Months Family History [...] Office Visit [facility] [address] [phone] Asael Morales MD [address] [phone] Health Maintenance Due Date Last Done Comments Hepatitis B Vaccine (3 of 3 - 19+ 3-dose series) 10/15/2024 05/17/2024, 04/14/2024 Pneumococcal Vaccine: Pediat rics (0 to 5 Years) and At-Risk Patients (6 to 64 Years) Completed 04/29/2023 Influenza Vaccine Completed 06/18/2024 Insurance [place] Care Teams Orthopedic Physical Therapist Relationship Specialty Start Date End Date Chanelle Francis [address] [place] [address] PCP - General 09/16/23
--- OUTSIDE RECORDS SUMMARY | 2024-11-18 17:29 | XMS_ITS | Encounter Summary ---
Author Organization [facility] Address [address] [place] [phone] Phone Care Team Providers Care Bpm Analyst Name Role Phone Chanelle Francis Primary Care Provider [phone] Encounter Details Date Type Department Care Team ([facility] Contact Info) Description 08/03/2024 Office Communication [facility] [address] [phone] Asael Morales MD [address] [phone] Social History Tobacco Use Types [...] Encounters Date Type Department Care Team ([facility] Contact Info) Description 01/24/2025 3:00 PM EDT Office Visit [facility] [address] [phone] Asale Morales MD [address] [phone] documented as of this encounter Visit Diagnoses Not on filedocumented in this encounter Care Teams Bpm Analyst Relationship Specialty Start Date End Date Chanelle Francis [address] [place] [phone] PCP - General 09/16/23 documented as of this encounter
--- OUTSIDE RECORDS SUMMARY | 2024-11-18 17:29 | XMS_ITS | Encounter Summary ---
Author Organization [employer] Address 75 [facility] 7t [place] [address] Care Team Providers Care Assistant Plant Control Operator Name Role Phone Tia Albarado [facility] Primary Care Provider [phone] Encounter Details Date Type Department Care Team [...] t he electric, gas, oil or water [employer] threatened to shut off services in your [...] Description 12/01/2024 1:00 PM EDT Office Visit [facility] OPTOMETRY [address] [place] [address] TarDonna hale, OD [address] [place] [address] 12/27/2024 10:30 AM EDT Nurse Only [facility] MEDICINE 230 [place] [address] 01/25/2025 2:30 PM EDT Office Visit [facility] MEDICINE [address] [place] [address] Tia Albarado FNP 230 [place] [address] documented as of this encounter Goals Goal [...] documented as of this encounter Care Teams Assistant Plant Control Operator Relationship Specialty Start Date End Date Tia Albarado FNP [address] [place] [address] PCP - General Family Medicine 05/13/24 Josefina He Communication SpecialistReverse Unit Operator Fisherman 10/26/24 documented as of this encounter
--- OUTSIDE RECORDS SUMMARY | 2024-11-18 17:31 | XMS_ITS | Encounter Summary ---
Author Organization [employer] Address 75 [facility] 7t [place] [address] Care Team Providers Care Deep Sea Diver Name Role Phone Per [facility] Primary Care Provider [phone] Reason for Visit * Reason Onset Date Comments Results 10/21/2024 Encounter Details Date Type Department Care Team ([facility] st Contact Info) Description 10/21/2024 Telephone [facility] MEDICINE 230 [place], [place] [phone] Aparna Gates RN 230 [place], [place] [phone] Results Social History Tobacco Use Types Packs/Day [...] EST Telephone call x2 regarding below message. [phone]: not accepting calls at this time [phone]: doesn't ring. Just air with no option [...] 1:00 PM EDT Office Visit [facility] OPTOMETRY [address] [place] [address] Donna Clayton, OD [address] [place] [address] 12/27/2024 10:30 AM EDT Nurse Only [facility] MEDICINE [address] [place] [address] 01/25/2025 2:30 PM EDT Office Visit [facility] MEDICINE [address] [place] [address] Tia Albarado FNP 230 [place] [address] documented as of this encounter Goals Goal [...] documented as of this encounter Care Teams Deep Sea Diver Relationship Specialty Start Date End Date Tia Albarado FNP 230 [place] [address] PCP - General Family Medicine 05/13/24 documented as of this encounter
--- OUTSIDE RECORDS SUMMARY | 2024-11-18 17:31 | XMS_ITS | Clinical Summary ---
Author Organization [facility] Address [address] [place] [address] Care Team Providers Care Open Hearth Helper Name Role Phone Pcp, No Unavailable Unavailable [...] age to complete this topic Care Teams Open Hearth Helper Relationship Specialty Start Date End Date Pcp, No [address] [place] [address] PCP - General 07/08/23 Pcp, No [address] [place] [address] Physician 07/08/23 HOLLAND MANCILLA APRN, RETURN TO FACTORY CLERK-BC, RETURN TO FACTORY CLERK-C Nurse Practitioner 06/14/23
--- OUTSIDE RECORDS SUMMARY | 2024-11-18 17:31 | XMS_ITS ---
Author Organization [facility] Address [address] [place], [place] [phone] Care Team Providers Care Licensed Prosthetist/Orthotist Name Role Phone [facility], Dental Department Primary Care Provider Unavailable Eli Pisano Unavailable REASON FOR VISIT housing Social History Sex Assigned At : Social History Observation Description Sex Assigned At Male Encounters Encounter Location Date Provider Diagnosis [facility] [address] [place] [phone] 10/21/2024 Eli Pisano Plan Of Treatment No Information Progress Notes * Tate ESCOBEDODOB:[birth year] (44 yo M)Acc No.[id number]:10/21/2024 Case Management New Patient:?VERNON BARKLEYMarycarmen Provider:?Eli Pisano :1980???Age:44 Y???Sex:Male Nic e:10/21/2024 Address:[address] [place], [place] [id number] Pcp:Dental Department [facility] Subjective: * Chief Complaints: * ???1. Housing. * HPI: ???Social Service:?Date of encounter?Date:10/21/2024.?Referral Source?walk-in, self, returning client.?Interpretation for medical provider?housing.?Action Taken?Housing?Application [place].?Follow-up Required:?yes. Pt comprehension?Pt agrees with plan.?Action taken (old)?form completion, Items given to client.? Filled out? application/completed/faxed as well, copies made and given to Pt copy in file. Objective: * Vitals:? Assessment: Plan: * Treatment: * Images: Billing Information: * Visit Code:? * Procedure Codes:? Care Plan Details* * Sign off status: Completed true * Provider:?Eli Pisano Date:? Generated for Alexandro webber/Connor/eTransmitting on:?11/18/2024 05:30 PM EST History and Physical Notes * HPI (History of Present Illness) Category Sub-Category Detail Notes Social Service Referral Source walk-in, self, r eturning client Interpretation for medical provider housing Action taken (old) form completion, Ite ms given to client Follow-up Required: yes Pt comprehension Pt agrees with plan Action Taken Housing: Application Nathan ochoa LOTTER Date of encounter Date:10/21/2024
--- OUTSIDE RECORDS SUMMARY | 2024-11-18 17:31 | XMS_ITS | Encounter Summary ---
Author Organization [employer] Address 75 [facility] [address] [place] [address] Care Team Providers Care Institutional Asset Manager Name Role Phone [place] [facility] [place] [place] [facility] Primary Care Provider [phone] Reason for Visit * Reason Onset Date Comments Referral 10/19/2024 Encounter Details Date Type Department Care Team ([facility] st Contact Info) Description 10/19/2024 Telephone [facility] MEDICINE 230 [place], [place] [phone] [place] [facility] 230 [place], [place] [phone] Referral Social History Tobacco Use Types Packs/Day [...] 9:33 AM EST Noted. TC returned to [facility] [phone] to inform patient does not need a new [facility] eyecare referral. Josefina informed eyecare attempted to contact the patient however he did not answer in the past.Josefina informed they attempted to re- contact the patient after RN message however his phone is notaccepting calls. Josefina reports the patient has a new phone number. Josefina advised the patient should call [facility] to update his phone number however the patient can call [facility] at [phone] toschedule an appointment. Josefina verbalized understanding and reports she will notify the patient to call [facility] eyecare and also notify the patient to call [facility] to update phone number. * Telephone Encounter - Shadia Pulliam - 10/19/2024 12:08 PM EST Tc from [facility] with N requesting a new referral for sustainable agriculture faculty. Pt has one, it expires on March6 but there is no appointment available before then, he will need a new one. documented in this encounter Plan of Treatment Upcoming Encounters Date Type Department Care Team (Late st Contact Info) Description 12/01/2024 1:00 PM EDT Office Visit [facility] OPTOMETRY [address] [place] [address] Tarka Donna, OD [address] [place] [address] 12/27/2024 10:30 AM EDT Nurse Only [facility] MEDICINE [address] [place] [address] 01/25/2025 2:30 PM EDT Office Visit [facility] MEDICINE [address] [place], [place] [phone] Tia Albarado FNP 230 [place] [address] documented as of this encounter Goals Goal [...] documented as of this encounter Care Teams Institutional Asset Manager Relationship Specialty Start Date End Date Tia Albarado FNP [address] [place] [address] PCP - General Family Medicine 05/13/24 documented as of this encounter
--- OUTSIDE RECORDS SUMMARY | 2024-11-18 17:31 | XMS_ITS | Encounter Summary ---
Author Organization [employer] Address 75 [facility] 7t [place] [address] Care Team Providers Care Printer Floor Covering Assistant Name Role Phone [place] [facility] Primary Care Provider [phone] Reason for Visit * Reason Onset Date Comments Durable Medical Equipment 06/03/2024 Encounter Details Date Type Department Care Team ([facility] st Contact Info) Description 06/03/2024 Telephone [facility] MEDICINE 230 [place], [place] [phone] [facility] 230 [place] [address] Durable Medical Equipment Social History Tobacco Use [...] - 06/03/2024 1:49 PM EDT [facility] with N requesting a toilet seat commode for pt along with shower chair. If any questions you can contact Marissa at [phone]. documented in this encounter Plan of Treatment Upcoming Encounters Date Type Department Care Team (Late st Contact Info) Description 12/01/2024 1:00 PM EDT Office Visit [facility] OPTOMETRY [address] [place] [address] Donna Clayton, OD [address] [place] [address] 12/27/2024 10:30 AM EDT Nurse Only [facility] MEDICINE [address] [place] [address] 01/25/2025 2:30 PM EDT Office Visit [facility] MEDICINE [address] [place] [address] Tia Albarado, ASIA 230 [place] [address] documented as of this encounter Goals Goal [...] documented as of this encounter Care Teams Printer Floor Covering Assistant Relationship Specialty Start Date End Date Tia Albarado FNP [address] [place] [address] PCP - General Family Medicine 05/13/24 Josefina He Offset Duplicating Machine OperatorRoller Print Tender 10/26/24 documented as of this encounter
--- OUTSIDE RECORDS SUMMARY | 2024-11-18 17:31 | XMS_ITS | Encounter Summary ---
Author Organization [employer] Address 75 [facility] 7t [place] [address] Care Team Providers Care Well Point Pumping Supervisor Name Role Phone Jonathon Greenberg [facility] Unavailable Unavailable Chanelle Francis [facility] Primary Care Provider [phone] [facility] Primary Care Provider [phone] Reason for Visit * Reason Onset Date Comments PT1 09/10/2023 Encounter Details Date Type Department Care Team (Late st Contact Info) Description 09/10/2023 Telephone [facility] MEDICINE 230 [place], [place] [phone] Chanelle Francis FNP 230 [place], [place] [phone] PT1 Social History Tobacco Use Types Packs/Day [...] 09/15/2023 8:07 AM EST PT-1 Request Number [id number] is Pending * Telephone Encounter - Stef Blake - 09/10/2023 3:26 PM EST PT1 needed Date: 09/21/2022 Time: 1:30 PM Visits: [employer] Address: [address] [place] [address] Facility: [facility] Wheel Chair: No Community Product Specialist Needed: Yes documented in this encounter Plan of Treatment Upcoming Encounters Date Type Department Care Team (Late st Contact Info) Description 12/01/2024 1:00 PM EDT Office Visit [facility] OPTOMETRY [address] [place] [address] Donna Clayton, OD [address] [place] [address] 12/27/2024 10:30 AM EDT Nurse Only [facility] MEDICINE 230 [place] [address] 01/25/2025 2:30 PM EDT Office Visit [facility] MEDICINE 230 [place] [address] Tia Albarado FNP [address] [place] [address] documented as of this encounter Goals Goal [...] documented as of this encounter Care Teams Well Point Pumping Supervisor Relationship Specialty Start Date End Date Chanelle Francis FNP 230 [place] [address] PCP - General Family Medicine 05/28/23 05/12/24 PerTia bernstein FNP 230 [place] [address] PCP - General Family Medicine 05/13/24 Jonathon Greenberg FNP Family Medicine 08/06/22 05/12/24 Josefina He Engraver Ornamental DesignFire Tower Keeper 10/26/24 documented as of this encounter
--- OUTSIDE RECORDS SUMMARY | 2024-11-18 17:31 | XMS_ITS | Encounter Summary ---
Author Organization [employer] Address 75 [facility] 7t [place] [address] Care Team Providers Care Real Estate Professional Name Role Phone Jonathon Greenberg [facility] Unavailable Unavailable Chanelle Francis [facility] Primary Care Provider [phone] [facility] Primary Care Provider [phone] Reason for Visit * Reason Onset Date Comments Lab Orders 08/28/2023 Encounter Details Date Type Department Care Team (Late st Contact Info) Description 08/28/2023 Telephone [facility] MEDICINE [address] [place], [place] [phone] Chanelle Francis FNP [address] [place] [address] Lab Orders Social History Tobacco Use Types [...] - 08/28/2023 3:26 PM EST T/C to [phone] to inform that TB test was ordered and pt. Can go to lab as his convenience, Noanswer. LVM to call back on [phone]. * Telephone Encounter - Thompson Lopez - 08/28/2023 2:43 PM EST Tc from Jaylene at [employer] [facility] requesting a TB test in order for the patient to be able to join the program any questions please call Jaylene at [phone] documented in this encounter Plan of Treatment Upcoming Encounters Date Type Department Care Team (Late st Contact Info) Description 12/01/2024 1:00 PM EDT Office Visit [facility] OPTOMETRY [address] [place], [place] [phone] Donna Clayton, OD [address] [place] [address] 12/27/2024 10:30 AM EDT Nurse Only [facility] [place] [address] 01/25/2025 2:30 PM EDT Office Visit [facility] [place] [address] [place] [facility] 230 [place] [address] documented as of this encounter Goals Goal [...] documented as of this encounter Care Teams Real Estate Professional Relationship Specialty Start Date End Date Chanelle Francis [place] [address] PCP - General Family Medicine 05/28/23 05/12/24 [place]ia [facility] [address] [place] [address] PCP - General Family Medicine 05/13/24 Jonathon Greenberg FNP Family Medicine 08/06/22 05/12/24 Josefina He Director Of Student Financial ServicesArchery Equipment Repairer 10/26/24 documented as of this encounter
--- OUTSIDE RECORDS SUMMARY | 2024-11-18 17:31 | XMS_ITS | Encounter Summary ---
Author Organization [employer] Address 75 [facility] 7t [place] [address] Care Team Providers Care Brick Or Block Maker Name Role Phone Jonathon Greenberg SLIDE ATTENDANT Unavailable Unavailable Chanelle Francis [facility] Primary Care Provider [phone] [facility] Primary Care Provider [phone] Reason for Visit * Reason Onset Date Comments PT-1 05/05/2024 Encounter Details Date Type Department Care Team (Late st Contact Info) Description 05/05/2024 Telephone [facility] MEDICINE 230 [place], [place] [phone] Chanelle Francis FNP 230 [place], [place] [phone] PT-1 Social History Tobacco Use Types Packs/Day [...] Y/N: Yes Provider name or facility name: [facility] Facility Address: [address] [place] [address] Escort needed: Y/N: No Do you have a wheelchair: Y/N: No If yes- Manual or electric: No (Uses either mitchell or walker) Visits: Once a month Patient calling requesting PT1 Home Address verified: Y/N: Yes Provider name or facility name: [facility] Facility Address: [address] [place] [address] Escort needed: Y/N: No Do you have a wheelchair: Y/N: No If yes- Manual or electric: N/A Visits: Once a month documented in this encounter Plan of Treatment Upcoming Encounters Date Type Department Care Team ([facility] st Contact Info) Description 12/01/2024 1:00 PM EDT Office Visit [facility] OPTOMETRY [address] [place] [address] Donna Clayton, PETER 267 [place] [address] 12/27/2024 10:30 AM EDT Nurse Only [facility] [place] [address] 01/25/2025 2:30 PM EDT Office Visit [facility] [place] [address] Tia Albarado FNP 230 [place] [address] documented as of this encounter Goals Goal [...] documented as of this encounter Care Teams Brick Or Block Maker Relationship Specialty Start Date End Date Chanelle [place] [address] PCP - General Family Medicine 05/28/23 05/12/24 T[place] [address] PCP - General Family Medicine 05/13/24 Jonathon Greenberg FNP Family Medicine 08/06/22 05/12/24 Josefina He Hand PresserPrincipal Developer 10/26/24 documented as of this encounter
--- OUTSIDE RECORDS SUMMARY | 2024-11-18 17:31 | XMS_ITS | Encounter Summary ---
Author Organization [employer] Address 75 [facility] 7t [place] [address] Care Team Providers Care Product Promoter Sales Person Name Role Phone Dionicio Jonathon BUILDING ASSOCIATE Unavailable Unavailable Shawn Murillo Primary Care Provider Unavail able Chanelle Francis BUILDING ASSOCIATE Primary Care Provider [phone] Arjay Tia BUILDING ASSOCIATE Primary Care Provider [phone] Reason for Visit * Reason Onset Date Comments FYI 04/09/2023 Encounter Details Date Type Department Care Team (Late st Contact Info) Description 04/09/2023 Telephone [facility] MEDICINE [address] [place], [place] [phone] Shawn Murillo AGNP FYI Social History Tobacco [...] 11:33 AM EDT Tc from jaspreet with [facility] calling to advise PCP his BP was 135/100 but pt states he has been consistent with BP medication. Will continue treatment until his BP and pain gets better. documented in this encounter Plan of Treatment Upcoming Encounters Date Type Department Care Team (Late st Contact Info) Description 12/01/2024 1:00 PM EDT Office Visit [facility] OPTOMETRY [address] [place], [place] [phone] Tarka Donna, OD 267 [place] [address] 12/27/2024 10:30 AM EDT Nurse Only [facility] MEDICINE [address] [place] [address] 01/25/2025 2:30 PM EDT Office Visit [facility] MEDICINE [address] [place] [address] Tia Albarado FNP 230 [place] [address] documented as of this encounter Visit Diagnoses Not on filedocumented in this encounter Additional Health Concerns Assessment Noted Time PHQ-9 Depression Total Score: 27 023 12:04 PM EDT documented as of this encounter Care Teams Product Promoter Sales Person Relationship Specialty Start Date End Date Shawn Murillo AGNP PCP - General Family Medicine 11/10/22 05/27/23 Chanelle Francis FNP [address] [place] [address] PCP - General Family Medicine 05/28/23 05/12/24 Tia Albarado FNP [address] [place] [address] PCP - General Family Medicine 05/13/24 Jonathon Greenberg FNP Family Medicine 08/06/22 05/12/24 Josefina He Deckhand Shrimp BoatCathode Builder 10/26/24 documented as of this encounter
--- OUTSIDE RECORDS SUMMARY | 2024-11-18 17:31 | XMS_ITS | Encounter Summary ---
Author Organization [employer] Address 75 [facility] 7t [place] [address] Care Team Providers Care Rehanger Name Role Phone Jonathon Greenberg MOTH EXTERMINATOR Unavailable Unavailable Chanelle Francis Primary Care Provider [phone] [facility] MOTH EXTERMINATOR Primary Care Provider [phone] Encounter Details Date Type Department Care Team (Late st Contact Info) Description 11/16/2023 Orders Only [facility] [address] [place], [place] [phone] Chanelle Francis FNP [address] [place] [address] Routine health maintenance (Primary Dx) Social History [...] Description 12/01/2024 1:00 PM EDT Office Visit [facility] OPTOMETRY 267 [place] [address] TarDonna hale, OD [address] [place] [address] 12/27/2024 10:30 AM EDT Nurse Only [facility] MEDICINE 230 [place] [address] 01/25/2025 2:30 PM EDT Office Visit [facility] MEDICINE 230 [place] [address] [employer] 230 [place] [address] documented as of this encounter Goals Goal [...] AM EDT) T Spot TB Negative Negative [facility] Comment:A negative test resu lt [...] as aquantitative test. TS PANEL A 0 [facility] TS PANEL B 0 [facility] Negative Control Passed [facility] Positive Control Passed [facility] Comment:For additional infor olga lidia, please refer tohttp://education.Wise Data.Media.OR Productivity/faq/UZH524(This link is being provided for informational/educational purposes only.)THIS TEST WAS PERFORMED AT:[employer] [id number] [place] [address]EEXKSBJKATHIA SANTIZO MD,PHD 06/16/2024 9:54 AM EDT 06/16/2024 11:17 AM EDT Chanelle Francis MOTH EXTERMINATOR LAB BLOOD ORDERABLES Final Resu lt [facility] [address] [place] [address] [phone] documented in this encounter Visit Diagnoses Diagnosis Routine health maintenance- Primary Unspecified examination documented in this encounter Additional Health Concerns Assessment Noted Time PHQ-9 Depression Total Score: 15 023 3:36 PM EDT documented as of this encounter Care Teams Rehanger Relationship Specialty Start Date End Date Chanelle Francis FNP [address] [place] [address] PCP - General Family Medicine 05/28/23 05/12/24 Tia Albarado FNP [address] [place] [address] PCP - General Family Medicine 05/13/24 Jonathon Greenberg FNP Family Medicine 08/06/22 05/12/24 Josefina He Beef Cattle GrazierDevelopment Expert 10/26/24 documented as of this encounter
--- OUTSIDE RECORDS SUMMARY | 2024-11-18 17:31 | XMS_ITS ---
Author Organization [facility] Address [address] [place], [place] [id number] Care Team Providers Care Window Shade Cutter And Mounter Name Role Phone [facility], Dental Department Primary Care Provider Unavailable Eli Pisano Unavailable REASON FOR VISIT housing Social History Sex Assigned At : Social History Observation Description Sex Assigned At Male Encounters Encounter Location Date Provider Diagnosis [facility] [address] [place] [phone] 11/01/2024 Eli Pisano Plan Of Treatment No Information Progress Notes * Tate ESCOBEDODOB:[birth year] (44 yo M)Acc No.[id number]:11/01/2024 Case Management Patient:?Marycarmen ESCOBEDO abigail Provider:?Eli Pisano :1980???Age:44 Y???Sex:Male Nic e:11/01/2024 Address:[address] [place], [place] [phone] Pcp:Dental Department [facility] Subjective: * Chief Complaints: * ???1. Housing. * HPI: ???Social Service:?Date of encounter?Date:11/01/2024.?Referral Source?walk-in, self, returning client.?Interpretation for medical provider?housing, Mail pharmacy picking technician.?Action Taken?Housing?Application [employer]: [employer] filled out/ printed/ provided to both Pt and Pt file as well. SUBMITTED.?Follow-up Required:?yes.?Pt comprehension?Pt agrees with plan.?Action taken (old)?form completion, Items given to client.? New appt provided, will work on next housing applications [facility] next appt. * Medical History:? Objective: * Vitals:? Assessment: Plan: * Treatment: * Images: Billing Information: * Visit Code:? * Procedure Codes:? Care Plan Details* * Sign off status: Completed true * Provider:?Eli Pisano Date:? Generated for Alexandro webber/Connor/Matthewransmitting on:?11/18/2024 05:31 PM EST History and Physical Notes * HPI (History of Present Illness) Category Sub-Category Detail Notes Social Service Referral Source walk-in, self, r eturning client Interpretation for medical provider housing, Mail pharmacy picking technician Action taken (old) form completion, Ite ms given to client Follow-up Required: yes Pt comprehension Pt agrees with plan Action Taken Housing: Application [employer]: [employer] filled out/ printed/ provided to both Pt and Pt file as well. SUBMITTED Date of encounter Date:11/01/2024
--- OUTSIDE RECORDS SUMMARY | 2024-11-18 17:31 | XMS_ITS | Clinical Summary ---
[facility] Address [address] [place] [address] Care Team Providers Care Dredge Lever Operator Name Role Phone Unavailable Primary Care Provider [...]
--- OUTSIDE RECORDS SUMMARY | 2024-11-18 17:31 | XMS_ITS | Encounter Summary ---
Author Organization [employer] Address [address] [place] [address] Care Team Providers Care Faculty Head Name Role Phone Jonathon GreenbergP Primary Care Provider Jonathon Jarquin RN TRANSPLANT Unavailable Unavailable Shawn Murillo AGNRosalio Primary Care Provider Unavail able Chanelle Francis RN TRANSPLANT Primary Care Provider [phone] Mary AliceTia RN TRANSPLANT Primary Care Provider [phone] Encounter Details Date Type Department Care Team ([facility] Contact Info) Description 10/02/2022 Orders Only [facility] [address] [place], [place] [phone] Aminata Brizuela LPN Social History Tobacco Use [...] Description 12/01/2024 1:00 PM EDT Office Visit [facility]OM[facility] [address] [place], [place] [phone] Donna Clayton, OD [address] [place], [place] [phone] 12/27/2024 10:30 AM EDT Nurse Only [facility] [place] [address] 01/25/2025 2:30 PM EDT Office Visit [facility] [place] [address] PerTia bernstein [facility] [place] [address] documented as of this encounter Visit Diagnoses Not on filedocumented in this encounter Care Teams Faculty Head Relationship Specialty Start Date End Date Jonathon Greenberg FNP PCP - General Family Medicine 08/06/22 11/09/22 Shawn Murillo AGNP PCP - General Family Medicine 11/10/22 05/27/23 Chanelle Francis FNP [address] [place] [id number] PCP - General Family Medicine 05/28/23 05/12/24 Mary AliceTia FNP [address] [place] [id number] PCP - General Family Medicine 05/13/24 Jonathon Greenberg FNP Family Medicine 08/06/22 05/12/24 Josefina He [employer] Employment ParalegalBill Of Lading Clerk 10/26/24 documented as of this encounter
--- OUTSIDE RECORDS SUMMARY | 2024-11-18 17:31 | XMS_ITS | Clinical Summary ---
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 Note: This HDL assay may give artificially low results in patients with liver disease. Blood Venous blood specimen / Unknown 06/16/2024 9:54 AM EDT 06/16/2024 11:17 AM EDT [facility] PIANO SOUNDING BOARD MATCHER LAB BLOOD ORDERABLES Final Re sult Performing Organization Address City/[facility]/ZIP Co de Phone Number [facility] [address] [place] [phone] from Last 3 Months or Most Recently Relevant to Health Maintenance Insurance [facility] C3 [facility] FULL Care Teams Supervisor Self Service Store Relationship Specialty Start Date End Date Tia Albarado FNP [address] [place] [address] PCP - General Family Medicine 05/13/24 Josefina He Unit EducatorSash Installer 10/26/24
--- OUTSIDE RECORDS SUMMARY | 2024-11-18 17:31 | XMS_ITS | Encounter Summary ---
Author Organization [employer] Address 75 [facility] 7 [place] [address] Care Team Providers Care Livestock Judging Coach Name Role Phone [place] [facility] Primary Care Provider [phone] Reason for Visit * Reason Onset Date Comments Results 11/18/2024 Encounter Details Date Type Department Care Team ([facility] st Contact Info) Description 11/18/2024 Telephone [facility] MEDICINE [address] [place], [place] [phone] Erie [facility] [address] [place], [place] [phone] Results Social History Tobacco Use Types Packs/Day [...] Telephone Encounter - Lilian Callaway RN - 11/18/2024 4:40 PM EST TC placed to patient [phone] to inform of below message. Patient verbalized understanding and did not have any further questions/concerns. Patient to f/u PRN. * Telephone Encounter - Anthony Woods RN - 11/18/2024 9:21 AM EST TC placed to patients alternative via [employer] ( [employer] #[id number]) number no answer unable to leave voicemail. * Telephone Encounter - Anthony Woods RN - 11/18/2024 9:20 AM EST Per PCP Please let patient know that his follow-up labs do show evidence of persistent low protein. This may be due to the medications he has to take for his kidneys however I am going to place a referral to hematology for further evaluation to be thorough. Thank you! TC placed to patient via [employer] ([employer] #[id number]) to inform of above no answer left voicemailto return call to [facility]. documented in this encounter Plan of Treatment Upcoming Encounters Date Type Department Care Team (Late st Contact Info) Description 12/01/2024 1:00 PM EDT Office Visit [facility] OPTOMETRY [address] [place] [address] Tarka, Donna, OD [address] [place] [address] 12/27/2024 10:30 AM EDT Nurse Only [facility] MEDICINE [address] [place] [address] 01/25/2025 2:30 PM EDT Office Visit [facility] MEDICINE [address] [place] [address] Tia Albarado FNP [address] [place] [address] documented as of this encounter Goals Goal [...] documented as of this encounter Care Teams Livestock Judging Coach Relationship Specialty Start Date End Date Tia Albarado FNP [address] [place] [address] PCP - General Family Medicine 05/13/24 Josefina He Disability Hearing OfficerSoybean Specialties Cook 10/26/24 documented as of this encounter
--- OUTSIDE RECORDS SUMMARY | 2024-11-18 17:31 | XMS_ITS | Encounter Summary ---
Author Organization [employer] Address 75 [facility] 7t [place] [address] Care Team Providers Care Health Services Director Name Role Phone Tia Albarado Primary Care Provider [phone] Reason for Referral * Consultation (Routine) - Pending Review Specialty Diagnoses / Procedures Referred By Mecca t Referred To Contact Hematology and Oncology Diagnoses Hypogammaglobulinemia (CMS/HCC) Tia Albarado FNP [address] [place] [address] Phone: tel: fax: Dickson Stone MD [address] [place] [address] Phone: tel: Referral ID Status Reason Start Date Expiration Date Visits Requested Visits Authorized [id number] Pending Review Specialty Services Required 11/18/2024 11/18/2025 1 1 Encounter Details Date Type Department Care Team (Latest Contact Info) Description 11/18/2024 Orders Only [facility] WALK-IN [facility] [address] [place], [place] [phone] Tia Albarado FNP [address] [place], [place] [phone] Hypogammaglobulinemia (CMS/HCC) (Primary Dx) Social History Tobacco [...] Description 12/01/2024 1:00 PM EDT Office Visit [facility] OPTOMETRY [address] [place] [address] Donna Clayton, OD [address] [place] [address] 12/27/2024 10:30 AM EDT Nurse Only [facility] MEDICINE [address] [place] [address] 01/25/2025 2:30 PM EDT Office Visit [facility] MEDICINE [address] [facility] [place] [address] Tia Albarado FNP [address] [place] [address] Scheduled Referrals Name Type Priority Associated Diagnoses Order Schedule Referral to Hematology / Oncology Outpatient Referral Routine Hypogammaglobulinem ia (CMS/HCC) Expected: 11/18/2024 (Approximate), Expires: 11/18/2025 documented as of this encounter Goals Goal [...] as of this encounter Care Teams Health Services Director Relationship Specialty Start Date End Date Tia Albarado FNP [address] [place] [address] PCP - General Family Medicine 05/13/24 Josefina He Cashier AssociateDrawer Fitter 10/26/24 documented as of this encounter
--- OUTSIDE RECORDS SUMMARY | 2024-11-18 17:31 | XMS_ITS | Encounter Summary ---
Author Organization [employer] Address 75 [facility] 7t [place] [address] Care Team Providers Care Public Accountant Name Role Phone Jonathon Greenberg [facility] Unavailable Unavailable Chanelle Francis [facility] Primary Care Provider [phone] [facility] Primary Care Provider [phone] Reason for Visit * Reason Comments Med Refill Encounter Details Date Type Department Care Team (Late st Contact Info) Description 09/30/2023 Refill [facility] MEDICINE [address] [place], [place] [phone] [facility] [address] [place] [address] Chronic radicular low back pain Social History [...] Description 12/01/2024 1:00 PM EDT Office Visit [facility] OPTOMETRY [address] [place] [address] TarkaDonna, OD [address] [place] [address] 12/27/2024 10:30 AM EDT Nurse Only [facility] [address] [place] [address] 01/25/2025 2:30 PM EDT Office Visit [facility] [address] [place] [address] [facility] [address] [place] [address] documented as of this encounter Goals Goal [...] documented as of this encounter Care Teams Public Accountant Relationship Specialty Start Date End Date Botas, Chanelle, GRAVEL MACHINE OPERATOR [address] [place] [address] PCP - General Family Medicine 05/28/23 05/12/24 PerTia bernstein FNP [address] [place] [address] PCP - General Family Medicine 05/13/24 Jonathon Greenberg FNP Family Medicine 08/06/22 05/12/24 Josefina He Life Skills ConsultantChemical Inspector 10/26/24 documented as of this encounter
--- OUTSIDE RECORDS SUMMARY | 2024-11-18 17:31 | XMS_ITS | Encounter Summary ---
Author Organization [employer] Address 75 [facility] 7t [place] [address] Care Team Providers Care Evaporator Operator Name Role Phone [place] [facility] Primary Care Provider [phone] Reason for Visit * Reason Comments Care Coordination Care Plan Encounter Details Date Type Department Care Team ([facility] st Contact Info) Description 10/26/2024 Telephone [facility] [address] [place], [place] [phone] [facility] [address] [place] [address] Care Coordination ( Care Plan ) Social [...] has received and reviewed Care Plan from [facility]: Egg Sorter: Josefina He Contact Information: [phone] Care Plan scanned into patient's EHR and notification sent to PCP. documented in this encounter Plan of Treatment Upcoming Encounters Date Type Department Care Team ([facility] st Contact Info) Description 12/01/2024 1:00 PM EDT Office Visit [facility] OPTOMETRY [address] [place] [address] Donna Clayton, OD [address] [place] [address] 12/27/2024 10:30 AM EDT Nurse Only [facility] MEDICINE 230 [place], [place] [phone] 01/25/2025 2:30 PM EDT Office Visit [facility] MEDICINE [address] [place] [address] Tia Albarado FNP [address] [place] [address] documented as of this encounter Goals Goal [...] documented as of this encounter Care Teams Evaporator Operator Relationship Specialty Start Date End Date Tia Albarado FNP [address] [place] [address] PCP - General Family Medicine 05/13/24 Josefina He Jacquard Card CutterTrack Repairer 10/26/24 documented as of this encounter
--- OUTSIDE RECORDS SUMMARY | 2024-11-18 17:31 | XMS_ITS | Encounter Summary ---
Author Organization [employer] Address 75 [facility] 7t [place] [address] Care Team Providers Care Facilities Administrator Name Role Phone [place] [facility] Primary Care Provider [phone] Reason for Visit * Reason Comments Med Refill Encounter Details Date Type Department Care Team ([facility] st Contact Info) Description 11/11/2024 Refill [facility] MEDICINE 230 [place], [place] [phone] [facility] 230 [place], [place] [phone] History of renal transplant Social History Tobacco Use Types Packs/Day Years [...] Description 12/01/2024 1:00 PM EDT Office Visit [facility] OPTOMETRY [address] [place] [address] Donna Clayton, OD [address] [place] [address] 12/27/2024 10:30 AM EDT Nurse Only [facility] MED[facility] [address] [place] [address] 01/25/2025 2:30 PM EDT Office Visit [facility] MEDICINE [address] [place] [address] [place] Tia, [facility] [address] [place] [address] documented as of this encounter Goals Goal Patient Goal Type Associated Problems Recent Progress Patient-Stated? Author Blood Pressure < 140/90 Blood Pressure 139/83(2024 11:58 AM EST) No Piers-Gambl e, Christine, PharmD Take your medication every day Lifestyle No Piers-Gambl e, Christine, PharmD documented as of this encounter Visit Diagnoses Diagnosis History of renal transplant documented in this encounter Additional Health Concerns Assessment Noted Time PHQ-9 Depression Total Score: 0 10/28/19 25 12:06 PM EST documented as of this encounter Care Teams Facilities Administrator Relationship Specialty Start Date End Date Per ASIA Weber [address] [place] [address] PCP - General Family Medicine 05/13/24 Josefina He Home DemonstratorTeacher Of The Emotionally Disturbed 10/26/24 documented as of this encounter
--- OUTSIDE RECORDS SUMMARY | 2024-11-18 17:31 | XMS_ITS | Encounter Summary ---
Author Organization [employer] Address 75 [facility] 7t [place] [address] Care Team Providers Care Clinical Pharmacy Manager Name Role Phone Jonathon Greenberg [facility] Unavailable Unavailable Chanelle Francis [facility] Primary Care Provider [phone] [facility] Primary Care Provider [phone] Reason for Visit * Reason Onset Date Comments Referral 04/22/2024 Encounter Details Date Type Department Care Team (Late st Contact Info) Description 04/22/2024 Telephone [facility] MEDICINE [address] [place], [place] [phone] Chanelle Francis FNP [address] [place], [place] [phone] Referral Social History Tobacco Use Types Packs/Day [...] the past 12 months, has t he [employer], gas, oil or water company threatened to [...] - 05/03/2024 11:40 AM EDT T/C to [facility] [phone] to inform that Neurology referral is already placed by ED C at Dr. EMILY CABRERA, [facility] Neurology. No answer. LVM to call back on [phone]. * Telephone Encounter - Paula Jacob - 05/03/2024 11:01 AM EDT Tc from pt with Vonnie at [employer] requesting status on neurology referral. * Telephone Encounter - Candace Ch - 04/22/2024 10:53 AM EDT Tc from pt with Vonnie at [facility] requesting a neurology referral, they stated this has been discussed with PCP documented in this encounter Plan of Treatment Upcoming Encounters Date Type Department Care Team (Late st Contact Info) Description 12/01/2024 1:00 PM EDT Office Visit [facility] OPTOMETRY [address] [place] [address] Donna Clayton, OD [address] [place] [address] 12/27/2024 10:30 AM EDT Nurse Only [facility] MEDICINE [address] [place] [address] 01/25/2025 2:30 PM EDT Office Visit [facility] MEDICINE [address] [place] [address] [facility] [address] [place] [address] documented as of this encounter Goals Goal [...] documented as of this encounter Care Teams Clinical Pharmacy Manager Relationship Specialty Start Date End Date Chanelle Francis FNP [address] [place] [address] PCP - General Family Medicine 05/28/23 05/12/24 [place] FNP [address] [place] [address] PCP - General Family Medicine 05/13/24 Jonathon Greenberg FNP Family Medicine 08/06/22 05/12/24 Josefina He AcidizerSenior Business Consultant 10/26/24 documented as of this encounter
== END 2024-11-18 16:37 | disposition home or self-care (01) ==
LOC: HO.MRI 16:36
PROVIDERS: PCP Nurse Practitioner Family; Visit Provider Registered Nurse
DX: G62.9 Polyneuropathy, unspecified (principal); G89.29 Other chronic pain; M54.16 Radiculopathy, lumbar region
CPT/HCPCS: 72148

== ENCOUNTER 2024-12-06 13:55 | Outpatient (AMB) | payer MEDICAID, SELFPAY ==
--- NOTE | 2024-12-06 14:09 | MHC.OFFVIS ---
Vital Signs 12/06/24 14:16 Height 5 ft 11 in Weight 204 lb 2 oz BMI 28.5 BP 147/66 H Blood Pressure Location Rt brachial Position Sitting Pulse 82 Pulse Source Pulse Oximeter Pulse Oximetry (%) 99 Oxygen Delivery Method Room Air Intake Visit Reasons: Chronic radicular low back pain Intake Note: Pain today 03/23 Bro[employer] Agricultural Produ[employer] Required: No Broker [employer] Produ[employer] Services: [employer] Offered & Declined Accompanied by: Self / Same As Patient Allergies No Known Allergies Allergy (Verified 12/06/24 14:15) HPI HPI Chronic radicular low back pain: Details: Patient is a pleasant 44-year-old male with complex medical history including history of hemodialysis x7 years and renal transplant in 2017 on chronic immunosuppression, neurogenic bladder secondary to complications from previous lumbar fusion ([place], 2009), and left hemiparesis of unknown etiology (CVA evaluation was negative 03/2024), chronic bilateral lower extremity neuropathy depression and anxiety, chronic neck pain, chronic low back pain with bilateral sciatica, presents today for initial evaluation of chronic radicular low back pain and neuropathy of lower extremities. Patient denies any recent injury, trauma, or falls. Patient reports he underwent multiple back injections in [place] in 2009 prior back surgery with minimal or no improvement in his pain symptoms does hesitant towards injection therapy at this time. He completed physical therapy in [place] 4 months ago without improvement in his pain reduction or improved functioning. Patient performs self catheterization 4 times a day for bladder emptying secondary to neurogenic bladder. Pain affects his daily activities and mobility, mood, sleep, and social interactions. Reports left sided weakness with bilateral leg neuropathy. Ambulates with cane with slow, antalgic gait. Over the past few years, every movement has become more difficult and his pain has intensified. Nothing seems to have helped and he is having more difficulty with daily activities which is limiting his quality of life. His pain is multifactorial and severe at times, constant, ranging from 8-10/10. Location: Lower back radiates down bilateral lower extremity Duration: Chronic pain for many years Characteristics of symptom or complaint: Aching, burning, stabbing, shooting, tingling, numbness Aggravating or associated factors: Prolonged sitting or standing, walking, changing positions, cold weather Relieving factors: Laying down, sitting for short period, heat, gabapentin, Tylenol Treatment: PT, injections, back surgery in 2009, avoids NSAIDs [facility] Medical History (Updated 12/06/24 @ 16:04 by Ceci Mccray) Long-term use of immunosuppressant medication terminal carman current use of antipsychotic medication Bilateral leg edema Petechiae Stage 3 chronic kidney disease Open wound of left forearm Severe episode of recurrent major depressive disorder, with psychotic features Basal cell carcinoma (BCC) of skin of left upper extremity including shoulder Chronic midline low back pain with bilateral sciatica Chronic neck pain GERD (gastroesophageal reflux disease) Prostatitis Arteriovenous fistula of left upper extremity Hyperplasia of prostate with lower urinary tract symptoms (LUTS) Neurogenic dysfunction of the urinary bladder Hypertension Dialysis patient Testicular cyst Benign prostatic hyperplasia with incomplete bladder emptying Recurrent UTI BPH loc w urin obs/LUTS Elevated PSA Surgical History Kidney transplant recipient Social History Alcohol intake: never Patient Tobacco Use Status: Never used Tobacco Review of Systems Const All systems reviewed & are unremarkable except as noted in HPI and below Physical Exam Vital Signs: Last Vital Signs Pulse 82 12/06/24 14:16 BP 147/66 H 12/06/24 14:16 Pulse Ox 99 12/06/24 14:16 Oxygen Delivery Method Room Air 12/06/24 14:16 BMI result Body Mass Index 28.5 General: Appears afebrile. Alert and oriented. Mood and affect appropriate. Follows and participates in conversation appropriately. Respiratory effort is unlabored. No cough. Able to transition from sit to stand unassisted. Uses cane with ambulation. Ambulates with normal heel strike and toe off on the right. Reports LLE weakness and pain. General: Yes no CVA tenderness Back/Spine/Pelvis Other: Limited lumbar ROM due to pain. Demonstrates 5/5 right and 4/5 left strength of quadriceps bilaterally as well as flexion/dorsiflexion of bilateral feet against resistance. 2+ pedal pulses bilaterally. Seated and supine straight leg rise with dorsiflexion positive bilaterally. Diminished patellar and achilles reflexes bilaterally. Facet loading test positive bilaterally. Jayne sign, Carmelo?s, Gaenslen, Pelvic compression and Stinchfield tests are positive on the left. No groin pain with I/E hip rotations. Valsalva maneuver negative. Back: no CVA tenderness Cervical Spine: cervical ROM normal, cervical muscular tenderness, pain with cervical ROM and No Cervical spine tenderness Thoracic/Lumbar Spine: thoracic and lumbar spine normal to inspection, Thoracic/lumbar spine scar(s), Lasegue's sign positive bilateral and diffuse, pain with thoraco-lumbar ROM, paraspinal muscle tenderness, thoraco-lumbar ROM limited, No thoracic spinal tenderness and lumbar spinal tenderness (L4-S1) Pelvis: buttock tenderness on the left and no sciatic notch tenderness Sacroiliac joints: bilaterally (left>right) tender to palpation Results Reviewed Results Reviewed: MR LUMBAR SPINE WITHOUT CONTRAST 11/18/24 CLINICAL INFORMATION: Low back pain and bilateral leg pain, numbness and weakness.. FINDINGS: There is normal lumbar lordosis. The vertebral heights, alignment are normal. There is loss of L5-S1 disc height with mild disc desiccation changes at T12-L1, L2-3, L4-5 and L1-2 disc levels. The T11-T12 and T12-L1 disc levels are unremarkable. At L1-2 disc level is mild bulge flattening the ventral thecal sac but without any spinal canal stenosis. The neural foramina are patent bilaterally. At L3-4 disc level there is no 7 disc bulge, herniation or spinal canal stenosis. The neural foramina are patent bilaterally. At L4-5 disc level there is a broad-based mild diffuse bulge with moderate bilateral facet joint hypertrophy slightly greater on the left. There is mild to moderate left neural foraminal narrowing. Suspect minimal left lateral bulge mildly displacing the left L4 nerve root. Best visualized on axial image 40/11 there is moderate left facet joint arthropathy and hypertrophy At L5-S1 disc level there is a diffuse bulge flattening the ventral thecal sac but without spinal canal stenosis. The neural foramina are patent bilaterally. The bone marrow signal and paravertebral vertebral soft tissues are normal. Conus medullaris terminates at T12-L1 disc level and appears normal in morphology. IMPRESSION: Diffuse bulge L2 to-3, L4-5 and L5-S1 disc levels. Left lateral disc bulge L4-5 disc level displacing L4 nerve root posteriorly mild narrowing of left neural foramina is noted. Moderate left facet joint arthropathy and hypertrophy. NE electromyogram (EMG) 09/20/24 Bilateral tibial and peroneal motor studies were performed. Bilateral superficial peroneal and sural sensory studies were performed. Tibial H reflexes were obtained and paraspinal muscles were tested with a needle. 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 Assessment & Plan Assessment & Plan (1) Lumbar post-laminectomy syndrome: Code(s): M96.1 - Postlaminectomy syndrome, not elsewhere classified Category: Medical (2) Chronic pain syndrome: Code(s): G89.4 - Chronic pain syndrome Category: Medical (3) Lumbar degenerative disc disease: Code(s): M51.369 - Other intervertebral disc degeneration, lumbar region without mention of lumbar back pain or lower extremity pain Category: Medical (4) Lumbosacral spondylosis: Code(s): M47.817 - Spondylosis without myelopathy or radiculopathy, lumbosacral region Category: Medical (5) Lumbar radiculopathy: Code(s): M54.16 - Radiculopathy, lumbar region Category: Medical (6) Peripheral neuropathy: Code(s): G62.9 - Polyneuropathy, unspecified Plan Discussed interventional treatments for chronic radicular low back pain with bilateral peripheral neuropathy, including diagnostic vs therapeutic injections, neuromodulation and RFA procedures. Patient is hesitant towards injections as those were ineffective in the past. He is interested in SCS trial and implant. Extensive discussion regarding the risks and benefits of SCS trial and implant procedures and all questions were answered to patient satisfaction. Informational pamphlets were provided to patient in Belarusian and Panamanian. Placed referral for psychology clearance in anticipation of SCS trial. Will proceed with [employer] Lumbar SCS trial pending psychology clearance. All questions were answered and the patient is in agreement of plan. Follow-up as needed. Orders: Referrals Psychology Referral G89.4 - Chronic pain syndrome, M47.817 - Spondylosis without myelopathy or radiculopathy, lumbosacral region, M51.369 - Other intervertebral disc degeneration, lumbar region without mention of lumbar back pain or lower extremity pain, M54.16 - Radiculopathy, lumbar region, M96.1 - Postlaminectomy syndrome, not elsewhere classified Coding Level of Care Code New Pt Level 4 (43356) Complex EM visit Add On G2211 Diagnoses Lumbar post-laminectomy syndrome M96.1 Chronic pain syndrome G89.4 Lumbar degenerative disc disease M51.369 Lumbosacral spondylosis M47.817 Lumbar radiculopathy M54.16 Peripheral neuropathy G62.9
[2024-12-06 14:16] VITALS: BP 147/66; PULSE 82; O2SAT 99; BMI 28.5
--- OUTSIDE RECORDS SUMMARY | 2024-12-06 17:17 | XMS_ITS | Encounter Summary ---
Author Organization [employer] Address [address] [facility] 7t [place] [address] Care Team Providers Care Sweater Designer Name Role Phone Jonathon Greenberg Primary Care Provider Jonathon Jarquin MISSILE MECHANIC Unavailable Unavailable Shawn Murillo Primary Care Provider Unavail able Chanelle Francis MISSILE MECHANIC Primary Care Provider [phone] [place] MISSILE MECHANIC Primary Care Provider [phone] Encounter Details Date Type Department Care Team ([facility] Contact Info) Description 10/02/2022 Orders Only [facility] CH[facility] MED & PEDS [address] [place], [place] [phone] Aminata Brizuela LPN Social History Tobacco Use [...] Upcoming Encounters Date Type Department Care Team ([facility] Contact Info) Description 12/27/2024 10:30 AM EDT Nurse Only [facility] MEDICINE [address] [place] [address] 01/16/2025 2:30 PM EDT Office Visit [address] [phone] [facility] Tia, [facility] [address] [place] [address] documented as of this encounter Visit Diagnoses Not on filedocumented in this encounter Care Teams Sweater Designer Relationship Specialty Start Date End Date Jonathon Greenberg FNP PCP - General Family Medicine 08/06/22 11/09/22 Shawn Murillo AGNP PCP - General Family Medicine 11/10/22 05/27/23 Chanelle Francis FNP [address] [place] [address] PCP - General Family Medicine 05/28/23 05/12/24 MiamiTia FNP [address] [place] [phone] PCP - General Family Medicine 05/13/24 Jonathon Greenberg FNP Family Medicine 08/06/22 05/12/24 Josefina He Retail Sales ProfessionalCard Hand 10/26/24 documented as of this encounter
--- OUTSIDE RECORDS SUMMARY | 2024-12-06 17:17 | XMS_ITS | Patient Health Record ---
Author Organization [facility] Address [address] [place], [place] [phone] Care Team Providers Care Demographic Analyst Name Role Phone [facility], Dental Department Primary Care Provider Unavailable Eli Pisano Unavailable Reason For Referral No Information Social History Sex Assigned At : Social History Observation Description Sex Assigned At Male Encounters Encounter Location Date Provider Diagnosis [facility] [address] [place] [phone] 11/01/2024 Eli Pisano [facility] [address] [place] [address] [phone] 11/15/2024 Eli Pisano [facility] [address] [place] [address] [phone] 10/21/2024 Eli Pisano [facility] [address] [place] [address] [phone] 10/14/2024 Eli Pisano Plan Of Treatment No Information Insurance Providers Payer Name Payer Address Payer Phone Subscriber Number Group Number Insured Name Patient Relationship to Insured Coverage Start Date Coverage End Date [place] Medicaid Standard [address] [place] [address] [id number] Tate Escobedo Self - patient is the insured
--- OUTSIDE RECORDS SUMMARY | 2024-12-06 17:17 | XMS_ITS | Encounter Summary ---
Author Organization [facility] Address [address] [address] Phone Care Team Providers Care Grades 7 And 8 Visiting Teacher Name Role Phone Chanelle Francis Primary Care Provider [phone] Reason for Visit * Reason Comments Med Refill Encounter Details Date Type Department Care Team (Late Contact Info) Description 11/11/2024 Refill [facility] [address] [phone] Asael Morales MD [facility] [address] [address] Social History Tobacco Use Types [...] Visit [facility] [address] [address] Asael Morales MD [address] [place] [address] documented as of this encounter Visit Diagnoses Not on filedocumented in this encounter Care Teams Grades 7 And 8 Visiting Teacher Relationship Specialty Start Date End Date Chanelle Francis [address] [place] [address] PCP - General 09/16/23 documented as of this encounter
--- OUTSIDE RECORDS SUMMARY | 2024-12-06 17:17 | XMS_ITS | Encounter Summary ---
Author Organization [employer] Address [address] [employer] [address] 7t [place] [address] Care Team Providers Care Data Integration Architect Name Role Phone [facility] Primary Care Provider [phone] Encounter Details Date Type Department Care Team (Latest Contact Info) Description 11/07/2024 Orders Only [facility] [address] [place], [place] [phone] [facility] [address] [place], [place] [phone] Hypogammaglobulinemia (CMS/HCC) (Primary Dx) Social History Tobacco [...] 10:30 AM EDT Nurse Only [facility] MEDICINE [address] [place] [address] 01/16/2025 2:30 PM EDT Office Visit [facility] MED[facility] [address] [place] [address] [address] documented as of this encounter Goals Goal [...] 11/10/2024 12:33 PM EST Hypogammaglobulinem ia (CMS/HCC) [id number] N, SERUM Routine 11/10/2024 12:33 PM EST Hypogammaglobulinem ia (CMS/HCC) documented in this encounter Results * (ABNORMAL) Tntl-7-Vztnbvqhpwzym, Serum (11/10/2024 12:33 PM EST) Beta 2 Microglobulin, Serum 3.86(A) < OR = 2.51 mg/L [facility] Comment:THIS TEST WAS PERFOR MED AT:[employer] [address] [id number] MURRAY MD Blood Venous blood specimen / Unknown 11/10/2024 12:33 PM EST 11/10/2024 12:33 PM EST [facility] LAB BLOOD ORDERABLES Final Re sult [facility] [address] [place] [phone] * (ABNORMAL) Merino/Lambda Light Chains, Free with Ratio (11/10/2024 12:33 PM EST) Merino Light Chain, Free, Serum 165(A) 176 - 443 mg/dL [facility] Lambda Light Chain, Free, Serum 94 91 - 240 mg/dL [facility] Merino/Lambda Light Chains Free With Ratio, Serum 1.76 1.29 - 2.55 [facility] Comment:This assay provides a measurement [...] myeloma, lymphoproliferative disorders, andamyloidosis.THIS TEST WAS PERFORMED AT:[employer] [place] [id number] LEVI DENNEY [id number] ROBINS MD,PHD,LOC Blood Venous blood specimen / Unknown 11/10/2024 12:33 PM EST 11/10/2024 12:33 PM EST Result [facility] LAB BLOOD ORDERABLES Final Re sult Performing Organization Address City/[facility] Co de Phone Number [facility] [address] [place] [phone] [phone] * (ABNORMAL) Immunofixation, Serum (11/10/2024 12:33 PM EST) IMMUNOGLOBULIN G 819 600 - 1640 mg/dL [facility] IMMUNOGLOBULIN A 121 47 - 310 mg/dL [facility] Immunoglobulin M 37(A) 50 - 300 mg/dL [facility] Comment:THIS TEST WAS PERFOR MED AT:[employer] [place] [id number] MURRAY MD Immunofixation Result SEE NOTE [facility] Comment:Normal pattern. No m onoclonal proteins detected. Blood Venous blood specimen / Unknown 11/10/2024 12:33 PM EST 11/10/2024 12:33 PM EST Result [facility] LAB BLOOD ORDERABLES Final Re sult Performing Organization Address City/[facility] Co de Phone Number [facility] [address] [place] [phone] documented in this encounter Visit Diagnoses Diagnosis Hypogammaglobulinemia (CMS/HCC)- Primary Unspecified hypogammaglobulinemia documented in this encounter Additional Health Concerns Assessment Noted Time PHQ-9 Depression Total Score: 0 10/28/19 25 12:06 PM EST documented as of this encounter Care Teams Data Integration Architect Relationship Specialty Start Date End Date [facility] [address] [place] [address] PCP - General Family Medicine 05/13/24 Josefina He Instrumentation DesignerGrain Drier Operator 10/26/24 documented as of this encounter
--- OUTSIDE RECORDS SUMMARY | 2024-12-06 17:17 | XMS_ITS | Encounter Summary ---
Author Organization [facility] Address [address] [place] [phone] Phone Care Team Providers Care Home Service Technician Name Role Phone Chanelle Francis Primary Care Provider [phone] Reason for Visit * Reason Comments Med Refill Encounter Details Date Type Department Care Team ([facility] Contact Info) Description 11/14/2024 [facility]ill [facility] [address] [address] Asael Morales MD [address] [address] Social History Tobacco Use Types [...] Encounters Date Type Department Care Team ([facility] Contact Info) Description 01/24/2025 3:00 PM EDT Office Visit [facility] [address] [phone] Asael Morales MD [facility] [address] documented as of this encounter Visit Diagnoses Not on filedocumented in this encounter Care Teams Home Service Technician Relationship Specialty Start Date End Date Chanelle Francis [address] [place] [address] PCP - General 09/16/23 documented as of this encounter
--- OUTSIDE RECORDS SUMMARY | 2024-12-06 17:17 | XMS_ITS ---
Author Organization [facility] Address [address] [place], [place] [phone] Care Team Providers Care Auto Travel Counselor Name Role Phone [facility], Dental Department Primary Care Provider Unavailable Eli Pisano Unavailable REASON FOR VISIT housing Social History Sex Assigned At : Social History Observation Description Sex Assigned At Male Encounters Encounter Location Date Provider Diagnosis [facility] [address] [place] [phone] 11/15/2024 Eli Pisano Plan Of Treatment No Information Progress Notes * Tate ESCOBEDODOB:[birth year] (44 yo M)Acc No.[id number]:11/15/2024 Case Management Patient:?Marycarmen ESCOBEDO Provider:?Eli Pisano :1980???Age:44 Y???Sex:Male Nic e:11/15/2024 Address:[address] [place], [place] [phone] Pcp:Dental Department [facility] Subjective: * Chief Complaints: * ???1. Housing. * Medical History:? Objective: Assessment: Plan: * Treatment: * Images: Billing Information: * Visit Code:? * Procedure Codes:? Care Plan Details* * Electronic signature of León Pisano on 12/06/2024 at 05:17 PM EDT Sign off status: Pending * Provider:Josué Pisano Date:? Generated for Alexandro webber/Connor/eTransmitting on:?12/06/2024 05:17 PM EDT
--- OUTSIDE RECORDS SUMMARY | 2024-12-06 17:17 | XMS_ITS | Clinical Summary ---
Author Organization [facility] Address [address] [address] Phone Care Team Providers Care Regulatory Services Consultant Name Role Phone Penny Chanelle Primary Care Provider [phone] Allergies No known active allergies Medications * [...] 11/14/2024 Refill [facility] [address] [facility] [address] [place] [address] Asael Morales MD 11/11/2024 Refill [facility] 100 [facility] [address] [place] [phone] Asael Morales MD from Last 3 Months [...] Office Visit [facility] [address] [phone] Asael Morales MD [address] [address] Health Maintenance Due Date Last Done Comments Hepatitis B Vaccine (3 of 3 - 19+ 3-dose series) 10/15/2024 05/17/2024, 04/14/2024 Pneumococcal Vaccine: Pediat rics (0 to 5 Years) and At-Risk Patients (6 to 64 Years) Completed 04/29/2023 Influenza Vaccine Completed 06/18/2024 Insurance [place]ID [place] Care Teams Regulatory Services Consultant Relationship Specialty Start Date End Date Chanelle Francis [address] [place] [address] PCP - General 09/16/23
--- OUTSIDE RECORDS SUMMARY | 2024-12-06 17:17 | XMS_ITS | Encounter Summary ---
Author Organization [employer] Address [address] [facility] [place] [address] Care Team Providers Care Football Coach Name Role Phone Per [facility] Primary Care Provider [phone] Reason for Visit * Reason Onset Date Comments Results 11/09/2024 Encounter Details Date Type Department Care Team ([facility] st Contact Info) Description 11/09/2024 Telephone [facility] [address] [place], [place] [phone] [facility] [address] [place], [place] [phone] Results Social History Tobacco Use Types Packs/Day [...] EST TC x2 placed to pt at [phone] via fabrik paraprofessional interpreter (Eugene ID#[id number]) to inform of below PCP message. Pt verbalized understanding of provider message and denies further questions at this time. ----- Message from [facility] sent at 11/09/2024 2:38 PM EST ----- [...] Upcoming Encounters Date Type Department Care Team ([facility] st Contact Info) Description 12/27/2024 10:30 AM EDT Nurse Only [address] [address] 01/16/2025 2:30 PM EDT Office Visit [facility] [address] [place] [address] Tia Albarado FNP [address] [place] [address] documented as of this encounter Goals Goal [...] documented as of this encounter Care Teams Football Coach Relationship Specialty Start Date End Date Tia Albarado FNP [address] [place] [address] PCP - General Family Medicine 05/13/24 Josefina He Frozen Foods ManagerCounty Coroner 10/26/24 documented as of this encounter
--- OUTSIDE RECORDS SUMMARY | 2024-12-06 17:18 | XMS_ITS | Encounter Summary ---
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 male. HPI Patient reports blurry vision both eyes (OU) at distance, mild blur at near both eyes (OU) - relieved by holding objects farther away. Patient has glasses from 2017 but rarely uses them. They are bifocals and thinks the reading segment is too low, making them difficult to use. Last edited by Donna Clayton, PETER on 12/05/2024 9:19 AM. Current Outpatient Medications Medication Sig Dispense Refill acetaminophen (Tylenol) 500 [...] A DAY 45 tablet 1 gabapentin (Neurontin) 300 MG capsule Take 1 capsule (300 mg) by mouth 3 times daily. 90 capsule 3 hydrocortisone 2.5 % cream Apply topically 1-2 [...] in the morning. No current facility-administered medications for this visit. Past Medical History: Diagnosis Date Anxiety Asthma Cancer (CMS/HCC) Chronic kidney disease Depression Hypertension Neurogenic bladder 10/15/2022 Due to L4-L5 surgical complications Self catherizes qid He has hx recurrent UTIs Follows with urology Past Surgical History: Procedure Laterality Date AV FISTULA REPAIR Left ALERT: BP ONLY ON RIGHT ARM, FISTULA on Left ARM BACK SURGERY L4-L5 PARATHYROIDECTOMY 2011 TRANSPLANTATION RENAL Right 2017 Family History Problem Relation Name Age of Onset Diabetes type II Mother Cancer Father Stroke Brother Heart disease Maternal Grandmother Tobacco Use: Medium Risk (12/01/2024) Tobacco Smoking Tobacco Use: Former Smokeless Tobacco Use: Never Passive Exposure: Current No Known Allergies ROS Positive for: Eyes Negative for: Constitutional, Gastrointestinal, Neurological, Skin, Genitourinary, Musculoskeletal,HENT, Endocrine, Cardiovascular, Respiratory, Psychiatric, Allergic/Imm, Heme/Lymph Last edited by Donna Clayton, PETER on 12/01/2024 12:59 PM. Base Eye Exam Visual Acuity (Snellen - Linear) Right Left Dist sc 20/30-2 20/20-1 Tonometry (iCare , 1:10 PM) Right Left Pressure 19 20 Pupils Pupils APD Right PERRL None Left PERRL None Visual Grossman (Counting fingers) Left Right Full Full Extraocular Movement Right Left Full Full Neuro/Psych Oriented x3: Yes Mood/Affect: Normal Dilation Both eyes: 1.0% tropicamide @ 1:20 PM Slit Lamp and Fundus Exam External Exam Right Left External Normal Normal Slit Lamp Exam Right Left Lids/Lashes Clean and clear Clean and clear Conjunctiva/Sclera White and quiet White and quiet Cornea Clear 2 round scars superior cornea, outside VA Anterior Chamber Deep and quiet, angles open Deep and quiet, angles open Iris Flat, round Flat, round Lens Clear Clear Fundus Exam Right Left Vitreous Clear Clear Disc [place] and healthy [place] and healthy C/D Ratio Vertical 0.35 0.35 C/D Ratio Horizontal 0.35 0.35 Macula Flat, even pigmentation Flat, even pigmentation Vessels AV 2/3, normal course and caliber AV 2/3, normal course and caliber Periphery No holes/tears/detachments 360 2 CHRPEs Refraction Manifest Refraction Sphere Cylinder [place] Dist VA Add Right -0.50 -0.75 100 20/20 +1.50 Left -0.25 -0.25 100 20/20 +1.50 Near VA Both: 20/20 Final Rx Sphere Cylinder [place] Add Right -0.50 -0.75 100 +1.50 Left -0.25 -0.25 100 +1.50 Expiration Date: 12/01/2025 Assessment and Plan Diagnoses and all orders for this visit: Presbyopia - Dispensed updated spec Rx 2. 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 Discussed symptoms of retinal detachment and to RTC immediately if flashes/floaters/curtains over vision occur RTC in 2 years for comprehensive eye exam or sooner as needed Donna Clayton, OD 12/05/2024, 9:20 AM Sort Operations Supervisor Source: __ None _x_ Bilingual Staff __ Qualified Staff Production Boring Machine Operator __ Telephone Sort Operations Supervisor; ID# __ Sort Operations Supervisor brought by patient (family member, friend, LEAD QUALITY TECHNICIAN, etc) __ In person safety security officer __ Ipad Sort Operations Supervisor; ID#: Language Spoken During Exam: Sierra Leonean documented in this encounter Plan of Treatment Upcoming Encounters Date Type Department Care Team (Late st Contact Info) Description 12/27/2024 10:30 AM EDT Nurse Only [facility] [address] [place] [address] 01/16/2025 2:30 PM EDT Office Visit [facility] [address] [place] [address] Tia Albarado FNP [address] [place] [address] documented as of this encounter Goals Goal Patient Goal Type Associated Problems Recent Progress Patient-Stated? 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
--- OUTSIDE RECORDS SUMMARY | 2024-12-06 17:18 | XMS_ITS ---
Author Organization [facility] Address [address] [place], [place] [id number] Care Team Providers Care Precision Lens Grinder Name Role Phone [facility], Dental Department Primary Care Provider Unavailable Eli Pisano Unavailable [phone] REASON FOR VISIT housing Social History Sex Assigned At : Social History Observation Description Sex Assigned At Male Encounters Encounter Location Date Provider Diagnosis [facility] [address] [place] [phone] 10/21/2024 Eli Pisano Plan Of Treatment No Information Progress Notes * Tate ESCOBEDODOB:[birth year] (44 yo M)Acc No.[id number]:10/21/2024 Case Management New Patient:?VERNON BARKLEYMarycarmen Provider:?Eli Pisano :1980???Age:44 Y???Sex:Male Nic e:10/21/2024 Address:[address] [place], [place] [id number] Pcp:Dental Department [facility] Subjective: * Chief Complaints: * ???1. Housing. * HPI: ???Social Service:?Date of encounter?Date:10/21/2024.?Referral Source?walk-in, self, returning client.?Interpretation for medical provider?housing.?Action Taken?Housing?Application [place].?Follow-up Required:?yes. Pt comprehension?Pt agrees with plan.?Action taken (old)?form completion, Items given to client.? Filled out? application/completed/faxed as well, copies made and given to Pt copy in file. Objective: * Vitals:? Assessment: Plan: * Treatment: * Images: Billing Information: * Visit Code:? * Procedure Codes:? Care Plan Details* * Sign off status: Completed true * Provider:?Eli Pisano Date:? Generated for Alexandro webber/Connor/eTransmitting on:?12/06/2024 05:17 PM EDT History and Physical Notes * HPI (History [...]
--- OUTSIDE RECORDS SUMMARY | 2024-12-06 17:18 | XMS_ITS | Encounter Summary ---
Author Organization [employer] Address [address] [facility] [address] [place] [address] Care Team Providers Care Brim Greaser Operator Name Role Phone Jonathon Greenberg [facility] Unavailable Unavailable Chanelle Francis [facility] Primary Care Provider [phone] [facility] Primary Care Provider [phone] Reason for Visit * Reason Comments Med Refill Encounter Details Date Type Department Care Team (Late st Contact Info) Description 09/30/2023 Refill [facility] [address] [place], [place] [phone] [facility] [address] [place] [address] Chronic radicular low back pain Social History [...] Description 12/27/2024 10:30 AM EDT Nurse Only [facility] [address] [place] [address] 01/16/2025 2:30 PM EDT Office Visit [facility] [address] [place] [address] Tia Albarado FNP [address] [place] [address] documented as of this encounter Goals Goal [...] documented as of this encounter Care Teams Brim Greaser Operator Relationship Specialty Start Date End Date Chanelle Francis FNP [address] [place] [phone] PCP - General Family Medicine 05/28/23 05/12/24 Tia Albarado FNP [address] [place] [address] PCP - General Family Medicine 05/13/24 Jonathon Greenberg FNP Family Medicine 08/06/22 05/12/24 Josefina He Marking ClerkSsas Developer 10/26/24 documented as of this encounter
--- OUTSIDE RECORDS SUMMARY | 2024-12-06 17:18 | XMS_ITS | Encounter Summary ---
Author Organization [employer] Address [address] [facility] [address] [place] [address] Care Team Providers Care Qa Test Analyst Name Role Phone Tia Albarado INSURANCE AGENCY SALES MANAGER Primary Care Provider [phone] Encounter Details Date Type Department Care Team ([facility] st Contact Info) Description 11/25/2024 Population Health Risk Score [facility] Care [facility] (C[facility]) Department [address] [facility] [address] [place] [phone] Provider, Population Health Generic Social History Tobacco Use Types Packs/Day Years [...] Upcoming Encounters Date Type Department Care Team ([facility] st Contact Info) Description 12/27/2024 10:30 AM EDT Nurse Only [facility] [address] [place] [address] 01/16/2025 2:30 PM EDT Office Visit [facility] [address] [place] [address] Tia Albarado FNP [address] [place] [address] documented as of this encounter Goals Goal [...] documented as of this encounter Care Teams Qa Test Analyst Relationship Specialty Start Date End Date Tia Albarado FNP [address] [place] [address] PCP - General Family Medicine 05/13/24 Josefina He [employer] DrierStatue Carver 10/26/24 documented as of this encounter
--- OUTSIDE RECORDS SUMMARY | 2024-12-06 17:18 | XMS_ITS | Encounter Summary ---
Author Organization [employer] Address [address] [facility] 7t [place] [address] Care Team Providers Care Cement Conveyor Operator Name Role Phone Jonathon Greenberg [facility] Unavailable Unavailable Chanelle Francis [facility] Primary Care Provider [phone] [facility] Primary Care Provider [phone] Reason for Visit * Reason Onset Date Comments Referral 04/22/2024 Encounter Details Date Type Department Care Team (Late st Contact Info) Description 04/22/2024 Telephone [facility] [address] [place], [place] [phone] Chanelle Francis FNP [address] [place], [place] [phone] Referral Social History Tobacco Use Types Packs/Day [...] the past 12 months, has t he [employer], gas, oil or water company threatened to [...] 05/03/2024 11:40 AM EDT T/C to [facility] [phone] to inform that Neurology referral is already placed by ED C at Dr. EMILY CABRERA, [facility] [place]. No answer. LVM to call back on [phone]. * Telephone Encounter - Paula Jacob - 05/03/2024 11:01 AM EDT Tc from pt with Vonnie at [facility] requesting status on neurology referral. * Telephone Encounter - Candace Ch - 04/22/2024 10:53 AM EDT Tc from pt with Vonnie at [facility] requesting a neurology referral, they stated this has been discussed with PCP documented in this encounter Plan of Treatment Upcoming Encounters Date Type Department Care Team (Late st Contact Info) Description 12/27/2024 10:30 AM EDT Nurse Only [facility] [place] [address] 01/16/2025 2:30 PM EDT Office Visit [facility] [place] [address] Tia Albarado FNP [address] [place] [address] documented as of this encounter Goals Goal [...] documented as of this encounter Care Teams Cement Conveyor Operator Relationship Specialty Start Date End Date Chanelle [place] [address] PCP - General Family Medicine 05/28/23 05/12/24 PerTia bernstein FNP [address] [place] [address] PCP - General Family Medicine 05/13/24 Jonathon Greenberg FNP Family Medicine 08/06/22 05/12/24 Josefina He Art Psychotherapist Or TherapistFoundation Relations Director 10/26/24 documented as of this encounter
--- OUTSIDE RECORDS SUMMARY | 2024-12-06 17:18 | XMS_ITS | Clinical Summary ---
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 EST [facility] LAB BLOOD ORDERABLES Final Re sult Performing Organization Address [facility] Co de Phone Number [facility] [address] [place] [phone] * C-reactive Protein (10/28/2024 1:21 PM EST) C Reactive Protein 0.19 < or = 0.50 mg/dL [facility] Blood Venous blood specimen / Unknown 10/28/2024 1:21 PM EST 10/28/2024 4:12 PM EST [facility] LAB BLOOD ORDERABLES Final Re sult Performing Organization Address [facility] de Phone Number [facility] [address] [place] [phone] * OMID Screen,IFA, with Reflex to Titer and Pattern (10/28/2024 1:21 PM EST) Anti Nuclear Antibody Screen NEGATIVE NEGATIVE [facility] Comment:OMID IFA is a [...] clinicallysuspected inflammatory myopathies.AC-0: NegativeInternational Consensus on OMID Patterns(https://doi.org/10.1515/codi-9328-2307)For additional information, please refer tohttp://education.Feathr/faq/ZOK394(This link is being provided for informational/educational purposes only.)THIS TEST WAS PERFORMED AT:[facility] [place] [phone] MURRAY MD OMID Titer [facility] OMID Pattern [facility] OMID TITER 2 (REF LAB) [facility] OMID Pattern 2 [facility] OMID TITER 3 [facility] OMID PATTERN 3 [facility] Blood Venous blood specimen / Unknown 10/28/2024 1:21 PM EST 10/28/2024 4:12 PM EST [facility] LAB BLOOD ORDERABLES Final Re sult [facility] [address] [place] [address] [phone] * (ABNORMAL) Protein, Total and Protein??Electrophoresis (10/28/2024 1:21 PM EST) Prot Elec - Total Protein 6.7 6.1 - 8.1 g/dL [facility] Prot Elec - Albumin 4.6 3.8 - 4.8 g/dL [facility] Prot Elec - Alpha1 0.3 0.2 - 0.3 g/dL [facility] Prot Elec - Alpha2 0.5 0.5 - 0.9 g/dL [facility] Prot Elec - Beta 1 0.4 0.4 - 0.6 g/dL [facility] Prot Elec - Beta 2 0.3 0.2 - 0.5 g/dL [facility] Prot Elec - Gamma 0.7(A) 0.8 - 1.7 g/dL [facility] PES - Abn Protein Band 1 [facility] PES-Abn Protein Band 2 [facility] PES-Abn Protein Band 3 [facility] Prot Elec - Interpretation SEE NOTE [facility] Comment:Consistent with hypo gammaglobulinemia. Serum free lightchains or urine immunofixation should be considered ifplasma cell dyscrasias are a possible clinicaldiagnosis.THIS TEST WAS PERFORMED AT:[employer] [address] [phone] MURRAY MD 10/28/2024 1:21 PM EST 10/28/2024 4:12 PM EST [facility] BLOOD ORDERABLES Final Re sult [facility] [address] [place] [phone] [phone] * MR Prostate w and w/o Contrast (10/19/2024 8:16 AM EST) Anatomical Region Laterality Modality Magnetic Resonan ce 10/19/2024 8:16 AM EST Narrative 10/20/2024 8:07 AM EST ? [facility] ?[address] ?[place] [address] ? Magnetic Resonance Report ? Signed ? Patient: Tate Escobedo ?MR#: [id number] ?? [id number] ? : 1980 ?Acct:[id number] ? Age/Sex: 44 / M ?ADM Date: 10/19/24 ? Loc: HO.MRI ? Attending Dr: Brandon Correa MD ? Ordering Physician: Brandon Correa MD ?? Date of Service: 10/19/24 ?? Procedure(s): MR Prostate wo/w con ?? Accession Number(s): [id number] ? cc: Brandon Correa MD; Tia Albarado [...] highly likely ?? to be present) ? [employer]. MR Prostate Imaging Reporting and Data ?? System version 2.1. http://www.acr.org/Quality-Safety/Resources/PIRADS/ ? Electronically signed by: ??Sin Sharif MD ??10/20/2024 08:04 AM EST ?? RP ? Dictated By: ?Sin Sharif MD ? Signed By: ?<Electronically signed by Sin Sharif MD in OV> ?10/20/24803 ? DD/ 5 ? TD/TT: 10/19/24 0930 ? Contracting Analyst: ? Procedure Note Dondarrellter, Image - 10/20/[address] [address] Magnetic Resonance Report Signed Patient: Arlene Escobedo#: [id number] : 1980Acct:[id number] Age/Sex: 44 / MADM Date: 10/19/24 Loc: HO.MRI Attending Dr: Brandon Correa MD Ordering Physician: Brandon Correa MD Date of Service: 10/19/24 Procedure(s): MR Prostate wo/w con Accession Number(s): [id number] cc: Brandon Correa MD; [facility] EXAMINATION: MR PROSTATE WITHOUT THEN WITH [...] cancer is highly likely to be present) [employer]. MR Prostate Imaging Reporting and Data System version 2.1. http://www.acr.org/Quality-Safety/Resources/PIRADS/ Electronically signed by: Sin Sharif MD 10/20/2024 08:04 AM EST RP Dictated By: Sin Sharif MD Signed By: <Electronically signed by Sin Sharif MD in OV> 10/20/24 0804 DD/ 0816 TD/TT: 10/19/24 0930 Contracting Analyst: [facility] External Provider IMG MRI PROCEDURES Final Result * (ABNORMAL) PSA, Free and Total (10/07/2024 12:08 PM EST) PSA, Total 7.0(A) < OR = 4.0 ng/mL [facility] PSA % Free 7(A) >25 % (calc) [facility] Comment: PSA(ng/mL) ?Free PSA(%) ? [...] ? 9 ? (3)Yue et al.:MILAGROS 277: 3062-2248 (1996) ? (4)Yue et al.:MILAGROS 279: 5549-1983 (1997)(x)These estimates vary with age, ethnicity, family [...] presence or absence ofdisease.THIS TEST WAS PERFORMED AT:[facility] [employer] [address] ??[phone] MURRAY MD PSA, Free 0.5 ng/mL [facility] 10/07/2024 12:0 8 PM EST 10/07/2024 12:08 PM EST us Generic External Data Provider LAB BLOOD ORDERAB LES Final Result [facility] [address] [place] [phone] * (ABNORMAL) PSA, Total With Reflex to PSA, Free (10/07/2024 10:56 AM EST) PSA,Total (Free>4and<10) 6.46(H) 0.00 - 4.00 ng/mL [facility] Comment:PSA methodology: Yenni Sierra i ChemiluminescentMicroparticle Immunoassay (CMIA) 10/07/2024 10:5 6 AM EST 10/07/2024 10:56 AM EST us Generic External Data Provider LAB BLOOD ORDERAB LES Final Result Performing Organization Address [facility] Co de Phone Number [facility] [address] [place] [address] [phone] * (ABNORMAL) Lipid Panel, Standard (06/16/2024 9:54 AM EDT) Triglycerides 140 <150 mg/dL [facility] Comment:Desirable Triglyceri de: less than 150 mg/dLBorderline High Triglyceride 150-199 mg/dLHigh Triglyceride: 200-499 mg/dLVery High Triglyceride: greater than or equal to 5OO mg/dL Cholesterol 196 <200 mg/dL [facility] Comment:Desirable Cholestero l: less than 200 mg/dLBorderline High Cholesterol: 200-239 mg/dLHigh Cholesterol: greater than 239 mg/dL LDL Cholesterol Calculated 129(H) <100 mg/dL [facility] Comment:Desirable LDL: less than 100 mg/dLNear Optimal/Above Optimal LDL: 110- 129 mg/dLBorderline High LDL: 130-159 mg/dLHigh LDL: 160-189 mg/dLVery High LDL: greater than or equal to 190 mg/dL HDL Cholesterol 39(L) >40 mg/dL [facility] Comment:Desirable HDL: great er than 40 mg/dL Note: This HDL assay may give artificially low results in patients with liver disease. Blood Venous blood specimen / Unknown 06/16/2024 9:54 AM EDT 06/16/2024 11:17 AM EDT [facility] LAB BLOOD ORDERABLES Final Re sult Performing Organization Address [facility]/ZIP Co de Phone Number [facility] [address] [place] [address] [phone] from Last 3 Months or Most Recently Relevant to Health Maintenance Insurance [facility] C3 HSN FULL Care Teams High Value Associate Relationship Specialty Start Date End Date Tia Albarado FNP [address] [place] [address] PCP - General Family Medicine 05/13/24 Josefina He Service Delivery ManagerVertical Boring Mill Operator 10/26/24
--- OUTSIDE RECORDS SUMMARY | 2024-12-06 17:18 | XMS_ITS | Encounter Summary ---
Author Organization [employer] Address [address] [facility] 7t [place] [address] Care Team Providers Care Product Marketing Engineer Name Role Phone [facility] Primary Care Provider [phone] Reason for Visit * Reason Comments Med Refill Encounter Details Date Type Department Care Team ([facility] st Contact Info) Description 11/11/2024 Refill [facility] [address] [place], [place] [phone] [facility] [address] [place], [place] [phone] History of renal transplant Social History Tobacco [...] 10:30 AM EDT Nurse Only [facility] [address] [place] [address] 01/16/2025 2:30 PM EDT Office Visit [facility] [address] [place] [address] Tia Albarado FNP [address] [place] [address] documented as of this encounter Goals Goal [...] as of this encounter Care Teams Product Marketing Engineer Relationship Specialty Start Date End Date Tia Albarado FNP [address] [place] [address] PCP - General Family Medicine 05/13/24 Josefina He Pipe Bowls Paint TrimmerFarm Laborer 10/26/24 documented as of this encounter
--- OUTSIDE RECORDS SUMMARY | 2024-12-06 17:18 | XMS_ITS | Encounter Summary ---
Author Organization [employer] Address [address] [facility] 7t [place] [address] Care Team Providers Care Ceo & Board Director Name Role Phone Tia Albarado [facility] Primary Care Provider [phone] Encounter Details Date Type Department Care Team (Latest Contact Info) Description 12/01/2024 Travel Social History Tobacco Use Types Packs/Day [...] t he electric, gas, oil or water [employer] threatened to shut off services in your [...] 10:30 AM EDT Nurse Only [facility] [address] [place] [address] 01/16/2025 2:30 PM EDT Office Visit [address] [address] Tia Albarado FNP [address] [place] [address] documented as of this encounter Goals Goal [...] documented as of this encounter Care Teams Ceo & Board Director Relationship Specialty Start Date End Date Tia Albarado FNP [address] [place] [address] PCP - General Family Medicine 05/13/24 Josefina He Counselor AidLumber Salvager 10/26/24 documented as of this encounter
--- OUTSIDE RECORDS SUMMARY | 2024-12-06 17:18 | XMS_ITS | Clinical Summary ---
Author Organization [facility] Address [address] [place] [address] Care Team Providers Care Electrician Chief Name Role Phone Pcp, No Unavailable Unavailable [...] age to complete this topic Care Teams Electrician Chief Relationship Specialty Start Date End Date Pcp, No [address] [place] [address] PCP - General 07/08/23 Pcp, No [address] [place] [address] Physician 07/08/23 HOLLAND MANCILLA APRN, BINDER COVERSTITCH-BC, BINDER COVERSTITCH-C Nurse Practitioner 06/14/23
--- OUTSIDE RECORDS SUMMARY | 2024-12-06 17:18 | XMS_ITS | Encounter Summary ---
Author Organization [employer] Address [address] [facility] 7t [place] [address] Care Team Providers Care Pearl Glue Operator Name Role Phone Jonathon Greenberg [facility] Unavailable Unavailable Chanelle Francis [facility] Primary Care Provider [phone] [facility] Primary Care Provider [phone] Reason for Visit * Reason Onset Date Comments Lab Orders 08/28/2023 Encounter Details Date Type Department Care Team (Late st Contact Info) Description 08/28/2023 Telephone [facility]INE [address] [place], [place] [phone] Chanelle Francis FNP [address] [place] [address] Lab Orders Social History Tobacco Use Types [...] - 08/28/2023 3:26 PM EST T/C to [phone] to inform that TB test was ordered and pt. Can go to lab as his convenience, Noanswer. LVM to call back on [phone]. * Telephone Encounter - Thompson Lopez - 08/28/2023 2:43 PM EST Tc from Jaylene at [facility] requesting a TB test in order for the patient to be able to join the program any questions please call Jaylene at [phone] documented in this encounter Plan of Treatment Upcoming Encounters Date Type Department Care Team (Late st Contact Info) Description 12/27/2024 10:30 AM EDT Nurse Only [facility] [address] [place], [place] [phone] 01/16/2025 2:30 PM EDT Office Visit [facility] [address] [place], [place] [phone] [place] Tia [facility] [address] [place] [address] documented as of this encounter Goals Goal [...] documented as of this encounter Care Teams Pearl Glue Operator Relationship Specialty Start Date End Date Chanelle Francis FNP [address] [place] [address] PCP - General Family Medicine 05/28/23 05/12/24 Tia Albarado FNP [address] [place] [address] PCP - General Family Medicine 05/13/24 Jonathon Greenberg FNP Family Medicine 08/06/22 05/12/24 Josefina He Feed Research AideAdventure Challenge Instructor 10/26/24 documented as of this encounter
--- OUTSIDE RECORDS SUMMARY | 2024-12-06 17:18 | XMS_ITS | Encounter Summary ---
Author Organization [employer] Address [address] [facility] 7t [place] [address] Care Team Providers Care Egg Processor Name Role Phone Tia Albarado Primary Care Provider [phone] Reason for Referral * Consultation (Routine) - Authorized Specialty Diagnoses / Procedures Referred By Mecca t Referred To Contact Hematology and Oncology Diagnoses Hypogammaglobulinemia (CMS/HCC) Tia Albarado FNP [address] [place] [address] Phone: tel: fax: Dickson Stone MD [address] [place] [address] Phone: tel: Referral ID Status Reason Start Date Expiration Date Visits Requested Visits Authorized [id number] Authorized Specialty Services Required 11/18/2024 11/18/2025 6 6 Encounter Details Date Type Department Care Team (Latest Contact Info) Description 11/18/2024 Orders Only [facility] [address] [place], [place] [phone] Tia Albarado FNP [address] [place], [place] [phone] Hypogammaglobulinemia (CMS/HCC) (Primary Dx) Social History Tobacco [...] with others, in a hotel, in a fpc, living outside on the street, on a [...] Description 12/27/2024 10:30 AM EDT Nurse Only [facility] [address] [place] [address] 01/16/2025 2:30 PM EDT Office Visit [facility] [address] [place] [address] [place], Tia, [facility] [address] [place] [address] Scheduled Referrals Name Type Priority Associated Diagnoses [...] documented as of this encounter Care Teams Egg Processor Relationship Specialty Start Date End Date Tia Albarado FNP [address] [place] [address] PCP - General Family Medicine 05/13/24 Josefina He Windows Technical SpecialistRouter Operator Pin 10/26/24 documented as of this encounter
--- OUTSIDE RECORDS SUMMARY | 2024-12-06 17:18 | XMS_ITS ---
Author Organization [facility] Address [address] [place], [place] [phone] Care Team Providers Care Land Checker Name Role Phone [facility], Dental Department Primary Care Provider Unavailable Eli Pisano Unavailable REASON FOR VISIT housing Social History Sex Assigned At : Social History Observation Description Sex Assigned At Male Encounters Encounter Location Date Provider Diagnosis [facility] [address] [place] [phone] 11/01/2024 Eli Pisano Plan Of Treatment No Information Progress Notes * Tate ESCOBEDODOB:[birth year] (44 yo M)Acc No.[id number]:11/01/2024 Case Management Patient:?Marycarmen ESCOBEDO abigail Provider:?Eli Pisano :1980???Age:44 Y???Sex:Male Nic e:11/01/2024 Address:[address] [place], [place] [phone] Pcp:Dental Department [facility] Subjective: * Chief Complaints: * ???1. Housing. * HPI: ???Social Service:?Date of encounter?Date:11/01/2024.?Referral Source?walk-in, self, returning client.?Interpretation for medical provider?housing, Mail pickle sorter.?Action Taken?Housing?Application [employer]: SAIDA BOWDEN LOTTERY filled out/ printed/ provided to both Pt and Pt file as well. SUBMITTED.?Follow-up Required:?yes.?Pt comprehension?Pt agrees with plan.?Action taken (old)?form completion, Items given to client.? New appt provided, will work on next housing applications [facility] next appt. * Medical History:? Objective: * Vitals:? Assessment: Plan: * Treatment: * Images: Billing Information: * Visit Code:? * Procedure Codes:? Care Plan Details* * Sign off status: Completed true * Provider:?Eli Pisano Date:? Generated for Alexandro webber/Connor/eTransmitting on:?12/06/2024 05:18 PM EDT History and Physical Notes * HPI (History of Present Illness) Category Sub-Category Detail Notes Social Service Referral Source walk-in, self, r eturning client Interpretation for medical provider housing, Mail pickle sorter Action taken (old) form completion, Ite ms given to client Follow-up Required: yes Pt comprehension Pt agrees with plan Action Taken Housing: Application [employer]: SAIDA BOWDEN LOTTERY filled out/ printed/ provided to both Pt and Pt file as well. SUBMITTED Date of encounter Date:11/01/2024
--- OUTSIDE RECORDS SUMMARY | 2024-12-06 17:18 | XMS_ITS | Encounter Summary ---
Author Organization [employer] Address [address] [facility] 7t [place] [address] Care Team Providers Care Client Technical Professional Name Role Phone [facility] Primary Care Provider [phone] Reason for Visit * Reason Onset Date Comments Durable Medical Equipment 06/03/2024 Encounter Details Date Type Department Care Team ([facility] st Contact Info) Description 06/03/2024 Telephone [facility] MEDICINE [address] [place], [place] [phone] [employer] [address] [place] [address] Durable Medical Equipment Social History Tobacco Use [...] - 06/03/2024 1:49 PM EDT Tc from [facility] with [facility] requesting a toilet seat commode for pt along with shower chair. If any questions you can contact Marissa at [phone]. documented in this encounter Plan of Treatment Upcoming Encounters Date Type Department Care Team (Late st Contact Info) Description 12/27/2024 10:30 AM EDT Nurse Only [facility] [address] [place] [address] 01/16/2025 2:30 PM EDT Office Visit [facility] [address] [place] [address] Tia Albarado FNP [address] [place] [address] documented as of this encounter Goals Goal [...] documented as of this encounter Care Teams Client Technical Professional Relationship Specialty Start Date End Date Tia Albarado FNP [address] [place] [address] PCP - General Family Medicine 05/13/24 Josefina He Supply CataloguerMotor Vehicle Examiner 10/26/24 documented as of this encounter
--- OUTSIDE RECORDS SUMMARY | 2024-12-06 17:18 | XMS_ITS | Encounter Summary ---
Author Organization [employer] Address [address] [facility] 7t [place] [address] Care Team Providers Care Fish Technologist Name Role Phone Jonathon Greenberg [facility] Unavailable Unavailable Chanelle Francis [facility] Primary Care Provider [phone] [facility] Primary Care Provider Reason for Visit * Reason Onset Date Comments PT1 09/10/2023 Encounter Details Date Type Department Care Team (Late st Contact Info) Description 09/10/2023 Telephone [facility] [address] [place], [place] [phone] Chanelle Francis FNP [address] [place], [place] [phone] PT1 Social History Tobacco Use Types Packs/Day [...] 09/15/2023 8:07 AM EST PT-1 Request Number [id number] is Pending * Telephone Encounter - Stef Blake - 09/10/2023 3:26 PM EST PT1 needed Date: 09/21/2022 Time: 1:30 PM Visits: All future Appt's Address: [address] [place] [address] Facility: [facility] Wheel Chair: No Physician Credentialing Specialist Needed: Yes documented in this encounter Plan of Treatment Upcoming Encounters Date Type Department Care Team (Late st Contact Info) Description 12/27/2024 10:30 AM EDT Nurse Only [facility] [address] [place] [address] 01/16/2025 2:30 PM EDT Office Visit [facility] [address] [place] [address] RosaliaTia [facility] [address] [place] [address] documented as of this encounter Goals Goal [...] documented as of this encounter Care Teams Fish Technologist Relationship Specialty Start Date End Date Chanelle Francis FNP [address] [place] [address] PCP - General Family Medicine 05/28/23 05/12/24 Tia Albarado FNP [address] [place] [address] PCP - General Family Medicine 05/13/24 Jonathon Greenberg FNP Family Medicine 08/06/22 05/12/24 Josefina He Software Sales ExecutiveCriminology Professor 10/26/24 documented as of this encounter
--- OUTSIDE RECORDS SUMMARY | 2024-12-06 17:18 | XMS_ITS | Encounter Summary ---
Author Organization [employer] Address 75 [facility] 7t [place] [address] Care Team Providers Care Organ Builder Name Role Phone Jonathon Greenberg BONE CHAR OPERATOR Unavailable Unavailable Chanelle Francis [facility] Primary Care Provider [phone] [facility] Primary Care Provider [phone] Reason for Visit * Reason Onset Date Comments PT-1 05/05/2024 Encounter Details Date Type Department Care Team (Late st Contact Info) Description 05/05/2024 Telephone [facility] [address] [place], [place] [phone] Chanelle Francis FNP [address], [place] [phone] PT-1 Social History Tobacco Use Types Packs/Day [...] Y/N: Yes Provider name or facility name: [facility] Facility Address: [address] [place] [address] Escort needed: Y/N: No Do you have a wheelchair: Y/N: No If yes- Manual or electric: No (Uses either mitchell or walker) Visits: Once a month Patient calling requesting PT1 Home Address verified: Y/N: Yes Provider name or facility name: [facility] Facility Address: [address] [place] [address] Escort needed: Y/N: No Do you have a wheelchair: Y/N: No If yes- Manual or electric: N/A Visits: Once a month documented in this encounter Plan of Treatment Upcoming Encounters Date Type Department Care Team ([facility] st Contact Info) Description 12/27/2024 10:30 AM EDT Nurse Only [facility] [address] [place] [address] 01/16/2025 2:30 PM EDT Office Visit [facility] [address] [place] [address] Queens VillageTia FNP [address] [place] [address] documented as of this encounter Goals Goal [...] documented as of this encounter Care Teams Organ Builder Relationship Specialty Start Date End Date Chanelle Francis FNP [address] [place] [address] PCP - General Family Medicine 05/28/23 05/12/24 Queens VillageTia FNP [address] [place] [address] PCP - General Family Medicine 05/13/24 Jonathon Greenberg FNP Family Medicine 08/06/22 05/12/24 Josefina He [employer] Math TeacherEmblem Fuser Tender 10/26/24 documented as of this encounter
--- OUTSIDE RECORDS SUMMARY | 2024-12-06 17:18 | XMS_ITS | Encounter Summary ---
Author Organization [employer] Address 75 [facility] 7t [place] [address] Care Team Providers Care Mortgage Loan Assistant Name Role Phone Jonathon Greenberg PUBLIC SAFETY POLICE Unavailable Unavailable Chanelle Francis Primary Care Provider [phone] Jerome Chester [employer] Primary Care Provider [phone] Encounter Details Date Type Department Care Team (Late st Contact Info) Description 11/16/2023 Orders Only [facility] [address] [place], [place] [phone] Chanelle Francis FNP [address] [place] [address] Routine health maintenance (Primary Dx) Social History [...] 12/27/2024 10:30 AM EDT Nurse Only [facility] [address] [place] [address] 01/16/2025 2:30 PM EDT Office Visit [facility] [address] [place] [address] [address] documented as of this encounter Goals Goal [...] AM EDT) T Spot TB Negative Negative [facility] Comment:A negative test resu lt [...] as aquantitative test. TS PANEL A 0 [facility] TS PANEL B 0 [facility] Negative Control Passed [facility] Positive Control Passed [facility] Comment:For additional infor olga lidia, please refer tohttp://education.AquaGenesis/faq/HFC679(This link is being provided for informational/educational purposes only.)THIS TEST WAS PERFORMED AT:[id number] [place] [address]PPQLDPSKATHIA SANTIZO MD,PHD 06/16/2024 9:54 AM EDT 06/16/2024 11:17 AM EDT Chanelle BETANCOURT LAB BLOOD ORDERABLES Final Resu lt [facility] [address] [place] [phone] documented in this encounter Visit Diagnoses Diagnosis Routine health maintenance- Primary Unspecified examination documented in this encounter Additional Health Concerns Assessment Noted Time PHQ-9 Depression Total Score: 15 04/10/2 023 3:36 PM EDT documented as of this encounter Care Teams Mortgage Loan Assistant Relationship Specialty Start Date End Date Chanelle Francis FNP [address] [place] [address] PCP - General Family Medicine 05/28/23 05/12/24 Tia Albarado [facility] [place] [address] PCP - General Family Medicine 05/13/24 Jonathon Greenberg FNP Family Medicine 08/06/22 05/12/24 Josefina He Traffic DirectorGuidance Adviser 10/26/24 documented as of this encounter
--- OUTSIDE RECORDS SUMMARY | 2024-12-06 17:18 | XMS_ITS | Continuity of Care Document ---
Author Organization [facility] Address [address] [place] [address] Phone Care Team Providers Care Cyber Forensics Analyst Name Role Phone Comfort GALLARDO MD, Sin Unavailable Unavai lable Procedures Procedure Date Nurse Visit Only As per patient privacy policy some of the clinical information may not be visible. Advance Directives Directive Yes / No Effective Date File Name No Information Encounters Encounter Description Practice Location Reason(s) For Visit Diagnoses Date Provider Providers Copied on Encounter [facility], [address] [place] [address], [address], tel:[phone] P GRD [facility] Doctors No Information Comfort Vogt. [address] [place] [address], [id number], [place]. tel:[phone] [facility], [address] [place] [address], [address], tel:[phone] P SAEID [facility] Doctors No Information Comfort Vogt. [address] [place] [address], [id number], [place]. tel:[phone] [facility], [address] [place] [address], [address], [place] tel:[phone] P SAEID [facility] Doctors No Information Comfort Vogt. [address] [place] [address], [id number], [place]. tel:[phone] [facility], [address] [place] [address], [address], [place] tel:[phone] P GRD [facility] No Information Comfort Vogt. [address] [place] [address], [id number], [place]. tel:[phone] [facility], [address] [place] [address], [address], tel:[phone] B GRD [facility] Therapy No Information Nitesh Storey. [address] [place] [address], [id number], [place]. [facility], [address] [place] [address], [address], tel:[phone] P BMB General Medicine No Information PCS Nurse. [address] [place] [address], [id number], [place]. tel:[phone] [facility], [address] [place] [address], [address], tel:[phone] Z [facility] CONV No Information CONV [facility]. [address] [place] [address], [address], [place]. Family History Family Member Type Diagnosis Age At Onset No Information Immunizations Vaccine Date Status Comments [id number], PED/ADL administered Source: New Immuniza tion Record DTP administered Source: New Imm unization Record ORAL POLIO administered Source: New Imm unization Record DTP administered Source: New Imm unization Record ORAL POLIO administered Source: New Imm unization Record [id number], PED/ADL administered Source: New Immuniza tion Record DTP administered Source: New Imm unization Record ORAL POLIO administered Source: New Imm unization Record DTP administered Source: New Imm unization Record ORAL POLIO administered Source: New Imm unization Record DTP administered Source: New Imm unization Record ORAL POLIO administered Source: New Imm unization Record Payers Payer name Insurance type Covered alliance party ID Authoriza tion(s) [facility] Medicare [id number] [facility] Medicaid Medical [id number] Social History Type Description Quantity Date Captured [...]
--- OUTSIDE RECORDS SUMMARY | 2024-12-06 17:18 | XMS_ITS | Encounter Summary ---
Author Organization [employer] Address 75 [facility] [address] [place] [address] Care Team Providers Care Die Welder Name Role Phone [facility] Primary Care Provider [phone] Reason for Visit * Reason Onset Date Comments Results 11/18/2024 Encounter Details Date Type Department Care Team ([facility] st Contact Info) Description 11/18/2024 Telephone [facility] [address] [place], [place] [phone] [place] [facility] [address] [place], [place] [phone] Results Social History Tobacco Use Types Packs/Day [...] 4:40 PM EST TC placed to patient [phone] to inform of below message. Patient verbalized understanding and did not have any further questions/concerns. Patient to f/u PRN. * Telephone Encounter - Anthony Woods RN - 11/18/2024 9:21 AM EST TC placed to patients alternative via [employer] interpreters ( [employer] #[id number]) number no answer unable to leave voicemail. [...] Thank you! TC placed to patient via [employer] interpreters ([employer] #[id number]) to inform of above no answer left voicemailto return call to [facility]. documented in this encounter Plan of Treatment Upcoming Encounters Date Type Department Care Team (Late st Contact Info) Description 12/27/2024 10:30 AM EDT Nurse Only [facility] [address] [place] [address] 01/16/2025 2:30 PM EDT Office Visit [facility] [address] [place] [address] Tia Albarado FNP [address] [place] [address] documented as of this encounter Goals Goal [...] documented as of this encounter Care Teams Die Welder Relationship Specialty Start Date End Date Tia Albarado FNP [address] [place] [address] PCP - General Family Medicine 05/13/24 Josefina He Electric Shovel OperatorElectrician Aircraft 10/26/24 documented as of this encounter
--- OUTSIDE RECORDS SUMMARY | 2024-12-06 17:18 | XMS_ITS | Encounter Summary ---
Author Organization [employer] Address 75 [facility] 7t [place] [address] Care Team Providers Care Mold Dumper Name Role Phone Per [facility] Primary Care Provider [phone] Reason for Visit * Reason Onset Date Comments Results 11/25/2024 Encounter Details Date Type Department Care Team ([facility] st Contact Info) Description 11/25/2024 Telephone [facility] [address] [place], [place] [phone] Rosalinda Gale RN [address] [place] [address] Results Social History Tobacco Use Types Packs/Day [...] encounter Miscellaneous Notes * Telephone Encounter - Rosalinda Gale RN - 11/25/2024 2:26 PM EDT TC placed to pt., informed pt. Results of MRI of lower back came back showing multiple bulging discs, with one making contact with nerves in the lower back causing radicular symptoms, as well as arthritis. Advised pt. Plan of care would be to keep pain management appt (per [facility], on 12/06/24), and pt. Reports he has only been taking one gabapentin capsule once daily at bedtime as instructed by neurologist for neuropathy as pt. Unsure which directions he should follow. Advised pt. Per PCP OV note from 10/28/24, ok to increase to three times daily and even take two capsules at HS. Pt. Reports he will do so and call if this dose does not have positive effect on pain. Pt. Verbalizes understanding documented in this encounter Plan of Treatment Upcoming Encounters Date Type Department Care Team (Late st Contact Info) Description 12/27/2024 10:30 AM EDT Nurse Only [facility] [address] [place] [address] 01/16/2025 2:30 PM EDT Office Visit [facility] [place] [address] Tia Albarado FNP [address] [place] [address] documented as of this encounter Goals Goal [...] documented as of this encounter Care Teams Mold Dumper Relationship Specialty Start Date End Date Per ASIA Weber [address] [place] [address] PCP - General Family Medicine 05/13/24 Josefina He Parenting Skills InstructorSports Photographer 10/26/24 documented as of this encounter
--- OUTSIDE RECORDS SUMMARY | 2024-12-06 17:18 | XMS_ITS | Encounter Summary ---
Author Organization [employer] Address 75 [facility] 7t [place] [address] Care Team Providers Care Vice President Underwriting Name Role Phone Dionicio Jonathon PRESCRIPTION CLERK Unavailable Unavailable Shawn Murillo Primary Care Provider Unavail able Chanelle Francis PRESCRIPTION CLERK Primary Care Provider [phone] Suring Tia PRESCRIPTION CLERK Primary Care Provider [phone] Reason for Visit * Reason Onset Date Comments FYI 04/09/2023 Encounter Details Date Type Department Care Team (Late st Contact Info) Description 04/09/2023 Telephone [facility] [address] [place], [place] [phone] Shawn Murillo AGNP FYI Social History Tobacco [...] 11:33 AM EDT Tc from [facility] with [facility] calling to advise PCP his BP was 135/100 but pt states he has been consistent with BP medication. Will continue treatment until his BP and pain gets better. documented in this encounter Plan of Treatment Upcoming Encounters Date Type Department Care Team (Late st Contact Info) Description 12/27/2024 10:30 AM EDT Nurse Only [facility] [address] [place] [address] 01/16/2025 2:30 PM EDT Office Visit [address] [address] Tia Albarado FNP [address] [place] [address] documented as of this encounter Visit Diagnoses Not on filedocumented in this encounter Additional Health Concerns Assessment Noted Time PHQ-9 Depression Total Score: 023 12:04 PM EDT documented as of this encounter Care Teams Vice President Underwriting Relationship Specialty Start Date End Date Shawn Murillo AGNP PCP - General Family Medicine 11/10/22 05/27/23 Chanelle Francis FNP [address] [place] [address] PCP - General Family Medicine 05/28/23 05/12/24 SuringTia bernstein FNP [address] [place] [address] PCP - General Family Medicine 05/13/24 Jonathon Greenberg FNP Family Medicine 08/06/22 05/12/24 Josefina He Rubber Roller Grinder OperatorHandle Maker 10/26/24 documented as of this encounter
--- OUTSIDE RECORDS SUMMARY | 2024-12-06 17:18 | XMS_ITS | Clinical Summary ---
[facility] Address [address] [place] [address] Care Team Providers Care Motion Graphics Artist Name Role Phone Unavailable Primary Care Provider [...]
== END 2024-12-06 14:59 | disposition home or self-care (01) ==
LOC: HO.PMC 13:56
PROVIDERS: PCP Registered Nurse; Referring Provider Registered Nurse; Visit Provider Nurse Practitioner Family
DX: M96.1 Postlaminectomy syndrome, not elsewhere classified (principal); G89.4 Chronic pain syndrome; M51.369 Other intervertebral disc degeneration, lumbar region without mention of lumbar back pain or lower extremity pain; M47.817 Spondylosis without myelopathy or radiculopathy, lumbosacral region; M54.16 Radiculopathy, lumbar region; G62.9 Polyneuropathy, unspecified
CPT/HCPCS: 99204

== ENCOUNTER → 2024-12-06 13:55 | Outpatient (BNVA) | payer MEDICAID, SELFPAY | PROVIDERS: PCP Registered Nurse; Referring Provider Registered Nurse; Visit Provider Nurse Practitioner Family | DX: M96.1 Postlaminectomy syndrome, not elsewhere classified (principal); G89.4 Chronic pain syndrome; M51.360 Other intervertebral disc degeneration, lumbar region with discogenic back pain only; M47.817 Spondylosis without myelopathy or radiculopathy, lumbosacral region; M54.16 Radiculopathy, lumbar region; G62.9 Polyneuropathy, unspecified | CPT/HCPCS: 99212 ==

== ENCOUNTER → 2024-12-20 13:02 | Outpatient (BNV) | payer MEDICAID, SELFPAY | PROVIDERS: PCP Registered Nurse; Referring Provider Registered Nurse; Visit Provider Internal Medicine | DX: D80.1 Nonfamilial hypogammaglobulinemia (principal) | CPT/HCPCS: 99204 ==

== ENCOUNTER 2025-01-25 14:49 | Outpatient (AMB) | payer MEDICAID, SELFPAY ==
--- OUTSIDE RECORDS SUMMARY | 2025-01-25 14:52 | XMS_ITS ---
Author Organization [facility] Address [address] [place], [place] [phone] Care Team Providers Care Development Team Lead Name Role Phone [facility], Dental Department Primary Care Provider Unavailable Eli Pisano Unavailable Social History Sex Assigned At : Social History Observation Description Sex Assigned At Male Encounters Encounter Location Date Provider Diagnosis [facility] [address] [place] [phone] 01/12/2025 Eli Pisano Plan Of Treatment Next Appt Details Provider Name:Eli Sparks, 02/06/2025 01:15:00 PM, [facility] [employer]worker Helper, [address] [place] [address], [phone], Progress Notes * Tate ESCOBEDODOB:[birth year] (44 yo M)Acc No.[id number]:01/12/2025 Case Management Patient:?Marycarmen ESCOBEDO Provider:?Eli Pisano :1980???Age:44 Y???Sex:Male Nic e:01/12/2025 Address:[address] [place], [place] [phone] Pcp:Dental Department [facility] Subjective: * Chief Complaints: * ??? * Medical History:? Objective: Assessment: Plan: * Treatment: * Images: Billing Information: * Visit Code:? * Procedure Codes:? Care Plan Details* * Electronic signature of León Pisano on 01/25/2025 at 02:51 PM EDT Sign off status: Pending * Provider:?Eli Pisano Date:? Generated for Alexandro webber/Connor/Jackie on:?01/25/2025 02:51 PM EDT
--- OUTSIDE RECORDS SUMMARY | 2025-01-25 14:52 | XMS_ITS | Continuity of Care Document ---
Author Organization [facility] Address [address] [place] [id number] Phone Care Team Providers Care Environmental Geologist Name Role Phone Comfort GALLARDO MD, Sin Unavailable Unavai lable Procedures Procedure Date Nurse Visit Only As per patient privacy policy some of the clinical information may not be visible. Advance Directives Directive Yes / No Effective Date File Name No Information Encounters Encounter Description Practice Location Reason(s) For Visit Diagnoses Date Provider Providers Copied on Encounter [facility], [address] [place] [address], [id number], tel:[phone] P GRD [facility] Doctors No Information Comfort Vogt. [address] [place] [address], [id number], [place]. tel:[phone] [facility], [address] [place] [address], [address], tel:[phone] P SAEID [facility] Doctors No Information Comfort Vogt. [address] [place] [address], [id number], [place]. tel:[phone] [facility], [address] [place] [address], [address], [place] tel:[phone] P SAEID [facility] Doctors No Information Comfort Vogt. [address] [place] [address], [id number], [place]. tel:[phone] [facility], [address] [place] [address], [address], [place] tel:[phone] P GRD [facility] Doctors No Information Comfort Vogt. [address] [place] [address], [id number], [place]. tel:[phone] [facility], [address] [place] [address], [address], tel:[phone] B GR[facility] Therapy No Information Nitesh Storey. [address] [place] [address], [id number], [place]. [facility], [address] [place] [address], [address], tel:[phone] P [facility] General Medicine No Information [facility] Nurse. [address] [place] [address], [id number], [place]. tel:[phone] [facility], [address] [place] [address], [address], tel:[phone] Z [facility] CONV No Information [facility]. [address] [place] [address], [id number], [place]. Family History Family Member Type Diagnosis Age At Onset No Information Immunizations Vaccine Date Status Comments [id number], PED/ADL administered Source: New Immuniza tion Record DTP administered Source: New Imm unization Record ORAL POLIO administered Source: New Imm unization Record DTP administered Source: New Imm unization Record ORAL POLIO administered Source: New Imm unization Record [id number], PED/ADL administered Source: New Immuniza tion Record DTP administered Source: New Imm unization Record ORAL POLIO administered Source: New Imm unization Record DTP administered Source: New Imm unization Record ORAL POLIO administered Source: New Imm unization Record DTP administered Source: New Imm unization Record ORAL POLIO administered Source: New Imm unization Record Payers Payer name Insurance type Covered green party ID Authoriza tion(s) [facility] Medicare [id number] [facility] Medicaid Medical [id number] Social History Type Description Quantity Date Captured [...]
--- OUTSIDE RECORDS SUMMARY | 2025-01-25 14:52 | XMS_ITS | Encounter Summary ---
Author Organization [employer] Address [address] [facility] [address] [place] [address] Care Team Providers Care Deicer Repairer Electric Name Role Phone Jonathon Greenberg Primary Care Provider Jonathon Jarquin Unavailable Unavailable Shawn Murillo Primary Care Provider Unavail able Chanelle FrancisP Primary Care Provider [phone] [place] Tia REGISTERED DENTAL HYGIENIST Primary Care Provider [phone] Encounter Details Date Type Department Care Team ([facility] Contact Info) Description 10/02/2022 Orders Only [facility]S [address] [place], [place] [id number] Aminata Brizuela LPN Social History Tobacco Use [...] Upcoming Encounters Date Type Department Care Team ([facility] Contact Info) Description 03/21/2025 3:00 PM EDT Nurse Only [facility] MEDICINE [address] [place] [address] documented as of this encounter Visit Diagnoses Not on filedocumented in this encounter Care Teams Deicer Repairer Electric Relationship Specialty Start Date End Date Jonathon Greenberg FNP PCP - General Family Medicine 08/06/22 11/09/22 Shawn Murillo AGNP PCP - General Family Medicine 11/10/22 05/27/23 Chanelle Francis FNP [address] [place] [address] PCP - General Family Medicine 05/28/23 05/12/24 [place] FNP [address] [place] [address] PCP - General Family Medicine 05/13/24 Jonathon Greenberg FNP Family Medicine 08/06/22 05/12/24 Josefina He Adult Basic Education ManagerHelp Desk Rep 10/26/24 documented as of this encounter
--- OUTSIDE RECORDS SUMMARY | 2025-01-25 14:52 | XMS_ITS | Encounter Summary ---
Author Organization [facility] Address [address] [place] [phone] Phone Care Team Providers Care It Service Manager Name Role Phone [facility] Primary Care Provider [phone] Reason for Referral * Cardiac Services (Routine) - Pending Review Specialty Diagnoses / Procedures Referred By Contmiriam t Referred To Contact Diagnoses Kidney transplant status Stage 3a chronic kidney disease (HCC) Procedures Initiate ABPM Monitoring Asael Morales MD [id number] [address] Phone: tel: fax: Referral ID Status Reason Start Date Expiration Date V isits Requested Visits Authorized [id number] Pending Review 01/24/2025 01/24/2026 1 1 Encounter Details Date Type Department Care Team (Late st Contact Info) Description 01/24/2025 3:00 PM EDT Office Visit [facility] [address] [phone] Asael Morales MD [address] [phone] Kidney transplant status (Primary Dx); Stage 3a chronic kidney disease (HCC) Social History Tobacco Use Types Packs/Day Years [...] on file documented as of this encounter Last Filed Vital Signs Vital Sign Reading Time Taken Comments Blood Pressure 162/72 01/24/2025 3:03 PM EDT Pulse 72 01/24/2025 3:03 PM EDT Temperature - - Respiratory Rate - - Oxygen Saturation 99% 01/24/2025 3:03 PM EDT Inhaled Oxygen Concentration - - Weight 91.6 kg (202 lb) 01/24/2025 3:03 PM EDT Height - - Body Mass Index - - documented in this encounter Patient Instructions * Patient Instructions* Asael Morales MD - 01/24/2025 3:00 PM EDT Sodium and Your CKD Diet: How to Spice Up Your Cooking What is sodium? Sodium is a mineral found naturally in foods and is the major part of table salt. What are the effects of eating too much sodium? When your kidneys are not healthy, extra sodium and fluid build up in your body. This can cause swollen ankles, puffiness, a rise in blood pressure, shortness of breath, and/or fluid around your heart and lungs. See the following table for suggestions on how to reduce sodium in your diet. LIMIT THE [AMOUNT OF... FOOD TO LIMIT BECAUSE OF THEIR HIGH SODIUM CONTENT ACCEPTABLE SUBSTITUTES SALT & SALT SEASONINGS Table salt Seasoning salt Garlic salt Onion salt Celery salt Lemon pepper Lite salt Meat tenderizer Bouillon cubes Flavor enhancers Fresh garlic, fresh onion, garlic powder, onion powder, black [pepper, lemon juice, low-sodium/salt-free seasoning blends, vinegar SALTY FOODS Barbecue sauce Steak sauce Soy sauce Teriaky sauce Oyster sauce Salted Snacks such as Crackers Potato chips [place] chips Pretzels Tortilla chips Nuts Popcorn [place] seeds Homemade or low- sodium sauces and salad dressings; Vinegar, dry mustard, unsalted popcorn, pretzels, tortilla or corn chips Cured Foods Ham Salt pork Huff Sauerkraut Pickles, pickle relish Lox & [place] Olives Fresh beef, veal, pork, poultry, fish, eggs [place] MEATS Hot Dogs Cold cuts, deli meats Pastrami Sausage Corned beef Spam Low-salt deli meats PROCESSED FOODS Buttermilk Cheese Canned: Soups Tomato products Vegetable juices Canned vegetables Convenience Foods such as: TV Dinners Canned raviolis [place] Macaroni & Cheese Spaghetti Frozen prepared foods Fast foods Natural cheese (1-2 oz Per week) Homemade or patti,1- sodium soups, canned food without added salt Homemade casseroles without added salt, made with fresh or raw vegetables, fresh meat, corey, pasta, or unsalted canned vegetables Some salt or sodium is needed for body water balance. But when your kidneys lose the ability to control sodium and water balance, you may experience the following: thirst fluid gain high blood pressure discomfort during dialysis By using less sodium in your diet, you can control these problems. Hints to keep your sodium intake down Cook with herbs and spices instead of salt. (Refer to Spice Up Your Cooking section for further suggestions.) Read food labels and choose those foods low in sodium. Avoid salt substitutes and specialty low-sodium foods made with salt substitutes because they are high in potassium. When eating out, ask for meat or fish without salt. Ask for gravy or sauce on the side; these may contain large amounts of salt and should be used in small amounts . Limit use of canned, processed and frozen foods. Some information about reading labels Understanding the terms: Sodium Free - Only a trivial amount of sodium per serving. Very Low Sodium - 35 mg or less per serving. Low Sodium - 140 mg or less per serving. Reduced Sodium - Foods in which the level of sodium is reduced by 25%. Light or Lite in Sodium - Foods in which the sodium is reduced by at least 50% . Simple rule of thumb : If salt is listed in the first five ingredients, the item is probably too high in sodium to use. All food labels now have milligrams (mg) of sodium listed. Follow these steps when reading the sodiwn information on the label: 1. Know how much sodium you are allowed each day. Remember that there are 1000 milligrams (mg) in 1gram. For [id number], if your diet prescription is 2 grams of sodium , your limit is 2000 milligrams per day. Consider the sodium value or other food to be eaten during the day. 2. Look at the package label. Check the serving size. Nutrition values are expressed per beronica g. How does this compare to your total daily allowance? If the sodium level is 500 mg or more per serving, the item is not a good choice. 3. Compare labels of similar products. Select the lowest sodium level for the same serving size. How to Spice Up Your Cooking Giving up salt does not mean giving up flavor. Learn to season your food with herbs and spices. Be creative and experiment for a new and exciting flavor. What kinds of spices and herbs should I use instead of salt to add flavor? Try the following spices with the foods listed. Allspice: Use with beef, fish, beets, cabbage, canots, peas, fruit. Basil: Use with beef, pork, most vegetables. [employer] [place]: Use with beef, pork, most vegetables. Kahlotus: Use with beef, pork, green beans, cauliflower, cabbage, beets, asparagus, and in dips and marinades. Cardamom: Use with fruit and in baked goods. Jacobs: Use with beef, chicken, pork, fish, green beans, carrots and in marinades. Dill: Use with beef, chicken, green beans, cabbage, carrots, peas and in dips. Karuna: Use with beef, chicken, pork, green beans, cauliflower and eggplant. Marjoram: Use with beef, chicken, pork, green beans, cauliflower and eggplant. Mari: Use with chicken, pork, cauliflower, peas and in marinades. Thyme: Use with beef, chicken, pork, fish, green beans, beets and carrots. Naveed: Use with chicken, pork, eggplant and in dressing. Tarragon: Use with fish, chicken, asparagus, beets, cabbage, cauliflower and in marinades. Tips for cooking with herbs and spices Purchase spices and herbs in small amounts . When they sit on the shelf for years they lose their flavor. Use no more than ?? teaspoon of dried spice (?? of fresh) per pound of meat. Add ground spices to food about 15 minutes before the end of the cooking period. Add whole spices to food at least one hour before the end of the cooking period. Combine herbs with oil or butter, set for 30 minutes to bring out their flavor, then brush on foodswhile they cook, or brush meat with oil and sprinkle herbs one hour before coolcing. Crush dried herbs before adding to foods. Can I use salt substitutes? Caution! If you are told to limit potassium in your diet, be very cautious about using salt substitutes because most of them contain some form of potassium. Check with your doctor or dietitian beforeusing and salt substitute. [place] and create your own seasoning containing those spices that you like. If you would like to become a volunteer and find out more about what's happening where you live, contact your local [facility] Affiliate. No NSAIDS - Do not take non-steroidal anti-inflammatory medications (NSAIDS) such as Ibuprofen (Advil, Motrin, etc), Naproxen (Aleve, etc), Celecoxib (Celebrex) or Ketoprofen. These common arthritis medications can cause permanent kidney damage or worsen your kidney damage. For mild occasional pain, Acetaminophen (Tylenol, etc) is safe for your kidneys. Blood pressure monitoring education: Monitor home blood pressure values after sitting for 5 minutes with back and arm support. Keep a log. Bring your log and blood pressure cuff to your next visit. documented in this encounter Progress Notes * Asael Morales MD - 01/24/2025 3:00 PM EDT Images from the original note were not included. Patient Name: Tate Stock, Male Date of : 1980, 44 y.o. Date: 01/24/25 Mr.. Tate Stock is a 44 y.o.-year-old male past medical history of kidney Kideny Xplant [id number] here for follow up for kidney transplant management. Cont L sided weakness and cont getting PT/Rehab and cont f/u Neuro ( Dr Escudero) and notes indicate ques of migraine which is also being evaluate by Neuro. PT cont to be weak on L side LUE > LLE and has f/u with Neruo. CT/MRI neg. Cont f/u with urol re: st cath and prohylatic Abx to prevent infections. Has to straight cath himself every day, 5 times a day. Denies any dysuria. Kidney Transplant Background Was on dialysis prior for 7 years DDRT December 17 2016 in [place], c/b AHR, s/p PLEX Original disease? HTN? Adrián test was neg Past Medical History Past Medical History: Diagnosis Date Anxiety Chronic kidney disease Depressive disorder Essential hypertension Other malignant neoplasm of unspecified site (HCC) Transplanted kidney present Urinary tract infection Past Surgical History Past Surgical History: Procedure Laterality Date AV FISTULA PLACEMENT Left PARATHYROID GLAND SURGERY Family History Family History Problem Relation Age of Onset Hypertension Mother Diabetes Mother Heart disease Father Stroke Father Cancer Father Kidney disease Sister Social History Social History Tobacco Use Smoking status: Never Smokeless tobacco: Never Substance Use Topics Alcohol use: Never Review of Systems Constitutional: Negative for chills and fever. Respiratory: Negative for cough and shortness of breath. Cardiovascular: Positive for leg swelling. Negative for chest pain. Intermittent leg swelling Gastrointestinal: Negative for constipation, diarrhea and nausea. Genitourinary: Negative for dysuria and urgency. Neurological: Negative for dizziness. Medication List Current Outpatient Medications Medication Sig Dispense Refill acetaminophen (TYLENOL) 500 MG tablet Take 500 mg by mouth every 6 (six) hours if needed for mild pain albuterol HFA (PROVENTIL HFA;VENTOLIN HFA) 108 (90 Base) MCG/ACT inhaler Inhale 2 puffs every 6 (six) hours if needed for wheezing amLODIPine (NORVASC) 5 MG tablet Take 5 mg by mouth 1 (one) time each day Ascorbic Acid 500 MG capsule Take 500 capsules by mouth 1 (one) time each day atorvastatin (LIPITOR) 10 MG tablet TAKE 1 TABLET BY MOUTH EVERY MORNING 90 tablet 0 famotidine (PEPCID) 20 MG tablet Take 20 mg by mouth in the morning and 20 mg in the evening. methocarbamol (ROBAXIN) 500 MG tablet Take 500 mg by mouth in the morning and 500 mg in the evening. mycophenolate (MYFORTIC) 360 MG EC tablet Take 360 mg by mouth in the morning and 360 mg in the evening. OXcarbazepine (TRILEPTAL) 300 MG tablet Take 300 mg by mouth in the morning and 300 mg in the evening. prazosin (MINIPRESS) 2 MG capsule Take 2 mg by mouth at bed time predniSONE 5 MG tablet Take 5 mg by mouth 1 (one) time each day QUEtiapine (SEROquel) 100 MG tablet Take 100 mg by mouth at bed time QUEtiapine (SEROquel) 25 MG tablet Take 25 mg by mouth 3 (three) times a day if needed tacrolimus (PROGRAF) 1 MG capsule TAKE 3 CAPSULES BY MOUTH TWICE DAILY IN THE MORNING AND IN THE EVENING 180 capsule 2 No current facility-administered medications for this visit. Allergy List No Known Allergies Physical Exam BP 162/72 Pulse 72 Wt 202 lb (91.6 kg) SpO2 99% 150/76 by me ( Per PT his HBP always much better then in-office BP readings) Constitutional: He is oriented to person, place, and time. He does not appear ill. HEENT: Mouth/Throat: Oropharynx is clear and moist. Eyes: Conjunctivae are normal. Cardiovascular: Normal rate and regular rhythm. He exhibits no edema. Pulmonary/Chest: Breath sounds normal. Abdominal: Soft. Bowel sounds are normal. Neurological: He is alert and oriented to person, place, and time. Skin: Skin is warm and dry. Psychiatric: He has a normal mood and affect. Neuro: L sided weakness LUE and LLE Labs Chemistry Lab Units 01/24/25 1121 06/16/24 0954 06/02/24 0918 05/06/24 0918 05/06/24 0902 01/30/24 1030 09/16/23 1058 07/23/23 1201 06/29/23 1003 04/22/23 0936 03/27/23 0822 CREATININE mg/dL 1.57* 1.46* 1.63* 1.92* 1.73* 1.51* 1.7* < > 1.7* < > 1.9* BUN mg/dL 18 16 17 18 18 16 21* < > 19 < > 14 POTASSIUM mmol/L 4.3 4.4 4.5 4.4 4.5 4.3 4.5 < > 4.1 < > 4.2 SODIUM mmol/L 141 139 141 143 142 138 142 < > 138 < > 140 CO2 mmol/L 20 24 23 19* 22 23 26 < > 25 < > 26 CHLORIDE mmol/L 105 107 105 106 104 101 105 < > 102 < > 102 ALBUMIN g/dL 4.7 4.3 4.7 4.3 4.4 4.4 4.5 4.5 -- 4.6 < > 4.7 4.7 EGFRNAFR ML/MIN/1.73 M2 -- -- -- -- -- -- 49 -- 49 -- 44 EGFR mL/min/1.73 55* 52 52* 43* 49* 58* -- < > -- < > -- HEMOGLOBIN A1C % -- -- -- -- 5.3 5.1 5.0 -- -- -- 5.1 WBC AUTO x10E3/uL 6.7 -- -- 7.3 6.7 7.2 6.3 -- 8.5 -- 11.0 HEMATOCRIT % 43.5 -- -- 45.2 46.1 42.0 42.6 -- 44.5 -- 47.6 HEMOGLOBIN g/dL 15.0 -- -- 14.9 14.9 14.0 13.9 -- 14.6 -- 15.6 PLATELETS AUTO x10E3/uL 179 -- -- 184 190 183 177 -- 199 -- 180 < > = values in this interval not displayed. Bone Mineral Lab Units 01/24/25 1121 06/16/24 0954 06/02/24 0918 05/06/24 0918 05/06/24 0902 01/30/24 1030 09/16/23 1058 07/23/23 1201 06/29/23 1003 04/22/23 0936 03/27/23 0822 CALCIUM mg/dL 8.5* 8.6 8.6* 8.5* 8.4* 8.1* 8.5* < > 9.2 8.4 8.7 PHOSPHORUS mg/dL -- -- 2.7* 3.0 3.0 2.6* 2.3* -- 1.8* -- 2.0* ALK PHOS U/L -- 75 -- -- 78 92 98 -- -- 73 78 PTH pg/mL 69* -- -- 57 59 62 80* -- 78* -- 90* VITAMIN D NG/ML -- -- -- -- -- -- 32.3 -- 31.8 -- 36.4 VIT D 25 HYDROXY ng/mL 23.6* -- -- 27.6* 28.9* 27.3* -- -- -- -- -- < > = values in this interval not displayed. Urine Lab Units 06/02/2491705/06/2491705/06/2490101/30/24 1030 09/16/23 1058 PROT/CREAT RATIO UR mg/g creat 179 163 -- -- -- ALB MG/G CREAT UR mg/g creat 13 21 46* 25.4* 150.8 Iron Studies Lab Units 05/06/2490101/30/24 1030 09/16/23 1058 06/29/23 1003 03/27/23 0822 FERRITIN ng/mL 337 394 453* 508* 493* TIBC ug/dL 276 236* 249 262 276 IRON SATURATION % 38 34 27 44 12* Transplant Lab Units 06/02/2491705/06/2418 06/29/23 1003 TACROLIMUS LVL ng/mL 6.5 3.2 8.6 Labs Lab Units 05/06/2490101/30/24 1030 09/16/23 1058 06/29/23 1003 03/27/23 0822 CHOLESTEROL TOTAL mg/dL 213* 192 -- -- -- HDL mg/dL 44 40 35* 37* 43 NON HDL CHOL. (LDL+ VLDL) MG/DL -- -- 178* 172* 177* TRIGLYCERIDES mg/dL 137 158* 110 195* 135 Urine Lab Units 06/02/2491705/06/2491705/06/24 0902 01/30/24 1030 09/16/23 1058 PROT/CREAT RATIO UR mg/g creat 179 163 -- -- -- ALB MG/G CREAT UR mg/g creat 13 21 46* 25.4* 150.8 Urine Lab Units 01/24/25 1121 06/02/2491705/06/2418 05/06/24 0902 01/30/24 1030 09/16/23 1058 06/29/23 1003 03/27/23 0823 PH U 6.0 6.0 6.0 6.0 6.0 6.0 6.0 6.5 COLOR U Yellow Yellow Yellow Yellow Yellow -- -- -- GLUCOSE UR Negative Negative Negative Negative Negative NEGATIVE NEGATIVE NEGATIVE KETONES U MG/DL -- -- -- -- -- NEGATIVE NEGATIVE NEGATIVE WBC UR HPF /hpf >30* >30* >30* >30* >30* >182* >182* >182* RBC UR HPF /hpf 0-2 None seen None seen None seen 3-10* 8* 14* 18* PROTEIN UR mg/dL -- 16.2 24.8 -- -- -- -- -- UROBILINOGEN U MG/DL MG/DL -- -- -- -- -- NORMAL NORMAL NORMAL UROBILINOGEN UA mg/dL 0.2 0.2 0.2 0.2 0.2 -- -- -- Iron Studies Lab Units 05/06/24 0902 01/30/24 1030 09/16/23 1058 06/29/23 1003 03/27/23 0822 FERRITIN ng/mL 337 394 453* 508* 493* TIBC ug/dL 276 236* 249 262 276 IRON SATURATION % 38 34 27 44 12* Labs Lab Units 06/02/24 0918 05/06/24 0918 06/29/23 1003 MYCOPHENOLIC ACID UG/ML -- -- 18.0* TACROLIMUS LVL ng/mL 6.5 3.2 8.6 Labs 03/2024 Hb 14.2 Cr 2.0 Assessment & Plan 1. Kidney transplant status 2. Stage 3a chronic kidney disease (HCC) Graft function - Scr range 1.5-2.0 range - Cf-DNA 0.54 ( < 70%) 2. Immunosuppression - Taking myfortic 360 mg oral TID, pred 5 and prograf 3 mg oral BID - Continue current dose immunosuppressive regimen Last tacro 6.5 ( 06/02/24) 3. Infection - BK 06/2023 neg PCR 4. Heme acceptable 5. HTN -poorly controlled in office today, on norvasc - Low salt diet 6. Bone metabolism/electrolytes - 7. CV - Lipid panel, elevated LDL will start lipitor 8. Urianry Retention: cont to st cath and f/u Urol re Ur retention and elevated PSA 9. Persistent asymptomatic pyuria: d/t st cath but may need urol evelauation if persists 10. R CVA with L sided weakness ( 03/29/24 --Hhosp) --has f/u with Neurology , cont PT/Rehab PLAN: labs today pending, schedueld 24 hr ABPM as refusing incr BP meds at this time, cont st cath 3-4 x/day and f/u with Urol; f/u neurology re: CVA w/u and prevention of recurrence etc.. Orders Placed This Encounter PTH, Intact Renal Function Panel Urinalysis with microscopic Urine Albumin / Creatinine Ratio Urine Culture Protein, Total, Random Urine w/Creatinine (Protein/Creat Ratio) Vitamin D 25 Hydroxy CBC Phosphorus Magnesium Albumin Calcium Tacrolimus level Initiate ABPM Monitoring Return in about 3 months (around 04/26/2025). Asael Morales MD documented in this encounter Plan of Treatment Upcoming Encounters Date Type Department Care Team (Latest Contact Info) Description 01/31/2025 Orders Only [facility] [address] [phone] Asael Morales MD [address] [phone] Kidney transplant status; Stage 3a chronic kidney disease (HCC) 02/02/2025 9:00 AM EDT Clinical Support [facility] [address] [phone] 04/26/2025 3:00 PM EDT Office Visit [facility] [place] [id number] [phone] Asael Morales MD [address] [phone] Scheduled Orders Name Type Priority Associated Diagnoses Orde r Schedule PTH, Intact Lab Routine Kidney transplant status Stage 3a chronic kidney disease (HCC) Expected: 01/24/2025, Expires: 02/24/2026 Renal Function Panel Lab Routine Kidney transplant status Stage 3a chronic kidney disease (HCC) Expected: 01/24/2025, Expires: 02/24/2026 Urinalysis with microscopic Lab Routine Kidney transplant status Stage 3a chronic kidney disease (HCC) Expected: 01/24/2025, Expires: 02/24/2026 Urine Albumin / Creatinine Ratio Lab Routine Kidney transplant status Stage 3a chronic kidney disease (HCC) Expected: 01/24/2025, Expires: 02/24/2026 Urine Culture Lab Routine Kidney transplant status Stage 3a chronic kidney disease (HCC) Expected: 01/24/2025, Expires: 02/24/2026 Protein, Total, Random Urine w/Creatinine (Protein/Creat Ratio) Lab Routine Kidney transplant status Stage 3a chronic kidney disease (HCC) Expected: 01/24/2025, Expires: 02/24/2026 Vitamin D 25 Hydroxy Lab Routine Kidney transplant status Stage 3a chronic kidney disease (HCC) Expected: 01/24/2025, Expires: 02/24/2026 CBC Lab Routine Kidney transplant status Stage 3a chronic kidney disease (HCC) Expected: 01/24/2025, Expires: 02/24/2026 Phosphorus Lab Routine Kidney transplant status Stage 3a chronic kidney disease (HCC) Expected: 01/24/2025, Expires: 02/24/2026 Magnesium Lab Routine Kidney transplant status Stage 3a chronic kidney disease (HCC) Expected: 01/24/2025, Expires: 02/24/2026 Albumin Lab Routine Kidney transplant status Stage 3a chronic kidney disease (HCC) Expected: 01/24/2025, Expires: 02/24/2026 Calcium Lab Routine Kidney transplant status Stage 3a chronic kidney disease (HCC) Expected: 01/24/2025, Expires: 02/24/2026 Tacrolimus level Lab Routine Kidney transplant status Stage 3a chronic kidney disease (HCC) Expected: 01/24/2025, Expires: 02/24/2026 Initiate ABPM Monitoring Cardiac Services Routine Kidney transplant status Stage 3a chronic kidney disease (HCC) Expected: 01/31/2025, Expires: 01/24/2027 documented as of this encounter Visit Diagnoses Diagnosis Kidney transplant status- Primary Stage 3a chronic kidney disease (HCC) Kidney transplant status Stage 3a chronic kidney disease (HCC) documented in this encounter Care Teams It Service Manager Relationship Specialty Start Date End Date [facility] [address] [place] [address] PCP - General 01/24/25 documented as of this encounter
--- OUTSIDE RECORDS SUMMARY | 2025-01-25 14:52 | XMS_ITS | Encounter Summary ---
Author Organization [facility] Address [address] [facility] 7t [place] [address] Care Team Providers Care Tool Supervisor Name Role Phone Jonathon Greenberg GIS PROFESSOR Unavailable Unavailable Chanelle Francis Primary Care Provider [phone] [place] [facility] Primary Care Provider [phone] Encounter Details Date Type Department Care Team ([facility] st Contact Info) Description 11/16/2023 Orders Only [facility] MED & PEDS [address], [place] [phone] Chanelle Francis FNP [address] [place] [address] Routine health maintenance (Primary Dx) Social History [...] PM EST documented as of this encounter Functional Status * Over the past 2 weeks, how often have you been bothered by any of the following problems? Question Answer Date of Assessment Author Patient Health Questionnaire-2 Score 5 02/2024 3:41 PM Beena Bravo MA * If you checked off any problems on this questionnaire so far, Question Answer Date of Assessment Author How difficult have these problems made it for you to do your work, take care of things at home, or get along with other people? Somewhat difficult 11/18/2023 3:41 PM Beena Bravo MA * Over the past 2 weeks, how often have you been bothered by any of the following problems? Question Answer Date of Assessment Author Little interest or pleasure in doing things Nearly every day 11/18/2023 3:41 PM Milton Bravo i, [place] Feeling down, depressed, or hopeless More than half the days 11/18/2023 3:41 PM Beena Bravo MA Trouble falling or staying asleep, or sleeping too much Nearly every day 11/18/2023 3:41 PM Beena Bravo MA Feeling tired or having little energy Nearly every day 11/18/2023 3:41 PM Beena Bravo MA Poor appetite or overeating Nearly every day 11/18/2023 3:41 PM Beena Bravo MA Feeling bad about yourself - or that you are a failure or have let yourself or your family down More than half the days 11/18/2023 3:41 PM Beena Bravo MA Trouble concentrating on things, such as reading the newspaper or watching television Nearly every day 11/18/2023 3:41 PM Beena Bravo MA Moving or speaking so slowly that other people could have noticed? Or the opposite - being so fidgety or restless that you have been moving around a lot more than usual. More than half the days 11/18/2023 3:41 PM Beena Bravo MA Thoughts that you would be better off or hurting yourself in some way Nearly every day 11/18/2023 3:41 PM Beena Bravo M A Patient Health Questionnaire-9 Score 24 11/18/2023 3:41 PM Beena Bravo MA documented as of this encounter Plan of Treatment Upcoming Encounters Date Type Department Care Team (Late st Contact Info) Description 03/21/2025 3:00 PM EDT Nurse Only [facility] MEDICINE [address] [place] [address] documented as of this encounter Goals Goal Patient Goal Type Associated Problems Recent Progress Patient-Stated? Author Blood Pressure < 140/90 Blood Pressure 129/77( 025 2:08 PM EDT) No Christine Castano, PharmD documented as of this encounter Procedures Procedure Name Priority Date/Time Associated Diagnosis Comments T-SPOT(R).TB Routine 06/16/2024 9:54 AM EDT Routine health maintenance documented in this encounter Results * T-SPOT??.TB (06/16/2024 9:54 AM EDT) [facility] T Spot TB Negative Negative [facility] Comment:A negative test resu lt [...] as aquantitative test. TS PANEL A 0 [facility] TS PANEL B 0 [facility] Negative Control Passed [facility] Positive Control Passed [facility] Comment:For additional infor mation, please refer tohttp://education.Vocab/faq/[email or web address](This link is being provided for informational/educational purposes only.)THIS TEST WAS PERFORMED AT:[employer] [id number] [place] [address]QOTZZXCKATHIA SANTIZO MD,PHD 06/16/2024 9:54 AM EDT 06/16/2024 11:17 AM EDT Chanelle BETANCOURT LAB BLOOD ORDERABLES Final Resu lt [facility] [address] [place] [address] [phone] documented in this encounter Visit Diagnoses Diagnosis Routine health maintenance- Primary Unspecified examination documented in this encounter Additional Health Concerns Assessment Noted Time PHQ-9 Depression Total Score: 15 04/10/ 023 3:36 PM EDT documented as of this encounter Care Teams Tool Supervisor Relationship Specialty Start Date End Date Chanelle Francis FNP [address] [place] [address] PCP - General Family Medicine 05/28/23 05/12/24 Tia Albarado FNP [address] [place] [address] PCP - General Family Medicine 05/13/24 Jonathon Greenberg FNP Family Medicine 08/06/22 05/12/24 Josefina He Prepared Foods Team LeaderEx Chef 10/26/24 documented as of this encounter
--- OUTSIDE RECORDS SUMMARY | 2025-01-25 14:52 | XMS_ITS | Encounter Summary ---
Author Organization [employer] Address [address] [facility] 7t [place] [address] Care Team Providers Care Cut Off Machine Operator Name Role Phone Jonathon Greenberg VAN CDL DRIVER Unavailable Unavailable Chanelle Francis [facility] Primary Care Provider [phone] [facility] Primary Care Provider [phone] Reason for Visit * Reason Onset Date Comments PT-1 05/05/2024 Encounter Details Date Type Department Care Team ([facility] st Contact Info) Description 05/05/2024 Telephone [facility] MEDICINE [address] [place], [place] [phone] Chanelle Francis FNP [address] [place], [place] [phone] PT-1 Social History Tobacco Use Types Packs/Day [...] Y/N: Yes Provider name or facility name: [facility] Facility Address: [address] [place] [address] Escort needed: Y/N: No Do you have a wheelchair: Y/N: No If yes- Manual or electric: No (Uses either mitchell or walker) Visits: Once a month Patient calling requesting PT1 Home Address verified: Y/N: Yes Provider name or facility name: [facility] Facility Address: [address] [facility] Escort needed: Y/N: No Do you have a wheelchair: Y/N: No If yes- Manual or electric: N/A Visits: Once a month documented in this encounter Plan of Treatment Upcoming Encounters Date Type Department Care Team ([facility] st Contact Info) Description 03/21/2025 3:00 PM EDT Nurse Only [facility] MEDICINE [address] [place] [address] documented as of this encounter Goals Goal Patient Goal Type Associated Problems Recent Progress Patient-Stated? Author Blood Pressure < 140/90 Blood Pressure 129/77(2024 2:08 PM EDT) No Christine Castano PharmD Take your medication every day Lifestyle No Christine Castano PharmD documented as of this encounter Visit Diagnoses Not on filedocumented in this encounter Additional Health Concerns Assessment Noted Time PHQ-9 Depression Total Score: 24 024 3:41 PM EST documented as of this encounter Care Teams Cut Off Machine Operator Relationship Specialty Start Date End Date Chanelle Francis FNP [address] [place] [address] PCP - General Family Medicine 05/28/23 05/12/24 Tia Albarado FNP [address] [place] [address] PCP - General Family Medicine 05/13/24 Jonathon Greenberg FNP Family Medicine 08/06/22 05/12/24 Josefina He Primary Education ProfessorCafe Server 10/26/24 documented as of this encounter
--- OUTSIDE RECORDS SUMMARY | 2025-01-25 14:52 | XMS_ITS | Clinical Summary ---
Author Organization [facility] Address [address] [place] [address] Care Team Providers Care Dialysis Tech Name Role Phone Unavailable Primary Care Provider [...] 1997 COVID-19 Vaccine (2023-2 5 season) 2024 Cholesterol Screening (Lipid Panel) 07/10/2024 Colorectal Cancer Screening: Colonoscopy 07/10/2024 Depression Screening 07/10/2024 HIV Screening 07/10/2024 Hepatitis C Screening 07/10/2024 Social Influencers of Health Screening 07/10/2024 Influenza Vaccine (Season Ended) 2025 HIB Vaccines Aged Out No longer eligi [...] age to complete this topic Meningococcal B Vaccine Aged Out No l onger eligible based on patient's age to complete [...]
--- OUTSIDE RECORDS SUMMARY | 2025-01-25 14:52 | XMS_ITS | Encounter Summary ---
Author Organization [employer] Address [address] [facility] 7t [place] [address] Care Team Providers Care Farmworker Bulbs Name Role Phone Jonathon Greenberg LBD TEACHER Unavailable Unavailable Chanelle Francis [facility] Primary Care Provider [phone] [facility] Primary Care Provider [phone] Reason for Visit * Reason Onset Date Comments Referral 04/22/2024 Encounter Details Date Type Department Care Team ([facility] st Contact Info) Description 04/22/2024 Telephone [facility] MEDICINE [address] [place], [place] [phone] Chanelle Francis FNP [address] [place], [place] [phone] Referral Social History Tobacco Use Types Packs/Day [...] the past 12 months, has t he sailsquare, gas, oil or water company threatened to [...] - 05/03/2024 11:40 AM EDT T/C to [facility] [phone] to inform that Neurology referral is already placed by ED C at Dr. EMILY CABRERA, [facility] [place] Neurology. No answer. LVM to call back on [phone]. * Telephone Encounter - Paula Jacob - 05/03/2024 11:01 AM EDT Tc from pt with Vonnie at [facility] requesting status on neurology referral. * Telephone Encounter - Candace Ch - 04/22/2024 10:53 AM EDT Tc from pt with Vonnie at [facility] requesting a neurology referral, they stated this has been discussed with PCP documented in this encounter Plan of Treatment Upcoming Encounters Date Type Department Care Team (Late st Contact Info) Description 03/21/2025 3:00 PM EDT Nurse Only [facility] MEDICINE [address] [place] [address] documented as of this encounter Goals Goal Patient Goal Type Associated Problems Recent Progress Patient-Stated? Author Blood Pressure < 140/90 Blood Pressure 129/77(2024 2:08 PM EDT) No Piers-Gambl e, Christine, PharmD Take your medication every day Lifestyle No Piers-Gambl e, Christine, PharmD documented as of this encounter Visit Diagnoses Not on filedocumented in this encounter Additional Health Concerns Assessment Noted Time PHQ-9 Depression Total Score: 24 024 3:41 PM EST documented as of this encounter Care Teams Farmworker Bulbs Relationship Specialty Start Date End Date Chanelle Francis FNP [address] [place] [address] PCP - General Family Medicine 05/28/23 05/12/24 Rio VistaTia FNP [address] [place] [address] PCP - General Family Medicine 05/13/24 Jonathon Greenberg FNP Family Medicine 08/06/22 05/12/24 Josefina He Route Driver SalespersonSolid Waste Collector 10/26/24 documented as of this encounter
--- OUTSIDE RECORDS SUMMARY | 2025-01-25 14:52 | XMS_ITS | Encounter Summary ---
Author Organization [employer] Address [address] [facility] 7t [place] [address] Care Team Providers Care Heat Treater Apprentice Name Role Phone Per [facility] Primary Care Provider [phone] Reason for Visit * Reason Onset Date Comments Durable Medical Equipment 06/03/2024 Encounter Details Date Type Department Care Team ([facility] st Contact Info) Description 06/03/2024 Telephone [facility] MEDICINE [address] [place], [place] [phone] [place] [facility] [address] [place] [address] Durable Medical Equipment Social History Tobacco Use [...] - 06/03/2024 1:49 PM EDT [facility] requesting a toilet seat commode for pt along with shower chair. If any questions you can contact Marissa at [phone]. documented in this encounter Plan of Treatment Upcoming Encounters Date Type Department Care Team ([facility] st Contact Info) Description 03/21/2025 3:00 PM EDT Nurse Only [facility] MEDICINE [address] [place] [phone] documented as of this encounter Goals Goal [...] documented as of this encounter Care Teams Heat Treater Apprentice Relationship Specialty Start Date End Date [place] [address] [place] [address] PCP - General Family Medicine 05/13/24 Josefina He Contract LoaderPlaster Molder 10/26/24 documented as of this encounter
--- OUTSIDE RECORDS SUMMARY | 2025-01-25 14:52 | XMS_ITS | Clinical Summary ---
Author Organization [facility] Address [address] [address] Phone Care Team Providers Care Sequencing Machine Operator Name Role Phone [facility] Primary Care Provider [phone] Allergies No known active allergies Medications * [...] by mouth at bed time 04/02/2023 Active tacrolimus (PROGRAF) 1 MG capsule TAKE 3 CAPSULES BY MOUTH TWICE DAILY IN THE MORNING AND IN THE EVENING 180 capsule 2 11/11/2024 Active atorvastatin (LIPITOR) 10 MG tablet TAKE 1 TABLET BY MOUTH EVERY MORNING 90 tablet 11/14/2024 Active Active Problems Problem Noted Date Diagnosed Date Long-term current use of immunosuppressive drug 11/27/2023 Kidney transplant status 06/29/2023 Other secondary hypertension 06/29/2023 Stage 3a chronic kidney disease 04/17/2023 Gastroesophageal reflux disease 12/03/2022 Arteriovenous fistula of left upper extremity Overview (01/24/2025): NO BP READINGS ON LEFT ARM Hyperplasia of prostate 10/15/2022 Overview (01/24/2025): Follow urology at [facility] Brandon gama PLAN 09/24/22 MRI pelvis wo/w con 6 Months R97.20 - Elevated prostate specific antigen [PSA] AMB Cystoscopy Today N40.1 - Benign prostatic hyperplasia with lower urinary tract symptoms Elevated PSA-10/06 9.4 6%, 05/07 7.9 6% ; neg biopsy in [place] 2020. Cystoscopy 10/06 neg, MRI - 03/06 - PI-RADS 2 35gm prostate. Plan for repeat MRI 09/2024 Encounters Date Type Department Care Team Description 01/24/2025 3:00 PM EDT Office Visit [facility] [address] [facility] [address] [place] [phone] Asael Morales MD Kidney transplant status (Primary Dx); Stage 3a chronic kidney disease (HCC) 11/14/2024 Refill [facility] [address] [facility] [address] [place] [phone] Asael Morales MD 11/11/2024 Refill [facility] [address] [place] [address] [place] [address] Asael Morales MD from Last 3 Months Immunizations Immunization Administration Dates Next Due HepB-CpG 05/17/2024,04/14/2024 Hepatitis A 06/21/2024 Influenza, Injectable, Madin Ana Canine Kidney, Preservative Free 06/18/2024 Pneumococcal Conjugate Pcv 20 04/29/2023 Shingrix 01/16/2025 Tdap 04/29/2023 Family History Medical History Relation Comments Cancer [...] [facility] [address] [place] [phone] Asael Morales MD [address] [address] Kidney transplant status; Stage 3a chronic kidney disease (HCC) 02/02/2025 9:00 AM EDT Clinical Support [facility] [address] [address] 04/26/2025 3:00 PM EDT Office Visit [facility] [address] [place] [phone] Asael Morales MD [address] [phone] Health Maintenance Due Date Last Done Comments Hepatitis B Vaccine (3 of 3 - 19+ 3-dose series) 10/15/2024 05/17/2024, 04/14/2024 Pneumococcal Vaccine: Peds ( 0 to 5 Years) and At-Risk Patients (6 to 49 Years) Completed 04/29/2023 Influenza Vaccine Completed 06/18/2024 Procedures Procedure Name Priority Date/Time Associated Diagnosis Comments PTH, INTACT Routine 01/24/2025 11:21 AM EDT URINE CULTURE Routine 01/24/2025 11:21 AM EDT MAGNESIUM Routine 01/24/2025 11:21 AM EDT TACROLIMUS LEVEL Routine 01/24/2025 11:2 1 AM EDT VITAMIN D 25 HYDROXY Routine 01/24/2025 11:21 AM EDT PSA, TOTAL AND FREE Routine 01/24/2025 1 1:21 AM EDT URINE ALBUMIN / CREATININE RATIO Routine 01/24/2025 11:21 AM EDT PROTEIN / CREATININE RATIO, URINE Routine 01/24/2025 11:21 AM EDT CBC Routine 01/24/2025 11:21 AM EDT RENAL FUNCTION PANEL Routine 01/24/2025 11:21 AM EDT URINALYSIS WITH MICROSCOPIC Routine 01/24/2025 11:21 AM EDT MICROSCOPIC EXAMINATION - DO NOT USE Routine 01/24/2025 11:21 AM EDT from Last 3 Months Results * (ABNORMAL) Microscopic Examination (01/24/2025 11:21 AM EDT) WBC, Urine >30(A) 0 - 5 /hpf [facility] RBC, Urine 0-2 0 - 2 /hpf [facility] Squamous Epithelial, Urine 0-10 0 - 10 /hpf [facility] Casts None seen None seen /lpf [facility] Bacteria, Urine Many(A) None seen/Few [facility] 01/24/2025 11:2 1 AM EDT 01/24/2025 Asael Morales MD LAB MICROBIOLOGY - GENERAL OR DERABLES Final Result Performing Organization Address [facility] Co de Phone Number [facility] [address] [place] [address] * (ABNORMAL) Vitamin D 25 Hydroxy (01/24/2025 11:21 AM EDT) Vitamin D, 25-OH, Total 23.6(L) 30.0 - 100.0 ng/mL [facility] Comment: Vitamin D deficiency has been defined by the Somers of Medicine and an Endocrine Society practice guideline as a level of serum 25-OH vitamin D less than 20 ng/mL (1,2). The Endocrine Society went on to further define vitamin D insufficiency as a level between 21 and 29 ng/mL (2). 1. IOM (Somers of Medicine). 2010. Dietary reference ?? intakes for calcium and D. Yuan [place]: The ?? National AcademAppDisco Inc. Press. 2. Mac MF, Pushpa NC, Harry MARTINEZ, et al. ?? Evaluation, treatment, and prevention of vitamin D ?? deficiency: an Endocrine Society clinical practice ?? guideline. JCEM. 2010; 96(7):1911-30. 01/24/2025 11:2 1 AM EDT 01/24/2025 Asael Morales MD LAB BLOOD ORDERABLES Final Re sult Performing Organization Address City/[facility]/ZIP Co de Phone Number [facility] [address] [place] [address] * (ABNORMAL) Urinalysis with microscopic (01/24/2025 11:21 AM EDT) Specific Merom, Urine 1.025 1.005 - 1.030 [facility] [phone] pH Urine 6.0 5.0 - 7.5 [facility] [phone] Color, Urine Yellow Yellow [facility] Appearance Urine Cloudy(A) Clear [facility] WBC Esterase Urine 3+(A) Negative [facility] Protein, Ur 2+(A) Negative/Tr maxi [facility] Glucose, Ur Negative Negative [facility] [phone] Ketones, Urine Trace(A) Negative [facility] Blood Urine 1+(A) Negative [facility] Bilirubin Urine Negative Negative [facility] Urobilinogen Urine 0.2 0.2 - 1.0 mg/dL [facility] [phone] Nitrite, Urine Positive(A) Negative [facility] Microscopic Examination See below: [facility] Comment:Microscopic was yusuf cated and was performed. 01/24/2025 11:2 1 AM EDT 01/24/2025 Comment: us Asael Morales MD LAB URINE ORDERABLES Final Re sult [facility] [address] [place] [address] * CBC (01/24/2025 11:21 AM EDT) WBC 6.7 3.4 - 10.8 x10E3/uL [facility] RBC 5.03 4.14 - 5.80 x10E6/uL [facility] Hemoglobin 15.0 13.0 - 17.7 g/dL [facility] Hematocrit 43.5 37.5 - 51.0 % [facility] MCV 87 79 - 97 fL [facility] MCH 29.8 26.6 - 33.0 pg [facility] MCHC 34.5 31.5 - 35.7 g/dL [facility] RDW 12.6 11.6 - 15.4 % [facility] Platelets 179 150 - 450 x10E3/uL [facility] 01/24/2025 11:2 1 AM EDT 01/24/2025 us Asael Morales MD LAB BLOOD ORDERABLES Final Re sult [facility] [address] [place] [address] * (ABNORMAL) PSA, total and free (01/24/2025 11:21 AM EDT) PSA 5.5(H) 0.0 - 4.0 ng/mL [facility] Comment: Mara ECLIA methodology. According to the [place] Urological Association, Serum PSA should decrease and remain at undetectable levels after radical prostatectomy. The AUA defines biochemical recurrence as an initial PSA value 0.2 ng/mL or greater followed by a subsequent confirmatory PSA value 0.2 ng/mL or greater. Values obtained with different assay methods or kits cannot be used interchangeably. Results cannot be interpreted as absolute evidence of the presence or absence of malignant disease. PSA, Free 0.48 N/A ng/mL [facility] Comment:Mara LUNAYOUSUF shanon doug. PSA Free Percent 8.7 % [facility] Comment: The table below lists the probability of prostate cancer for men with non-suspicious MARCO results and total PSA between 4 and 10 ng/mL, by patient age (Yue et al, MILAGROS 1998, 279:1542). ?% Free PSA ? 50-64 yr ?65-75 yr ?0.00-10.00% ?56% ? 55% ? 10.01-15.00% ?24% ? 35% ? 15.01-20.00% ?17% ? 23% ? 20.01-25.00% ?10% ? 20% ?>25.00% ? 5% ?9% Please note: ??Yue et al did not make specific ?recommendations regarding the use of ?percent free PSA for any other population ?of men. 01/24/2025 11:2 1 AM EDT 01/24/2025 Comment:UC us Asael Morales MD LAB BLOOD ORDERABLES Final Re sult Performing Organization Address [facility]/ZIP Co de Phone Number [facility] [address] [place] [address] * (ABNORMAL) PTH, Intact (01/24/2025 11:21 AM EDT) PTH 69(H) 15 - 65 pg/mL [facility] 01/24/2025 11:2 1 AM EDT 01/24/2025 Comment: Asael Morales MD LAB BLOOD ORDERABLES Final Re sult Performing Organization Address [facility]/ZIP Co de [facility] [address] [place] [address] * Magnesium (01/24/2025 11:21 AM EDT) Magnesium 1.7 1.6 - 2.3 mg/dL [facility] 01/24/2025 11:2 1 AM EDT 01/24/2025 Comment: Asael Morales MD LAB BLOOD ORDERABLES Final Re sult Performing Organization Address [facility]/ZIP Co de Phone Number [facility] [address] [place] [address] * (ABNORMAL) Renal Function Panel (01/24/2025 11:21 AM EDT) Glucose 104(H) 70 - 99 mg/dL [facility] BUN 18 6 - 24 mg/dL [facility] Creatinine 1.57(H) 0.76 - 1.27 mg/dL [facility] eGFR CKD-EPI CR 2020 55(L) >59 mL/min/1.7 3 [facility] BUN/Creatinine Ratio 11 9 - 20 [facility] Sodium 141 134 - 144 mmol/L [facility] Potassium 4.3 3.5 - 5.2 mmol/L [facility] Chloride 105 96 - 106 mmol/L [facility] Bicarbonate (CO2) 20 20 - 29 mmol/L [facility] Calcium 8.5(L) 8.7 - 10.2 mg/dL [facility] Albumin 4.7 4.1 - 5.1 g/dL [facility] Phosphorus 2.4(L) 2.8 - 4.1 mg/dL [facility] 01/24/2025 11:2 1 AM EDT 01/24/2025 Comment: us Asael Morales MD LAB BLOOD ORDERABLES Final Re sult [facility] [address] [place] [address] from Last 3 Months Insurance [place] Care Teams Sequencing Machine Operator Relationship Specialty Start Date End Date [place] [address] [place] [id number] PCP - General 01/24/25
--- OUTSIDE RECORDS SUMMARY | 2025-01-25 14:52 | XMS_ITS | Patient Health Record ---
Author Organization [facility] Address [address] [place], [place] [phone] Care Team Providers Care Termination Clerk Name Role Phone [facility], Dental Department Primary Care Provider Unavailable Eli Pisano Unavailable Reason For Referral No Information Social History Sex Assigned At : Social History Observation Description Sex Assigned At Male Encounters Encounter Location Date Provider Diagnosis [facility] [address] [place] [address] [phone] 11/01/2024 Eli Pisano [facility] [address] [place] [address] [phone] 11/15/2024 Eli Pisano [facility] [address] [place] [address] [phone] 12/09/2024 Eli Pisano [facility] [address] [place] [address] [phone] 10/21/2024 Eli Pisano [facility] [address] [place] [address] [phone] 10/14/2024 Eli Pisano Plan Of Treatment Next Appt Details Provider Name:Eli Sparks, 02/06/2025 01:15:00 PM, [facility] [employer] [facility], [address] [place] [address], [phone], Insurance Providers Payer Name Payer Address Payer Phone Subscriber Number Group Number Insured Name Patient Relationship to Insured Coverage Start Date Coverage End Date [place] Medicaid Standard [address] [place] [address] [id number] Tate Escobedo Self - patient is the insured
--- OUTSIDE RECORDS SUMMARY | 2025-01-25 14:52 | XMS_ITS ---
Author Organization [facility] Address [address], [place] [id number] Care Team Providers Care Mock Up Maker Name Role Phone [facility], Dental Department Primary Care Provider Unavailable Eli Pisano Unavailable Social History Sex Assigned At : Social History Observation Description Sex Assigned At Male Encounters Encounter Location Date Provider Diagnosis [facility] [address] [place] [id number] 12/20/2024 Eli Pisano Plan Of Treatment Next Appt Details Provider Name:Eli Sparks, 02/06/2025 01:15:00 PM, [facility], [address] [place] [address], [phone], Progress Notes * Tate ESCOBEDODOB:[birth year] (44 yo M)Acc No.[id number]:12/20/2024 Case Management Patient:?Marycarmen ESCOBEDO Provider:?Eli Pisano :1980???Age:44 Y???Sex:Male Nic e:12/20/2024 Address:[address] [place], [place] [id number] Pcp:[facility] Subjective: * Chief Complaints: * ??? * Medical History:? Objective: Assessment: Plan: * Treatment: * Images: Billing Information: * Visit Code:? * Procedure Codes:? Care Plan Details* * Electronic signature of León Pisano on 01/25/2025 at 02:52 PM EDT Sign off status: Pending * Provider:?Eli Pisano Date:? Generated for Alexandro webber/Connor/Jackie on:?01/25/2025 02:52 PM EDT
--- NOTE | 2025-01-25 14:53 | A.OFFVIS_ITS ---
Intake Visit Reasons: 3m F/U Intake Note: Patient is present for 3M/FU Urology Medication:NITOFURANTION,VITAMIN C,METHENAMINE HIPPURATE,TADALAFIL Antibiotic Allergy:NONE Blood Thinner:NONE Food Products Tester Required: No Allergies No Known Allergies Allergy (Verified 01/25/25 14:57) HPI Comments Details: Tate is a pleasant Armenian-speaking male. The patient of Dr. Greenberg. He is seen for the following urologic conditions - neurogenic bladder - erectile dysfunction - elevated PSA Culture shows E coli resistant to Bactrim, Levaquin, gentamicin Has been on suppression trimethoprim with methenamine and vitamin-C Doing well with clean intermittent catheterization Erectile dysfunction - 20 mg tadalafil on demand Requires clean intermittent catheterization for the foreseeable future secondary to neurogenic bladder and renal transplant - uses 14 American coude catheter reduce prostatic inflammation MRI - 11/08 - 40gm prostate, No discrete focus of abnormal signal intensity is identified to suggest clinically significant prostate carcinoma Neurogenic bladder Renal transplant 2016 - 7 years prior dialysis for HTN Self catheterization 4 times a day for bladder emptying secondary to neurogenic bladder Associated recurring UTI Associated elevated PSA 10/06 9.4 6%, 05/07 7.9 6%, 10/08 6.5 7% PSA biopsy performed in [place] 2020 and reported as negative Cystoscopy 10/06 NAD MRI - 03/06 - PI-RADS 2 35gm prostate Therapeutic plan - prostate MRI 6 months PSA [facility] Medical History (Updated 12/21/24 @ 08:50 by Marisa Everett MD) Long-term use of immunosuppressant medication sanitation officer current use of antipsychotic medication Bilateral leg edema Petechiae Stage 3 chronic kidney disease Open wound of left forearm Severe episode of recurrent major depressive disorder, with psychotic features Basal cell carcinoma (BCC) of skin of left upper extremity including shoulder Chronic midline low back pain with bilateral sciatica Chronic neck pain GERD (gastroesophageal reflux disease) Prostatitis Arteriovenous fistula of left upper extremity Hyperplasia of prostate with lower urinary tract symptoms (LUTS) Neurogenic dysfunction of the urinary bladder Hypertension Dialysis patient Testicular cyst Benign prostatic hyperplasia with incomplete bladder emptying Recurrent UTI BPH loc w urin obs/LUTS Elevated PSA Surgical History (Updated 12/20/24 @ 13:58 by Marisa Everett MD) Kidney transplant recipient Family History (Updated 12/20/24 @ 13:40 by Kevin Salmeron) Father Cancer Social History (Updated 12/20/24 @ 13:39 by Kevin Salmeron) Household Members: Friend(s) Alcohol intake: never Patient Tobacco Use Status: Never used Tobacco service: No Current occupational status: unemployed Review of Systems Const Denies chills and Denies fever(s) Card Reports no additional complaints and Denies syncope Resp Denies cough GI Denies abdominal pain and Denies heartburn Reports as per HPI and Denies change in libido Neuro Denies syncope Psych Denies change in libido Endo Denies change in libido Physical Exam Const General: cooperative, healthy appearing, comfortable and no acute distress Orientation/consciousness: patient oriented x3 HEENT Face and sinus: Yes normal facial exam Mouth: moist mucous membranes Neck Neck: Yes normal visual inspection, Yes full ROM and Yes trachea midline Chest Chest palpation & inspection: normal inspection of the chest Resp Effort & Inspection: normal respiratory effort, able to speak in complete sentences and no respiratory distress GI Inspection: Yes normal to inspection Back/Spine/Pelvis Cervical Spine: normal cervical lordosis Thoracic/Lumbar Spine: thoracic and lumbar spine normal to inspection Skin General skin exam: no rashes or lesions noted Neuro General: patient oriented x3, gait normal, tone normal and moves all extremities Extrem General: Yes normal to inspection and Yes capillary refill normal Assessment & Plan Assessment & Plan (1) Recurrent UTI: Code(s): N39.0 - Urinary tract infection, site not specified Category: Medical (2) Neurogenic urinary bladder disorder: Code(s): N31.9 - Neuromuscular dysfunction of bladder, unspecified Category: Medical (3) Erectile dysfunction: Code(s): N52.9 - Male erectile dysfunction, unspecified Category: Medical Plan Six-month follow-up Treat Bactrim Medications: New nitrofurantoin monohyd/m-cryst 100 mg (Macrobid) must administer with a meal/food 100 mg PO BID 7 days 14 caps 1RF N39.0 - Urinary tract infection, site not specified Refilled tadalafil On demand medication take 60 minutes before intended activity 20 mg PO ONCE 30 days PRN 30 tabs 0RF sexual activity E11.69 - Type 2 diabetes mellitus with other specified complication, N52.1 - Erectile dysfunction due to diseases classified elsewhere, N52.9 - Male erectile dysfunction, unspecified ascorbic acid (vitamin C) 1,000 mg PO DAILY 90 days 90 tabs 1RF N52.9 - Male erectile dysfunction, unspecified methenamine hippurate 1 g PO DAILY 90 days 90 tabs 1RF N52.9 - Male erectile dysfunction, unspecified tadalafil 5 mg PO DAILY 90 days 90 tabs 1RF sexual activity N52.01 - Erectile dysfunction due to arterial insufficiency Patient Instructions: This note is constructed using voice recognition software. While every effort has been made to ensure accuracy mental health unit lead psychologist errors may have been included. Imaging studies, laboratory and physical exam results were discussed and reviewed in detail. No major barriers to patient understanding were identified. An opportunity to ask questions regarding the treatment plan was provided. All questions were answered. The patient expressed understanding and agreement with the above treatment plan. The patient is aware they should contact our office by phone for worsening of their current condition or the appearance of new urologic symptoms. Compliance is encouraged with any medications and followup testing that is ordered. It is a privilege to participate in the urologic care of your patient. If you have any questions or concerns regarding treatment for the above conditions, or other urologic issues, please do not hesitate to contact me. The office telephon e contact is [phone]. Sincerely, Dr Brandon Correa MD, LOC [facility] - Urology Compassionate Specialist Care for the Genitourinary System Coding Level of Care Code Est Pt Level 3 (98835) Complex EM visit Add On G2211 Diagnoses Recurrent UTI N39.0 Neurogenic urinary bladder disorder N31.9 Erectile dysfunction N52.9
--- OUTSIDE RECORDS SUMMARY | 2025-01-25 14:53 | XMS_ITS | Clinical Summary ---
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 NOTE [facility] Comment:Consistent with hypo gammaglobulinemia. Serum free lightchains or urine immunofixation should be considered ifplasma cell dyscrasias are a possible clinicaldiagnosis.THIS TEST WAS PERFORMED AT:[employer] [place] [phone] MURRAY MD 10/28/2024 1:21 PM EST 10/28/2024 4:12 PM EST [facility] LAB BLOOD ORDERABLES Final Re sult [facility] [address] [place] [phone] [phone] * (ABNORMAL) Lipid Panel, Standard (06/16/2024 9:54 AM EDT) Pathologist [facility] Triglycerides 140 <150 mg/dL [facility] Comment:Desirable Triglyceri de: less than 150 mg/dLBorderline High Triglyceride 150-199 mg/dLHigh Triglyceride: 200-499 mg/dLVery High Triglyceride: greater than or equal to 5OO mg/dL Cholesterol 196 <200 mg/dL [facility] Comment:Desirable Cholestero l: less than 200 mg/dLBorderline High Cholesterol: 200-239 mg/dLHigh Cholesterol: greater than 239 mg/dL LDL Cholesterol Calculated 129(H) <100 mg/dL [facility] Comment:Desirable LDL: less than 100 mg/dLNear Optimal/Above Optimal LDL: 110- 129 mg/dLBorderline High LDL: 130-159 mg/dLHigh LDL: 160-189 mg/dLVery High LDL: greater than or equal to 190 mg/dL HDL Cholesterol 39(L) >40 mg/dL [facility] Comment:Desirable HDL: great er than 40 mg/dL Note: This HDL assay may give artificially low results in patients with liver disease. Blood Venous blood specimen / Unknown 06/16/2024 9:54 AM EDT 06/16/2024 11:17 AM EDT [facility] CLINICAL MOLECULAR GENETICIST LAB BLOOD ORDERABLES Final Re sult [facility] [address] [place] [address] [phone] from Last 3 Months or Most Recently Relevant to Health Maintenance Insurance [facility] C3 HSN FULL Care Teams Nutrition Partner Relationship Specialty Start Date End Date Tia Albarado FNP [address] [place] [phone] PCP - General Family Medicine 05/13/24 Josefina He Fiber Optics EngineerSchool Age Teacher 10/26/24
--- OUTSIDE RECORDS SUMMARY | 2025-01-25 14:53 | XMS_ITS | Encounter Summary ---
Author Organization [employer] Address [address] [facility] 7t [place] [address] Care Team Providers Care Environmental Protection Forester Name Role Phone Jonathon Greenberg [facility] Unavailable Unavailable Chanelle Francis [facility] Primary Care Provider [phone] [facility] Primary Care Provider Reason for Visit * Reason Comments Med Refill Encounter Details Date Type Department Care Team (Late st Contact Info) Description 09/30/2023 Refill [facility] [address] [place] [address] [facility] [address] [place] [address] Chronic radicular low back pain Social History [...] Description 03/21/2025 3:00 PM EDT Nurse Only [facility] [address] [place] [address] documented as of this encounter Goals Goal Patient Goal Type Associated Problems Recent Progress Patient-Stated? Author Blood Pressure < 140/90 Blood Pressure 129/77( 025 2:08 PM EDT) No Christine Castano, TaraD documented as of this encounter Visit Diagnoses Diagnosis Chronic radicular low back pain documented in this encounter Additional Health Concerns Assessment Noted Time PHQ-9 Depression Total Score: 15 023 3:36 PM EDT documented as of this encounter Care Teams Environmental Protection Forester Relationship Specialty Start Date End Date Chanelle Francis FNP [address] [place] [address] PCP - General Family Medicine 05/28/23 05/12/24 Tia Albarado FNP [address] [place] [address] PCP - General Family Medicine 05/13/24 Jonathon Greenberg FNP Family Medicine 08/06/22 05/12/24 Josefina He Mri TechnicianPrototype Technician 10/26/24 documented as of this encounter
--- OUTSIDE RECORDS SUMMARY | 2025-01-25 14:53 | XMS_ITS | Encounter Summary ---
Author Organization [employer] Address [address] [facility] 7t [place] [address] Care Team Providers Care Fellmongering Machine Operator Name Role Phone Dionicio Naunfarrahkarson DIVER TENDER Unavailable Unavailable Shawn Murillo Primary Care Provider Unavail able Chanelle Francis DIVER TENDER Primary Care Provider [phone] Freedom Tia DIVER TENDER Primary Care Provider [phone] Reason for Visit * Reason Onset Date Comments FYI 04/09/2023 Encounter Details Date Type Department Care Team ([facility] st Contact Info) Description 04/09/2023 Telephone [facility] [address] [place] [address] Shawn Murillo AGNP FYI Social History Tobacco [...] PM EDT documented as of this encounter Functional Status * Over the past 2 weeks, how often have you been bothered by any of the following problems? Question Answer Date of Assessment Author Patient Health Questionnaire-2 Score 4 03/15 3:36 PM Zac Snyder [place] * If you checked off any problems on this questionnaire so far, Question Answer Date of Assessment Author How difficult have these problems made it for you to do your work, take care of things at home, or get along with other people? Somewhat difficult 04/10/2023 3:36 PM Zac Snyder M A * Over the past 2 weeks, how often have you been bothered by any of the following problems? Question Answer Date of Assessment Author Little interest or pleasure in doing things More than half the days 04/10/2023 3:36 PM Zac Snyder [place] Feeling down, depressed, or hopeless More than half the days 04/10/2023 3:36 PM Zac Snyder [place] Trouble falling or staying asleep, or sleeping too much Several days 04/10/2023 3:36 PM Zac Snyder M A Feeling tired or having little energy More than half the days 04/10/2023 3:36 PM Zac Snyder [place] Poor appetite or overeating More than half the days 04/10/2023 3:36 PM Zac Snyder [place] Feeling bad about yourself - or that you are a failure or have let yourself or your family down More than half the days 04/10/2023 3:36 PM Zac Snyder [place] Trouble concentrating on things, such as reading the newspaper or watching television Several days 04/10/2023 3:36 PM Zac Snyder M A Moving or speaking so slowly that other people could have noticed? Or the opposite - being so fidgety or restless that you have been moving around a lot more than usual. More than half the days 04/10/2023 3:36 PM Zac Snyder MA Thoughts that you would be better off or hurting yourself in some way Several days 04/10/2023 3:36 PM Zac Snyder [place] Patient Health Questionnaire-9 Score 15 04/10/2023 3:36 PM Zac Snyder [place] documented as of this encounter Miscellaneous Notes * Telephone Encounter - Jodie Stock - 04/09/2023 11:33 AM EDT Tc from clio with [facility] physical therapy calling to advise PCP his BP was 135/100 but pt states he has been consistent with BP medication. Will continue treatment until his BP and pain gets better. documented in this encounter Plan of Treatment Upcoming Encounters Date Type Department Care Team (Late st Contact Info) Description 03/21/2025 3:00 PM EDT Nurse Only [facility] [address] [place] [address] documented as of this encounter Visit Diagnoses Not on filedocumented in this encounter Additional Health Concerns Assessment Noted Time PHQ-9 Depression Total Score: 023 12:04 PM EDT documented as of this encounter Care Teams Fellmongering Machine Operator Relationship Specialty Start Date End Date Shawn Murillo AGNP PCP - General Family Medicine 11/10/22 05/27/23 Chanelle Francis FNP [address] [place] [address] PCP - General Family Medicine 05/28/23 05/12/24 Tia Albarado FNP [address] [place] [address] PCP - General Family Medicine 05/13/24 Jonathon Greenberg FNP Family Medicine 08/06/22 05/12/24 Josefina He Manager Technical TrainingRim Fire Priming Tool Setter 10/26/24 documented as of this encounter
--- OUTSIDE RECORDS SUMMARY | 2025-01-25 14:53 | XMS_ITS | Encounter Summary ---
Author Organization [employer] Address [address] [facility] 7 [place] [address] Care Team Providers Care Hand Folder Name Role Phone Jonathon Greenberg POLICE INSPECTOR Unavailable Unavailable Chanelle Francis [facility] Primary Care Provider [phone] [facility] Primary Care Provider [phone] Reason for Visit * Reason Onset Date Comments PT1 09/10/2023 Encounter Details Date Type Department Care Team ([facility] st Contact Info) Description 09/10/2023 Telephone [facility] [address] [place], [place] [phone] Chanelle Francis FNP [address] [place] [address] PT1 Social History Tobacco Use Types Packs/Day [...] 09/15/2023 8:07 AM EST PT-1 Request Number [id number] is Pending * Telephone Encounter - Stef Blake - 09/10/2023 3:26 PM EST PT1 needed Date: 09/21/2022 Time: 1:30 PM Visits: All future Appt's Address: [address] [place] [id number] Facility: [facility] Wheel Chair: No Mechanical Planner Needed: Yes documented in this encounter Plan of Treatment Upcoming Encounters Date Type Department Care Team (Late st Contact Info) Description 03/21/2025 3:00 PM EDT Nurse Only [facility] [address] [place] [phone] documented as of this encounter Goals Goal [...] documented as of this encounter Care Teams Hand Folder Relationship Specialty Start Date End Date Chanelle Francis FNP [address] [place] [address] PCP - General Family Medicine 05/28/23 05/12/24 Tia Albarado FNP [address] [place] [address] PCP - General Family Medicine 05/13/24 Jonathon Greenberg FNP Family Medicine 08/06/22 05/12/24 Josefina He Production Tool EngineerPart Time Flexible Clerk 10/26/24 documented as of this encounter
--- OUTSIDE RECORDS SUMMARY | 2025-01-25 14:53 | XMS_ITS | Clinical Summary ---
Author Organization [facility] Address [address] [place] [address] Care Team Providers Care Loft Worker Name Role Phone Pcp, No Unavailable Unavailable Pcp, No Primary Care Provider Unavailabl e Social History Tobacco Use Types Packs/Day Years Used Date Smoking Tobacco: Never Assessed Sex and Gender Information Value Date Recorded Sex Assigned at Male 09/22/2023 3:41 PM EST Legal Sex Male 8:04 AM EDT Gender Identity Male 09/22/2023 3:41 PM EST Sexual Orientation Heterosexual (straight) 09/22 3:41 PM EST Plan of Treatment Health Maintenance Due Date Last Done Comments Hepatitis C Virus Screening 1978 HIV Screening 1991 DTaP/Tdap/Td Vaccines (1 - Tdap) 1997 Hepatitis B Vaccines (1 of 3 - 19+ 3-dose series) 1997 Colonoscopy 2023 COVID-19 Vaccine (1 - 2023-2 5 season) 2024 Influenza Vaccine 04/14/2025 Pneumococcal Vaccine: Pediat erika (0-5 Years) and At-Risk Patients (6 to 49 Years) Aged Out No longer eligible b ased on patient's age to complete this topic Insurance [employer] Care Teams Loft Worker Relationship Specialty Start Date End Date Pcp, No [address] [place] [address] PCP - General 07/08/23 Pcp, No [address] [place] [address] Physician 07/08/23 HOLLAND MANCILLA APRN, PSYCHOLOGIST EDUCATIONAL-BC, PSYCHOLOGIST EDUCATIONAL-C Nurse Practitioner 06/14/23
--- OUTSIDE RECORDS SUMMARY | 2025-01-25 14:53 | XMS_ITS | Encounter Summary ---
Author Organization [employer] Address [address] [facility] 7t [place] [address] Care Team Providers Care Fur Ironer Name Role Phone Jonathon Greenberg [facility] Unavailable Unavailable Chanelle Francis [facility] Primary Care Provider [phone] [facility] Primary Care Provider [phone] Reason for Visit * Reason Onset Date Comments Lab Orders 08/28/2023 Encounter Details Date Type Department Care Team ([facility] st Contact Info) Description 08/28/2023 Telephone [facility] [address] [place], [place] [phone] Chanelle Francis FNP [address] [place] [address] Lab Orders Social History Tobacco Use Types [...] - 08/28/2023 3:26 PM EST T/C to [phone] to inform that TB test was ordered and pt. Can go to lab as his convenience, Noanswer. LVM to call back on [phone]. * Telephone Encounter - Thompson Lopez - 08/28/2023 2:43 PM EST Tc from Jaylene at [facility] requesting a TB test in order for the patient to be able to join the program any questions please call Jaylene at [phone] documented in this encounter Plan of Treatment Upcoming Encounters Date Type Department Care Team (Late st Contact Info) Description 03/21/2025 3:00 PM EDT Nurse Only [facility] [address] [place] [phone] documented as of this encounter Goals Goal Patient Goal Type Associated Problems Recent Progress Patient-Stated? Author Blood Pressure < 140/90 Blood Pressure 129/77( 025 2:08 PM EDT) Christine Villarreal, PharmD documented as of this encounter Visit Diagnoses Not on filedocumented in this encounter Additional Health Concerns Assessment Noted Time PHQ-9 Depression Total Score: 15 023 3:36 PM EDT documented as of this encounter Care Teams Fur Ironer Relationship Specialty Start Date End Date Chanelle Francis FNP [address] [place] [address] PCP - General Family Medicine 05/28/23 05/12/24 PerTia bernstein FNP [address] [place] [address] PCP - General Family Medicine 05/13/24 Jonathon Greenberg FNP Family Medicine 08/06/22 05/12/24 Josefina He Basin CleanerManager Battery 10/26/24 documented as of this encounter
== END 2025-01-25 15:38 | disposition home or self-care (01) ==
LOC: HO.HUSH 14:49
PROVIDERS: PCP Nurse Practitioner Family; Visit Provider Urology
DX: N39.0 Urinary tract infection, site not specified (principal); N31.9 Neuromuscular dysfunction of bladder, unspecified; N52.9 Male erectile dysfunction, unspecified
CPT/HCPCS: 99213

== ENCOUNTER → 2025-01-25 14:49 | Outpatient (BNVA) | payer MEDICAID, SELFPAY | PROVIDERS: PCP Nurse Practitioner Family; Visit Provider Urology | DX: N39.0 Urinary tract infection, site not specified (principal); N31.9 Neuromuscular dysfunction of bladder, unspecified; N52.9 Male erectile dysfunction, unspecified | CPT/HCPCS: 99212 ==

== ENCOUNTER 2025-06-29 10:05 | Outpatient (REF) | payer MEDICAID, SELFPAY ==
--- OUTSIDE RECORDS SUMMARY | 2011-02-25 12:45 | XMS_ITS | Continuity of Care Document ---
Author Organization [facility] Address [address] [place] [id number] Phone Care Team Providers Care Manager Molecular Name Role Phone Comfort GALLARDO MD, Sin Unavailable Unavai lable Procedures Procedure Date Nurse Visit Only As per patient privacy policy some of the clinical information may not be visible. Advance Directives Directive Yes / No Effective Date File Name No Information Encounters Encounter Description Practice Location Reason(s) For Visit Diagnoses Date Provider Providers Copied on Encounter [facility], [address] [place] [address], [id number], tel:[phone] [facility] Doctors No Information Comfort Vogt. [address] [place] [address], [id number], [place]. tel:[phone] [facility], [address] [place] [address], [address], tel:[phone] [facility] Doctors No Information Comfort Vogt. [address] [place] [address], [id number], [place]. tel:[phone] [facility], [address] [place] [address], [id number], [place] tel:[phone] [facility] No Information Comfort Vogt. [address] [place] [address], [id number], [place]. tel:[phone] [facility], [address] [place] [address], [address], [place] tel:[phone] [facility] No Information Comfort Vogt. [address] [place] [address], [id number], [place]. tel:[phone] [facility], [address] [place] [address], [address], tel:[phone] [facility] No Information Nitesh Storey. [address] [place] [address], [id number], [place]. [facility], [address] [place] [address], [id number], tel:[phone] [facility] No Information PCS Nurse. [address] [place] [address], [id number], [place]. tel:[phone] [facility], [address] [place] [address], [address], tel:[phone] [facility] CON[facility] No Information [facility]. [address] [place] [address], [id number], [place]. Family History Family Member Type Diagnosis Age At Onset No Information Immunizations Vaccine Date Status Comments [id number], PED/ADL administered Source: New Immuniza tion Record DTP administered Source: New Imm unization Record ORAL POLIO administered Source: New Imm unization Record DTP administered Source: New Imm unization Record ORAL POLIO administered Source: New Imm unization Record [id number], PED/ADL administered Source: New Immuniza tion Record DTP administered Source: New Imm unization Record ORAL POLIO administered Source: New Imm unization Record DTP administered Source: New Imm unization Record ORAL POLIO administered Source: New Imm unization Record DTP administered Source: New Imm unization Record ORAL POLIO administered Source: New Imm unization Record Payers Payer name Insurance type Covered green party ID Authoriza tion(s) [facility] Medicare [id number] [facility] Medicaid Medical [id number] Social History Type Description Quantity Date Captured [...]
--- OUTSIDE RECORDS SUMMARY | 2024-12-20 10:15 | XMS_ITS ---
Author Organization [facility] Address [address] [place] [address] Care Team Providers Care China And Silverware Salesperson Name Role Phone [facility], Dental Department Primary Care Provider [phone] Eli Pisano Unavailable Social History Sex Assigned At : Social History Observation Description Sex Assigned At Male Encounters Encounter Location Date Provider Diagnosis [facility] [address] [place] [phone] 12/20/2024 Eli Pisano Plan Of Treatment No Information Progress Notes * Tate ESCOBEDODOB:[birth year] (45 yo M)Acc No.[id number]:12/20/2024 Case Management Patient: Sherri CASTRO Tate BARKLEY Provider: Halle Pisano :1980 A ge:44 Y S ex:Male Date:12/20/2024 Address:[address] [place], [place] [phone] Pcp:Dental Department [facility] Subjective: * Chief Complaints: * * Medical History: Objective: Assessment: Plan: * Treatment: * Images: Billing Information: * Visit Code: * Procedure Codes: Care Plan Details* * Electronic signature of León Pisano on 06/29/2025 at 12:08 PM EDT Sign off status: Pending * Provider: Halle Pisano Date: 0 12/20/2024 Generated for Printi ng/Faeseg/eTransmitting on: 1 12:08 PM EDT
--- OUTSIDE RECORDS SUMMARY | 2025-01-12 10:15 | XMS_ITS ---
Author Organization [facility] Address [address] [place] [address] Care Team Providers Care Buckle Strap Drum Operator Name Role Phone [facility], Dental Department Primary Care Provider [phone] Eli Pisano Unavailable [phone] Social History Sex Assigned At : Social History Observation Description Sex Assigned At Male Encounters Encounter Location Date Provider Diagnosis [facility] [address] [place] [phone] 01/12/2025 Eli Pisano Plan Of Treatment No Information Progress Notes * Tate ESCOBEDODOB:[birth year] (45 yo M)Acc No.[id number]:01/12/2025 Case Management Patient: Sherri CASTRO Tate BARKLEY Provider: Halle Pisano :1980 A ge:44 Y S ex:Male Date:01/12/2025 Address:[address] [place], [place] [phone] Pcp:Dental Department [facility] Subjective: * Chief Complaints: * * Medical History: Objective: Assessment: Plan: * Treatment: * Images: Billing Information: * Visit Code: * Procedure Codes: Care Plan Details* * Electronic signature of León Pisano on 06/29/2025 at 12:08 PM EDT Sign off status: Pending * Provider: Halle Pisano Date: 0 01/12/2025 Generated for Printi ng/Faeseg/eTransmitting on: 1 12:08 PM EDT
--- OUTSIDE RECORDS SUMMARY | 2025-02-06 09:15 | XMS_ITS ---
Author Organization [facility] Address [address] [place] [address] Care Team Providers Care Rayon Tester Name Role Phone [facility], Dental Department Primary Care Provider [phone] Eli Pisano Unavailable [phone] Social History Sex Assigned At : Social History Observation Description Sex Assigned At Male Encounters Encounter Location Date Provider Diagnosis [facility] [address] [place] [phone] 02/06/2025 Eli Pisano Plan Of Treatment No Information Progress Notes * Tate ESCOBEDODOB:[birth year] (45 yo M)Acc No.[id number]:02/06/2025 Case Management Patient: Sherri CASTRO Tate BARKLEY Provider: Halle Pisano :1980 A ge:44 Y S ex:Male Date:02/06/2025 Address:[address] [place], [place] [id number] Pcp:Dental Department [facility] Subjective: * Chief Complaints: * * Medical History: Objective: Assessment: Plan: * Treatment: * Images: Billing Information: * Visit Code: * Procedure Codes: Care Plan Details* * Electronic signature of León Pisano on 06/29/2025 at 12:09 PM EDT Sign off status: Pending * Provider: Halle Pisano Date: 0 02/06/2025 Generated for Printi ng/Faeseg/eTransmitting on: 1 12:09 PM EDT
[2025-06-29 10:43] LABS: Appearance Urine Cloudy; Glucose Urine UA Negative (Negative); PH 5.5 (5.0-9.0); Specific Gravity - Urine 1.020 (1.005-1.025); UMIC TRIGGER UA YES
--- OUTSIDE RECORDS SUMMARY | 2025-06-29 12:09 | XMS_ITS | Patient Health Record ---
Author Organization [facility] Address [address] [place] [address] Care Team Providers Care Wood Buffer Name Role Phone [facility], Dental Department Primary Care Provider [phone] Eli Pisano Unavailable Reason For Referral No Information Social History Sex Assigned At : Social History Observation Description Sex Assigned At Male Encounters Encounter Location Date Provider Diagnosis [facility] [address], [place] [phone] 11/01/2024 Eli Pisano [facility] [address] [place] [phone] 11/15/2024 Eli Pisano [facility] [address] [place] [phone] 12/09/2024 Eli Pisano [facility] [address], [place] [phone] 02/09/2025 Eli Pisano [facility] [address], [place] [phone] 10/21/2024 Eli Pisano [facility] [address] [place] [phone] 10/14/2024 Eli Pisano Plan Of Treatment No Information Insurance Providers Payer Name Payer Address Payer Phone Subscriber Number Group Number Insured Name Patient Relationship to Insured Coverage Start Date Coverage End Date [place] [address] [place] [address] [id number] Tate Escobedo Self - patient is the insured 5
--- OUTSIDE RECORDS SUMMARY | 2025-06-29 12:09 | XMS_ITS | Encounter Summary ---
Author Organization [facility] Address [address] [facility] 7 [place] [address] Care Team Providers Care Forest Engineer Name Role Phone Jonathon Greenberg [facility] Unavailable Unavailable Chanelle Francis [facility] Primary Care Provider [phone] [facility] Primary Care Provider [phone] Reason for Visit * Reason Onset Date Comments Referral 04/22/2024 Encounter Details Date Type Department Care Team (Late st Contact Info) Description 04/22/2024 Telephone [facility] MEDIC[facility] [address] [place], [place] [phone] Chanelle Francis FNP [address], [place] [phone] Referral Social History Tobacco Use Types Packs/Day [...] the past 12 months, has t he [employer], gas, oil or water company threatened to [...] - 05/03/2024 11:40 AM EDT T/C to [facility] [phone] to inform that Neurology referral is already placed by ED C at Dr[facility] EMILY CABRERA, [facility]. No answer. LVM to call back on [phone]. * Telephone Encounter - Paula Jacob - 05/03/2024 11:01 AM EDT Tc from pt with Vonnie at [facility] requesting status on neurology referral. * Telephone Encounter - Candace Ch - 04/22/2024 10:53 AM EDT Tc from pt with Vonnie at [facility] requesting a neurology referral, they stated this has been discussed with PCP documented in this encounter Plan of Treatment Not on file documented as of this encounter Goals Goal [...] documented as of this encounter Care Teams Forest Engineer Relationship Specialty Start Date End Date Chanelle Francis FNP [address] [place] [address] PCP - General Family Medicine 05/28/23 05/12/24 Tia Albarado FNP [address] [place] [address] PCP - General Family Medicine 05/13/24 Jonathon Greenberg FNP Family Medicine 08/06/22 05/12/24 Josefina He Lumber DriverEmbossing Toolsetter 10/26/24 documented as of this encounter
--- OUTSIDE RECORDS SUMMARY | 2025-06-29 12:09 | XMS_ITS | Clinical Summary ---
Author Organization [facility] Address [address] [place] [address] Care Team Providers Care Automobile Spring Repairer Name Role Phone Unavailable Primary Care Provider Unavailabl e Social History Tobacco Use Types Packs/Day Years Used Date Smoking Tobacco: Never Assessed Sex and Gender Information Value Date Recorded Sex Assigned at Not on file Legal Sex Male 3:43 PM EDT Gender Identity Not on file Sexual Orientation Not on file Plan of Treatment Health Maintenance Due Date Last Done Comments Colorectal Cancer Screening: Colonoscopy 1978 DTaP,Tdap,and Td Vaccines (1 - Tdap) 1997 Hepatitis B Vaccines (1 of 3 - 19+ 3-dose series) 1997 Cholesterol Screening (Lipid Panel) 07/10/2024 HIV Screening 07/10/2024 Hepatitis C Screening 07/10/2024 Social Influencers of Health Screening 07/10/2024 Depression Screening 09/14/2024 COVID-19 Vaccine ( - 2023-2 5 season) 2025 Influenza Vaccine (#1) 2025 RSV Immunization Adult Patie nts (1 - 1-dose 75+ series) 2053 HIB Vaccines Aged Out No longer eligi [...]
--- OUTSIDE RECORDS SUMMARY | 2025-06-29 12:09 | XMS_ITS | Encounter Summary ---
Author Organization [employer] [facility] Address [address] 7 [place] [address] Care Team Providers Care Piano Mover Name Role Phone [facility] Primary Care Provider [phone] Reason for Visit * Reason Onset Date Comments Durable Medical Equipment 06/03/2024 Encounter Details Date Type Department Care Team ([facility] st Contact Info) Description 06/03/2024 Telephone [facility]INE [address] [place], [place] [phone] [facility] [address] [place] [address] Durable Medical Equipment Social History Tobacco Use [...] - 06/03/2024 1:49 PM EDT Tc from [facility] with [facility] requesting a toilet seat commode for pt along with shower chair. If any questions you can contact Marissa at [phone]. documented in this encounter Plan of Treatment [...] documented as of this encounter Care Teams Piano Mover Relationship Specialty Start Date End Date Tia Albarado FNP [address] [place] [address] PCP - General Family Medicine 05/13/24 Josefina He Nurses AssistantOccupational Medicine Specialist 10/26/24 documented as of this encounter
--- OUTSIDE RECORDS SUMMARY | 2025-06-29 12:09 | XMS_ITS | Encounter Summary ---
Author Organization [employer] [facility] Address [address] [place] [address] 7 [place] [address] Care Team Providers Care Switch House Operator Name Role Phone Jonathon Greenberg Primary Care Provider Jonathon Jarquin Unavailable Unavailable Shawn Murillo Primary Care Provider Unavail able Chanelle Francis Primary Care Provider [phone] [facility] PHILOSOPHY FACULTY Primary Care Provider [phone] Encounter Details Date Type Department Care Team ([facility] st Contact Info) Description 10/02/2022 Orders Only [facility] MED & PEDS [address] [place] [address] Aminata Brizuela LPN Social History Tobacco Use [...] as of this encounter Plan of Treatment Not on file documented as of this encounter Visit Diagnoses Not on filedocumented in this encounter Care Teams Switch House Operator Relationship Specialty Start Date End Date Jonathon Greenberg FNP PCP - General Family Medicine 08/06/22 11/09/22 Shawn Murillo AGNP PCP - General Family Medicine 11/10/22 05/27/23 Chanelle Francis FNP [address] [place] [address] PCP - General Family Medicine 05/28/23 05/12/24 [facility]ia FNP [address] [place] [address] PCP - General Family Medicine 05/13/24 Jonathon Greenberg FNP Family Medicine 08/06/22 05/12/24 Josefina He Grill AssociateDinkey Driver 10/26/24 documented as of this encounter
--- OUTSIDE RECORDS SUMMARY | 2025-06-29 12:09 | XMS_ITS ---
Author Name [facility] Organization Unknown Problems Problem Status Onset Date Problem Type Date of Resoluti on Source Complication of transplanted kidney, unspecified complication active [facility] Encounter Type Encounter Reason Primary Diagnosis Location Date Ambulatory Unspecified complication of kidney transplant Unspecified complication of kidney transplant [facility] 10/12/2023 Ambulatory Unspecified complication of kidney transplant Unspecified complication of kidney transplant [facility] 07/27/2023 Care Team Organization Name Specialty Phone Email Start Date End Da te [facility] 07/27/2023 11/30/2024 [facility] 06/29/2023 06/29/2023 [facility] NO PCP Primary Care
--- OUTSIDE RECORDS SUMMARY | 2025-06-29 12:09 | XMS_ITS | Encounter Summary ---
Author Organization [employer] [facility] Address [address] [place] [address] 7 [place] [address] Care Team Providers Care Lead Data Entry Operator Name Role Phone Tia Albarado [facility] Primary Care Provider [phone] Reason for Visit * Reason Onset Date Comments Nurse Triage 06/28/2025 Encounter Details Date Type Department Care Team ([facility] st Contact Info) Description 06/28/2025 Telephone [facility] MEDICINE [address] [place], [place] [phone] [facility] [address] [place] [address] Nurse Triage Social History Tobacco Use Types Packs/Day Years [...] Telephone Encounter - Lilian Callaway RN - 06/28/2025 10:36 AM EDT TC x2 to placed to patient [phone] via [employer] ([employer] #[id number]) in regards to below message. Patient reports he has a finney catheter and has been experiencing a lot of pain in his bladder. Patient reports when he stands up his testicles feel numb and he has a stabbing pain rated 10/10 which causes him to hold his breathe. Patient reports the pain is not constant and does not happen every time he stands up. Patient reports this has been ongoing x2 weeks however he did not have thecourage to call. Patient currently self catherizes 4-6x day (previously was 4x/day prior to these symptoms). Patient reports within the last 2 weeks he has noticed sediment in his urine, at times afoul odor and is cloudy. Patient denies any fevers. Patient was advised to call [facility] urology (he is currently established with them for neurogenic bladder and recurrent UTI's) however patient reports their office is difficult to contact. RN placed patient on hold and called [facility] urology [phone] to [address] a [address] call with the patient however RN was informed they only have one RN working today and RN had to leave a VM with the RN for them to return call to patient. RN advised patient to await call from urology however if patient does not hear from urologist by the afternoon to call their office again. Patient informed if he is unable to get a hold of their office today to come to [facility]ong which is open until 8pm today. Patient verbalized understanding. Patient to f/u PRN. Protocol Used: Urinary Symptoms (Adult) Protocol-Based Disposition: See in Office or Video Visit Today Video visit not offered Positive Triage Questions: * Bad or foul-smelling urine * Urinating more frequently than usual (i.e., frequency) OR new-onset of the feeling of an urgent need to urinate (i.e., urgency) * All higher-acuity triage questions were negative * Telephone Encounter - Lilian Callaway RN - 06/28/2025 10:16 AM EDT TC placed to patient [phone] in regards to below message. Patient did not answer, RN left VM requesting CB to red team nurses. TC placed to [phone] however phone does not ring and disconnect. RN unable to leave VM. TC placed to secondary number [phone] however no answer, RN left VM requesting CB to red team nurses. RN will re-attempt in 15 mins. * Telephone Encounter - Jovon Jung - 06/28/2025 10:02 AM EDT Symptom: Abdominal Pain - Male Outcome: Talk to a nurse or provider within 15 minutes Reason: Severe pain now The caller accepted this outcome. Contact pt at [phone] or [phone] documented in this encounter Plan of Treatment [...] documented as of this encounter Care Teams Lead Data Entry Operator Relationship Specialty Start Date End Date Tia Albarado FNP [address] [place] [address] PCP - General Family Medicine 05/13/24 Josefina He Ring Making Machine OperatorSupervisor Home Restoration Service 10/26/24 documented as of this encounter
--- OUTSIDE RECORDS SUMMARY | 2025-06-29 12:09 | XMS_ITS | Encounter Summary ---
Author Organization [employer] [facility] Address [address] [facility] 7t [place] [address] Care Team Providers Care Carpenter Mate Name Role Phone Tia Albarado [facility] Primary Care Provider [phone] Encounter Details Date Type Department Care Team (Late st Contact Info) Description 06/29/2025 Orders Only GENERIC EXTERNAL DATA DEPARTMENT Provider, [...] Pressure 129/77(2024 2:08 PM EDT) No Christine Castano, PharmD Take your medication every day Lifestyle No Lucass-Christine Lafleur, PharmD documented as of this encounter Procedures Procedure Name Priority Date/Time Associated Diagnosis Comments URINALYSIS, COMPLETE Routine 06/29/2025 10:15 AM EDT documented in this encounter Results * (ABNORMAL) Urinalysis Complete (06/29/2025 10:15 AM EDT) Color Urine Yellow [facility] Appearance Urine Cloudy [facility] PH 5.5 5.0 - 9.0 [facility] Glucose Urine UA Negative Negative mg/dL [facility] Urine Blood Trace(A) Negative [facility] Specific Molt - Urine 1.020 1.005 - 1.025 [facility] Urine Protein 30 (1+)(A) Neg-Trace mg/dL [facility] Urine Ketones Negative Negative mg/dL [facility] Nitrite Urine Positive(A) Negative [facility] Leukocyte Esterase Urine Large (3+)(A) Negative [facility] RBC Urine 0-2 0 - 2 /HPF [facility] Urine WBC >50(A) 0 - 5 /HPF [facility] Urine Squamous Epithelial Cell 0-2 0 - 2 /HPF [facility] Urine Bacteria 4+ None Seen [facility] Hyaline Casts, Urine 0-2 0 - 2 /LPF [facility] 06/29/2025 10:1 5 AM EDT 06/29/2025 10:31 AM EDT us Generic External Data Provider LAB URINE ORDERAB LES Final Result [facility] [address] [place] [address] [phone] documented in this encounter Visit Diagnoses Not on filedocumented in this encounter Additional Health Concerns Assessment Noted Time PHQ-9 Depression Total Score: 0 10/28/19 25 12:06 PM EST documented as of this encounter Care Teams Carpenter Mate Relationship Specialty Start Date End Date Tia Albarado FNP [address] [place] [address] PCP - General Family Medicine 05/13/24 Josefina He Ssn/Ssbn Weapons Equipment OperatorOil Processing Technician 10/26/24 documented as of this encounter
--- OUTSIDE RECORDS SUMMARY | 2025-06-29 12:09 | XMS_ITS | Patient Health Record ---
Author Organization [facility] Address [facility] [address] [place] [address] Care Team Providers Care Surface Room Shop Optician Name Role Phone ELANA ATKINSON MD Primary Care Provider Un available Reason For Referral No Information Medications Medication SIG (Take, Route, Frequency, Duration) Notes Start Date End Date Status Sectral Active Pepcid Active Toprol XL Active Zithromax Z-Geo 250 MG Tablet 2 tablets on the first day, then 1 tablet daily for 4 days Orally Once a day; Duration: 5 day(s) 04/29/2021 Active Social History Tobacco Use: Social History Observation Description Date Details (start date - stop date) Never Smoker NA - NA Social History COVID-19 Social Info Question Answer Notes Cuestionario [place] COVID-19 Fecha 04/29/2021 Presenta algun sintoma: [place] Se rosenberg realizado recientement e la prueba rapida o molecular para el COVID 19 No Conoce a alguien que haya sido positivo al COVID -19 No Rosenberg participado de eventos pu blicos, sociales o familiares en los ultimos 14 najera Yes Cuando Rosenberg viajado fuera de [place] o rosenberg estado en contacto con alguien que haya estado fuera de [place] en los pasados 14 najera No Se rosenberg vacunado contra el COVID-19 2 dosis Moderna Lb de Emergencia Social Info Question Answer Notes Historial Social Vivienda Con navin Sospecha de maltrato, violencia, u abuso sexual? No Viaje No viajo fuera de P.R. Inmunizacion al karly Si Inmunizacion contra el tetano No Transfuciones componentes sanguineos Si Tuvo reaccion adversa No Modo de llegada Ambulando Acompanado pro Nadie Tobacco Use: Social Info Question Answer Notes Tobacco Use/Smoking Are you a nonsmoker Section Notes: PARRISH LA RN, BSN LIC. 89 112, FENG Todd 04/29/2021 06:04:29 PM > Plan Of Treatment No Information Insurance Providers Payer Name Payer Address Payer Phone Subscriber Number Group Number Insured Name Patient Relationship to Insured Coverage Start Date Coverage End Date TRIPLE S FFS PSG [address] [place], [place] [address] [id number] F Tate Escobedo Self - patient is the insured 1 1 Medical (General) History Medical History History ICD Code .Hipertension
--- OUTSIDE RECORDS SUMMARY | 2025-06-29 12:09 | XMS_ITS | Encounter Summary ---
Author Organization [email or web address] Address [address] [facility] 7 [place] [address] Care Team Providers Care Nurse Practitioner Home Assessments Name Role Phone Jonathon Greenberg PORT TRAFFIC MANAGER Unavailable Unavailable Chanelle Francis [facility] Primary Care Provider [phone] [facility] Primary Care Provider [phone] Reason for Visit * Reason Onset Date Comments PT-1 05/05/2024 Encounter Details Date Type Department Care Team (Late st Contact Info) Description 05/05/2024 Telephone [facility] MEDICINE [address] [place], [place] [phone] Chanelle Francis FNP [address] [place], [place] [phone] PT-1 Social History Tobacco Use Types Packs/Day [...] Y/N: Yes Provider name or facility name: [facility] Facility Address: [address] [place] [address] Escort needed: Y/N: No Do you have a wheelchair: Y/N: No If yes- Manual or electric: No (Uses either mitchell or walker) Visits: Once a month Patient calling requesting PT1 Home Address verified: Y/N: Yes Provider name or facility name: [facility] Facility Address: [address] [place] [address] Escort needed: Y/N: No Do you have [...] medication every day Lifestyle No Christine Castano, TaraD documented as of this encounter Visit Diagnoses Not on filedocumented in this encounter Additional Health Concerns Assessment Noted Time PHQ-9 Depression Total Score: 24 024 3:41 PM EST documented as of this encounter Care Teams Nurse Practitioner Home Assessments Relationship Specialty Start Date End Date Chanelle Francis FNP [address] [place] [address] PCP - General Family Medicine 05/28/23 05/12/24 VenusTia bernstein FNP [address] [place] [address] PCP - General Family Medicine 05/13/24 Jonathon Greenberg FNP Family Medicine 08/06/22 05/12/24 Josefina He Jointer OperatorMachine Cleaner 10/26/24 documented as of this encounter
--- OUTSIDE RECORDS SUMMARY | 2025-06-29 12:09 | XMS_ITS | Encounter Summary ---
Author Organization [employer] Address [address] [facility] 7t [place] [address] Care Team Providers Care Ham Facer Name Role Phone Jonathon Greenberg TEACHING ARTIST Unavailable Unavailable Chanelle Francis Primary Care Provider [phone] [facility] [place] Primary Care Provider [phone] Encounter Details Date Type Department Care Team ([facility] st Contact Info) Description 11/16/2023 Orders Only [facility] [address] [place], [place] [id number] Chanelle Francis FNP [address] [place] [address] Routine health maintenance (Primary Dx) Social History [...] than half the days 11/18/2023 3:41 PM eBena Bravo [place] Trouble concentrating on things, such [...] Castano, TaraD documented as of this encounter Procedures Procedure Name Priority Date/Time Associated Diagnosis Comments T-SPOT(R).TB Routine 06/16/2024 9:54 AM EDT Routine health maintenance documented in this encounter Results * T-SPOT??.TB (06/16/2024 9:54 AM EDT) [facility] T Spot TB Negative Negative [facility] Comment:A negative test resu lt [...] as aquantitative test. TS PANEL A 0 [facility] TS PANEL B 0 [facility] Negative Control Passed [facility] Positive Control Passed [facility] Comment:For additional infor mation, please refer tohttp://education.[employer]/faq/KTC597(This link is being provided for informational/educational purposes only.)THIS TEST WAS PERFORMED AT:[id number] [place] [address]HXWACLDKATHIA SANTIZO MD,PHD 06/16/2024 9:54 AM EDT 06/16/2024 11:17 AM EDT us Chanelle [facility] BLOOD ORDERABLES Final Resu lt [facility] [address] [place] [address] [phone] documented in this encounter Visit Diagnoses Diagnosis Routine health maintenance- Primary Unspecified examination documented in this encounter Additional Health Concerns Assessment Noted Time PHQ-9 Depression Total Score: 15 04/10/ 023 3:36 PM EDT documented as of this encounter Care Teams Ham Facer Relationship Specialty Start Date End Date Chanelle Francis FNP [address] [place] [address] PCP - General Family Medicine 05/28/23 05/12/24 Tia Albarado FNP [address] [place] [address] PCP - General Family Medicine 05/13/24 Jonathon Greenberg FNP Family Medicine 08/06/22 05/12/24 Josefina He Public Address System InstallerRing Packer 10/26/24 documented as of this encounter
--- OUTSIDE RECORDS SUMMARY | 2025-06-29 12:10 | XMS_ITS | Encounter Summary ---
Author Organization [employer] Address [address] [facility] 7 [place] [address] Care Team Providers Care Home Care Specialist Name Role Phone Jonathon Greenberg [facility] Unavailable Unavailable Chanelle Francis [facility] Primary Care Provider [phone] [employer] Primary Care Provider [phone] Reason for Visit * Reason Onset Date Comments Lab Orders 08/28/2023 Encounter Details Date Type Department Care Team ([facility] st Contact Info) Description 08/28/2023 Telephone [facility] [address] [place], [place] [phone] Chanelle Francis FNP [address] [place] [address] Lab Orders Social History Tobacco Use Types [...] - 08/28/2023 3:26 PM EST T/C to [phone] to inform that TB test was ordered and pt. Can go to lab as his convenience, Noanswer. LVM to call back on [phone]. * Telephone Encounter - Thompson Lopez - 08/28/2023 2:43 PM EST Tc from Jaylene at [facility] requesting a TB test in order for the patient to be able to join the program any questions please call Jaylene at [phone] documented in this encounter Plan of Treatment [...] documented as of this encounter Care Teams Home Care Specialist Relationship Specialty Start Date End Date Chanelle Francis FNP [address] [place] [address] PCP - General Family Medicine 05/28/23 05/12/24 Tia Albarado FNP [address] [place] [address] PCP - General Family Medicine 05/13/24 Jonathon Greenberg FNP Family Medicine 08/06/22 05/12/24 Josefina He Voip Network EngineerDirector Of Philanthropy 10/26/24 documented as of this encounter
--- OUTSIDE RECORDS SUMMARY | 2025-06-29 12:10 | XMS_ITS | Encounter Summary ---
Author Organization [employer] Address [address] [place] [address] 7 [place] [address] Care Team Providers Care Mobile Nurse Name Role Phone Dionicio Jonathon BASS GUITAR TEACHER Unavailable Unavailable Shawn Murillo Primary Care Provider Unavail able Chanelle Francis BASS GUITAR TEACHER Primary Care Provider [phone] [place] Tia BASS GUITAR TEACHER Primary Care Provider [phone] Reason for Visit * Reason Onset Date Comments FYI 04/09/2023 Encounter Details Date Type Department Care Team ([facility] st Contact Info) Description 04/09/2023 Telephone [facility] MED[facility]INE [address] [place] [address] Shawn Murillo AGNP FYI Social History Tobacco [...] - 04/09/2023 11:33 AM EDT [place] [facility] physical therapy calling to advise PCP his [...] documented as of this encounter Care Teams Mobile Nurse Relationship Specialty Start Date End Date Shawn Murillo AGNP PCP - General Family Medicine 11/10/22 05/27/23 Chanelle Francis FNP [address] [place] [address] PCP - General Family Medicine 05/28/23 05/12/24 DentonTia FNP [address] [place] [address] PCP - General Family Medicine 05/13/24 Jonathon Greenberg FNP Family Medicine 08/06/22 05/12/24 Josefina He Load CheckerEndband Sizer 10/26/24 documented as of this encounter
--- OUTSIDE RECORDS SUMMARY | 2025-06-29 12:10 | XMS_ITS | Encounter Summary ---
Author Organization [employer] Address [address] [facility] 7 [place] [address] Care Team Providers Care Abalone Diver Name Role Phone Jonathon Greenberg [facility] Unavailable Unavailable Chanelle Francis [facility] Primary Care Provider [phone] [facility] Primary Care Provider [phone] Reason for Visit * Reason Comments Med Refill Encounter Details Date Type Department Care Team (Late st Contact Info) Description 09/30/2023 Refill [facility] [address] [place] [address] [facility] [address] [place] [address] Chronic radicular low back pain Social History [...] documented as of this encounter Care Teams Abalone Diver Relationship Specialty Start Date End Date Chanelle Francis FNP [address] [place] [address] PCP - General Family Medicine 05/28/23 05/12/24 [facility] [address] [place] [address] PCP - General Family Medicine 05/13/24 Jonathon Greenberg FNP Family Medicine 08/06/22 05/12/24 Josefina He General Car Yard SupervisorModel Maker Scale 10/26/24 documented as of this encounter
--- OUTSIDE RECORDS SUMMARY | 2025-06-29 12:10 | XMS_ITS | Clinical Summary ---
Author Organization [facility] Address [address] [place] [address] Care Team Providers Care Waste Paper Hammermill Operator Name Role Phone Pcp, No Unavailable Unavailable [...] 3-dose series) 1997 Colonoscopy 2023 Influenza Vaccine 04/14/2025 COVID-19 Vaccine (1 - 2023-2 5 season) 2025 Pneumococcal Vaccine: Pediat erika (0-5 Years) and At-Risk Patients (6 to 49 Years) Aged Out No longer eligible b ased on patient's age to complete this topic Insurance [employer] Care Teams Waste Paper Hammermill Operator Relationship Specialty Start Date End Date Pcp, No [address] [place] [address] PCP - General 07/08/23 Pcp, No [address] [place] [address] Physician 07/08/23 HOLLAND MANCILLA APRN, NATIONAL FLATBED TRUCK DRIVER-BC, NATIONAL FLATBED TRUCK DRIVER-C Nurse Practitioner 06/14/23
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
--- OUTSIDE RECORDS SUMMARY | 2025-06-29 12:10 | XMS_ITS | Encounter Summary ---
Author Organization [employer] Address [address] [facility] 7 [place] [address] Care Team Providers Care Speech Professor Name Role Phone Jonathon Greenberg ACCOUNTS SPECIALIST Unavailable Unavailable Chanelle Francis [facility] Primary Care Provider [phone] [facility] Primary Care Provider [phone] Reason for Visit * Reason Onset Date Comments PT1 09/10/2023 Encounter Details Date Type Department Care Team ([facility] st Contact Info) Description 09/10/2023 Telephone [facility] MEDICINE [address] [place], [place] [phone] Chanelle Francis FNP [address] [place] [address] PT1 Social History Tobacco Use Types Packs/Day [...] 09/15/2023 8:07 AM EST PT-1 Request Number [id number] is Pending * Telephone Encounter - Stef Blake - 09/10/2023 3:26 PM EST PT1 needed Date: 09/21/2022 Time: 1:30 PM Visits: All future Appt[employer] Address: [address] [place] [phone] Facility: [facility] Wheel Chair: No Winding Department Supervisor Needed: Yes documented in this encounter [...] documented as of this encounter Care Teams Speech Professor Relationship Specialty Start Date End Date Chanelle Francis FNP [address] [place] [address] PCP - General Family Medicine 05/28/23 05/12/24 Tia Albarado FNP [address] [place] [address] PCP - General Family Medicine 05/13/24 Jonathon Greenberg FNP Family Medicine 08/06/22 05/12/24 Josefina He University LecturerPatient Care Assistant 10/26/24 documented as of this encounter
== END 2025-06-29 10:06 | disposition home or self-care (01) ==
LOC: HO.LAB 10:05
PROVIDERS: PCP Registered Nurse; Visit Provider Urology
DX: N39.0 Urinary tract infection, site not specified (principal)
CPT/HCPCS: 81001; 87086; 87088; 87186

== ENCOUNTER 2025-08-08 10:27 | Outpatient (REF) | payer MEDICAID, SELFPAY ==
--- NOTE | 2025-08-08 10:30 | EMG_ITS ---
Chief complaint: numbness and tingling of bilateral upper extremities Referred by: ASIA Perry Procedure done: NCS and EMG of bilateral upper extremities Bilateral median and ulnar motor studies were performed, median and ulnar mixed sensory studies were performed and radial sensory studies were performed. EMG was performed. Findings: Motor distal latencies were normal. Ulnar conduction velocity was moderately slow across elbow with slight reduction of amplitude. Otherwise no significant abnormality noted. Impression: Mild bilateral ulnar neuropathy across cubital tunnel. [place] [id number] x2 MTDD
== END 2025-08-08 10:28 | disposition home or self-care (01) ==
LOC: HO.NEURO 10:27
PROVIDERS: PCP Registered Nurse; Visit Provider Registered Nurse
DX: R20.0 Anesthesia of skin (principal); R20.2 Paresthesia of skin
CPT/HCPCS: 95886; 95911

== ENCOUNTER → 2025-08-08 10:30 | Outpatient (BNV) | payer MEDICAID, SELFPAY | PROVIDERS: PCP Registered Nurse; Visit Provider Psychiatry & Neurology Neurology | DX: G56.03 Carpal tunnel syndrome, bilateral upper limbs (principal) | CPT/HCPCS: 95886; 95911 ==

== ENCOUNTER → 2025-08-21 19:30 | Outpatient (BNV) | payer MEDICAID, SELFPAY | PROVIDERS: PCP Registered Nurse; Visit Provider Internal Medicine | DX: G47.33 Obstructive sleep apnea (adult) (pediatric) (principal) | CPT/HCPCS: 95810 ==

== ENCOUNTER → 2025-08-21 19:30 | Outpatient (REF) | payer MEDICAID, SELFPAY ==
--- OUTSIDE RECORDS SUMMARY | 2011-02-25 11:45 | XMS_ITS | Continuity of Care Document ---
Author Organization [facility] Address [address] [place] [id number] Phone Care Team Providers Care Superintendent Police Name Role Phone Comfort GALLARDO MD, Sin Unavailable Unavai lable Procedures Procedure Date Nurse Visit Only As per patient privacy policy some of the clinical information may not be visible. Advance Directives Directive Yes / No Effective Date File Name No Information Encounters Encounter Description Practice Location Reason(s) For Visit Diagnoses Date Provider Providers Copied on Encounter [facility], [address] [place] [address], [id number], tel:[phone] [facility] No Information Comfort Vogt. [address] [place] [address], [id number], [place]. tel:[phone] [facility], [address] [place] [address], [address], tel:[phone] [facility] No Information Comfort Vogt. [address] [place] [address], [id number], [place]. tel:[phone] [facility], [address] [place] [address], [id number], [place] tel:[phone] [facility] No Information Comfort Vogt. [address] [place] [address], [id number], [place]. tel:[phone] [facility], [address] [place] [address], [address], [place] tel:[phone] [facility] No Information Comfort Vogt. [address] [place] [address], [id number], [place]. tel:[phone] [facility], [address] [place] [address], [address], tel:[phone] [facility] No Information Nitesh Storey. [address] [place] [address], [id number], [place]. [facility], [address] [place] [address], [id number], tel:[phone] [facility] No Information PCS Nurse. [address] [place] [address], [id number], [place]. tel:[phone] [facility], [address] [place] [address], [address], tel:[phone] [facility] No Information [facility]. [address] [place] [address], [id number], [place]. Family History Family Member Type Diagnosis Age At Onset No Information Immunizations Vaccine Date Status Comments [id number], PED/ADL administered Source: New Immuniza tion Record DTP administered Source: New Imm unization Record ORAL POLIO administered Source: New Imm unization Record DTP administered Source: New Imm unization Record ORAL POLIO administered Source: New Imm unization Record [id number], PED/ADL administered Source: New Immuniza tion Record DTP administered Source: New Imm unization Record ORAL POLIO administered Source: New Imm unization Record DTP administered Source: New Imm unization Record ORAL POLIO administered Source: New Imm unization Record DTP administered Source: New Imm unization Record ORAL POLIO administered Source: New Imm unization Record Payers Payer name Insurance type Covered alliance party ID Authoriza tion(s) [facility] Medicare [id number] [facility] Medicaid Medical [id number] Social History Type Description Quantity Date Captured Comments Sex Male Smoking Status No Information Chief Complaint And Reason For Visit No Information History Of Present Illness Encounter Date Complaint History Of Prese nt Illness No Information Instructions Date Instruction Additional Infor mation No Information Assessments Type Assessment Date No Information Patient Care Teams Name Effective Dates (start - stop) Status Members No Information
--- OUTSIDE RECORDS SUMMARY | 2024-12-20 09:15 | XMS_ITS ---
Author Organization [facility] Address [address] [place] [phone] Care Team Providers Care System Configuration Specialist Name Role Phone [facility], Dental Department Primary Care Provider [phone] Eli Pisano Unavailable Social History Sex Assigned At : Social History Observation Description Sex Assigned At Male Encounters Encounter Location Date Provider Diagnosis [facility] [address] [place] [phone] 12/20/2024 Eli Pisano Plan Of Treatment No Information Progress Notes * Tate ESCOBEDODOB:[birth year] (45 yo M)Acc No.[id number]:12/20/2024 Case Management Patient: Sherri CASTRO Tate BARKLEY Provider: Halle Pisano :1980 A ge:44 Y S ex:Male Date:12/20/2024 Address:[address] [place], [place] [phone] Pcp:Dental Department [facility] Subjective: * Chief Complaints: * * Medical History: Objective: Assessment: Plan: * Treatment: * Images: Billing Information: * Visit Code: * Procedure Codes: Care Plan Details* * Electronic signature of León Pisano on 08/22/2025 at 02:29 AM EST Sign off status: Pending * Provider: Halle Pisano Date: 0 12/20/2024 Generated for Miai akbar/Connor/eTransmitting on: 1 10/23/2024 02:29 AM EST
--- OUTSIDE RECORDS SUMMARY | 2025-01-12 09:15 | XMS_ITS ---
Author Organization [facility] Address [address] [place] [address] Care Team Providers Care Electric Meter Repairer Name Role Phone [facility], Dental Department Primary Care Provider [phone] Eli Pisano Unavailable Social History Sex Assigned At : Social History Observation Description Sex Assigned At Male Encounters Encounter Location Date Provider Diagnosis [facility] [address] [place] [phone] 01/12/2025 Eli Pisano Plan Of Treatment No Information Progress Notes * Tate ESCOBEDODOB:[birth year] (45 yo M)Acc No.[id number]:01/12/2025 Case Management Patient: Sherri CASTRO Tate BARKLEY Provider: Halle Pisano :1980 A ge:44 Y S ex:Male Date:01/12/2025 Address:[address] [place], [place] [phone] Pcp:Dental Department [facility] Subjective: * Chief Complaints: * * Medical History: Objective: Assessment: Plan: * Treatment: * Images: Billing Information: * Visit Code: * Procedure Codes: Care Plan Details* * Electronic signature of León Pisano on 08/22/2025 at 02:28 AM EST Sign off status: Pending * Provider: Halle Pisano Date: 0 01/12/2025 Generated for Miai akbar/Connor/eTransmitting on: 10/23/2024 02:28 AM EST
--- OUTSIDE RECORDS SUMMARY | 2025-02-06 08:15 | XMS_ITS ---
Author Organization [facility] Address [address] [place] [address] Care Team Providers Care Forging Engineer Name Role Phone [facility], Dental Department Primary Care Provider [phone] Eli Pisano Unavailable [phone] Social History Sex Assigned At : Social History Observation Description Sex Assigned At Male Encounters Encounter Location Date Provider Diagnosis [facility] [address] [place] [phone] 02/06/2025 Eli Pisano Plan Of Treatment No Information Progress Notes * Tate ESCOBEDODOB:[birth year] (45 yo M)Acc No.[id number]:02/06/2025 Case Management Patient: Sherri CASTRO Tate BARKLEY Provider: Halle Pisano :1980 A ge:44 Y S ex:Male Date:02/06/2025 Address:[address] [place], [place] [id number] Pcp:Dental Department [facility] Subjective: * Chief Complaints: * * Medical History: Objective: Assessment: Plan: * Treatment: * Images: Billing Information: * Visit Code: * Procedure Codes: Care Plan Details* * Electronic signature of León Pisano on 08/22/2025 at 02:29 AM EST Sign off status: Pending * Provider: Halle Pisano Date: 0 02/06/2025 Generated for Miai akbar/Connor/eTransmitting on: 1 10/23/2024 02:29 AM EST
--- OUTSIDE RECORDS SUMMARY | 2025-08-22 02:28 | XMS_ITS | Patient Health Record ---
Author Organization [facility] Address [address] [place] [address] Care Team Providers Care Migrant Leader Name Role Phone [facility], Dental Department Primary Care Provider [phone] Eli Pisano Unavailable Reason For Referral No Information Social History Sex Assigned At : Social History Observation Description Sex Assigned At Male Encounters Encounter Location Date Provider Diagnosis [facility] [address] [place], [place] [phone] 11/01/2024 Eli Pisano [facility] [address] [place] [phone] 11/15/2024 Eli P[facility] [address] [place] [phone] 12/09/2024 Eli P[facility] [address], [place] [phone] 02/09/2025 Eli P[facility] [address], [place] [phone] 10/21/2024 Eli P[facility] [address] [place] [phone] 10/14/2024 Eli Pisano Plan Of Treatment No Information Insurance Providers Payer Name Payer Address Payer Phone Subscriber Number Group Number Insured Name Patient Relationship to Insured Coverage Start Date Coverage End Date [place] Standard [address] [place] [address] [id number] Tate Escobedo Self - patient is the insured 5
--- OUTSIDE RECORDS SUMMARY | 2025-08-22 02:29 | XMS_ITS | Encounter Summary ---
Author Organization [employer] Address [address] [facility] 7 [place] [address] Care Team Providers Care China Painter Name Role Phone Jonathon Greenberg Primary Care Provider Jonathon Jarquin Unavailable Unavailable Shawn Murillo Primary Care Provider Unavail able Chanelle Francis Primary Care Provider [phone] [facility] MARINE CHRONOMETER ASSEMBLER Primary Care Provider [phone] Encounter Details Date Type Department Care Team (Late st Contact Info) Description 10/02/2022 Orders Only [facility] MED & PEDS [address] [place] [address] Aminata Brizuela LPN Social History Tobacco Use [...] on filedocumented in this encounter Care Teams China Painter Relationship Specialty Start Date End Date Jonathon Greenberg FNP PCP - General Family Medicine 08/06/22 11/09/22 Shawn Murillo AGNP PCP - General Family Medicine 11/10/22 05/27/23 Chanelle Francis FNP [address] [place] [address] PCP - General Family Medicine 05/28/23 05/12/24 JaralesTia FNP [address] [place] [address] PCP - General Family Medicine 05/13/24 Jonathon Greenberg FNP Family Medicine 08/06/22 05/12/24 Josefina He Welt Insole ChannelerFolded Cloth Taper 10/26/24 documented as of this encounter
--- OUTSIDE RECORDS SUMMARY | 2025-08-22 02:29 | XMS_ITS | Encounter Summary ---
Author Organization [employer] Address [address] [facility] 7 [place] [address] Care Team Providers Care Loan Representative Name Role Phone Jonathon Greenberg COMPUTER TECHNOLOGY TEACHER Unavailable Unavailable Chanelle Francis Primary Care Provider [phone] [employer] COMPUTER TECHNOLOGY TEACHER Primary Care Provider [phone] Encounter Details Date Type Department Care Team (Late st Contact Info) Description 11/16/2023 Orders Only [facility] MED & PEDS [address] [place], [place] [phone] Chanelle Francis FNP [address] [place] [address] Routine health maintenance (Primary Dx) Social History [...] 02/2024 3:41 PM Beena Bravo MA * How difficult have these problems made it for you to do your work, take care of things at home, or get along with other people? Answer Date of Assessment Author Somewhat difficult 11/18/2023 3:41 PM Beena Bravo [...] Author Blood Pressure < 140/90 Blood Pressure 140/90( 025 11:39 AM EDT) No Christine Castano, TaraD documented as of this encounter Procedures Procedure Name Priority Date/Time Associated Diagnosis Comments T-SPOT(R).TB Routine 06/16/2024 9:54 AM EDT Routine health maintenance documented in this encounter Results * T-SPOT??.TB (06/16/2024 9:54 AM EDT) [facility] T Spot TB Negative Negative [facility] Comment:A negative test resu lt [...] as aquantitative test. TS PANEL A 0 [facility] TS PANEL B 0 [facility] Negative Control Passed [facility] Positive Control Passed [facility] Comment:For additional infor olga lidia, please refer tohttp://education.Ecochlor/faq/VOL048(This link is being provided for informational/educational purposes only.)THIS TEST WAS PERFORMED AT:[facility]/tabulate [id number] [place] [address]HNQVWTNKATHIA SANTIZO MD,PHD 06/16/2024 9:54 AM EDT 06/16/2024 11:17 AM EDT Chanelle [facility]ANCOU[facility] LAB BLOOD ORDERABLES Final Resu lt [facility] [address] [place] [address] [phone] documented in this encounter Visit Diagnoses Diagnosis Routine health maintenance- Primary Unspecified examination documented in this encounter Additional Health Concerns Assessment Noted Time PHQ-9 Depression Total Score: 15 04/10/ 023 3:36 PM EDT documented as of this encounter Care Teams Loan Representative Relationship Specialty Start Date End Date Chanelle Francis FNP [address] [place] [address] PCP - General Family Medicine 05/28/23 05/12/24 Tia Albarado FNP [address] [place] [address] PCP - General Family Medicine 05/13/24 Jonathon Greenberg FNP Family Medicine 08/06/22 05/12/24 Josefina He Folder Gluer OperatorGripper Machine Operator 10/26/24 documented as of this encounter
--- OUTSIDE RECORDS SUMMARY | 2025-08-22 02:29 | XMS_ITS | Clinical Summary ---
Author Organization [employer] [facility] ity Address [address] [place] [address] Care Team Providers Care Industrial Designer Name Role Phone Unavailable Primary Care Provider [...] Screening 07/10/2024 Depression Screening 09/14/2024 COVID-19 Vaccine (1 - 2024-2 6 season) 2025 Influenza Vaccine (#1) 2025 RSV [...]
--- OUTSIDE RECORDS SUMMARY | 2025-08-22 02:29 | XMS_ITS | Encounter Summary ---
Author Organization [employer] Address [address] [facility] [address] [address] Care Team Providers Care Return To Factory Clerk Name Role Phone [place] [facility] Primary Care Provider [phone] Reason for Visit * Reason Onset Date Comments Durable Medical Equipment 06/03/2024 Encounter Details Date Type Department Care Team ([facility] st Contact Info) Description 06/03/2024 Telephone [facility] MEDICINE [address] [place], [place] [phone] [place] [facility] [address] [place] [address] Durable Medical Equipment Social History Tobacco Use [...] - 06/03/2024 1:49 PM EDT [facility] requesting a toilet seat commode for pt along with shower chair. If any questions you can contact Marissa at [phone]. documented in this encounter Plan of Treatment Not on file documented as of this encounter Goals Goal Patient Goal Type Associated Problems Recent Progress Patient-Stated? Author Blood Pressure < 140/90 Blood Pressure 140/90(2024 11:39 AM EDT) No Piers-Gambl e, Christine, PharmD Take your medication every day Lifestyle No Piers-Gambl e, Christine, PharmD documented as of this encounter Visit Diagnoses Not on filedocumented in this encounter Additional Health Concerns Assessment Noted Time PHQ-9 Depression Total Score: 24 024 3:41 PM EST documented as of this encounter Care Teams Return To Factory Clerk Relationship Specialty Start Date End Date Tia Albarado FNP [address] [place] [address] PCP - General Family Medicine 05/13/24 Josefina He Public Health AdvisorEngine Hostler 10/26/24 documented as of this encounter
--- OUTSIDE RECORDS SUMMARY | 2025-08-22 02:29 | XMS_ITS | Encounter Summary ---
Author Organization [employer] Address [address] [facility] [address] [address] Care Team Providers Care Senior Compensation Consultant Name Role Phone Jonathon Greenberg SUPERVISOR DRY CELL ASSEMBLY Unavailable Unavailable Chanelle Francis [facility] Primary Care Provider [phone] Primary Care Provider Reason for Visit * Reason Onset Date Comments PT-1 05/05/2024 Encounter Details Date Type Department Care Team (Late st Contact Info) Description 05/05/2024 Telephone [facility] MEDICINE [address] [place], [place] [phone] Chanelle Francis FNP [address] [place] [address] PT-1 Social History Tobacco Use Types Packs/Day [...] Y/N: Yes Provider name or facility name: [facility] Facility Address: [address] [place] [address] Escort needed: Y/N: No Do you have a wheelchair: Y/N: No If yes- Manual or electric: No (Uses either mitchell or walker) Visits: Once a month Patient calling requesting PT1 Home Address verified: Y/N: Yes Provider name or facility name: [facility] Facility Address: [address] [place] [address] Escort needed: Y/N: No Do you have [...] documented as of this encounter Care Teams Senior Compensation Consultant Relationship Specialty Start Date End Date Chanelle Francis FNP [address] [place] [address] PCP - General Family Medicine 05/28/23 05/12/24 OoliticTia bernstein FNP [address] [place] [address] PCP - General Family Medicine 05/13/24 Jonathon Greenberg FNP Family Medicine 08/06/22 05/12/24 Josefina He Retail Selling Floor LeaderRoll Edge Machine Operator 10/26/24 documented as of this encounter
--- OUTSIDE RECORDS SUMMARY | 2025-08-22 02:29 | XMS_ITS | Patient Health Record ---
Author Organization [employer] [facility] Address [facility] [place] [address] Care Team Providers Care Slot Key Person Name Role Phone ELANA ATKINSON MD Primary [...] najera Yes Cuando Rosenberg viajado fuera de CT o rosenberg estado en contacto con alguien que haya estado fuera de CT en los pasados 14 najera No Se [...] Date TRIPLE S FFS PSG [address] [place], MAL[place] [address] [phone] F Tate Escobedo Self - patient is the insured 1 1 Medical (General) History Medical History History ICD Code .Hipertension
--- OUTSIDE RECORDS SUMMARY | 2025-08-22 02:29 | XMS_ITS | Encounter Summary ---
Author Organization [employer] Address [address] [facility] [address], [place] [address] Care Team Providers Care External Grinder Name Role Phone Jonathon Greenberg PLASTIC BATTERY ASSEMBLER Unavailable Unavailable Chanelle Francis [facility] Primary Care Provider [phone] [facility] Primary Care Provider [phone] Reason for Visit * Reason Onset Date Comments Referral 04/22/2024 Encounter Details Date Type Department Care Team (Late st Contact Info) Description 04/22/2024 Telephone [facility] MEDICINE [address] [place], [place] [phone] Chanelle Francis FNP [address] [place], [place] [phone] Referral Social History Tobacco Use Types Packs/Day [...] - 05/03/2024 11:40 AM EDT T/C to [facility] [phone] to inform that Neurology referral is already placed by ED C at [place] EMIYL CABRERA, [facility] [place]. No answer. LVM to call back on [phone]. * Telephone Encounter - Paula Jacob - 05/03/2024 11:01 AM EDT Tc from pt with Vonnie at [facility] requesting status on neurology referral. * Telephone Encounter - Candace Ch - 04/22/2024 10:53 AM EDT Tc from pt with Vonnie at [facility] requesting a neurology referral, they stated this has been discussed with PCP documented in this encounter Plan of Treatment Not on file documented as of this encounter Goals Goal Patient Goal Type Associated Problems Recent Progress Patient-Stated? Author Blood Pressure < 140/90 Blood Pressure 140/90(2024 11:39 AM EDT) No Christine Castano PharmD Take your medication every day Lifestyle No Lucass-Gambl Christine wayne PharmD documented as of this encounter Visit Diagnoses Not on filedocumented in this encounter Additional Health Concerns Assessment Noted Time PHQ-9 Depression Total Score: 24 024 3:41 PM EST documented as of this encounter Care Teams External Grinder Relationship Specialty Start Date End Date Chanelle Francis FNP [address] [place] [address] PCP - General Family Medicine 05/28/23 05/12/24 Tia Albarado FNP [address] [place] [address] PCP - General Family Medicine 05/13/24 Jonathon Greenberg FNP Family Medicine 08/06/22 05/12/24 Josefina He OtorhinolaryngologistSmoked Meat Preparer 10/26/24 documented as of this encounter
--- OUTSIDE RECORDS SUMMARY | 2025-08-22 02:30 | XMS_ITS | Encounter Summary ---
Author Organization [employer] Address [address] [facility] [address] [place] [address] Care Team Providers Care Supervisor Central Supply Name Role Phone Jonathon Greenberg [facility] Unavailable Unavailable Chanelle Francis [facility] Primary Care Provider [phone] [facility] Primary Care Provider [phone] Reason for Visit * Reason Comments Med Refill Encounter Details Date Type Department Care Team (Late st Contact Info) Description 09/30/2023 Refill [facility] MEDICINE [address] [place] [address] [facility] [address] [place] [address] Chronic radicular low back pain Social History [...] 025 11:39 AM EDT) No Christine Castano, PharmD documented as of this encounter Visit Diagnoses Diagnosis Chronic radicular low back pain documented in this encounter Additional Health Concerns Assessment Noted Time PHQ-9 Depression Total Score: 15 023 3:36 PM EDT documented as of this encounter Care Teams Supervisor Central Supply Relationship Specialty Start Date End Date Chanelle Francis FNP [address] [place] [address] PCP - General Family Medicine 05/28/23 05/12/24 [facility] [address] [place] [address] PCP - General Family Medicine 05/13/24 Jonathon Greenberg FNP Family Medicine 08/06/22 05/12/24 Josefina He Derrick HelperAssistant Art Director 10/26/24 documented as of this encounter
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
--- OUTSIDE RECORDS SUMMARY | 2025-08-22 02:30 | XMS_ITS | Encounter Summary ---
Author Organization [employer] Address [address] [facility] [address], [place] [address] Care Team Providers Care Utilization Management Manager Name Role Phone Jonathon Greenberg [facility] Unavailable Unavailable Chanelle Francis [facility] Primary Care Provider [phone] [facility] Primary Care Provider [phone] Reason for Visit * Reason Onset Date Comments Lab Orders 08/28/2023 Encounter Details Date Type Department Care Team (Late st Contact Info) Description 08/28/2023 Telephone [facility] [address] [place], [place] [phone] Chanelle Francis FNP [address] [place] [address] Lab Orders Social History Tobacco Use Types [...] - 08/28/2023 3:26 PM EST T/C to [phone] to inform that TB test was ordered and pt. Can go to lab as his convenience, Noanswer. LVM to call back on [phone]. * Telephone Encounter - Thompson Lopez - 08/28/2023 2:43 PM EST Tc from Jaylene at [employer] [facility] requesting a TB test in order for the patient to be able to join the program any questions please call Jaylene at [phone] documented in this encounter Plan of Treatment [...] documented as of this encounter Care Teams Utilization Management Manager Relationship Specialty Start Date End Date Chanelle Francis FNP [address] [place] [address] PCP - General Family Medicine 05/28/23 05/12/24 Tia Albarado FNP [address] [place] [address] PCP - General Family Medicine 05/13/24 Jonathon Greenberg FNP Family Medicine 08/06/22 05/12/24 Josefina He Graphic Design SpecialistAmmunition Assembly Laborer 10/26/24 documented as of this encounter
--- OUTSIDE RECORDS SUMMARY | 2025-08-22 02:30 | XMS_ITS | Clinical Summary ---
Author Organization [facility] Address [address] [place] [address] Care Team Providers Care Patient Scheduling Coordinator Name Role Phone Pcp, No Unavailable Unavailable [...] Influenza Vaccine 04/14/2025 COVID-19 Vaccine (1 - 2024-2 6 season) 2025 Pneumococcal Vaccine: Pediat erika (0-5 Years) and At-Risk Patients (6 to 49 Years) Aged Out No longer eligible b ased on patient's age to complete this topic Insurance [employer] Care Teams Patient Scheduling Coordinator Relationship Specialty Start Date End Date Pcp, No [address] [place] [address] PCP - General 07/08/23 Pcp, No [address] [place] [address] Physician 07/08/23 HOLLAND MANCILLA APRN, SKIP HOIST OPERATOR-BC, SKIP HOIST OPERATOR-C Nurse Practitioner 06/14/23
--- OUTSIDE RECORDS SUMMARY | 2025-08-22 02:30 | XMS_ITS | Encounter Summary ---
Author Organization [email or web address] Address [address] [facility] 7 [place] [address] Care Team Providers Care Show Worker Name Role Phone Dionicio Jonathon [facility] Unavailable Unavailable Shawn Murillo Primary Care Provider Unavail able Chanelle Francis [facility] Primary Care Provider [phone] Selma Tia [facility] Primary Care Provider [phone] Reason for Visit * Reason Onset Date Comments FYI 04/09/2023 Encounter Details Date Type Department Care Team (Late st Contact Info) Description 04/09/2023 Telephone [facility] [address] [place] [address] Shawn Murillo AGNP FYI Social History Tobacco [...] 03/15 3:36 PM Zac Snyder [place] * How difficult have these problems made it for you to do your work, take care of things at home, or get along with other people? Answer Date of Assessment Author Somewhat difficult 04/10/2023 3:36 PM Zac Snyder [place] * Over the past 2 weeks, [...] - 04/09/2023 11:33 AM EDT [place] [facility] [place] calling to advise PCP his BP was 135/100 but pt states he has been consistent with BP medication. Will continue treatment until his BP and pain gets better. documented in this encounter Plan of Treatment Not on file documented as of this encounter Visit Diagnoses Not on filedocumented in this encounter Additional Health Concerns Assessment Noted Time PHQ-9 Depression Total Score: 04/06/ 023 12:04 PM EDT documented as of this encounter Care Teams Show Worker Relationship Specialty Start Date End Date Shawn Murillo AGNP PCP - General Family Medicine 11/10/22 05/27/23 Chanelle Francis FNP [address] [place] [address] PCP - General Family Medicine 05/28/23 05/12/24 SelmaTia FNP [address] [place] [address] PCP - General Family Medicine 05/13/24 Jonathon Greenberg FNP Family Medicine 08/06/22 05/12/24 Josefina He Naval Aircrewman Tactical HelicopterTest Puller 10/26/24 documented as of this encounter
--- OUTSIDE RECORDS SUMMARY | 2025-08-22 02:30 | XMS_ITS | Encounter Summary ---
Author Organization [employer] Address [address] [facility] [address] [address] Care Team Providers Care Railroad Car Cleaner Name Role Phone Jonathon Greenberg VP TREASURER Unavailable Unavailable Chanelle Francis [facility] Primary Care Provider [phone] [facility] Primary Care Provider [phone] Reason for Visit * Reason Onset Date Comments PT1 09/10/2023 Encounter Details Date Type Department Care Team (Late st Contact Info) Description 09/10/2023 Telephone [facility] [address] [place], [place] [phone] Chanelle Francis FNP [address] [place] [address] PT1 Social History Tobacco Use Types Packs/Day [...] 09/15/2023 8:07 AM EST PT-1 Request Number [id number] is Pending * Telephone Encounter - Stef Blake - 09/10/2023 3:26 PM EST PT1 needed Date: 09/21/2022 Time: 1:30 PM Visits: All future Appt[employer] Address: [address] [place] [id number] Facility: [facility] Wheel Chair: No Hospital Technician Needed: Yes documented in this encounter Plan [...] documented as of this encounter Care Teams Railroad Car Cleaner Relationship Specialty Start Date End Date Chanelle Francis FNP [address] [place] [address] PCP - General Family Medicine 05/28/23 05/12/24 Tia Albarado FNP [address] [place] [address] PCP - General Family Medicine 05/13/24 Jonathon Greenberg FNP Family Medicine 08/06/22 05/12/24 Josefina He Rubber Mill TenderChecker 10/26/24 documented as of this encounter
== END ==
LOC: HO.SL 19:30
PROVIDERS: PCP Registered Nurse; Visit Provider Registered Nurse
DX: G47.33 Obstructive sleep apnea (adult) (pediatric) (principal); G47.19 Other hypersomnia
CPT/HCPCS: 95810